=== PATIENT | female | born 1970 | race Caucasian/White ===

== ENCOUNTER 2016-04-19 20:09 | Emergency (ER) | payer MEDICAID, OTHER ==
[~2016-04-19 20:09] MED LIST: /ADVA50050; /ADVA50050 IN; /CARB20TAB; /CARB20TAB OR; /ESOM40CA; /ESOM40CA OR; ADV500INH INH; ALBUTEROL INHL INH; ASPI325T; ATEN100T OR; ATEN100T PO; CALC12502; CARB20TA PO; CARB300C OR; CENTRUM; CENTRUM ULTRA WOMENS PO; CIPR500T4 OR; DICY20TA2; DYAZ37.5; GLIP10TA58 PO; GLIP10TA6 PO; GLUC500T OR; LOPI600T; LOTEPREDNOL; LOTEPREDNOL OU; METF-414 PO; METF500T PO; MIRA3350 PO; MIRALEX PO; NEXI40CA PO; OSCAL PO; PATANOL OU; SERO200T; SERO200T OR; SERO200T PO; SING10TA31; SING10TA31 OR; SING10TA32 PO; TENO100T; TOPA100T8 PO; TOPI100T; TOPI100T OR; TRAM50TA2 OR; TYLE325T5 PO; VITA500046 PO; VITA500C24 PO; VITA500T; VITA500T OR; ZYVO100T PO; [UNRECOGNIZED DRUG - OTHER]; albuterol inhl; polyethylene glycol
[2016-04-19] MEDS ORDERED: OXYCODONE/APAP 5MG/325MG(BULK) 1 TAB TAB As Ordered ONE (21:21)
--- NOTE | 2016-04-19 21:34 | EDDOCDS ---
Nurse's Notes [facility] Name: Thuy Brody Age: 46 yrs Sex: Female : 1970 Arrival Date: 04/19/2016 Time: 20:09 Bed TR8 Private MD: Biju Cifuentes Diagnosis: Other diseases of lip and oral mucosa-abscess vs cold sore Presentation: 04/19 20:17 Presenting complaint: Patient states: lip swelling x 5 days. Pt reports seen at [facility] yesterday and started on Bactrim. Pt reports swelling has increased since yesterday. Adult Sepsis Screening: The patient does not have new or worsening altered mentation. Patient's respiratory rate is less than 22. Systolic blood pressure is greater than 100. Patient has a qSOFA score of 0- Negative Sepsis Screen. Suicide/Homicide risk assessment- the patient denies having any suicidal and/or homicidal ideations and does not present with any other emotional, behavioral or mental health complaints. 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 Transition of care: patient was not received from another setting of care. 20:17 Acuity: ANNAMARIA Level 4 [facility] 20:17 Method Of Arrival: Walkin/Carried/Asstd 3 Triage Assessment: 20:20 General: Appears in no apparent distress, comfortable, Behavior is appropriate for age, kc3 cooperative. Pain: Location: lower lip Pain currently is 8 out of 10 on a pain scale. HIV screening NA for this visit Offered previously. Respiratory: Airway is patent Respiratory effort is even, unlabored. Derm: Skin is pink, warm & dry. Swollen area noted on lower lip. 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 Atenolol 10 mg Oral 1 tab once daily 2. glipizide 10 mg Oral tab 1 tab once daily 3. metformin 500 mg Oral tr24 2 tabs twice a day 4. Nexium 20 mg Oral cpDR 1 cap once daily 5. Seroquel 200 mg Oral tab 1 tab once daily 6. Singulair 10 mg Oral tab 1 tab once daily 7. Tegretol 200 mg Oral tab 1.5 tab a.m. 8. Tegretol 200 mg Oral tab 2 tabs nightly 9. Topamax 100 mg Oral tab daily - PMHx: Bipolar disorder; Depression; Diabetes - NIDDM: controlled; GERD; Hypertension; Seasonal Allergies; Migraine Headaches; - PSHx: Knee surgery- Left; femur surgery; left shoulder ortho surgery; - Social history: Smoking status: Patient states was never smoker of tobacco. No barriers to communication noted, The patient speaks fluent Ukrainian, Speaks appropriately for age. - Family history: Not pertinent. - : The pt / caregiver states he / she is not on anticoagulants. Home medication list is obtained from the patient. - Exposure Risk Screening:: None identified. Screenin:10 Infection Control. gr2 21:27 Screening information is obtained from the patient. Fall risk: No risks identified. cz Assistance ADL's: requires no assistance with activities of daily living. Abuse/DV Screen: The patient / caregiver reports he/she is: not in a situation that causes fear, pain or injury. Nutritional screening: No deficits noted. home support is adequate. Assessment: 21:27 General: alert female with swelling of lower lip left side. cz Vital Signs: 20:11 BP 167 / 77; Pulse 87; Resp 18 S; Temp 97.9(O); Pulse Ox 97% on R/A; Weight 115.67 kg gr2 (R); Height 5 ft. 6 in. (167.64 cm) (R); Pain 7/10; 20:11 Body Mass Index 41.16 (115.67 kg, 167.64 cm) gr2 Vitals: 20:11 Log In Time: April 19, 2016 at 20:11. gr2 ED Course: 20:10 Patient visited by Shania Wren. gr2 20:10 Biju Cifuentes is Private Physician. gr2 20:10 Patient moved to Waiting gr2 20:12 Patient visited by Shania Wren. gr2 20:12 Patient moved to Pre RCE gr2 20:19 Triage Initiated kc3 20:26 Patient name changed from Thuy\S\Kia\S\Ratcliff\S\ to Thuy\S\A\S\Best. EDMS 20:31 [facility] Payment Agreement was scanned into [employer] and attached to record. zo 20:46 Patient moved to Triage 2 cz 21:07 Manuel Acosta FNP is [facility]. ke 21:07 Patient visited by Manuel Acosta FNP. ke 21:07 Patient visited by Manuel Acosta FNP. ke 21:19 Biju Cifuentes is Referral Physician. ke 21:26 Patient moved to TR8 cz 21:27 The patient / caregiver is instructed regarding the plan of care and ED course. cz 21:27 No IV's were initiated during this patient's visit. No procedures done that require cz assistance. Administered Medications: 21:33 Drug: oxyCODONE-acetaminophen 4 pack 1 packets [oxycodone-acetaminophen 5 mg-325 mg cz tablet (1 tabs)] {Co-Signature: kerrie (Iva Mallory RN).} Route: PO; Order Results: There are currently no results for this order. Outcome: 21:20 Discharge ordered by Provider. ke 21:26 Discharge Assessment: Patient awake, alert and oriented x 3. No cognitive and/or cz functional deficits noted. Patient verbalized understanding of disposition instructions. patient administered narcotics - no. The following High Risk Discharge criteria are identified: None. Discharged to home ambulatory. Condition: stable. Discharge instructions given to patient, Instructed on discharge instructions, follow up and referral plans. medication usage, Demonstrated understanding of instructions, medications, Pt was receptive of discharge instructions/ teaching. No special radiology studies were completed. Property :Personal belongings accompany Pt. 21:33 Patient left the ED. cz Signatures: Dispatcher [employer] EDMS Gaston Dey RN RN cz Elsner, Karl, FNP FNP ke Olin, Zoeann zo Raymond, Gainslee gr2 Daisy Hall RN RN kc3 Iva Mallory RN, mcp MTDD
--- NOTE | 2016-04-19 21:34 | EDDOCDS ---
Physician Documentation [facility] Name: Thuy Brody Age: 46 yrs Sex: Female : 1970 Arrival Date: 04/19/2016 Time: 20:09 Bed TR8 Private MD: Biju Cifuentes Disposition: 04/19/16 21:20 Discharged to Home/Self Care. Impression: Other diseases of lip and oral mucosa - abscess vs cold sore. - Condition is Stable. - Discharge Instructions: Abscess. - Medication Reconciliation, Local Pharmacy Hours form. - Follow up: Biju Cifuentes; When: 2 - 3 days; Reason: Recheck today's complaints, Continuance of care. - Problem is an ongoing problem. - Symptoms have worsened. - Notes: cool compresses do not squeeze lip Historical: - Allergies: Ceftin; - Home Meds: 1. Atenolol 10 mg Oral 1 tab once daily 2. glipizide 10 mg Oral tab 1 tab once daily 3. metformin 500 mg Oral tr24 2 tabs twice a day 4. Nexium 20 mg Oral cpDR 1 cap once daily 5. Seroquel 200 mg Oral tab 1 tab once daily 6. Singulair 10 mg Oral tab 1 tab once daily 7. Tegretol 200 mg Oral tab 1.5 tab a.m. 8. Tegretol 200 mg Oral tab 2 tabs nightly 9. Topamax 100 mg Oral tab daily - PMHx: Bipolar disorder; Depression; Diabetes - NIDDM: controlled; GERD; Hypertension; Seasonal Allergies; Migraine Headaches; - PSHx: Knee surgery- Left; femur surgery; left shoulder ortho surgery; - Social history: Smoking status: Patient states was never smoker of tobacco. No barriers to communication noted, The patient speaks fluent Swiss, Speaks appropriately for age. - Family history: Not pertinent. - : The pt / caregiver states he / she is not on anticoagulants. Home medication list is obtained from the patient. - Exposure Risk Screening:: None identified. 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 6 in. (167.64 cm) (R); Pain 7/10; 20:11 Body Mass Index 41.16 (115.67 kg, 167.64 cm) gr2 MDM: 20:31 [facility] Payment Agreement was scanned into [employer] and attached to record. zo 21:19 oxyCODONE-acetaminophen 4 pack 5 mg-325 mg 1 packets PO once; Dispense with pt, take as ke per instruction on package ordered. 21:20 Financial registration complete. gjb Administered Medications: 21:33 Drug: oxyCODONE-acetaminophen 4 pack 1 packets [oxycodone-acetaminophen 5 mg-325 mg cz tablet (1 tabs)] {Co-Signature: mcp (Iva Mallory RN).} Route: PO; Signatures: Gaston Dey, ELLIOT RN Manuel Salazar FNP FNP ke Olin, Zoeann zo Crane, Kelsi, RN RN kc3 Marguerite Moore RN, mcp The chart was reviewed and I authenticate all verbal orders and agree with the evaluation and treatment provided.Attachments: 20:31 [facility] Payment Agreement zo MTDD
--- NOTE | 2016-04-21 22:34 | EDDOCDS ---
Nurse's Notes [facility] Name: Thuy Brody Age: 46 yrs Sex: Female : 1970 Arrival Date: 04/19/2016 Time: 20:09 Bed TR8 Private MD: Biju Cifuentse Diagnosis: Other diseases of lip and oral mucosa-abscess vs cold sore Presentation: 04/19 20:17 Presenting complaint: Patient states: lip swelling x 5 days. Pt reports seen at [facility] yesterday and started on Bactrim. Pt reports swelling has increased since yesterday. Adult Sepsis Screening: The patient does not have new or worsening altered mentation. Patient's respiratory rate is less than 22. Systolic blood pressure is greater than 100. Patient has a qSOFA score of 0- Negative Sepsis Screen. Suicide/Homicide risk assessment- the patient denies having any suicidal and/or homicidal ideations and does not present with any other emotional, behavioral or mental health complaints. 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 Transition of care: patient was not received from another setting of care. 20:17 Acuity: ANNAMARIA Level 4 [facility] 20:17 Method Of Arrival: Walkin/Carried/Asstd 3 Triage Assessment: 20:20 General: Appears in no apparent distress, comfortable, Behavior is appropriate for age, kc3 cooperative. Pain: Location: lower lip Pain currently is 8 out of 10 on a pain scale. HIV screening NA for this visit Offered previously. Respiratory: Airway is patent Respiratory effort is even, unlabored. Derm: Skin is pink, warm & dry. Swollen area noted on lower lip. 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 Atenolol 10 mg Oral 1 tab once daily 2. glipizide 10 mg Oral tab 1 tab once daily 3. metformin 500 mg Oral tr24 2 tabs twice a day 4. Nexium 20 mg Oral cpDR 1 cap once daily 5. Seroquel 200 mg Oral tab 1 tab once daily 6. Singulair 10 mg Oral tab 1 tab once daily 7. Tegretol 200 mg Oral tab 1.5 tab a.m. 8. Tegretol 200 mg Oral tab 2 tabs nightly 9. Topamax 100 mg Oral tab daily - PMHx: Bipolar disorder; Depression; Diabetes - NIDDM: controlled; GERD; Hypertension; Seasonal Allergies; Migraine Headaches; - PSHx: Knee surgery- Left; femur surgery; left shoulder ortho surgery; - Social history: Smoking status: Patient states was never smoker of tobacco. No barriers to communication noted, The patient speaks fluent [place], Speaks appropriately for age. - Family history: Not pertinent. - : The pt / caregiver states he / she is not on anticoagulants. Home medication list is obtained from the patient. - Exposure Risk Screening:: None identified. Screenin:10 Infection Control. gr2 21:27 Screening information is obtained from the patient. Fall risk: No risks identified. cz Assistance ADL's: requires no assistance with activities of daily living. Abuse/DV Screen: The patient / caregiver reports he/she is: not in a situation that causes fear, pain or injury. Nutritional screening: No deficits noted. home support is adequate. Assessment: 21:27 General: alert female with swelling of lower lip left side. cz Vital Signs: 20:11 BP 167 / 77; Pulse 87; Resp 18 S; Temp 97.9(O); Pulse Ox 97% on R/A; Weight 115.67 kg gr2 (R); Height 5 ft. 6 in. (167.64 cm) (R); Pain 7/10; 20:11 Body Mass Index 41.16 (115.67 kg, 167.64 cm) gr2 Vitals: 20:11 Log In Time: April 19, 2016 at 20:11. gr2 ED Course: 20:10 Patient visited by Shania Wren. gr2 20:10 Biju Cifuentes is Private Physician. gr2 20:10 Patient moved to Waiting gr2 20:12 Patient visited by Shania Wren. gr2 20:12 Patient moved to Pre RCE gr2 20:19 Triage Initiated kc3 20:26 Patient name changed from Thuy\S\Kia\S\[place]\S\ to Thuy\S\A\S\Best. EDMS 20:31 [facility] Payment Agreement was scanned into [employer] and attached to record. zo 20:46 Patient moved to Triage 2 cz 21:07 Manuel Acosta FNP is [facility]. ke 21:07 Patient visited by Manuel Acosta FNP. ke 21:07 Patient visited by Manuel Acosta FNP. ke 21:19 Biju Cifuentes is Referral Physician. ke 21:26 Patient moved to TR8 cz 21:27 The patient / caregiver is instructed regarding the plan of care and ED course. cz 21:27 No IV's were initiated during this patient's visit. No procedures done that require cz assistance. 04/20 09:15 T-Sheet-- Draft Copy was scanned into [employer] and attached to record. gb Administered Medications: 04/19 21:33 Drug: oxyCODONE-acetaminophen 4 pack 1 packets [oxycodone-acetaminophen 5 mg-325 mg cz tablet (1 tabs)] {Co-Signature: mcp (Iva Mallory RN).} Route: PO; Order Results: There are currently no results for this order. Outcome: 21:20 Discharge ordered by Provider. ke 21:26 Discharge Assessment: Patient awake, alert and oriented x 3. No cognitive and/or cz functional deficits noted. Patient verbalized understanding of disposition instructions. patient administered narcotics - no. The following High Risk Discharge criteria are identified: None. Discharged to home ambulatory. Condition: stable. Discharge instructions given to patient, Instructed on discharge instructions, follow up and referral plans. medication usage, Demonstrated understanding of instructions, medications, Pt was receptive of discharge instructions/ teaching. No special radiology studies were completed. Property :Personal belongings accompany Pt. 21:33 Patient left the ED. cz Signatures: Dispatcher [employer] EDMS Gaston Dey, ELLIOT RN cz Aurelia Henriquez, Reg Reg Manuel Acosta FNP FNP ke Olin, Zoeann zo Raymond, Gainslee gr2 Daisy Hall,ELLIOT RN kc3 Iva Mallory RN, mcp Chart Complete MTDD
--- NOTE | 2016-04-21 22:34 | EDDOCDS ---
Physician Documentation [facility] Name: Thuy Brody Age: 46 yrs Sex: Female : 1970 Arrival Date: 04/19/2016 Time: 20:09 Bed TR8 Private MD: Biju Cifuenets Disposition: 04/19/16 21:20 Discharged to Home/Self Care. Impression: Other diseases of lip and oral mucosa - abscess vs cold sore. - Condition is Stable. - Discharge Instructions: Abscess. - Medication Reconciliation, Local Pharmacy Hours form. - Follow up: Biju Cifuentes; When: 2 - 3 days; Reason: Recheck today's complaints, Continuance of care. - Problem is an ongoing problem. - Symptoms have worsened. - Notes: cool compresses do not squeeze lip Historical: - Allergies: Ceftin; - Home Meds: 1. Atenolol 10 mg Oral 1 tab once daily 2. glipizide 10 mg Oral tab 1 tab once daily 3. metformin 500 mg Oral tr24 2 tabs twice a day 4. Nexium 20 mg Oral cpDR 1 cap once daily 5. Seroquel 200 mg Oral tab 1 tab once daily 6. Singulair 10 mg Oral tab 1 tab once daily 7. Tegretol 200 mg Oral tab 1.5 tab a.m. 8. Tegretol 200 mg Oral tab 2 tabs nightly 9. Topamax 100 mg Oral tab daily - PMHx: Bipolar disorder; Depression; Diabetes - NIDDM: controlled; GERD; Hypertension; Seasonal Allergies; Migraine Headaches; - PSHx: Knee surgery- Left; femur surgery; left shoulder ortho surgery; - Social history: Smoking status: Patient states was never smoker of tobacco. No barriers to communication noted, The patient speaks fluent Central African, Speaks appropriately for age. - Family history: Not pertinent. - : The pt / caregiver states he / she is not on anticoagulants. Home medication list is obtained from the patient. - Exposure Risk Screening:: None identified. 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 6 in. (167.64 cm) (R); Pain 7/10; 20:11 Body Mass Index 41.16 (115.67 kg, 167.64 cm) gr2 MDM: 20:31 [facility] Payment Agreement was scanned into [email or web address] and attached to record. zo 21:19 oxyCODONE-acetaminophen 4 pack 5 mg-325 mg 1 packets PO once; Dispense with pt, take as ke per instruction on package ordered. 21:20 Financial registration complete. gjb 04/20 09:15 T-Sheet-- Draft Copy was scanned into [email or web address] and attached to record. gb Administered Medications: 04/19 21:33 Drug: oxyCODONE-acetaminophen 4 pack 1 packets [oxycodone-acetaminophen 5 mg-325 mg cz tablet (1 tabs)] {Co-Signature: kerrie (Iva Mallory RN).} Route: PO; Signatures: Gaston Dey, ELLIOT RN cz Florence, Aurelia, Reg Reg Manuel Olguin, ARCADE GAMES MECHANIC Fatuma Levin Kelsi, RN RN kc3 Marguerite Moore RN, mcp The chart was reviewed and I authenticate all verbal orders and agree with the evaluation and treatment provided.Attachments: 20:31 [facility] Payment Agreement zo 04/20 09:15 T-Sheet-- Draft Copy gb Chart Complete MTDD
--- NOTE | 2016-04-21 22:34 | EDDOCDS ---
Physician Documentation [facility] Name: Thuy Brody Age: 46 yrs Sex: Female : 1970 Arrival Date: 04/19/2016 Time: 20:09 Bed TR8 Private MD: Biju Cifuentes Disposition: 04/19/16 21:20 Discharged to Home/Self Care. Impression: Other diseases of lip and oral mucosa - abscess vs cold sore. - Condition is Stable. - Discharge Instructions: Abscess. - Medication Reconciliation, Local Pharmacy Hours form. - Follow up: Biju Cifuentes; When: 2 - 3 days; Reason: Recheck today's complaints, Continuance of care. - Problem is an ongoing problem. - Symptoms have worsened. - Notes: cool compresses do not squeeze lip Historical: - Allergies: Ceftin; - Home Meds: 1. Atenolol 10 mg Oral 1 tab once daily 2. glipizide 10 mg Oral tab 1 tab once daily 3. metformin 500 mg Oral tr24 2 tabs twice a day 4. Nexium 20 mg Oral cpDR 1 cap once daily 5. Seroquel 200 mg Oral tab 1 tab once daily 6. Singulair 10 mg Oral tab 1 tab once daily 7. Tegretol 200 mg Oral tab 1.5 tab a.m. 8. Tegretol 200 mg Oral tab 2 tabs nightly 9. Topamax 100 mg Oral tab daily - PMHx: Bipolar disorder; Depression; Diabetes - NIDDM: controlled; GERD; Hypertension; Seasonal Allergies; Migraine Headaches; - PSHx: Knee surgery- Left; femur surgery; left shoulder ortho surgery; - Social history: Smoking status: Patient states was never smoker of tobacco. No barriers to communication noted, The patient speaks fluent [place], Speaks appropriately for age. - Family history: Not pertinent. - : The pt / caregiver states he / she is not on anticoagulants. Home medication list is obtained from the patient. - Exposure Risk Screening:: None identified. 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 6 in. (167.64 cm) (R); Pain 7/10; 20:11 Body Mass Index 41.16 (115.67 kg, 167.64 cm) gr2 MDM: 20:31 [facility] Payment Agreement was scanned into [employer] and attached to record. zo 21:19 oxyCODONE-acetaminophen 4 pack 5 mg-325 mg 1 packets PO once; Dispense with pt, take as ke per instruction on package ordered. 21:20 Financial registration complete. gjb 04/20 09:15 T-Sheet-- Draft Copy was scanned into [employer] and attached to record. gb Administered Medications: 04/19 21:33 Drug: oxyCODONE-acetaminophen 4 pack 1 packets [oxycodone-acetaminophen 5 mg-325 mg cz tablet (1 tabs)] {Co-Signature: kerrie (Iva Mallory RN).} Route: PO; Signatures: Gaston Dey, ELLIOT RN cz [place], Aurelia, Reg Reg Manuel Olguin, AIRCRAFT MAINTENANCE DIRECTOR Fatuma Levin Kelsi, RN RN kc3 Marguerite Moore RN, mcp The chart was reviewed and I authenticate all verbal orders and agree with the evaluation and treatment provided.Attachments: 20:31 [facility] Payment Agreement zo 04/20 09:15 T-Sheet-- Draft Copy gb Chart Complete MTDD
== END 2016-04-19 21:33 | disposition home or self-care (01) ==
LOC: M ED 20:09
DX: K13.0 Diseases of lips (principal); F31.9 Bipolar disorder, unspecified; E11.9 Type 2 diabetes mellitus without complications; K21.9 Gastro-esophageal reflux disease without esophagitis; I10 Essential (primary) hypertension; J30.2 Other seasonal allergic rhinitis; G43.909 Migraine, unspecified, not intractable, without status migrainosus; Z79.899 Other long term (current) drug therapy; Z88.8 Allergy status to other drugs, medicaments and biological substances

== ENCOUNTER → 2016-05-23 | Outpatient (CLI) | payer OTHER, MEDICAID ==
[2016-05-23 18:11] LABS: ALBUMIN 3.4 GM/DL (3.2-5.2); ALBUMIN/GLOBULIN RATIO 0.77 (1.00-1.93); ALKALINE PHOSPHATASE 60 U/L (45-117); ALT/SGPT 25 U/L (12-78); ANION GAP 10 MEQ/L (8-16); AST/SGOT 19 U/L (15-37); BILIRUBIN,TOTAL 0.2 MG/DL (0.2-1.0); BLOOD UREA NITROGEN 8 MG/DL (7-18); CALCIUM LEVEL 8.8 MG/DL (8.5-10.1); CARBON DIOXIDE LEVEL 28 MEQ/L (21-32); CHLORIDE LEVEL 97 MEQ/L (98-107); CHOLESTEROL LEVEL 226 MG/DL (<200); CREATININE FOR GFR 0.57 MG/DL (0.55-1.02); GLOMERULAR FILTRATION RATE > 60.0 (>58); GLUCOSE, FASTING 216 MG/DL (70-105); POTASSIUM SERUM 4.3 MEQ/L (3.5-5.1); SODIUM LEVEL 135 MEQ/L (136-145); TOTAL PROTEIN 7.8 GM/DL (6.4-8.2); TRIGLYCERIDES LEVEL 596 MG/DL (<150)
== END ==
LOC: M SMT 14:56
PROVIDERS: ATTEND Family Medicine Addiction Medicine
DX: E11.9 Type 2 diabetes mellitus without complications (principal)

== ENCOUNTER → 2016-08-23 | Outpatient (CLI) | payer OTHER, MEDICAID ==
[2016-08-23 17:43] LABS: ALBUMIN 3.1 GM/DL (3.2-5.2); ALBUMIN/GLOBULIN RATIO 0.63 (1.00-1.93); ALKALINE PHOSPHATASE 58 U/L (45-117); ALT/SGPT 23 U/L (12-78); AST/SGOT 31 U/L (15-37); BILIRUBIN,DIRECT < 0.1 MG/DL (0.0-0.2); BILIRUBIN,TOTAL 0.2 MG/DL (0.2-1.0); CARBAMAZEPINE (TEGRETOL) LEVEL 6.3 UG/ML (4.0-10.0)
[2016-08-23 18:34] LABS: BASO % 0.4 % (0.0-1.0); EOS # 0.3 K/mm3 (0.0-0.50); EOS % 2.9 % (0.0-3.0); LARGE UNSTAINED CELL # 0.1 K/mm3 (0.0-0.4); LYMPH # 2.5 K/mm3 (1.5-4.5); LYMPH % 21.6 % (24.0-44.0); MEAN CORPUSCULAR HEMOGLOBIN 28.8 pg (27.0-33.0); MEAN CORPUSCULAR HGB CONC 32.5 g/dl (32.0-36.5); MEAN CORPUSCULAR VOLUME 88.6 fl (80.0-96.0); MONO # 0.3 K/mm3 (0.0-0.8); MONO % 2.9 % (0.0-5.0); NEUTROPHILS % 71.2 % (36.0-66.0); PLATELET COUNT, AUTOMATED 336 k/mm3 (150-450); RED CELL DISTRIBUTION WIDTH 14.4 % (11.5-14.5); WHITE BLOOD COUNT 11.2 K/mm3 (4.0-10.0)
== END ==
LOC: M SMT 14:06
PROVIDERS: ATTEND Psychiatry & Neurology Psychiatry
DX: Z51.81 Encounter for therapeutic drug level monitoring (principal); Z79.899 Other long term (current) drug therapy

== ENCOUNTER → 2016-08-23 | Outpatient (CLI) | payer OTHER, MEDICAID ==
[2016-08-28 10:13] LABS: D001-IgE D pteronyssinus 3.66 kU/L (Class III); E001-IgE Cat Epith/Dander 4.17 kU/L (Class IV); E005-IgE Dog Dander 2.78 kU/L (Class III); G002-IgE Bermuda Grass 0.19 kU/L (Class 0/I); G008-IgE Kentucky Bluegrass 1.11 kU/L (Class II); M001-IgE Penicillium chrysogen < 0.10 kU/L (Class 0); M002 IgE Cladosporium herbaru < 0.10 kU/L (Class 0); M003 IgE Aspergillus fumigatu < 0.10 kU/L (Class 0); M006-IgE Alternaria alternata 0.44 kU/L (Class I); T001-IgE Maple/Box Elder 0.15 kU/L (Class 0/I); T003-IgE Common Silver Birch < 0.10 kU/L (Class 0); T007-IgE Oak, White < 0.10 kU/L (Class 0); T008-IgE Elm, American 0.14 kU/L (Class 0/I); T015-IgE Ash, White 0.19 kU/L (Class 0/I); T041-IgE Hickory, White 0.16 kU/L (Class 0/I); W001-IgE Ragweed, Short < 0.10 kU/L (Class 0); W014-IgE Pigweed, Rough 0.11 kU/L (Class 0/I); W018-IgE Sheep Sorrel 0.11 kU/L (Class 0/I)
== END ==
LOC: M SMT 14:09
PROVIDERS: ATTEND Internal Medicine Pulmonary Disease
DX: J45.30 Mild persistent asthma, uncomplicated (principal)

== ENCOUNTER → 2016-10-01 | Outpatient (REF) | payer OTHER, MEDICAID ==
[~2016-10-01] MED LIST changes: +CLIN150C14 PO; -GLIP10TA58 PO; +GLIP1TAB11 PO; +IBUP-1114 PO; +INVO100T PO; -METF500T PO; +METF500T13 PO; +NAPR500T PO; +PRIL20CA9 PO; +TOPA100T12 PO; -TOPA100T8 PO; +ZYRT10CA PO
== END ==
LOC: M SFHCWAGY 11:25
PROVIDERS: ATTEND Nurse Practitioner Family
DX: R35.0 Frequency of micturition (principal)

== ENCOUNTER → 2016-11-15 | Outpatient (CLI) | payer OTHER, MEDICAID ==
[2016-11-15 17:30] LABS: ALBUMIN 3.1 GM/DL (3.2-5.2); ALKALINE PHOSPHATASE 59 U/L (45-117); ALT/SGPT 21 U/L (12-78); ANION GAP 14 MEQ/L (8-16); AST/SGOT 11 U/L (15-37); BILIRUBIN,TOTAL 0.2 MG/DL (0.2-1.0); BLOOD UREA NITROGEN 16 MG/DL (7-18); CALCIUM LEVEL 8.4 MG/DL (8.5-10.1); CARBON DIOXIDE LEVEL 26 MEQ/L (21-32); CHLORIDE LEVEL 97 MEQ/L (98-107); CHOLESTEROL LEVEL 276 MG/DL (<200); CREATININE FOR GFR 0.58 MG/DL (0.55-1.02); GLOMERULAR FILTRATION RATE > 60.0 (>58); GLUCOSE, FASTING 337 MG/DL (70-105); POTASSIUM SERUM 4.7 MEQ/L (3.5-5.1); SODIUM LEVEL 137 MEQ/L (136-145); TOTAL PROTEIN 8.3 GM/DL (6.4-8.2); TRIGLYCERIDES LEVEL 830 MG/DL (<150)
== END ==
LOC: M SMT 11:20
PROVIDERS: ATTEND Family Medicine Addiction Medicine
DX: E11.9 Type 2 diabetes mellitus without complications (principal)

== ENCOUNTER → 2016-11-18 | Outpatient (CLI) | payer OTHER ==
--- NOTE | 2016-11-18 16:44 | REP ---
Right shoulder three views: Comparisons 04/07/2012. The acromioclavicular glenohumeral articulations are unremarkable. There is calcification in relation to the humeral tuberosities and superimposed over the humeral head, possibly calcific tendonitis. CT might be considered for further evaluation of these calcifications and their precise location in relation to the rotator cuff. The subacromial space is unremarkable. Mineralization is normal. There is no fracture or dislocation. Impression: Calcifications in relation to the humeral tuberosities and humeral head. Consider CT for better localization of these calcifications. They may be related to tendinopathy. The acromioclavicular glenohumeral articulations are unremarkable. There is no fracture or dislocation. Signed by Jewel Montoya MD 11/18/2016 04:35 P
== END ==
LOC: M RAD 16:08
PROVIDERS: ATTEND Family Medicine Addiction Medicine
DX: M75.31 Calcific tendinitis of right shoulder (principal); M25.511 Pain in right shoulder

== ENCOUNTER 2016-12-14 07:45 | Emergency (ER) | payer OTHER ==
[~2016-12-14] VITALS: Ht 167.6 cm; Wt 110.9 kg
[~2016-12-14 07:45] MED LIST changes: -CLIN150C14 PO; -IBUP-1114 PO; -INVO100T PO; -NAPR500T PO; -PRIL20CA9 PO; -ZYRT10CA PO
[2016-12-14] MEDS ORDERED: ZYRT10CA PO (07:56)
[2016-12-14] MEDS ORDERED: PRIL20CA9 PO (07:56)
[2016-12-14] MEDS ORDERED: INVO100T PO (07:56)
[2016-12-14] MEDS ORDERED: IBUP-1114 PO (07:56)
[2016-12-14] MEDS ORDERED: CLINDAMYCIN 900 MG in APPROPRIATE DILUENT 1 EA IV ONE (08:15)
[2016-12-14] MEDS ORDERED: KETOROLAC 30 MG/ML VIAL (J1885) IV ONE (08:30)
[2016-12-14 08:55] LABS: BASO % 0.3 % (0.0-1.0); EOS # 0.3 10^3/uL (0.0-0.50); EOS % 2.9 % (0.0-3.0); IMMATURE GRANULOCYTE % 0.4 % (0-0); LYMPH # 2.4 10^3/uL (1.5-4.5); LYMPH % 19.8 % (24.0-44.0); MEAN CORPUSCULAR HEMOGLOBIN 28.4 pg (27.0-33.0); MEAN CORPUSCULAR HGB CONC 32.4 g/dl (32.0-36.5); MEAN CORPUSCULAR VOLUME 87.7 fl (80.0-96.0); MONO # 0.7 10^3/uL (0.0-0.8); NEUTROPHILS # 8.4 10^3/uL (1.8-7.7); NEUTROPHILS % 70.6 % (36.0-66.0); PLATELET COUNT, AUTOMATED 283 10^3/uL (150-450); RED CELL DISTRIBUTION WIDTH 14.4 % (11.5-14.5); WHITE BLOOD COUNT 11.8 10^3/uL (4.0-10.0)
[2016-12-14 09:13] LABS: ALBUMIN 3.2 GM/DL (3.2-5.2); ALBUMIN/GLOBULIN RATIO 0.65 (1.00-1.93); ALKALINE PHOSPHATASE 56 U/L (45-117); ALT/SGPT 21 U/L (12-78); ANION GAP 8 MEQ/L (8-16); AST/SGOT 18 U/L (15-37); BILIRUBIN,TOTAL 0.2 MG/DL (0.2-1.0); BLOOD UREA NITROGEN 7 MG/DL (7-18); CALCIUM LEVEL 8.7 MG/DL (8.5-10.1); CARBON DIOXIDE LEVEL 25 MEQ/L (21-32); CHLORIDE LEVEL 104 MEQ/L (98-107); CREATININE FOR GFR 0.61 MG/DL (0.55-1.02); GLOMERULAR FILTRATION RATE > 60.0 (>58); GLUCOSE, FASTING 262 MG/DL (70-105); SODIUM LEVEL 137 MEQ/L (136-145); TOTAL PROTEIN 8.1 GM/DL (6.4-8.2)
[2016-12-14 09:29] LABS: ERYTHROCYTE SEDIMENTATION RATE 41 mm/hr (0-20)
[2016-12-14] MEDS ORDERED: ISOVUE-370 76% 100ML VIAL (Q9967) As Ordered ONE (09:31)
[2016-12-14] MEDS ORDERED: CLIN150C14 PO (10:07)
[2016-12-14] MEDS ORDERED: NAPR500T PO (10:08)
[2016-12-14 10:16] VITALS: BP 187/92
--- NOTE | 2016-12-14 11:58 | REP ---
Maxillofacial CT study with IV contrast: History: Left eyelid swelling. CT contrast dose: 75 mL of intravenous Isovue 370 is administered. Comparison study: October 15, 2013. CT findings: The paranasal sinuses are clear bilaterally. Bony orbital and paranasal sinus margins are intact. No intraorbital mass, hematoma or abscess is seen. There is soft tissue fullness on the left at the medial aspect of the orbit in a pattern consistent with dacryocystitis of the left eye. The nasolacrimal sac appears somewhat distended. No soft tissue gas is seen. Impression: Findings consistent with acute dacryocystitis left eye. No other abnormal fluid collection seen. No intraorbital lesion seen. Paranasal sinuses are clear. Signed by Reinier Seals MD 12/14/2016 02:18 P
== END 2016-12-14 10:27 | disposition home or self-care (01) ==
LOC: M ED 07:45
DX: H04.322 Acute dacryocystitis of left lacrimal passage (principal); E11.65 Type 2 diabetes mellitus with hyperglycemia; I10 Essential (primary) hypertension; J45.909 Unspecified asthma, uncomplicated; G47.30 Sleep apnea, unspecified; K76.0 Fatty (change of) liver, not elsewhere classified; F31.9 Bipolar disorder, unspecified; M46.96 Unspecified inflammatory spondylopathy, lumbar region; Z79.899 Other long term (current) drug therapy; Z88.8 Allergy status to other drugs, medicaments and biological substances; Z88.1 Allergy status to other antibiotic agents
CPT/HCPCS: 70487; 80053; 85025; 85652; 86140; 96374; 96375; 99283; J1885; Q9967

== ENCOUNTER → 2016-12-17 | Outpatient (REF) | payer OTHER ==
[~2016-12-17] MED LIST changes: +CLIN150C14 PO; +IBUP-1114 PO; +INVO100T PO; +NAPR500T PO; +PRIL20CA9 PO; +ZYRT10CA PO
== END ==
LOC: M SFHCWAGY 16:07
PROVIDERS: ATTEND Nurse Practitioner Women's Health
DX: Z12.4 Encounter for screening for malignant neoplasm of cervix (principal)

== ENCOUNTER 2017-04-20 13:13 | Emergency (ER) | payer OTHER, MEDICAID ==
[2017-04-20 14:15] LABS: BASO # 0.1 10^3/uL (0.0-0.2); BASO % 0.4 % (0.0-1.0); EOS # 0.4 10^3/uL (0.0-0.50); EOS % 3.3 % (0.0-3.0); HEMATOCRIT 41.7 % (36.0-47.0); HEMOGLOBIN 13.7 g/dl (12.0-16.0); IMMATURE GRANULOCYTE % 0.6 % (0-3.0); LYMPH # 3.3 10^3/uL (1.5-4.5); LYMPH % 27.2 % (24.0-44.0); MEAN CORPUSCULAR HEMOGLOBIN 28.1 pg (27.0-33.0); MEAN CORPUSCULAR HGB CONC 32.9 g/dl (32.0-36.5); MEAN CORPUSCULAR VOLUME 85.5 fl (80.0-96.0); MONO # 0.5 10^3/uL (0.0-0.8); MONO % 4.3 % (0.0-5.0); NEUTROPHILS # 7.8 10^3/uL (1.8-7.7); NEUTROPHILS % 64.2 % (36.0-66.0); PLATELET COUNT, AUTOMATED 311 10^3/uL (150-450); RED BLOOD COUNT 4.88 10^6/uL (4.00-5.40); RED CELL DISTRIBUTION WIDTH 13.6 % (11.5-14.5); WHITE BLOOD COUNT 12.1 10^3/uL (4.0-10.0)
[2017-04-20 14:22] LABS: D-DIMER QUANT 1195.7 ng/ml (<500)
[2017-04-20 14:26] LABS: ANION GAP 9 MEQ/L (8-16); BLOOD UREA NITROGEN 6 MG/DL (7-18); CARBAMAZEPINE (TEGRETOL) LEVEL 5.2 UG/ML (4.0-10.0); CARBON DIOXIDE LEVEL 30 MEQ/L (21-32); CHLORIDE LEVEL 97 MEQ/L (98-107); CPK CREATINE PHOSPHOKINASE 47 U/L (26-192); CREATININE FOR GFR 0.56 MG/DL (0.55-1.30); GLOMERULAR FILTRATION RATE > 60.0 (>58); GLUCOSE, FASTING 246 MG/DL (70-100); SODIUM LEVEL 136 MEQ/L (136-145); TROPONIN I < 0.02 NG/ML (< 0.10)
[2017-04-20 14:32] LABS: MB/CK RELATIVE INDEX 2.12 (< OR =4)
[2017-04-20] MEDS ORDERED: ISOVUE-370 76% 100ML VIAL (Q9967) As Ordered (14:40)
== END 2017-04-20 15:43 | disposition home or self-care (01) ==
LOC: M ED 13:13
DX: R00.2 Palpitations (principal); E11.9 Type 2 diabetes mellitus without complications; I10 Essential (primary) hypertension; J45.909 Unspecified asthma, uncomplicated; E66.9 Obesity, unspecified; F31.9 Bipolar disorder, unspecified; Z79.899 Other long term (current) drug therapy; Z79.84 Long term (current) use of oral hypoglycemic drugs; Z88.8 Allergy status to other drugs, medicaments and biological substances
CPT/HCPCS: Q9967

== ENCOUNTER → 2017-05-16 | Outpatient (CLI) | payer OTHER, MEDICAID ==
[2017-05-16 18:12] LABS: ALBUMIN 3.3 GM/DL (3.2-5.2); ALBUMIN/GLOBULIN RATIO 0.75 (1.00-1.93); ALKALINE PHOSPHATASE 63 U/L (45-117); ALT/SGPT 19 U/L (12-78); ANION GAP 10 MEQ/L (8-16); AST/SGOT 13 U/L (7-37); BILIRUBIN,TOTAL 0.3 MG/DL (0.2-1.0); BLOOD UREA NITROGEN 8 MG/DL (7-18); CALCIUM LEVEL 8.8 MG/DL (8.5-10.1); CARBON DIOXIDE LEVEL 27 MEQ/L (21-32); CHLORIDE LEVEL 100 MEQ/L (98-107); CHOLESTEROL LEVEL 227 MG/DL (<200); CHOLESTEROL RISK RATIO 6.305 (<5); CREATININE FOR GFR 0.56 MG/DL (0.55-1.30); GLOMERULAR FILTRATION RATE > 60.0 (>58); GLUCOSE, FASTING 236 MG/DL (70-100); HDL CHOLESTEROL 36 MG/DL (>40); LDL CHOLESTEROL 116.2 MG/DL (<100); NON-HDL-C 191 MG/DL; POTASSIUM SERUM 4.3 MEQ/L (3.5-5.1); SODIUM LEVEL 137 MEQ/L (136-145); TOTAL PROTEIN 7.7 GM/DL (6.4-8.2); TRIGLYCERIDES LEVEL 374 MG/DL (<150)
[2017-05-16 19:18] LABS: ESTIMATED AVERAGE GLUCOSE 229 MG/DL (60-110); HEMOGLOBIN A1c 9.6 %
== END ==
LOC: M SMT 12:52
DX: E11.9 Type 2 diabetes mellitus without complications (principal); M25.511 Pain in right shoulder; I10 Essential (primary) hypertension
CPT/HCPCS: 84443

== ENCOUNTER → 2017-05-16 | Outpatient (CLI) | payer OTHER, MEDICAID ==
[2017-05-16 17:57] LABS: BASO % 0.4 % (0.0-1.0); EOS # 0.3 10^3/uL (0.0-0.50); EOS % 3.4 % (0.0-3.0); HEMATOCRIT 41.4 % (36.0-47.0); HEMOGLOBIN 13.3 g/dl (12.0-16.0); IMMATURE GRANULOCYTE % 0.3 % (0-3.0); LYMPH # 2.6 10^3/uL (1.5-4.5); LYMPH % 26.2 % (24.0-44.0); MEAN CORPUSCULAR HEMOGLOBIN 27.6 pg (27.0-33.0); MEAN CORPUSCULAR HGB CONC 32.1 g/dl (32.0-36.5); MEAN CORPUSCULAR VOLUME 85.9 fl (80.0-96.0); MONO # 0.5 10^3/uL (0.0-0.8); MONO % 4.7 % (0.0-5.0); NEUTROPHILS # 6.6 10^3/uL (1.8-7.7); PLATELET COUNT, AUTOMATED 349 10^3/uL (150-450); RED BLOOD COUNT 4.82 10^6/uL (4.00-5.40); RED CELL DISTRIBUTION WIDTH 13.4 % (11.5-14.5); WHITE BLOOD COUNT 10.1 10^3/uL (4.0-10.0)
[2017-05-16 17:59] LABS: ALBUMIN 3.2 GM/DL (3.2-5.2); ALKALINE PHOSPHATASE 65 U/L (45-117); ALT/SGPT 21 U/L (12-78); AST/SGOT 15 U/L (7-37); BILIRUBIN,DIRECT 0.1 MG/DL (0.0-0.2); BILIRUBIN,TOTAL 0.3 MG/DL (0.2-1.0); CARBAMAZEPINE (TEGRETOL) LEVEL 5.4 UG/ML (4.0-10.0); TOTAL PROTEIN 7.8 GM/DL (6.4-8.2)
== END ==
LOC: M SMT 12:55
DX: Z79.899 Other long term (current) drug therapy (principal)
CPT/HCPCS: 80156

== ENCOUNTER → 2017-08-21 | Outpatient (CLI) | payer OTHER | LOC: M RAD 16:36 | DX: R05 Cough (principal) | CPT/HCPCS: 71046 ==

== ENCOUNTER → 2017-10-15 | Outpatient (CLI) | payer OTHER ==
[2017-10-15 13:58] LABS: ALBUMIN 3.3 GM/DL (3.2-5.2); ALKALINE PHOSPHATASE 63 U/L (45-117); ALT/SGPT 20 U/L (12-78); ANION GAP 9 MEQ/L (8-16); AST/SGOT 11 U/L (7-37); BILIRUBIN,TOTAL 0.2 MG/DL (0.2-1.0); BLOOD UREA NITROGEN 8 MG/DL (7-18); CALCIUM LEVEL 8.8 MG/DL (8.5-10.1); CARBON DIOXIDE LEVEL 25 MEQ/L (21-32); CHLORIDE LEVEL 104 MEQ/L (98-107); CHOLESTEROL LEVEL 220 MG/DL (<200); CREATININE FOR GFR 0.57 MG/DL (0.55-1.30); GLOMERULAR FILTRATION RATE > 60.0 (>58); GLUCOSE, FASTING 248 MG/DL (70-100); HDL CHOLESTEROL 34 MG/DL (>40); NON-HDL-C 186 MG/DL; POTASSIUM SERUM 4.4 MEQ/L (3.5-5.1); SODIUM LEVEL 138 MEQ/L (136-145); TRIGLYCERIDES LEVEL 454 MG/DL (<150)
[2017-10-15 14:13] LABS: ESTIMATED AVERAGE GLUCOSE 180 MG/DL (60-110); HEMOGLOBIN A1c 7.9 %
== END ==
LOC: M LAB 12:14
DX: E11.9 Type 2 diabetes mellitus without complications (principal); G56.23 Lesion of ulnar nerve, bilateral upper limbs
CPT/HCPCS: 93005

== ENCOUNTER → 2018-01-07 | Outpatient (CLI) | payer OTHER ==
[2018-01-07 14:24] LABS: ANION GAP 7 MEQ/L (8-16); BLOOD UREA NITROGEN 9 MG/DL (7-18); CALCIUM LEVEL 8.4 MG/DL (8.5-10.1); CARBON DIOXIDE LEVEL 27 MEQ/L (21-32); CHLORIDE LEVEL 101 MEQ/L (98-107); CREATININE FOR GFR 0.62 MG/DL (0.55-1.30); GLOMERULAR FILTRATION RATE > 60.0 (>58); GLUCOSE, FASTING 264 MG/DL (70-100); POTASSIUM SERUM 3.8 MEQ/L (3.5-5.1); SODIUM LEVEL 135 MEQ/L (136-145)
== END ==
LOC: M LAB 13:36
DX: Z01.818 Encounter for other preprocedural examination (principal); G56.21 Lesion of ulnar nerve, right upper limb; E11.9 Type 2 diabetes mellitus without complications
CPT/HCPCS: 80048

== ENCOUNTER → 2018-03-06 | Outpatient (CLI) | payer OTHER ==
[~2018-03-06] MED LIST changes: +ALLO100T PO; +ARNU1INH3 IN; +AZEL1SPR3; +DICY10CA13 PO; +FLUT1LOT EX; +FLUT44IN INH; +LISI-538 PO; +MECL-68 PO; +NAPR-50 PO; -NAPR500T PO; +STRI1AER2 IN; +VENTAER IN; -ZYVO100T PO; +ZYVO1TAB PO
[2018-03-06 18:27] LABS: BASO % 0.3 % (0.0-1.0); EOS # 0.7 10^3/uL (0.0-0.50); EOS % 5.7 % (0.0-3.0); HEMATOCRIT 45.1 % (36.0-47.0); HEMOGLOBIN 14.3 g/dl (12.0-15.5); LYMPH # 2.5 10^3/uL (1.5-4.5); LYMPH % 22.2 % (24.0-44.0); MEAN CORPUSCULAR HEMOGLOBIN 27.6 pg (27.0-33.0); MEAN CORPUSCULAR HGB CONC 31.7 g/dl (32.0-36.5); MEAN CORPUSCULAR VOLUME 86.9 fl (80.0-96.0); MONO # 0.5 10^3/uL (0.0-0.8); MONO % 4.4 % (0.0-5.0); NEUTROPHILS # 7.6 10^3/uL (1.8-7.7); NEUTROPHILS % 66.5 % (36.0-66.0); PLATELET COUNT, AUTOMATED 310 10^3/uL (150-450); RED BLOOD COUNT 5.19 10^6/uL (4.00-5.40); WHITE BLOOD COUNT 11.4 10^3/uL (4.0-10.0)
== END ==
LOC: M SMT 13:12
PROVIDERS: ATTEND Psychiatry & Neurology Psychiatry
DX: Z51.81 Encounter for therapeutic drug level monitoring (principal)

== ENCOUNTER 2018-08-20 06:55 | Emergency (ER) | payer MEDICAID, OTHER, SELFPAY ==
[~2018-08-20] VITALS: Ht 167.6 cm; Wt 103.8 kg
[~2018-08-20 06:55] MED LIST changes: -/ADVA50050; -/ADVA50050 IN; -/CARB20TAB; -/CARB20TAB OR; -/ESOM40CA; -/ESOM40CA OR; +ADVA1AER2; +ADVA1AER2 IN; +CARB1TAB20; +CARB1TAB20 OR; -NAPR-50 PO; +NAPR-837 PO; +NEXI1CAP3; +NEXI1CAP3 OR
[2018-08-20] MEDS ORDERED: DOXY100C37 (07:08)
[2018-08-20] MEDS ORDERED: CIPR-249 PO (07:08)
[2018-08-20] MEDS ORDERED: LIDOCAINE 2% W/EPIN INJ 20ML **PRES FREE INJ ONE (07:45)
[2018-08-20 08:09] LABS: BASO # 0.1 10^3/uL (0.0-0.2); BASO % 0.6 % (0.0-1.0); EOS # 0.4 10^3/uL (0.0-0.50); EOS % 3.4 % (0.0-3.0); HEMATOCRIT 43.4 % (36.0-47.0); LYMPH % 19.3 % (24.0-44.0); MEAN CORPUSCULAR HEMOGLOBIN 28.2 pg (27.0-33.0); MEAN CORPUSCULAR HGB CONC 32.3 g/dl (32.0-36.5); MEAN CORPUSCULAR VOLUME 87.3 fl (80.0-96.0); MONO # 0.7 10^3/uL (0.0-0.8); MONO % 6.2 % (0.0-5.0); NEUTROPHILS # 7.4 10^3/uL (1.8-7.7); NEUTROPHILS % 69.8 % (36.0-66.0); PLATELET COUNT, AUTOMATED 407 10^3/uL (150-450); RED BLOOD COUNT 4.97 10^6/uL (4.00-5.40); WHITE BLOOD COUNT 10.6 10^3/uL (4.0-10.0)
[2018-08-20 08:36] LABS: BLOOD UREA NITROGEN 9 MG/DL (7-18); CALCIUM LEVEL 8.3 MG/DL (8.5-10.1); CARBON DIOXIDE LEVEL 26 MEQ/L (21-32); CHLORIDE LEVEL 98 MEQ/L (98-107); CREATININE FOR GFR 0.66 MG/DL (0.55-1.30); GLOMERULAR FILTRATION RATE > 60.0 (>58); GLUCOSE, FASTING 333 MG/DL (70-100); POTASSIUM SERUM 4.6 MEQ/L (3.5-5.1); SODIUM LEVEL 134 MEQ/L (136-145)
[2018-08-20 09:31] VITALS: BP 136/79
== END 2018-08-20 09:45 | disposition home or self-care (01) ==
LOC: M ED 06:55
DX: L02.414 Cutaneous abscess of left upper limb (principal); E11.9 Type 2 diabetes mellitus without complications; I10 Essential (primary) hypertension; J45.909 Unspecified asthma, uncomplicated; G43.909 Migraine, unspecified, not intractable, without status migrainosus; K58.9 Irritable bowel syndrome, unspecified; K44.9 Diaphragmatic hernia without obstruction or gangrene; Z79.899 Other long term (current) drug therapy; Z79.84 Long term (current) use of oral hypoglycemic drugs; Z88.8 Allergy status to other drugs, medicaments and biological substances

== ENCOUNTER 2018-08-22 11:47 | Emergency (ER) | payer SELFPAY ==
[~2018-08-22] VITALS: Ht 167.6 cm; Wt 104.8 kg
[2018-08-22 11:47] VITALS: BP 142/68
[~2018-08-22 11:47] MED LIST changes: +CIPR-249 PO; +DOXY100C37
== END 2018-08-22 12:44 | disposition home or self-care (01) ==
LOC: M ED 11:47
DX: Z48.89 Encounter for other specified surgical aftercare (principal); L02.212 Cutaneous abscess of back [any part, except buttock and flank]; Z79.899 Other long term (current) drug therapy; Z88.1 Allergy status to other antibiotic agents; Z88.8 Allergy status to other drugs, medicaments and biological substances

== ENCOUNTER → 2018-10-07 | Outpatient (CLI) | payer MEDICAID ==
[2018-10-07 18:00] LABS: ALBUMIN 3.3 GM/DL (3.2-5.2); ALT/SGPT 16 U/L (12-78); BILIRUBIN,DIRECT < 0.1 MG/DL (0.0-0.2); BILIRUBIN,TOTAL 0.2 MG/DL (0.2-1.0); CARBAMAZEPINE (TEGRETOL) LEVEL 6.8 UG/ML (4.0-10.0)
== END ==
LOC: M SMT 14:01
PROVIDERS: ATTEND Psychiatry & Neurology Psychiatry
DX: Z51.81 Encounter for therapeutic drug level monitoring (principal)

== ENCOUNTER → 2018-10-09 | Outpatient (REF) | payer MEDICAID ==
[~2018-10-09] MED LIST changes: +ALOG25TA; -MECL-68 PO; +MECL1TAB31 PO; +PROM25TA12 PO
[2018-10-09 14:11] LABS: HEMATOCRIT 45.1 % (36.0-47.0); HEMOGLOBIN 14.2 g/dl (12.0-15.5); MEAN CORPUSCULAR HGB CONC 31.5 g/dl (32.0-36.5); PLATELET COUNT, AUTOMATED 330 10^3/uL (150-450); RED BLOOD COUNT 5.07 10^6/uL (4.00-5.40); WHITE BLOOD COUNT 11.2 10^3/uL (4.0-10.0)
== END ==
LOC: M LAB REF 13:23
PROVIDERS: ATTEND Psychiatry & Neurology Psychiatry
DX: Z51.81 Encounter for therapeutic drug level monitoring (principal); Z79.899 Other long term (current) drug therapy

== ENCOUNTER → 2018-11-06 | Outpatient (CLI) | payer OTHER ==
[~2018-11-06] MED LIST changes: -ALOG25TA; +MECL-68 PO; -MECL1TAB31 PO; -PROM25TA12 PO
--- NOTE | 2018-11-06 13:53 | REPMRS ---
Patient History The patient states she had a clinical breast exam in 11/2018. Patient is nulliparous. Family history of prostate cancer at age 50 or over in father. 3D TOMOSYNTHESIS WAS PERFORMED. [facility] lifetime risk for breast cancer is 13.3%. Digital Woman Screen Mammo: November 06, 2018 - Exam #: [id number] Bilateral CC and MLO view(s) were taken. Technologist: Francesca Salvador Technologist FINDINGS: There are scattered fibroglandular densities. There has been no change in the appearance of the mammogram from the prior studies. There is a mild amount of residual fibroglandular tissue which is fairly symmetric. There is no interval development of dominant mass, architectural distortion, or clustered microcalcification suggestive of malignancy. Assessment: BI-RADS/ACR category 1 mammogram. Negative Mammogram. Recommendation Routine screening mammogram in 1 year (for women over age 40). This mammogram was interpreted with the aid of an FDA-approved computer-aided dectection system. Electronically Signed By: Jewel Rich MD 11/06/18 [id number]
== END ==
LOC: M WHC 09:21
PROVIDERS: ATTEND Nurse Practitioner Women's Health
DX: Z12.31 Encounter for screening mammogram for malignant neoplasm of breast (principal); Z80.42 Family history of malignant neoplasm of prostate

== ENCOUNTER → 2018-11-24 | Outpatient (REF) | payer MEDICAID, OTHER ==
[2018-11-24 18:32] LABS: BASO % 0.2 % (0.0-1.0); EOS # 0.2 10^3/uL (0.0-0.5); EOS % 2.4 % (0.0-3.0); HEMATOCRIT 42.9 % (36.0-47.0); HEMOGLOBIN 13.9 g/dl (12.0-15.5); LYMPH # 1.7 10^3/uL (1.5-5.0); LYMPH % 18.2 % (24.0-44.0); MEAN CORPUSCULAR HEMOGLOBIN 28.5 pg (27.0-33.0); MEAN CORPUSCULAR HGB CONC 32.4 g/dl (32.0-36.5); MEAN CORPUSCULAR VOLUME 87.9 fl (80.0-96.0); MONO # 0.4 10^3/uL (0.0-0.8); NEUTROPHILS # 6.8 10^3/uL (1.5-8.5); NEUTROPHILS % 74.7 % (36.0-66.0); PLATELET COUNT, AUTOMATED 289 10^3/uL (150-450); RED BLOOD COUNT 4.88 10^6/uL (4.00-5.40); WHITE BLOOD COUNT 9.1 10^3/uL (4.0-10.0)
[2018-11-24 18:43] LABS: ALBUMIN 3.2 GM/DL (3.2-5.2); ALT/SGPT 22 U/L (12-78); BILIRUBIN,TOTAL 0.4 MG/DL (0.2-1.0); BLOOD UREA NITROGEN 6 MG/DL (7-18); CALCIUM LEVEL 8.5 MG/DL (8.5-10.1); CARBON DIOXIDE LEVEL 29 MEQ/L (21-32); CHLORIDE LEVEL 102 MEQ/L (98-107); CHOLESTEROL LEVEL 216 MG/DL (<200); CREATININE FOR GFR 0.48 MG/DL (0.55-1.30); FREE T4 0.94 NG/DL (0.76-1.46); GLOMERULAR FILTRATION RATE > 60.0 (>58); GLUCOSE, FASTING 232 MG/DL (70-100); HDL CHOLESTEROL 36 MG/DL (>40); LDL CHOLESTEROL 110 MG/DL (<100); NON-HDL-C 180 MG/DL; POTASSIUM SERUM 4.2 MEQ/L (3.5-5.1); SODIUM LEVEL 138 MEQ/L (136-145); TOTAL PROTEIN 7.9 GM/DL (6.4-8.2); TRIGLYCERIDES LEVEL 351 MG/DL (<150)
[2018-11-24 19:05] LABS: HEMOGLOBIN A1c 10.8 %
== END ==
LOC: M LAB REF 18:04
PROVIDERS: ATTEND Nurse Practitioner Family
DX: Z00.01 Encounter for general adult medical examination with abnormal findings (principal)

== ENCOUNTER 2019-02-05 08:06 | Emergency (ER) | payer MEDICAID, OTHER ==
[~2019-02-05] VITALS: Ht 167.6 cm; Wt 105.7 kg
[2019-02-05] MEDS ORDERED: ALOG25TA (08:15)
[2019-02-05] MEDS ORDERED: ONDANSETRON 4MG/2ML VIAL (J2405) IV ONE (09:30)
[2019-02-05] MEDS ORDERED: NS 1,000 ML IV ONE (09:30)
[2019-02-05 10:02] LABS: BASO # 0.1 10^3/uL (0.0-0.2); BASO % 0.4 % (0.0-1.0); EOS # 0.1 10^3/uL (0.0-0.5); EOS % 0.9 % (0.0-3.0); HEMATOCRIT 44.4 % (36.0-47.0); HEMOGLOBIN 14.4 g/dl (12.0-15.5); LYMPH % 17.3 % (24.0-44.0); MEAN CORPUSCULAR HEMOGLOBIN 28.2 pg (27.0-33.0); MEAN CORPUSCULAR HGB CONC 32.4 g/dl (32.0-36.5); MEAN CORPUSCULAR VOLUME 87.1 fl (80.0-96.0); MONO # 0.6 10^3/uL (0.0-0.8); MONO % 4.7 % (0.0-5.0); NEUTROPHILS % 76.1 % (36.0-66.0); PLATELET COUNT, AUTOMATED 339 10^3/uL (150-450); WHITE BLOOD COUNT 11.8 10^3/uL (4.0-10.0)
[2019-02-05 10:32] LABS: ALBUMIN 3.2 GM/DL (3.2-5.2); ALT/SGPT 30 U/L (12-78); BILIRUBIN,TOTAL 0.4 MG/DL (0.2-1.0); BLOOD UREA NITROGEN 8 MG/DL (7-18); CALCIUM LEVEL 8.7 MG/DL (8.5-10.1); CARBON DIOXIDE LEVEL 29 MEQ/L (21-32); CHLORIDE LEVEL 96 MEQ/L (98-107); CREATININE FOR GFR 0.68 MG/DL (0.55-1.30); GLOMERULAR FILTRATION RATE > 60.0 (>58); GLUCOSE, FASTING 336 MG/DL (70-100); LIPASE 79 U/L (73-393); SODIUM LEVEL 131 MEQ/L (136-145); TOTAL PROTEIN 8.8 GM/DL (6.4-8.2)
[2019-02-05 10:53] LABS: POTASSIUM SERUM 8.8 MEQ/L (3.5-5.1)
[2019-02-05] MEDS ORDERED: HumuLIN R (REGULAR) INSULIN (NovoLIN R) **100U/ML** PER UNIT IV ONE (11:00)
[2019-02-05 11:42] LABS: APPEARANCE, URINE CLEAR (CLEAR); BACTERIA, URINE AUTO NEGATIVE (NEGATIVE); BILIRUBIN, URINE AUTO NEGATIVE (NEGATIVE); BLOOD, URINE BLOOD NEGATIVE (NEGATIVE); COLOR, URINE YELLOW (YELLOW); GLUCOSE, URINE (UA) AUTO 3+ mg/dL (NEGATIVE); KETONE, URINE AUTO TRACE mg/dL (NEGATIVE); LEUKOCYTE ESTERASE, URINE AUTO NEGATIVE (NEGATIVE); MUCUS, URINE SMALL (NEGATIVE); NITRITE, URINE AUTO NEGATIVE (NEGATIVE); PROTEIN, URINE AUTO NEGATIVE (NEGATIVE); RBC, URINE AUTO 0 /HPF (0-3); SPECIFIC GRAVITY URINE AUTO 1.018 (1.002-1.035); SQUAMOUS EPITHELIAL CELL UR AU 2 /HPF (0-6); UROBILINOGEN, URINE AUTO 0.2 mg/dL (0.0-2.0); WBC, URINE AUTO 1 /HPF (0-3)
[2019-02-05] MEDS ORDERED: PROMETHAZINE INJ 25 MG/ML VIAL (J2550) IV ONE (12:00)
--- NOTE | 2019-02-05 12:49 | REP ---
The clinical: Nausea and vomiting. Technique: Two supine views of the abdomen and pelvis. Findings: The bowel gas pattern is nonspecific. No organomegaly. No obvious significant abnormal calcifications. Skeletal structures demonstrate age-related changes. Impression: Nonspecific abdominal radiographs. Electronically Signed by Marcos Barr MD 02/05/2019 12:40 P
--- NOTE | 2019-02-05 12:57 | REP ---
Clinical: Acute right upper quadrant abdominal pain. Technique: Rich scale ultrasound using curved array transducer. Comparison: 11/16/2015 Findings: The liver is diffusely increased echogenicity and enlarged measuring 22 cm in craniocaudal length. The pancreas appears normal. The gallbladder demonstrates 10 mm and 7 mm stable echogenic foci at the fundus without shadowing which are consistent with polyps. No further gallstones, wall thickening or pericholecystic fluid. No biliary ductal dilatation is appreciated, and the common bile duct measures 2.1 mm diameter. The right kidney is normal in reniform shape without hydronephrosis and measures 12.2 x 6.7 x 5.7 cm. No ascites. Visualized portions of the abdominal aorta normal. Impression: 1. Hepatomegaly and hepatic steatosis. 2. Two polyps within the gallbladder remains stable compared to 2016. Electronically Signed by Marocs Barr MD 02/05/2019 12:49 P
[2019-02-05] MEDS ORDERED: atenoloL 50 MG TAB PO ONE (13:45)
[2019-02-05] MEDS ORDERED: lisinopriL 20 MG TAB PO ONE (13:45)
--- NOTE | 2019-02-05 13:56 | ED PDOC ---
Post-Departure Follow-Up katy cavazos faxed fomral report of us for fu everg Bar Brewster MD Feb 05, 2019 13:56
[2019-02-05 14:02] VITALS: BP 183/100
[2019-02-05] MEDS ORDERED: PROM25TA12 PO (15:33)
[2019-02-05 15:46] VITALS: BP 138/76
--- NOTE | 2019-02-05 20:04 | ECGEPIP ---
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 Order Number: [id number] Reading MD: Monika Chinchilla Measurements Intervals [place] Rate: 78 P: 151 GA: 191 QRS: -22 QRSD: 97 T: 145 QT: 391 QTc: 447 Interpretive Statements ECTOPIC ATRIAL RHYTHM LOW QRS VOLTAGE IN EXTREMITY LEADS POSSIBLE ANTERIOR MYOCARDIAL INFARCTION, OF INDETERMINATE AGE Electronically Signed on 02-05-2019 20:04:20 EST by Monika Chinchilla
== END 2019-02-05 15:58 | disposition home or self-care (01) ==
LOC: M ED 08:06
DX: K82.4 Cholesterolosis of gallbladder (principal); E11.9 Type 2 diabetes mellitus without complications; I10 Essential (primary) hypertension; K76.0 Fatty (change of) liver, not elsewhere classified; E78.5 Hyperlipidemia, unspecified; Z88.8 Allergy status to other drugs, medicaments and biological substances; Z79.899 Other long term (current) drug therapy; Z79.84 Long term (current) use of oral hypoglycemic drugs
CPT/HCPCS: 74018; 76705; 80048; 80076; 81001; 83690; 84132; 85025; 93005; 93041; 96361; 96374; 96375; 99285; J2405

== ENCOUNTER → 2019-04-21 | Outpatient (CLI) | payer OTHER, MEDICAID ==
[~2019-04-21] MED LIST changes: +ALOG25TA; -MECL-68 PO; +MECL1TAB31 PO; +PROM25TA12 PO
== END ==
LOC: M LAB 11:50
PROVIDERS: ATTEND Psychiatry & Neurology Psychiatry
DX: Z79.899 Other long term (current) drug therapy (principal)

== ENCOUNTER → 2019-05-13 | Outpatient (CLI) | payer OTHER ==
[2019-05-13 11:27] LABS: ALBUMIN 3.3 GM/DL (3.2-5.2); ALT/SGPT 19 U/L (12-78); BILIRUBIN,TOTAL 0.2 MG/DL (0.2-1.0); BLOOD UREA NITROGEN 9 MG/DL (7-18); CALCIUM LEVEL 8.7 MG/DL (8.5-10.1); CARBON DIOXIDE LEVEL 29 MEQ/L (21-32); CHLORIDE LEVEL 99 MEQ/L (98-107); CHOLESTEROL LEVEL 239 MG/DL (<200); CHOLESTEROL RISK RATIO 7.709 (<5); CREATININE FOR GFR 0.56 MG/DL (0.55-1.30); GLOMERULAR FILTRATION RATE > 60.0 (>58); GLUCOSE, FASTING 369 MG/DL (70-100); HDL CHOLESTEROL 31 MG/DL (>40); NON-HDL-C 208 MG/DL; POTASSIUM SERUM 4.3 MEQ/L (3.5-5.1); SODIUM LEVEL 135 MEQ/L (136-145); TOTAL PROTEIN 7.8 GM/DL (6.4-8.2); TRIGLYCERIDES LEVEL 496 MG/DL (<150)
[2019-05-13 11:34] LABS: CREATININE, URINE 50.1 MG/DL; MALB URINE SIEMENS 14.1 MG/L; MAU/CREAT RATIO 28.1 MCG/MG (0.0-30.0)
[2019-05-13 11:34] LABS: HEMOGLOBIN A1c 11.9 %
== END ==
LOC: M LAB 09:32
PROVIDERS: ATTEND Family Medicine
DX: E11.311 Type 2 diabetes mellitus with unspecified diabetic retinopathy with macular edema (principal)

== ENCOUNTER 2019-10-30 06:00 | Emergency (ER) | payer MEDICAID, OTHER ==
[~2019-10-30] VITALS: Ht 167.6 cm; Wt 105.9 kg
[2019-10-30] MEDS ORDERED: METF-838 (06:16)
[2019-10-30] MEDS ORDERED: ALLO100T (06:16)
[2019-10-30] MEDS ORDERED: STRI1AER2 IN (06:16)
[2019-10-30] MEDS ORDERED: SIMV20TA22 (06:16)
--- NOTE | 2019-10-30 07:26 | REPVR ---
PROCEDURE INFORMATION: Exam: XR Left Wrist Exam date and time: 10/30/2019 7:12 AM Age: 49 years old Clinical indication: Pain; Wrist; Left; Additional info: Ttp TECHNIQUE: Imaging protocol: XR Left wrist. Views: 3 or more views. COMPARISON: No relevant prior studies available. FINDINGS: Bones/joints: Normal. Soft tissues: Normal. IMPRESSION: No acute findings. Electronically signed by: Houston Emerson On 10/30/2019 07:26:07 AM
--- NOTE | 2019-10-30 07:27 | REPVR ---
PROCEDURE INFORMATION: Exam: XR Left Humerus Exam date and time: 10/30/2019 7:12 AM Age: 49 years old Clinical indication: Pain; Upper arm; Left; Additional info: Ttp TECHNIQUE: Imaging protocol: XR Left humerus Views: 2 or more views. COMPARISON: No relevant prior studies available. FINDINGS: Bones/joints: There is left shoulder degenerative changes. Calcifications seen in the region of the lateral and medial epicondyle possibly the sequela of chronic enthesopathy or epicondylitis. There is no fracture or dislocation. Soft tissues: Normal. IMPRESSION: No fracture or dislocation. Electronically signed by: Houston Emerson On 10/30/2019 07:27:20 AM
--- NOTE | 2019-10-30 07:29 | REPVR ---
PROCEDURE INFORMATION: Exam: XR Left Elbow Exam date and time: 10/30/2019 7:12 AM Age: 49 years old Clinical indication: Pain; Elbow; Left; Additional info: L elbow pain after lifting TECHNIQUE: Imaging protocol: XR Left elbow. Views: 3 or more views. COMPARISON: No relevant prior studies available. FINDINGS: Bones/joints: Normal. Soft tissues: There is small calcifications in the region of the medial and lateral epicondyle. IMPRESSION: 1. No fracture or dislocation. 2. Nonspecific calcifications in the region of the medial and lateral epicondyle could be secondary to chronic enthesopathy or chronic epicondylitis. Electronically signed by: Houston Emerson On 10/30/2019 07:28:49 AM
[2019-10-30] MEDS ORDERED: IBUPROFEN 800 MG TAB PO ONE (07:45)
[2019-10-30] MEDS ORDERED: METAL LOCK LOOP XX ONE (08:07)
[2019-10-30 08:20] VITALS: BP 126/65
== END 2019-10-30 08:28 | disposition home or self-care (01) ==
LOC: M ED 06:00
DX: S53.402A Unspecified sprain of left elbow, initial encounter (principal); E11.65 Type 2 diabetes mellitus with hyperglycemia; X50.0XXA Overexertion from strenuous movement or load, initial encounter; Y92.9 Unspecified place or not applicable; Y93.89 Activity, other specified; Y99.9 Unspecified external cause status; I10 Essential (primary) hypertension; E78.5 Hyperlipidemia, unspecified; G43.909 Migraine, unspecified, not intractable, without status migrainosus; J45.909 Unspecified asthma, uncomplicated; G47.30 Sleep apnea, unspecified; K76.0 Fatty (change of) liver, not elsewhere classified; F31.9 Bipolar disorder, unspecified; M10.9 Gout, unspecified; M19.90 Unspecified osteoarthritis, unspecified site; Z79.899 Other long term (current) drug therapy; Z79.84 Long term (current) use of oral hypoglycemic drugs; Z88.8 Allergy status to other drugs, medicaments and biological substances

== ENCOUNTER → 2020-01-12 | Outpatient (CLI) | payer OTHER ==
[~2020-01-12] MED LIST changes: +ALLO100T; +METF-838; +SIMV20TA22
[2020-01-12 11:53] LABS: BASO % 0.4 % (0.0-1.0); EOS # 0.4 10^3/uL (0.0-0.5); EOS % 3.5 % (0.0-3.0); HEMATOCRIT 42.4 % (36.0-47.0); HEMOGLOBIN 13.6 g/dl (12.0-15.5); LYMPH # 3.2 10^3/uL (1.5-5.0); LYMPH % 30.2 % (24.0-44.0); MEAN CORPUSCULAR HEMOGLOBIN 28.5 pg (27.0-33.0); MEAN CORPUSCULAR HGB CONC 32.1 g/dl (32.0-36.5); MEAN CORPUSCULAR VOLUME 88.7 fl (80.0-96.0); MONO # 0.5 10^3/uL (0.0-0.8); MONO % 4.5 % (0.0-5.0); NEUTROPHILS # 6.5 10^3/uL (1.5-8.5); NEUTROPHILS % 60.9 % (36.0-66.0); PLATELET COUNT, AUTOMATED 335 10^3/uL (150-450); RED BLOOD COUNT 4.78 10^6/uL (4.00-5.40); WHITE BLOOD COUNT 10.7 10^3/uL (4.0-10.0)
== END ==
LOC: M LAB 11:26
PROVIDERS: ATTEND Psychiatry & Neurology Psychiatry
DX: Z51.81 Encounter for therapeutic drug level monitoring (principal)

== ENCOUNTER → 2020-03-29 | Outpatient (CLI) | payer OTHER ==
[~2020-03-29] MED LIST changes: -CLIN150C14 PO; +CLIN150C15 PO; -LISI-538 PO; +LISI20TA33 PO
[2020-03-29 12:45] LABS: BLOOD UREA NITROGEN 7 MG/DL (7-18); CALCIUM LEVEL 8.8 MG/DL (8.5-10.1); CARBAMAZEPINE (TEGRETOL) LEVEL 7.3 UG/ML (4.0-10.0); CARBON DIOXIDE LEVEL 30 MEQ/L (21-32); CHLORIDE LEVEL 99 MEQ/L (98-107); CREATININE FOR GFR 0.65 MG/DL (0.55-1.30); GLOMERULAR FILTRATION RATE > 60.0 (>51); GLUCOSE, FASTING 290 MG/DL (70-100); POTASSIUM SERUM 4.4 MEQ/L (3.5-5.1); SODIUM LEVEL 135 MEQ/L (136-145)
== END ==
LOC: M LAB 11:17
PROVIDERS: ATTEND Psychiatry & Neurology Psychiatry
DX: Z51.81 Encounter for therapeutic drug level monitoring (principal); Z79.899 Other long term (current) drug therapy

== ENCOUNTER → 2020-05-31 | Outpatient (CLI) | payer OTHER ==
--- NOTE | 2020-05-31 09:32 | REPMRS ---
Patient History The patient states she had a clinical breast exam in 05/2020 Patient is postmenopausal and is nulliparous. Family history of prostate cancer at age 50 or over in father. 3D TOMOSYNTHESIS WAS PERFORMED. The [facility] lifetime risk for breast cancer is 12.9%. Volpara breast density b. Digital Woman Screen Mammo: May 31, 2020 - Exam #: [id number] Bilateral CC and MLO view(s) were taken. Technologist: Lamar Turner, Technologist Prior study comparison: November 06, 2018, bilateral digital woman screen mammo performed at [facility]. FINDINGS: There are scattered fibroglandular densities. There has been no change in the appearance of the mammogram from the prior studies. There is a mild amount of residual fibroglandular tissue which is fairly symmetric. There is no interval development of dominant mass, architectural distortion, or clustered microcalcification suggestive of malignancy. Assessment: BI-RADS/ACR category 1 mammogram. Negative Mammogram. Recommendation Routine screening mammogram in 1 year (for women over age 40). This mammogram was interpreted with the aid of an FDA-approved computer-aided dectection system. Electronically Signed By: Jewel Rich MD 05/31/20 0931
== END ==
LOC: M WHC 08:02
PROVIDERS: ATTEND Nurse Practitioner Women's Health
DX: Z12.31 Encounter for screening mammogram for malignant neoplasm of breast (principal)

== ENCOUNTER → 2020-05-31 | Outpatient (CLI) | payer OTHER ==
[2020-05-31 10:42] LABS: BASO # 0.1 10^3/uL (0.0-0.2); BASO % 0.5 % (0.0-1.0); EOS # 0.5 10^3/uL (0.0-0.5); EOS % 4.6 % (0.0-3.0); HEMATOCRIT 43.3 % (36.0-47.0); LYMPH # 2.8 10^3/uL (1.5-5.0); LYMPH % 27.1 % (24.0-44.0); MEAN CORPUSCULAR HEMOGLOBIN 28.1 pg (27.0-33.0); MEAN CORPUSCULAR HGB CONC 32.3 g/dl (32.0-36.5); MEAN CORPUSCULAR VOLUME 86.9 fl (80.0-96.0); MONO # 0.6 10^3/uL (0.0-0.8); MONO % 5.4 % (2.0-8.0); NEUTROPHILS # 6.3 10^3/uL (1.5-8.5); NEUTROPHILS % 61.8 % (36.0-66.0); PLATELET COUNT, AUTOMATED 314 10^3/uL (150-450); RED BLOOD COUNT 4.98 10^6/uL (4.00-5.40); WHITE BLOOD COUNT 10.2 10^3/uL (4.0-10.0)
[2020-05-31 11:10] LABS: HEMOGLOBIN A1c 11.5 %
[2020-05-31 11:13] LABS: ALBUMIN 3.4 GM/DL (3.2-5.2); ALT/SGPT 23 U/L (12-78); AMYLASE 43 U/L (25-115); BILIRUBIN,TOTAL 0.2 MG/DL (0.2-1.0); BLOOD UREA NITROGEN 9 MG/DL (7-18); CARBON DIOXIDE LEVEL 29 MEQ/L (21-32); CHLORIDE LEVEL 99 MEQ/L (98-107); CHOLESTEROL LEVEL 209 MG/DL (<200); CHOLESTEROL RISK RATIO 6.531 (<5); CREATININE FOR GFR 0.64 MG/DL (0.55-1.30); FREE T4 0.97 NG/DL (0.76-1.46); GLOMERULAR FILTRATION RATE > 60.0 (>51); GLUCOSE, FASTING 329 MG/DL (70-100); HDL CHOLESTEROL 32 MG/DL (>40); LDL CHOLESTEROL 114 MG/DL (<100); LIPASE 237 U/L (73-393); NON-HDL-C 177 MG/DL; POTASSIUM SERUM 4.6 MEQ/L (3.5-5.1); SODIUM LEVEL 133 MEQ/L (136-145); TRIGLYCERIDES LEVEL 317 MG/DL (<150)
== END ==
LOC: M LAB 09:32
PROVIDERS: ATTEND Nurse Practitioner Family
DX: R10.11 Right upper quadrant pain (principal); E11.65 Type 2 diabetes mellitus with hyperglycemia

== ENCOUNTER → 2020-05-31 | Outpatient (REF) | payer OTHER | LOC: M SFHCWAGY 13:37 | PROVIDERS: ATTEND Nurse Practitioner Women's Health | DX: Z12.4 Encounter for screening for malignant neoplasm of cervix (principal) ==

== ENCOUNTER → 2020-08-21 | Outpatient (CLI) | payer OTHER ==
[~2020-08-21] MED LIST changes: -DOXY100C37; +DOXY1CAP62
--- NOTE | 2020-08-21 10:09 | REP ---
INDICATION: RUQ PAIN. COMPARISON: Right upper quadrant ultrasound of 02/05/2019 TECHNIQUE: Transabdominal ultrasound FINDINGS: Multiple ultrasonographic images of the liver show the hepatic parenchymal echo pattern to be diffusely increased with a maximal dimension of 22.2 cm at the midclavicular line. There is no evidence of a mass.. There is no intrahepatic or extrahepatic ductal dilatation. The common bile duct measures 3 mm. Multiple ultrasonographic images of the gallbladder show multiple nonshadowing echogenic foci some of which are adherent to the gallbladder wall but some of which appear mobile. The largest measures 7 mm. There is no evidence of comet tail artifact, diffuse gallbladder wall thickening, or pericholecystic fluid.. The imaged portion of the pancreas is within normal limits. The spleen measures 11.6 x 9.8 x5.5 cm with volumetric index calculation of 625 which is slightly increased. No splenic or perisplenic abnormalities are noted. The right kidney measures 13.4 x 7.0 x 5.6 cm. The renal cortical echotexture is within normal limits. Corticomedullary differentiation is preserved. There is no hydronephrosis. There are no masses. The left kidney measures 12.6 x 5.5 x 6.7 cm. The renal cortical echotexture is within normal limits. Corticomedullary differentiation is preserved. There is no hydronephrosis. There are no masses. The imaged portion of the abdominal aorta is within normal limits. There is no evidence of free fluid. IMPRESSION: 1. Evidence of multiple gallbladder wall polyps and or adherent sludge balls along with possible nonshadowing choleliths as described above. Follow-up is recommended. 2. Mild splenomegaly. <Electronically signed by Ezio Martinez > 08/21/20 [id number]
== END ==
LOC: M RAD 07:04
PROVIDERS: ATTEND Nurse Practitioner Family
DX: K82.4 Cholesterolosis of gallbladder (principal)

== ENCOUNTER → 2020-10-19 | Outpatient (CLI) | payer OTHER, MEDICAID ==
[~2020-10-19] MED LIST changes: +BIOT10009 PO; -CLIN150C15 PO; +CLIN150C17 PO
== END ==
LOC: M LABSMTC 09:43
PROVIDERS: ATTEND Anesthesiology
DX: Z01.818 Encounter for other preprocedural examination (principal); Z11.52 Encounter for screening for COVID-19

== ENCOUNTER 2020-12-28 08:37 | Emergency (ER) | payer OTHER ==
[~2020-12-28] VITALS: Ht 167.6 cm; Wt 104.2 kg
[~2020-12-28 08:37] MED LIST changes: +DOXY-443; -DOXY1CAP62
--- OUTSIDE RECORDS SUMMARY | 2020-12-28 10:35 | CCD | Continuity of Care Document ---
Author Thuy Rothman [facility] Organization Unknown Address [address] [place] [address] Phone [phone] Care Team Providers Care Social Media Specialist Name Role Phone [facility] AUTM Problems Description No Information Available Social History Type Date Description Comments Sex Unknown Tobacco Use Start: Unknown Patient has never smoked Allergies, Adverse Reactions, Alerts Active Allergies Criticality Reaction | Severity Comments Date Ceftin Unable to assess criticality Hives 12/05/2020 Inactive Allergies NKDA Unable to assess criticality 12/05/2020 Medications Active Medications SIG Qnty Indications Ordering Provide r Date Quetiapine Fumarate ER 200mg Tablets ER 24HR Take One Tablet By Mouth AT Bedtime Unkno wn Carbamazepine 200mg Tablets Take 1 1/2 Tablets By Mouth Every Morning And 2 Tablets AT Night Unknown Lisinopril 20mg Tablets Take One Tablet By Mouth Every Day Unknown Simvastatin 20mg Tablets Take One Tablet By Mouth Every Evening Unknown 0 Glipizide ER 10mg Tablets ER 24HR Take One Tablet By Mouth Every Day Unknown Montelukast Sodium 10mg Tablets Take One Tablet By Mouth Every Day Unknown Atenolol 100mg Tablets Take One Tablet By Mouth Every Day Unknown Vitamin D (Ergocalciferol) 1.25mg (87420 Ut) Capsules Take One Capsule By Mouth Once Weekly as Directed Unknown Metformin HCL ER 500mg Tablets ER 24HR Take Two Tablets By Mouth Twice A Day Unknown Arnuity Ellipta 200mcg/Act Aerosol Inhale 1 puff By Mouth Every Day Unknown Albuterol Sulfate HFA 108(90Base) mcg/Act Aerosol Inhale 2 Puffs By Mouth Four Times A Day as Needed Unknown Striverdi Respimat 2.5mcg/Act Aero ramin 2 inhalations once daily Unknown 0 Immunizations Description No Information Available Vital Signs Date Vital Result Comment 12/05/2020 3:27pm BP Systolic 137 mmHg BP Diastolic 79 mmHg Heart Rate 77 /min Body Temperature 95.5 F O2 % BldC Oximetry 96 % Results Test Acquired Date Facility Test Result H/L Range Note Inhouse-Influenza A&B Rna Prob 12/05/2020 In Office Influenza Virus A QL PCR negative Negative Influenza Virus B QL PCR negative Negative Procedures Date Code Description Status 12/05/2020 09053 Office/Outpatient New Low MDM 30 -44 Minutes Completed Medical Devices Description No Information Available Encounters Type Date Location Provider Dx Diagnosis Office Visit 12/05/2020 3:00p [facility] Mcdonough K58.9 Irritable bowel syndrome without diarrhea Assessments Date Code Description Provider 12/05/2020 K58.9 Irritable bowel syndrome without diarrhea ROMA Mcdonough Plan of Treatment 12/05/2020 - [facility] Mcdonough* K58.9 Irritable bowel syndrome without diarrhea * Instructions:* maintain hydration and rest. If condition worsens go to the emergency room for further evaluation. Functional Status Description No Information Available Mental Status Description No Information Available Referrals Description No Information Available"
--- OUTSIDE RECORDS SUMMARY | 2020-12-28 10:35 | CCD | Continuity of Care Document ---
Author Thuy Rothman [facility] Organization Unknown Address [address] [place] [address] Phone [phone] Care Team Providers Care Hide Paster Name Role Phone [facility] AUTM Problems Description No Information Available [...] Every Day Unknown Vitamin D (Ergocalciferol) 1.25mg (48865 Ut) Capsules Take One Capsule By Mouth [...] Negative Procedures Date Code Description Status 12/05/2020 76537 Office/Outpatient New Low MDM 30 -44 Minutes [...]
--- OUTSIDE RECORDS SUMMARY | 2020-12-28 10:35 | CCD | Continuity of Care Document ---
Author Author Thuy KRUEGER PA Organization Unknown Address [address] [place] [address] Phone [phone] Care Team Providers Care Government Sales Manager Name Role Phone Dain Nava M.D. [facility] [phone] Kamini Cardoso AUTM [phone] Problems Active Problems Provider Date Allergic asthma without status asthmaticus Jarred hall MD Onset: 06/20/2011 Refractory migraine Nico Romero MD Onset: 09/23/2013 Chronic pansinusitis Nico Romero MD Onset: 09/23/2013 Allergic rhinitis Nico Romero MD Onset: 09/23/2013 Temporomandibular joint disorder Nico Romero MD Onset: 11/03/2013 Unilateral sensorineural hearing loss wi th unrestricted hearing on the contralateral side Nico Romero MD Onset: 11/03/2013 Acute sinusitis Tyrell Duggan D.O. Onset: 11/05/2016 Uncomplicated moderate persistent asthma Tyrell Duggan D.O. Onset: 11/05/2016 Obstructive sleep apnea syndrome Tyrell Duggan D.O. Onset: 12/04/2015 Mild persistent asthma Tyrell Duggan D.O. Onset: 12/04/2015 Social History Type Date Description Comments Sex Unknown ETOH Use Denies alcohol use Recreational Drug Use Denies Drug Use Tobacco Use Start: Unknown Denies Smoking Smoking Status Reviewed: 11/28/20 Denies Smoking Exercise Type/Frequency Exercises regularly Allergies, Adverse Reactions, Alerts Active Allergies Criticality Reaction | Severity Comments Date Ceftin Unable to assess criticality Hives 06/20/2011 Medications Active Medications SIG Qnty Indications Ordering Provide r Date Arnuity Ellipta 200mcg/Act Aerosol 1 puff every day 30units J45.40 Ilan MgO. 08/28/2020 Singulair 10mg Tablets 1 by mouth every day 30tabs J45.40 Tyrell Duggan D.O. 10/29/2018 Albuterol Sulfate (2 .5mg/3ML) 0.083% Nebulizer 1 vial four times a day as needed 360ml Tyrell vergara D.O. 11/25/2017 Striverdi Respimat 2.5mcg/Act Aero ramin 2 puffs qonce daily 4gm Tyrell Duggan D.O. 12/05/2016 Ventolin HFA 108(90Base) mcg/Act A erosol 2 puffs qid/prn 18gm J45.30 Tyrell Duggan D.O. 12/04/2015 Vitamin D3 125mcg (5000 Ut) Tablets 1 qd Unknown Ibuprofen 200mg Tablets 2 tab s qhs Unknown Vitamin C 1000mg Tablets 1 by mouth 2 x every day Unknown Biotin 1000mcg Tablets 1 tab by mouth twice a day Unknown Tegretol 200mg Tablets 1 1/2 In Am And 2 Q hs Unknown Lisinopril 20mg Tablets Take One Tablet By Mouth Every Day Unknown Simvastatin 20mg Tablets 1 qd Kamini Cardoso F.N.P. Metformin HCL ER 500mg Tablets ER 24HR 2 tabs by mouth twice a day 60tabs Kamini Cardoso F. N.P. Glipizide 10mg Tablets Daily 180tabs Unknown Centrum Tablets 1 tab by carloz th daily Unknown Atenolol 100mg Tablets 1 po q d Unknown Seroquel 200mg Tablets by mouth every night Unknown Immunizations CPT Code Status Date Vaccine Lot # [id number] Given 12/04/2016 Flublock, Quadrivalent 72399 Given 12/04/2016 Influenza Virus Split 3 Yrs And Above For Intramuscular Use [id number] Vital Signs Date Vital Result Comment 11/28/2020 3:37pm BP Systolic 112 mmHg BP Diastolic 68 mmHg Heart Rate 84 /min O2 % BldC Oximetry 97 % Height 66 inches 5'6" Weight 232.00 lb BMI (Body Mass Index) 37.4 kg/m2 [place] Body Weight 130 lb Weight 105.235 kg BSA (Body Surface Area) 2.13 m2 08/28/2020 12:18pm BP Systolic 120 mmHg BP Diastolic 64 mmHg Heart Rate 93 /min O2 % BldC Oximetry 96 % Height 66 inches 5'6" [place] Body Weight 130 lb Results Test Acquired Date Facility Test Result H/L Range Note FVL/Ezio 11/28/2020 [facility] SEE IMAGE FVC-Pred 3.79 L FVC-Pre 2.33 L FVC-%Pred-Pre 61 L FVC-LLN 3.05 L Fev1-Pred 3.00 L Fev1-Pre 1.97 L Fev1-%Pred-Pre 65 L Fev1-LLN 2.37 L Fev6-Pred 3.69 L Fev6-Pre 2.33 L Fev6-%Pred-Pre 63 L Fev6-LLN 2.96 L Goc4ren-Javy 80 % Iiz6mgp-Uvg 85 % Poo9gme-%Pred-Pre 105 % Pki8miq-EQM 70 % Wpq6xtz-Cdig 97 % Lvg6gbz-Prt 100 % Wxq9nnf-%Pred-Pre 102 % FEFMax-Pred 7.05 L/E/sec FEFMax-Pre 5.44 L/E/sec FEFMax-%Pred-Pre 77 L/E/sec FEFMax-LLN 5.22 L/E/sec Syr2002-Resi 2.88 L/E/sec Jov1787-Dqk 2.49 L/E/sec Lgh0645-%Pred-Pre 86 L/E/sec Blb9251-FMG 1.56 L/E/sec ExpTime-Pre 5.90 sec Zab2zbc9-Nhqb 82 % Mft2qam8-Sob 85 % Pwg3llc9-%Pred-Pre 102 % Vnv7xgf5-VQP 73 % FVL/[place] 08/28/2020 [facility] SEE IMAGE FVC-Pred 3.79 L FVC-Pre 2.34 L FVC-%Pred-Pre 61 L FVC-LLN 3.05 L Fev1-Pred 3.00 L Fev1-Pre 2.04 L Fev1-%Pred-Pre 68 L Fev1-LLN 2.37 L Fev6-Pred 3.69 L Fev6-Pre 2.34 L Fev6-%Pred-Pre 63 L Fev6-LLN 2.96 L Gux0isg-Cidz 80 % Sfh9zuw-Vzt 87 % Kwi5orp-%Pred-Pre 108 % Syt0ahg-PLU 70 % Zpb9bce-Qpio 97 % Kdw2pej-Uqb 100 % Twa6xgc-%Pred-Pre 102 % FEFMax-Pred 7.05 L/E/sec FEFMax-Pre 4.82 L/E/sec FEFMax-%Pred-Pre 68 L/E/sec FEFMax-LLN 5.22 L/E/sec Qfy8769-Mssb 2.88 L/E/sec Ubb7194-Pzt 2.94 L/E/sec Rnq5682-%Pred-Pre 102 L/E/sec Dwc9995-AXR 1.56 L/E/sec ExpTime-Pre 6.40 sec Lla9cyj5-Kevn 82 % Mln7fdr4-Gfg 87 % Wdk0lqo5-%Pred-Pre 105 % Cor3xub9-SNU 73 % Procedures Date Code Description Status 08/28/2020 91167 Office/Outpatient Established Mo d MDM 30-39 Min Completed 08/28/2020 50025 Spirometry Completed Medical Devices Description No Information Available Encounters Type Date Location Provider Dx Diagnosis Office Visit 08/28/2020 12:30p [facility] JUNIOR [facility] J45.40 Moderate persistent asthma, uncomplicate d G47.33 Obstructive sleep apnea (karlene lt) (pediatric) Assessments Date Code Description Provider 11/28/2020 J45.40 Moderate persistent asthma, unco mplicated J[facility]IOR Cannon 11/28/2020 G47.33 Obstructive sleep apnea (adult) (pediatric) JUNIOR Cannon 08/28/2020 J45.40 Moderate persistent asthma, unco mplicated JUNIOR Cannon 08/28/2020 G47.33 Obstructive sleep apnea (adult) (pediatric) J[facility]IOR [facility] 08/23/2020 K80.20 Calculus of gallblad jas without cholecystitis without obstruction Gerard Kurtz JR, MD Plan of Treatment Future Appointment(s):* 02/14/2021 3:30 pm - [facility] at [facility] * 12/22/2020 7:45 pm - [facility] 11/28/2020 - JUNIOR Cannon* J45.40 Moderate persistent asthma, uncomplicated * G47.33 Obstructive sleep apnea (adult) (pediatric) * * Comments:* 1. Given weight gain, intolerance to pressure therapy and ongoing daytime sleepiness despite therapy, he[facility]she [facility]. * Follow up:* 1. Follow up six-eight weeks after retitration with a download to monitor compliance and tolerance of pressure therapy. Functional Status Description No Information Available Mental Status Description No Information Available Referrals Refer to Reason for Referral Status Appt Date Gerard Kurtz JR, MD RUQ PAIN, GALLBLADDER DISEASE Scheduled 08/23/[address] [place] [address] [phone]
--- OUTSIDE RECORDS SUMMARY | 2020-12-28 10:35 | CCD | Continuity of Care Document ---
Author Author Thuy KRUGEER PA Organization Unknown Address [address] [place] [address] Phone [phone] Care Team Providers Care Underwear Finisher Name Role Phone Dain Nava M.D. [facility] [phone] Kamini Cardoso AUTM [phone] Problems Active Problems Provider Date Allergic asthma [...] CPT Code Status Date Vaccine Lot # [id number] Given 12/04/2016 Flublock, Quadrivalent 95017 Given 12/04/2016 Influenza Virus Split 3 Yrs And Above For Intramuscular Use [id number] Vital Signs Date Vital Result Comment 11/28/2020 3:37pm BP Systolic 112 mmHg BP Diastolic 68 mmHg Heart Rate 84 /min O2 % BldC Oximetry 97 % Height 66 inches 5'6" Weight 232.00 lb BMI (Body Mass Index) 37.4 kg/m2 [place] Body Weight 130 lb Weight 105.235 kg BSA (Body Surface Area) 2.13 m2 08/28/2020 12:18pm BP Systolic 120 mmHg BP Diastolic 64 mmHg Heart Rate 93 /min O2 % BldC Oximetry 96 % Height 66 inches 5'6" [place] Body Weight 130 lb Results Test Acquired Date Facility Test Result H/L Range Note FVL/Ezio 11/28/2020 [employer] SEE IMAGE FVC-Pred 3.79 L FVC-Pre 2.33 L FVC-%Pred-Pre 61 L FVC-LLN 3.05 L Fev1-Pred 3.00 L Fev1-Pre 1.97 L Fev1-%Pred-Pre 65 L Fev1-LLN 2.37 L Fev6-Pred 3.69 L Fev6-Pre 2.33 L Fev6-%Pred-Pre 63 L Fev6-LLN 2.96 L Vbq7kyq-Yhka 80 % Bks4fjr-Msz 85 % Jvj7bon-%Pred-Pre 105 % Ftm9hiw-CMA 70 % Nlm3oqr-Tzbi 97 % Fxq1fox-Vcu 100 % Zpl1oyi-%Pred-Pre 102 % FEFMax-Pred 7.05 L/E/sec FEFMax-Pre 5.44 L/E/sec FEFMax-%Pred-Pre 77 L/E/sec FEFMax-LLN 5.22 L/E/sec Wec8352-Xucn 2.88 L/E/sec Rwr7867-Anx 2.49 L/E/sec Bat3287-%Pred-Pre 86 L/E/sec Prr1613-HDZ 1.56 L/E/sec ExpTime-Pre 5.90 sec Nag7zwa0-Sbyk 82 % Duq8ana0-Skq 85 % Srq8uvb8-%Pred-Pre 102 % Zix4hze3-DGV 73 % FVL/[place] 08/28/2020 [employer] PD[facility] SEE IMAGE FVC-Pred 3.79 L FVC-Pre 2.34 L FVC-%Pred-Pre 61 L FVC-LLN 3.05 L Fev1-Pred 3.00 L Fev1-Pre 2.04 L Fev1-%Pred-Pre 68 L Fev1-LLN 2.37 L Fev6-Pred 3.69 L Fev6-Pre 2.34 L Fev6-%Pred-Pre 63 L Fev6-LLN 2.96 L Sgm4nro-Adyy 80 % Jfq6uxi-Jgc 87 % Vxe1mko-%Pred-Pre 108 % Sgh6asw-BIB 70 % Lao2wsw-Whdh 97 % Qct0sxh-Lar 100 % Cuy3uyt-%Pred-Pre 102 % FEFMax-Pred 7.05 L/E/sec FEFMax-Pre 4.82 L/E/sec FEFMax-%Pred-Pre 68 L/E/sec FEFMax-LLN 5.22 L/E/sec Tyo9352-Cjhd 2.88 L/E/sec Blv5664-Xql 2.94 L/E/sec Pte3292-%Pred-Pre 102 L/E/sec Agw0418-GHY 1.56 L/E/sec ExpTime-Pre 6.40 sec Mlu1jxq7-Qcgf 82 % Xfo5frq9-Lni 87 % Wzy6amt8-%Pred-Pre 105 % Pbj3izn5-SDJ 73 % Procedures Date Code Description Status 11/28/2020 76797 Office/Outpatient Established Mo d MDM 30-39 Min Completed 11/28/2020 17080 Spirometry Completed 08/28/2020 90879 Office/Outpatient Established Mo d MDM 30-39 Min Completed 08/28/2020 80983 Spirometry Completed 08/23/2020 72063 Office/Outpatient New Moderate M DM 45-59 Minutes Completed Medical Devices Description No Information Available Encounters Type Date Location Provider Dx Diagnosis Office Visit 11/28/2020 3:30p [facility] J45.40 Moderate persistent asthma, uncomplicate d G47.33 Obstructive sleep apnea (karlene lt) (pediatric) Office Visit 08/28/2020 12:30p [facility]UN[facility] J45.40 Moderate persistent asthma, uncomplicate d G47.33 Obstructive sleep apnea (karlene lt) (pediatric) Office Visit 08/23/2020 10:30a [facility] Gerard hugo JR, MD K80.20 Calculus of gallbladder w/o cholecystiti s w/o obstruction Assessments Date Code Description Provider 11/28/2020 J45.40 Moderate persistent asthma, unco mplicated Dimas Krueger, JUNIOR 11/28/2020 G47.33 Obstructive sleep apnea (adult) (pediatric) [facility] 08/28/2020 J45.40 Moderate persistent asthma, unco mplicated Dimas Krueger, PA 08/28/2020 G47.33 Obstructive sleep apnea (adult) (pediatric) [facility] 08/23/2020 K80.20 Calculus of gallblad jas without cholecystitis without obstruction Gerard Kurtz JR, MD Plan of Treatment Future Appointment(s):* 02/14/2021 3:30 pm - [facility] at [facility] * 12/22/2020 7:45 pm - [facility] 11/28/2020 - JUNIOR [facility]* J45.40 Moderate [...] MD RUQ PAIN, GALLBLADDER DISEASE Scheduled 08/23/[address] [place] [phone]
--- OUTSIDE RECORDS SUMMARY | 2020-12-28 10:35 | CCD | Continuity of Care Document ---
Author Thuy Rothman [facility] Organization Unknown Address [address] [place] [address] Phone [phone] Care Team Providers Care Departmental Shipping Clerk Name Role Phone [facility] AUTM [phone] Problems Description No Information Available Social History [...] Every Day Unknown Vitamin D (Ergocalciferol) 1.25mg (54699 Ut) Capsules Take One Capsule By Mouth [...] Negative Procedures Date Code Description Status 12/05/2020 70416 Office/Outpatient New Low MDM 30 -44 Minutes [...]
--- OUTSIDE RECORDS SUMMARY | 2020-12-28 10:35 | CCD | Continuity of Care Document ---
Author Author Thuy KRUEGER PA Organization Unknown Address [address] [place] [address] Phone [phone] Care Team Providers Care Biodiesel Product Manager Name Role Phone Dain Nava M.D. [facility] [phone] Kamini Cardoso AUTM [phone] Problems Active Problems Provider Date Allergic asthma [...] CPT Code Status Date Vaccine Lot # [id number] Given 12/04/2016 Flublock, Quadrivalent [id number] Given 12/04/2016 Influenza Virus Split 3 Yrs And Above For Intramuscular Use [id number] Vital Signs Date Vital Result Comment 11/28/2020 3:37pm BP Systolic 112 mmHg BP Diastolic 68 mmHg Heart Rate 84 /min O2 % BldC Oximetry 97 % Height 66 inches 5'6" Weight 232.00 lb BMI (Body Mass Index) 37.4 kg/m2 [place] Body Weight 130 lb Weight 105.235 kg BSA (Body Surface Area) 2.13 m2 08/28/2020 12:18pm BP Systolic 120 mmHg BP Diastolic 64 mmHg Heart Rate 93 /min O2 % BldC Oximetry 96 % Height 66 inches 5'6" [place] Body Weight 130 lb Results Test Acquired Date Facility Test Result H/L Range Note FVL/Ezio 11/28/2020 [facility] PDFReport SEE IMAGE FVC-Pred 3.79 L FVC-Pre 2.33 L FVC-%Pred-Pre 61 L FVC-LLN 3.05 L Fev1-Pred 3.00 L Fev1-Pre 1.97 L Fev1-%Pred-Pre 65 L Fev1-LLN 2.37 L Fev6-Pred 3.69 L Fev6-Pre 2.33 L Fev6-%Pred-Pre 63 L Fev6-LLN 2.96 L Hna3fgs-Ywty 80 % Cbw4nfe-Sxq 85 % Dfh9dtc-%Pred-Pre 105 % Klq6woc-NMC 70 % Teu1qdy-Xjdh 97 % Dtb8duo-Xbh 100 % Hca3yuy-%Pred-Pre 102 % FEFMax-Pred 7.05 L/E/sec FEFMax-Pre 5.44 L/E/sec FEFMax-%Pred-Pre 77 L/E/sec FEFMax-LLN 5.22 L/E/sec Zfd7739-Qpje 2.88 L/E/sec Wpu9887-Unn 2.49 L/E/sec Lza2282-%Pred-Pre 86 L/E/sec Usm4636-KUR 1.56 L/E/sec ExpTime-Pre 5.90 sec Pjt0vsd7-Pssw 82 % Jni0gsu1-Kql 85 % Hrw6jmp8-%Pred-Pre 102 % Jqz3ssk9-XYA 73 % FVL/[place] 08/28/2020 [facility] PDFReport SEE IMAGE FVC-Pred 3.79 L FVC-Pre 2.34 L FVC-%Pred-Pre 61 L FVC-LLN 3.05 L Fev1-Pred 3.00 L Fev1-Pre 2.04 L Fev1-%Pred-Pre 68 L Fev1-LLN 2.37 L Fev6-Pred 3.69 L Fev6-Pre 2.34 L Fev6-%Pred-Pre 63 L Fev6-LLN 2.96 L Bpo7rqu-Myiv 80 % Vke6omx-Otc 87 % Jzc3ptj-%Pred-Pre 108 % Nlq2uzk-EFU 70 % Bxu8uef-Ievy 97 % Ftv8sgl-Zku 100 % Qwb1cua-%Pred-Pre 102 % FEFMax-Pred 7.05 L/E/sec FEFMax-Pre 4.82 L/E/sec FEFMax-%Pred-Pre 68 L/E/sec FEFMax-LLN 5.22 L/E/sec Qpu1890-Vmfs 2.88 L/E/sec Gxm9085-Juj 2.94 L/E/sec Zld6274-%Pred-Pre 102 L/E/sec Ncf0956-XSG 1.56 L/E/sec ExpTime-Pre 6.40 sec Tda4mae8-Mhof 82 % Wvv3rke1-Oec 87 % Onb6fvz6-%Pred-Pre 105 % Sfx4dzb3-FKQ 73 % Procedures Date Code Description Status 08/28/2020 28399 Office/Outpatient Established Mo d MDM 30-39 Min Completed 08/28/2020 57886 Spirometry Completed Medical Devices Description No Information Available Encounters Type Date Location Provider Dx Diagnosis Office Visit 08/28/2020 12:30p [facility] J45.40 Moderate persistent asthma, [...] 02/14/2021 3:30 pm - [facility] at [facility] * 12/22/2020 7:45 pm - [facility] 11/28/2020 - JUNIOR Cannon* J45.40 Moderate [...] MD RUQ PAIN, GALLBLADDER DISEASE Scheduled 08/23/[address] [place] [address] [phone]
--- OUTSIDE RECORDS SUMMARY | 2020-12-28 10:35 | CCD | Continuity of Care Document ---
Author Author Thuy KRUEGER PA Organization Unknown Address [address] [place] [address] Phone [phone] Care Team Providers Care Open Hearth Laborer Name Role Phone Dain Nava M.D. [facility] [phone] Kamini Cardoso AUTM [phone] Problems Active Problems Provider Date Allergic asthma [...] CPT Code Status Date Vaccine Lot # [id number] Given 12/04/2016 Flublock, Quadrivalent 00792 Given 12/04/2016 Influenza Virus Split 3 Yrs And Above For Intramuscular Use [id number] Vital Signs Date Vital Result Comment 11/28/2020 3:37pm BP Systolic 112 mmHg BP Diastolic 68 mmHg Heart Rate 84 /min O2 % BldC Oximetry 97 % Height 66 inches 5'6" Weight 232.00 lb BMI (Body Mass Index) 37.4 kg/m2 [place] Body Weight 130 lb Weight 105.235 kg BSA (Body Surface Area) 2.13 m2 08/28/2020 12:18pm BP Systolic 120 mmHg BP Diastolic 64 mmHg Heart Rate 93 /min O2 % BldC Oximetry 96 % Height 66 inches 5'6" [place] Body Weight 130 lb Results Test Acquired Date Facility Test Result H/L Range Note FVL/Ezio 11/28/2020 [facility] PDFReport SEE IMAGE FVC-Pred 3.79 L FVC-Pre 2.33 L FVC-%Pred-Pre 61 L FVC-LLN 3.05 L Fev1-Pred 3.00 L Fev1-Pre 1.97 L Fev1-%Pred-Pre 65 L Fev1-LLN 2.37 L Fev6-Pred 3.69 L Fev6-Pre 2.33 L Fev6-%Pred-Pre 63 L Fev6-LLN 2.96 L Fwz0bwz-Zepn 80 % Pgz6wtn-Atm 85 % Ask9myc-%Pred-Pre 105 % Lhc4rwa-AFN 70 % Jys1scz-Msio 97 % Arb1dzt-Dis 100 % Mjy9ccv-%Pred-Pre 102 % FEFMax-Pred 7.05 L/E/sec FEFMax-Pre 5.44 L/E/sec FEFMax-%Pred-Pre 77 L/E/sec FEFMax-LLN 5.22 L/E/sec Vrw1082-Wkcf 2.88 L/E/sec Ypz2638-Gwx 2.49 L/E/sec Hmn0403-%Pred-Pre 86 L/E/sec Jzm2971-IPW 1.56 L/E/sec ExpTime-Pre 5.90 sec Bgh2crl4-Nvzl 82 % Agl0hof4-Ona 85 % Ins6bkq6-%Pred-Pre 102 % Uum6khd7-DQF 73 % FVL/[place] 08/28/2020 [facility] PDFReport SEE IMAGE FVC-Pred 3.79 L FVC-Pre 2.34 L FVC-%Pred-Pre 61 L FVC-LLN 3.05 L Fev1-Pred 3.00 L Fev1-Pre 2.04 L Fev1-%Pred-Pre 68 L Fev1-LLN 2.37 L Fev6-Pred 3.69 L Fev6-Pre 2.34 L Fev6-%Pred-Pre 63 L Fev6-LLN 2.96 L Dvu5cki-Pvix 80 % Ped9aoi-Coq 87 % Wsf7cbh-%Pred-Pre 108 % Wlh7xuk-PGX 70 % Enl6jar-Kujb 97 % Dpe3ppn-Qna 100 % Pnk2zxj-%Pred-Pre 102 % FEFMax-Pred 7.05 L/E/sec FEFMax-Pre 4.82 L/E/sec FEFMax-%Pred-Pre 68 L/E/sec FEFMax-LLN 5.22 L/E/sec Zxe1670-Ikbv 2.88 L/E/sec Tqh2551-Ojj 2.94 L/E/sec Yry7488-%Pred-Pre 102 L/E/sec Lmr4927-JWP 1.56 L/E/sec ExpTime-Pre 6.40 sec Obl6bdr9-Texj 82 % Obe4try8-Idp 87 % Snx1zqc6-%Pred-Pre 105 % Jaf8jpg9-VRY 73 % Procedures Date Code Description Status 08/28/2020 64894 Office/Outpatient Established Mo d MDM 30-39 Min Completed 08/28/2020 07737 Spirometry Completed Medical Devices Description No Information Available Encounters Type Date Location Provider Dx Diagnosis Office Visit 08/28/2020 12:30p [facility] JUNIOR Cannon J45.40 Moderate persistent asthma, [...] 02/14/2021 3:30 pm - [facility] at [facility] * 12/22/2020 7:45 pm - [facility] 11/28/2020 - JUNIOR Cannon* J45.40 Moderate [...] MD RUQ PAIN, GALLBLADDER DISEASE Scheduled 08/23/[address] [place] [address] [phone]
--- OUTSIDE RECORDS SUMMARY | 2020-12-28 10:35 | CCD | Continuity of Care Document ---
Author Author Thuy KURTZ MD Organization Unknown Address [address] [place] [address] Phone [phone] Care Team Providers Care Colored Liquid Plastic Applier Name Role Phone Dain Nava M.D. AUTM Kamini Cardoso AUTM Problems Active Problems Provider Date Allergic asthma [...] 1 by mouth every day 30tabs J45.40 [place] MgO. 10/29/2018 Albuterol Sulfate (2 .5mg/3ML) 0.083% Nebulizer [...] Unknown Simvastatin 20mg Tablets 1 qd Kamini Cardoso, F.N.P. Metformin HCL ER 500mg Tablets ER 24HR 2 tabs by mouth twice a day 60tabs Kamini Cardoso F. N.P. Glipizide 10mg Tablets Daily 180tabs Unknown Centrum Tablets 1 tab by carloz th daily Unknown Atenolol 100mg Tablets 1 po q d Unknown Seroquel 200mg Tablets by mouth every night Unknown Immunizations CPT Code Status Date Vaccine Lot # [id number] Given 12/04/2016 Flublock, Quadrivalent 34066 Given 12/04/2016 Influenza Virus Split 3 Yrs And Above For Intramuscular Use [id number] Vital Signs Date Vital Result Comment 11/28/2020 3:37pm BP Systolic 112 mmHg BP Diastolic 68 mmHg Heart Rate 84 /min O2 % BldC Oximetry 97 % Height 66 inches 5'6" Weight 232.00 lb BMI (Body Mass Index) 37.4 kg/m2 [place] Body Weight 130 lb Weight 105.235 kg BSA (Body Surface Area) 2.13 m2 08/28/2020 12:18pm BP Systolic 120 mmHg BP Diastolic 64 mmHg Heart Rate 93 /min O2 % BldC Oximetry 96 % Height 66 inches 5'6" [place] Body Weight 130 lb Results Test Acquired Date Facility Test Result H/L Range Note FVL/[place] 11/28/2020 [facility]at[employer] PDFReport SEE IMAGE FVC-Pred 3.79 L FVC-Pre 2.33 L FVC-%Pred-Pre 61 L FVC-LLN 3.05 L Fev1-Pred 3.00 L Fev1-Pre 1.97 L Fev1-%Pred-Pre 65 L Fev1-LLN 2.37 L Fev6-Pred 3.69 L Fev6-Pre 2.33 L Fev6-%Pred-Pre 63 L Fev6-LLN 2.96 L Vqk8yfc-Obsu 80 % Xuj5mkw-Ajq 85 % Qee7azx-%Pred-Pre 105 % Iok0hdl-XIE 70 % Zcg4bhr-Chmt 97 % Xer7koj-Mjw 100 % Sxo2ieq-%Pred-Pre 102 % FEFMax-Pred 7.05 L/E/sec FEFMax-Pre 5.44 L/E/sec FEFMax-%Pred-Pre 77 L/E/sec FEFMax-LLN 5.22 L/E/sec Pqm9680-Sztx 2.88 L/E/sec Uzv0773-Hqf 2.49 L/E/sec Thm7393-%Pred-Pre 86 L/E/sec Vzl2089-GIB 1.56 L/E/sec ExpTime-Pre 5.90 sec Nys0hzc7-Ymit 82 % Uik1ulx5-Qut 85 % Lhf0nqb3-%Pred-Pre 102 % Kca7ist9-OGH 73 % FVL/Ezio 08/28/2020 [employer] PDFReport SEE IMAGE FVC-Pred 3.79 L FVC-Pre 2.34 L FVC-%Pred-Pre 61 L FVC-LLN 3.05 L Fev1-Pred 3.00 L Fev1-Pre 2.04 L Fev1-%Pred-Pre 68 L Fev1-LLN 2.37 L Fev6-Pred 3.69 L Fev6-Pre 2.34 L Fev6-%Pred-Pre 63 L Fev6-LLN 2.96 L Jjs5ork-Wvmc 80 % Uzb6oby-Lhs 87 % Yhh5nzo-%Pred-Pre 108 % Toh6qnq-UWE 70 % Axt1jcx-Hibn 97 % Rrg4jtv-Yvh 100 % Anv6ikq-%Pred-Pre 102 % FEFMax-Pred 7.05 L/E/sec FEFMax-Pre 4.82 L/E/sec FEFMax-%Pred-Pre 68 L/E/sec FEFMax-LLN 5.22 L/E/sec Jof1657-Nidb 2.88 L/E/sec Fex7751-Bta 2.94 L/E/sec Xxg9462-%Pred-Pre 102 L/E/sec Pbc9227-UTM 1.56 L/E/sec ExpTime-Pre 6.40 sec Bbo1qxh8-Xkyr 82 % Ehe2wvh2-Ulk 87 % Lgk3cus5-%Pred-Pre 105 % Xar2hsy3-SLG 73 % Procedures Date Code Description Status 11/28/2020 77290 Office/Outpatient Established Mo d MDM 30-39 Min Completed 11/28/2020 27632 Spirometry Completed 08/28/2020 86353 Office/Outpatient Established Mo d MDM 30-39 Min Completed 08/28/2020 80792 Spirometry Completed 08/23/2020 19504 Office/Outpatient New Moderate M DM 45-59 Minutes [...] (karlene lt) (pediatric) Office Visit 08/23/2020 10:30a [facility] Gerard huog JR, MD K80.20 Calculus of gallbladder w/o cholecystiti s w/o obstruction Assessments Date Code Description Provider 11/28/2020 J45.40 Moderate persistent asthma, unco mplicated [facility] 11/28/2020 G47.33 Obstructive sleep apnea (adult) (pediatric) [facility] 08/28/2020 J45.40 Moderate persistent asthma, unco mplicated Dimas Rascon, PA 08/28/2020 G47.33 Obstructive sleep apnea (adult) (pediatric) [facility] 08/23/2020 K80.20 Calculus of gallblad jas without cholecystitis without obstruction Gerard Kurtz JR, MD Plan of Treatment Future Appointment(s):* 02/14/2021 3:30 pm - JUNIOR Cannon at [facility] * 12/22/2020 7:45 pm - [facility] at [facility] 11/28/2020 - JUNIOR Cannon* J45.40 Moderate [...] MD RUQ PAIN, GALLBLADDER DISEASE Scheduled 08/23/[address] [place] [address] [phone]
--- OUTSIDE RECORDS SUMMARY | 2020-12-28 10:35 | CCD | Continuity of Care Document ---
Author Thuy Rothman [facility] Organization Unknown Address [address] [place] [address] Phone [phone] Care Team Providers Care Refinery Operator Vapor Recovery Unit Name Role Phone [facility] AUTM [phone] Problems Description No Information Available Social History [...] Every Day Unknown Vitamin D (Ergocalciferol) 1.25mg (24924 Ut) Capsules Take One Capsule By Mouth [...] Negative Procedures Date Code Description Status 12/05/2020 69120 Office/Outpatient New Low MDM 30 -44 Minutes [...]
--- OUTSIDE RECORDS SUMMARY | 2020-12-28 10:35 | CCD | Continuity of Care Document ---
Author Thuy Rothman [facility] Organization Unknown Address [address] [place] [address] Phone [phone] Care Team Providers Care Filler Shaker Name Role Phone [facility] AUTM Problems Description No Information [...] Every Day Unknown Vitamin D (Ergocalciferol) 1.25mg (14105 Ut) Capsules Take One Capsule By Mouth [...] Negative Procedures Date Code Description Status 12/05/2020 58811 Office/Outpatient New Low MDM 30 -44 Minutes [...]
--- OUTSIDE RECORDS SUMMARY | 2020-12-28 10:36 | CCD | Continuity of Care Document ---
Author Author Thuy KRUEGER PA Organization Unknown Address [address] [place] [address] Phone [phone] Care Team Providers Care Riverine Assault Craft Crewman Name Role Phone Dain Nava M.D. [facility] [phone] Kamini Cardoso AUTM [phone] Problems Active Problems Provider Date Allergic asthma [...] CPT Code Status Date Vaccine Lot # [id number] Given 12/04/2016 Flublock, Quadrivalent 99942 Given 12/04/2016 Influenza Virus Split 3 Yrs And Above For Intramuscular Use [id number] Vital Signs Date Vital Result Comment 11/28/2020 3:37pm BP Systolic 112 mmHg BP Diastolic 68 mmHg Heart Rate 84 /min O2 % BldC Oximetry 97 % Height 66 inches 5'6" Weight 232.00 lb BMI (Body Mass Index) 37.4 kg/m2 [place] Body Weight 130 lb Weight 105.235 kg BSA (Body Surface Area) 2.13 m2 08/28/2020 12:18pm BP Systolic 120 mmHg BP Diastolic 64 mmHg Heart Rate 93 /min O2 % BldC Oximetry 96 % Height 66 inches 5'6" [place] Body Weight 130 lb Results Test Acquired Date Facility Test Result H/L Range Note FVL/[place] 11/28/2020 [facility] PDFReport SEE IMAGE FVC-Pred 3.79 L FVC-Pre 2.33 L FVC-%Pred-Pre 61 L FVC-LLN 3.05 L Fev1-Pred 3.00 L Fev1-Pre 1.97 L Fev1-%Pred-Pre 65 L Fev1-LLN 2.37 L Fev6-Pred 3.69 L Fev6-Pre 2.33 L Fev6-%Pred-Pre 63 L Fev6-LLN 2.96 L Lse1jrd-Gdei 80 % Lbz3rqy-Azw 85 % Wvo3iqj-%Pred-Pre 105 % Pwe9lmm-WYU 70 % Vvb3wsr-Bonl 97 % Mry8tsd-Bxf 100 % Cat0hel-%Pred-Pre 102 % FEFMax-Pred 7.05 L/E/sec FEFMax-Pre 5.44 L/E/sec FEFMax-%Pred-Pre 77 L/E/sec FEFMax-LLN 5.22 L/E/sec Jwt7206-Pmfx 2.88 L/E/sec End6969-Apn 2.49 L/E/sec Ljs2254-%Pred-Pre 86 L/E/sec Bhj5346-HCM 1.56 L/E/sec ExpTime-Pre 5.90 sec Zwk0xfa4-Ippq 82 % Jov4eec7-Wxh 85 % Fka6vdc6-%Pred-Pre 102 % Bed7yvh0-OYK 73 % FVL/[place] 08/28/2020 [facility] PDFReport SEE IMAGE FVC-Pred 3.79 L FVC-Pre 2.34 L FVC-%Pred-Pre 61 L FVC-LLN 3.05 L Fev1-Pred 3.00 L Fev1-Pre 2.04 L Fev1-%Pred-Pre 68 L Fev1-LLN 2.37 L Fev6-Pred 3.69 L Fev6-Pre 2.34 L Fev6-%Pred-Pre 63 L Fev6-LLN 2.96 L Etx5slq-Yasq 80 % Hnb6fxx-Iwd 87 % Onk5zrf-%Pred-Pre 108 % Gkx1zgj-FAP 70 % Kve6qmm-Hdln 97 % Mgx0xah-Pmo 100 % Mek6vbu-%Pred-Pre 102 % FEFMax-Pred 7.05 L/E/sec FEFMax-Pre 4.82 L/E/sec FEFMax-%Pred-Pre 68 L/E/sec FEFMax-LLN 5.22 L/E/sec Yst5163-Nanx 2.88 L/E/sec Luh1627-Ijv 2.94 L/E/sec Mgn3898-%Pred-Pre 102 L/E/sec Zbg9990-AZB 1.56 L/E/sec ExpTime-Pre 6.40 sec Clu1ynu0-Bpsb 82 % Kjl4vjf4-Qdn 87 % Phz0vbg8-%Pred-Pre 105 % Bpv4uhg1-OLX 73 % Procedures Date Code Description Status 08/28/2020 01268 Office/Outpatient Established Mo d MDM 30-39 Min Completed 08/28/2020 12234 Spirometry Completed Medical Devices Description No Information Available Encounters Type Date Location Provider Dx Diagnosis Office Visit 08/28/2020 12:30p [facility] JUN[facility] Cannon J45.40 Moderate persistent asthma, [...] 02/14/2021 3:30 pm - [facility] at [facility] * 12/22/2020 7:45 pm - [facility] 11/28/2020 - JUNIOR Cannon* J45.40 Moderate [...] MD RUQ PAIN, GALLBLADDER DISEASE Scheduled 08/23/[address] [place] [address] [phone]
--- OUTSIDE RECORDS SUMMARY | 2020-12-28 10:36 | CCD | Continuity of Care Document ---
Author Author Thuy KRUEGER PA Organization Unknown Address [address] [place] [address] Phone [phone] Care Team Providers Care Township Clerk Name Role Phone Dain Nava M.D. [facility] Kamini Cardoso AUTM [phone] Problems Active Problems Provider Date Allergic asthma [...] CPT Code Status Date Vaccine Lot # [id number] Given 12/04/2016 Flublock, Quadrivalent 28883 Given 12/04/2016 Influenza Virus Split 3 Yrs And Above For Intramuscular Use [id number] Vital Signs Date Vital Result Comment 11/28/2020 3:37pm BP Systolic 112 mmHg BP Diastolic 68 mmHg Heart Rate 84 /min O2 % BldC Oximetry 97 % Height 66 inches 5'6" Weight 232.00 lb BMI (Body Mass Index) 37.4 kg/m2 [place] Body Weight 130 lb Weight 105.235 kg BSA (Body Surface Area) 2.13 m2 08/28/2020 12:18pm BP Systolic 120 mmHg BP Diastolic 64 mmHg Heart Rate 93 /min O2 % BldC Oximetry 96 % Height 66 inches 5'6" [place] Body Weight 130 lb Results Test Acquired Date Facility Test Result H/L Range Note FVL/[place]zio 11/28/2020 [employer] PDFReport SEE IMAGE FVC-Pred 3.79 L FVC-Pre 2.33 L FVC-%Pred-Pre 61 L FVC-LLN 3.05 L Fev1-Pred 3.00 L Fev1-Pre 1.97 L Fev1-%Pred-Pre 65 L Fev1-LLN 2.37 L Fev6-Pred 3.69 L Fev6-Pre 2.33 L Fev6-%Pred-Pre 63 L Fev6-LLN 2.96 L Vbt1eif-Iyhh 80 % Hkd9njy-Boj 85 % Avy8lan-%Pred-Pre 105 % Toq8ran-HSO 70 % Mja3pee-Vdcv 97 % Krc8mtb-Wga 100 % Pta0zzo-%Pred-Pre 102 % FEFMax-Pred 7.05 L/E/sec FEFMax-Pre 5.44 L/E/sec FEFMax-%Pred-Pre 77 L/E/sec FEFMax-LLN 5.22 L/E/sec Utc5808-Hrqm 2.88 L/E/sec Jdp6904-Eco 2.49 L/E/sec Fvo9495-%Pred-Pre 86 L/E/sec Rmo8297-CXI 1.56 L/E/sec ExpTime-Pre 5.90 sec Kcc7jbl0-Rkdb 82 % Nyc3fwv8-Yck 85 % Eoh2uab5-%Pred-Pre 102 % Eog2kij6-XQV 73 % FVL/[place] 08/28/2020 [employer]graphics PDFReport SEE IMAGE FVC-Pred 3.79 L FVC-Pre 2.34 L FVC-%Pred-Pre 61 L FVC-LLN 3.05 L Fev1-Pred 3.00 L Fev1-Pre 2.04 L Fev1-%Pred-Pre 68 L Fev1-LLN 2.37 L Fev6-Pred 3.69 L Fev6-Pre 2.34 L Fev6-%Pred-Pre 63 L Fev6-LLN 2.96 L Xyq5utw-Pddk 80 % Pvo7dod-Nyg 87 % Wfj7bxd-%Pred-Pre 108 % Fvf2jnj-RQZ 70 % Lbx3ptk-Lpxw 97 % Jrb3imn-Vcf 100 % Dha0ttb-%Pred-Pre 102 % FEFMax-Pred 7.05 L/E/sec FEFMax-Pre 4.82 L/E/sec FEFMax-%Pred-Pre 68 L/E/sec FEFMax-LLN 5.22 L/E/sec Jfb0448-Pdoj 2.88 L/E/sec Ojf1103-Qzd 2.94 L/E/sec Ciw9951-%Pred-Pre 102 L/E/sec Qaz2998-TIL 1.56 L/E/sec ExpTime-Pre 6.40 sec Cbo8dvd6-Mxqa 82 % Qzt9akx3-Hgm 87 % Mso8qhd2-%Pred-Pre 105 % Kez7fof1-BUZ 73 % Procedures Date Code Description Status 08/28/2020 06175 Office/Outpatient Established Mo d MDM 30-39 Min Completed 08/28/2020 89856 Spirometry Completed Medical Devices Description No Information Available Encounters Type Date Location Provider Dx Diagnosis Office Visit 08/28/2020 12:30p [facility] JUNIOR Cannon J45.40 Moderate persistent asthma, [...] 02/14/2021 3:30 pm - [facility] * 12/22/2020 7:45 pm - [facility] 11/28/2020 - JUNIOR Cannon* J45.40 Moderate [...] MD RUQ PAIN, GALLBLADDER DISEASE Scheduled 08/23/[address] [place] [address] [phone]
--- OUTSIDE RECORDS SUMMARY | 2020-12-28 10:36 | CCD | Continuity of Care Document ---
Author Author Thuy KRUEGER PA Organization Unknown Address [address] [place] [address] Phone [phone] Care Team Providers Care Fire Prevention Inspector Name Role Phone Dain Nava M.D. [facility] [phone] Kamini Cardoso AUTM [phone] Problems Active Problems Provider Date Allergic asthma without status asthmaticus Jarred hall MD Onset: 06/20/2011 Refractory migraine Nico Romero MD Onset: 09/23/2013 Chronic pansinusitis Nico Romero MD Onset: 09/23/2013 Allergic rhinitis Nico Romero MD Onset: 09/23/2013 Temporomandibular joint disorder iNco Romero MD Onset: 11/03/2013 Unilateral sensorineural hearing loss wi th unrestricted hearing on the contralateral side Nioc Romero MD Onset: 11/03/2013 Acute sinusitis Tyrell [...] CPT Code Status Date Vaccine Lot # [id number] Given 12/04/2016 Flublock, Quadrivalent [id number] Given 12/04/2016 Influenza Virus Split 3 Yrs And Above For Intramuscular Use [id number] Vital Signs Date Vital Result Comment 11/28/2020 3:37pm BP Systolic 112 mmHg BP Diastolic 68 mmHg Heart Rate 84 /min O2 % BldC Oximetry 97 % Height 66 inches 5'6" Weight 232.00 lb BMI (Body Mass Index) 37.4 kg/m2 [place] Body Weight 130 lb Weight 105.235 kg BSA (Body Surface Area) 2.13 m2 08/28/2020 12:18pm BP Systolic 120 mmHg BP Diastolic 64 mmHg Heart Rate 93 /min O2 % BldC Oximetry 96 % Height 66 inches 5'6" [place] Body Weight 130 lb Results Test Acquired Date Facility Test Result H/L Range Note FVL/Ezio 11/28/2020 [employer] PDFReport SEE IMAGE FVC-Pred 3.79 L FVC-Pre 2.33 L FVC-%Pred-Pre 61 L FVC-LLN 3.05 L Fev1-Pred 3.00 L Fev1-Pre 1.97 L Fev1-%Pred-Pre 65 L Fev1-LLN 2.37 L Fev6-Pred 3.69 L Fev6-Pre 2.33 L Fev6-%Pred-Pre 63 L Fev6-LLN 2.96 L Szd3jtu-Clal 80 % Oef0xmn-Wow 85 % Kjg3pgi-%Pred-Pre 105 % Tqe3exx-LDP 70 % Hmp4usn-Cezl 97 % Qon5oek-Uok 100 % Usm7dde-%Pred-Pre 102 % FEFMax-Pred 7.05 L/E/sec FEFMax-Pre 5.44 L/E/sec FEFMax-%Pred-Pre 77 L/E/sec FEFMax-LLN 5.22 L/E/sec Rcg3979-Cxhd 2.88 L/E/sec Xcw7261-Ouw 2.49 L/E/sec Aht0288-%Pred-Pre 86 L/E/sec Iqj1480-OBX 1.56 L/E/sec ExpTime-Pre 5.90 sec Jvz3vek9-Cemm 82 % Png4qyp7-Hzb 85 % Vwn7yzp4-%Pred-Pre 102 % Yhb9nts9-OLC 73 % FVL/[place] 08/28/2020 [employer] PDFReport SEE IMAGE FVC-Pred 3.79 L FVC-Pre 2.34 L FVC-%Pred-Pre 61 L FVC-LLN 3.05 L Fev1-Pred 3.00 L Fev1-Pre 2.04 L Fev1-%Pred-Pre 68 L Fev1-LLN 2.37 L Fev6-Pred 3.69 L Fev6-Pre 2.34 L Fev6-%Pred-Pre 63 L Fev6-LLN 2.96 L Rhw0kuo-Hbiq 80 % Ily2pai-Xnu 87 % Gzk4xpo-%Pred-Pre 108 % Xvg2kye-OFZ 70 % Myk1sdg-Gvdu 97 % Hmq5xec-Aqz 100 % Ays6gmv-%Pred-Pre 102 % FEFMax-Pred 7.05 L/E/sec FEFMax-Pre 4.82 L/E/sec FEFMax-%Pred-Pre 68 L/E/sec FEFMax-LLN 5.22 L/E/sec Tvv0959-Iajl 2.88 L/E/sec Azg4996-Rmt 2.94 L/E/sec Xch4469-%Pred-Pre 102 L/E/sec Etr7440-YLU 1.56 L/E/sec ExpTime-Pre 6.40 sec Lwz0ksa2-Eljp 82 % Asg8gea0-Gpc 87 % Xhb5cfl5-%Pred-Pre 105 % Gam8tsm1-HCV 73 % Procedures Date Code Description Status 08/28/2020 13218 Office/Outpatient Established Mo d MDM 30-39 Min Completed 08/28/2020 41890 Spirometry Completed Medical Devices Description No Information Available Encounters Type Date Location Provider Dx Diagnosis Office Visit 08/28/2020 12:30p [facility] J45.40 Moderate persistent asthma, [...] 02/14/2021 3:30 pm - [facility] at [facility] * 12/22/2020 7:45 pm - [facility] 11/28/2020 - [facility]* J45.40 Moderate [...] MD RUQ PAIN, GALLBLADDER DISEASE Scheduled 08/23/[address] [place] [id number] [phone]
--- OUTSIDE RECORDS SUMMARY | 2020-12-28 10:36 | CCD ---
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 Name Role Phone [facility] 2 [phone] [facility] 2 [phone] [facility] 2 [phone] [facility] 2 [phone] BHARATI ARAUJO MD FACS 2 [phone] [facility] 2 [phone] Allergies Code Code System Name Reaction Severity Status Onset 412257 RxNorm Ceftin Active 02/16/2016 Notes: SEASONAL - Reaction: congestion Medications Name Status Start Date Stop Date albuterol sulfate HFA 90 mcg/actuation a erosol inhaler INHALE 2 PUFFS BY MOUTH FOUR TIMES A DAY NEEDED Active Not available allopurinol 100 mg tablet Completed 2020 alogliptin 25 mg tablet Completed 08/05/19 21 amoxicillin 875 mg-potassium clavulanate 125 mg tablet TAKE ONE TABLET BY MOUTH TWICE A DAY FOR 10 DAYS Completed 08/04/2020 Arnuity Ellipta 200 mcg/actuation powder for inhalation INHALE 1 PUFF BY MOUTH EVERY DAY Active Not av ailable atenolol 100 mg tablet TAKE ONE TABLET BY MOUTH EVERY DAY Active Not available Basaglar KwikPen U-100 Insulin 100 unit/ mL (3 mL) subcutaneous inject 20 units sub q daily in the evenings. Active Not available carbamazepine 200 mg tablet TAKE 1 1/2 TABLETS BY MOUTH IN THE MORNING AND 2 TABLETS IN THE EVENING Active Not available chlorhexidine gluconate 0.12 % mouthwash SWISH 15ML IN MOUTH FOR 30 SECONDS AFTER BRUSHING TEETH THEN SPIT OUT TWO TIMES A DAY Active Not available ergocalciferol (vitamin D2) 1,250 mcg (5 0,000 unit) capsule TAKE ONE CAPSULE BY MOUTH ONCE WEEKLY DIRECTED Active Not available glipizide ER 10 mg tablet, extended rele ase 24 hr TAKE ONE TABLET BY MOUTH EVERY DAY Active Not available lisinopril 20 mg tablet TAKE ONE TABLET BY MOUTH EVERY DAY Active Not available metformin ER 500 mg tablet,extended rele ase 24 hr Take 2 tablets twice a day by oral route. Active Not available montelukast 10 mg tablet TAKE ONE TABLET BY MOUTH EVERY DAY Active Not available OneTouch Delica Plus Lancet 33 gauge Active Not available OneTouch Ultra Blue Test Strip Active N ot available OneTouch Ultra2 Meter Active Not availa ble prednisone 20 mg tablet TAKE ONE TABLET BY MOUTH EVERY DAY FOR 5 DAYS Completed 08/04/2020 promethazine 25 mg tablet Completed 2020 quetiapine ER 200 mg tablet,extended rel ease 24 hr TAKE ONE TABLET BY MOUTH AT BEDTIME Active Not available simvastatin 10 mg tablet Completed 021 simvastatin 20 mg tablet TAKE ONE TABLET BY MOUTH EVERY EVENING Active Not available Striverdi Respimat 2.5 mcg/actuation solution for inhalation Act francia Not available Problems Name Status Onset Date Source Clinical Finding Active 02/16/[address] Concept Active 02/16/2016 History Pain in Left Knee Active 05/17/2016 History Pain of Right Shoulder Joint Active 09/26/2016 His tory Hypertensive Disorder Active 11/14/2016 History Itching Active 12/10/2016 History Abscess of Face Active 06/06/2017 History Cough Active 08/21/2017 History Finding of Upper Limb Active 10/10/2017 History Procedure Active 10/10/2017 History Influenza Vaccine Needed Active 01/09/2018 History Procedure by Method Active 10/20/2018 History Hyperlipidemia Active 01/05/2019 History 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 tive 01/05/2019 History Patient Asked to Attend Active 06/10/2019 History Lesion of Eye Structure Active 06/10/2019 History Clinical Finding Active 09/20/2019 History Disorder Due to Type 2 Diabetes Mellitus Active 020 History Type II Diabetes Mellitus Uncontrolled Active 1 Procedures Date Name Performed by 03/03/2007 Knee Surgery Information not avai lable 03/03/2003 Complete Repair of Rotator C uff Notes: left Information not available 05/12/2020 US, Abdomen, Complete Information not av ailable 05/12/2020 US, Gallbladder [facility] [address] [place] [address] (Work Place) 10/19/2020 Electrocardiogram, Routine ECG, 12 Leads Min [facility] [address] [place] [address] (Work Place) 10/19/2020 Electrocardiogram, Routine ECG, 12 Leads Min [facility] [address] [place], [place] [id number] (Work Place) Notes: left femur fracture-2007, sinuses Results Lab Results Date Name Specimen Result Interpretation Description Value Range Status Address 09/20/2020 Iron + TIBC + Ferritin, Serum Blood venous Normal Iron, Total 62 mcg/dL 45-160 mcg/dL Final [facility]: [address] [facility] Blood venous Normal Iron Binding Capacity 33 0 mcg/dL (calc) 250-450 mcg/dL (calc) [facility] [address] [facility] Blood venous Normal % Saturation 19 % (calc) 16-4 5 % (calc) Final [facility]: [address] [facility] Blood venous Normal Ferritin 50 NG/mL 16-232 NG/m L Final [facility]: [address] [facility] 09/20/2020 HIV 1+2 Ab + HIV1 P24 Ag, Quantitative Immunoassay, Serum Normal HIV Ag/Ab, 4TH Gen non-reactive non-reactive Final [facility] [address] [facility] [facility] 09/20/2020 Lipid Panel, Blood Blood venous High Lynn sterol, Total 222 mg/dL <200 mg/dL Final [facility]: [address] [facility] Blood venous Low HDL Cholesterol 30 mg/dL > or = 50 mg/dL Final [facility]: [address] [facility] Blood venous High Triglycerides 393 mg/dL <150 mg/dL Final [facility]: [address] [facility] Blood venous High LDL-cholesterol 132 mg/d L (calc) <100 mg/dL (calc) [facility]: [address] [facility] Blood venous High Chol/hdlc Ratio 7.4 calc <5.0 calc Final [facility]: [address] [facility] Blood venous High Non HDL Cholesterol 192 mg/dL (calc) <130 mg/dL (calc) Final [facility]: [address] [facility] 09/20/2020 TSH + Free T4, Serum Blood venous Normal Tsh 3.81 m IU/L Final [facility]: [address] [facility] Blood venous Normal T4, Free 1.0 NG/dL 0.8-1.8 NG /dL Final [facility]: [address] [facility] 09/20/2020 CMP, Serum or Plasma Blood venous High Glucose 437 mg/dL 65-99 mg/dL Final [facility]: [address] [facility] Blood venous Normal Urea Nitrogen (BUN) 8 mg/dL 7 -25 mg/dL [facility]: [address] [facility] Blood venous Normal Creatinine 0.52 mg/dL 0.50-1. 05 mg/dL [facility]: [address] [facility] Blood venous Normal eGFR Non-afr. Kenyan 1 11 mL/min/1.73m2 > or = 60 mL/min/1.73m2 Final [facility]: [address] [facility] Blood venous Normal eGFR 12 9 mL/min/1.73m2 > or = 60 mL/min/1.73m2 Final [facility]: [address] [facility] Blood venous BUN/creatinine Ratio not applicable (calc) 6-22 (calc) Final [facility]: [address] [facility] Blood venous Low Sodium 133 mmol/L 135-146 mmo l/L [facility]: [address] [facility] Blood venous Normal Potassium 4.3 mmol/L 3.5-5.3 mmol/L [facility]: [address] [facility] Blood venous Normal Chloride 98 mmol/L 98-110 mmo l/L [facility]: [address] [facility] Blood venous Normal Carbon Dioxide 26 mmol/L 20-3 2 mmol/L [facility]: [address] [facility] Blood venous Normal Calcium 8.9 mg/dL 8.6-10.4 mg /dL [facility]: [address] [facility] Blood venous Normal Protein, Total 7.6 g/dL 6.1-8 .1 g/dL Final [facility]: [address] [facility] Blood venous Normal Albumin 3.7 g/dL 3.6-5.1 g/dL [facility]: [address] [facility] Blood venous High Globulin 3.9 g/dL (calc) 1.9- 3.7 g/dL (calc) [facility]: [address] [facility] Blood venous Low Albumin/globulin Ratio 0 .9 (calc) 1.0-2.5 (calc) [facility]: [address] [facility] Blood venous Normal Bilirubin, Total 0.3 mg/dL 0. 2-1.2 mg/dL Final [facility]: [address] [facility] Blood venous Normal Alkaline Phosphatase 52 U/L 3 7-153 U/L [facility]: [address] [facility] Blood venous Normal Ast 15 U/L 10-35 U/L Final [facility]: [address] [facility] Blood venous Normal Alt 16 U/L 6-29 U/L Final [facility]: [address] [facility] 09/20/2020 Microalbumin, Urine Albumin, Urine tnp Final [facility]: [address] [facility] 09/20/2020 Urinalysis Complete, Reflex Culture [place] r tnp Final [facility]: [address] [facility] 09/20/2020 Hepatitis C Virus Ab, Serum Blood venous Normal Hepatitis C Antibody non-reactive non-reactive Final [facility]: [address] [facility] Blood venous Normal Index 0.01 <1.00 Final [facility]: [address] [facility] 09/20/2020 Vitamin B12 + Folate, Serum or Blood Blood venous Normal Vitamin B12 362 pg/mL 200-1100 pg/mL Final [facility]: [address] [facility] Blood venous Normal Folate, Serum 14.4 NG/mL [facility]: [address] [facility] 09/20/2020 Vitamin D, 25-Hydroxy, Total, Serum Blood venous Low Vitamin D,25-Oh,total,ia 28 NG/mL 30-100 NG/mL Final [facility]: [address], [place] 09/20/2020 HbA1C (Hemoglobin a1C), Blood Blood venous High Hemoglobin a1C 11.6 % of total HGB <5.7 % of total HGB Final [employer] [facility]: [address] [place] 05/31/2020 CBC W/ Auto Diff High White Blood Count 10.2 10 4.0-10.0 10 Final [facility]: 0 [facility] Normal Red Blood Count 4.98 10 4.00-5.40 10 [facility]: [address] [facility] Normal Hemoglobin 14.0 g/dL 12.0-15.5 g/dL [facility]: 0 [facility] Normal Hematocrit 43.3 % 36.0-47.0 % [facility]: [address] [place] [address] Normal Mean Corpuscular Volume 86.9 fL 80.0 -96.0 fL [facility]: 0 [facility] Normal Mean Corpuscular Hemoglobin 28.1 pg 27.0-33.0 pg [facility]: [address] [facility] Normal Mean Corpuscular HGB Conc 32.3 g/dL 32.0-36.5 g/dL [facility]: [address] [facility] Normal Red Cell Distribution Width 13.2 % 1 1.5-14.5 % [facility]: 0 [facility] Normal Platelet Count, Automated 314 10 150 -450 10 [facility]: [address] [facility] Normal Neutrophils % 61.8 % 36.0-66.0 % [facility]: [address] [facility] Normal Lymph % 27.1 % 24.0-44.0 % [facility]: [address] [facility] Normal [place] % 5.4 % 2.0-8.0 % [facility]: [address] [facility] High Eos % 4.6 % 0.0-3.0 % [facility]: [address] [facility] Normal Baso % 0.5 % 0.0-1.0 % [facility]: [address] [facility] Normal Immature Granulocyte % 0.6 % 0-3.0 % [facility]: [address] [facility] Normal Nucleated Red Blood Cell % 0.0 % 0- 0 % [facility]: [address] [facility] Normal Neutrophils # 6.3 10 1.5-8.5 10 [facility]: [address] [facility] Normal Lymph # 2.8 10 1.5-5.0 10 [facility]: [address] [facility] Normal [place] # 0.6 10 0.0-0.8 10 [facility]: [address] [facility] Normal Eos # 0.5 10 0.0-0.5 10 [facility]: [address] [facility] Normal Baso # 0.1 10 0.0-0.2 10 [facility]: [address] [facility] 05/31/2020 HbA1C (Hemoglobin a1C), Blood Normal Hemogl obin a1C 11.5 % [facility]: 0 [facility] High Estimated Average Glucose 283 mg/dL 60-110 mg/dL [facility]: 0 [facility] 05/31/2020 CMP, Serum or Plasma High Glucose, Fastin g 329 mg/dL 70-100 mg/dL [facility]: 83 0 [facility] Normal Blood Urea Nitrogen 9 mg/dL 7-18 mg/ dL [facility]: 0 [facility] Normal Creatinine for GFR 0.64 mg/dL 0.55-1 .30 mg/dL [facility]: 0 [facility] Normal Glomerular Filtration Rate > 60.0 >5 1 [facility]: 0 [facility] Low Sodium Level 133 mEq/L 136-145 mEq/L [facility]: 0 [facility] Normal Potassium Serum 4.6 mEq/L 3.5-5.1 mE q/L [facility]: [address] [facility] Normal Chloride Level 99 mEq/L 98-107 mEq/L [facility]: [address] [facility] Normal Carbon Dioxide Level 29 mEq/L 21-32 mEq/L [facility]: [address] [facility] Low Anion Gap 5 mEq/L 8-16 mEq/L [facility]: [address] [facility] Normal Calcium Level 9.0 mg/dL 8.5-10.1 mg/ dL [facility]: [address] [facility] Normal AST/SGOT 16 U/L 7-37 U/L [facility]: [address] [facility] Normal ALT/SGPT 23 U/L 12-78 U/L [facility]: [address] [facility] Normal Alkaline Phosphatase 66 U/L 45-117 U /L [facility]: [address] [facility] Normal Bilirubin,total 0.2 mg/dL 0.2-1.0 mg /dL [facility]: [address] [facility] Normal Total Protein 8.0 gm/dL 6.4-8.2 gm/d L [facility]: [address] [facility] Normal Albumin 3.4 gm/dL 3.2-5.2 gm/dL Archana l [facility]: [address] [facility] Low Albumin/globulin Ratio 0.7 1.2-2. 2 [facility]: [address] [facility] 05/31/2020 Lipid Panel, Blood High Triglycerides Lev el 317 mg/dL <150 mg/dL [facility]: 83 0 [facility] High Cholesterol Level 209 mg/dL <200 mg/ dL [facility]: [address] [facility] Low HDL Cholesterol 32 mg/dL >40 mg/dL F inal [facility]: [address] [facility] High LDL Cholesterol 114 mg/dL <100 mg/dL [facility]: [address] [facility] Normal Non-hdl-c 177 mg/dL Final [facility]: [address] [facility] High Cholesterol Risk Ratio 6.531 <5 [facility]: [address] [facility] 05/31/2020 Amylase, Serum or Plasma Normal Amylase 43 U/L 25-115 U/L [facility]: [address] [facility] 05/31/2020 Lipase, Serum or Plasma Normal Lipase 237 U/L 73-393 U/L [facility]: [address] [facility] 05/31/2020 TSH + Free T4, Serum Normal Thyroid Stimulating Hormone 2.700 uIU/mL 0.358-3.740 uIU/mL [facility] nter: 0 [facility] Normal Free T4 0.97 NG/dL 0.76-1.46 NG/dL F inal [facility]: 0 [facility] 05/31/2020 Vitamin D, 25-Hydroxy, Total, Serum Low Total 25(Oh) Vitamin D 12.0 NG/mL 30.0-100.0 NG/mL [facility] nter: [address] [facility] 03/29/2020 BMP, Serum or Plasma High Glucose, Fastin g 290 mg/dL 70-100 mg/dL [facility]: 83 0 [facility] Normal Blood Urea Nitrogen 7 mg/dL 7-18 mg/ dL [facility]: [address] [place] [address] Normal Creatinine for GFR 0.65 mg/dL 0.55-1 .30 mg/dL [facility]: 0 [facility] Normal Glomerular Filtration Rate > 60.0 >5 1 [facility]: 0 [facility] Low Sodium Level 135 mEq/L 136-145 mEq/L [facility]: 0 [facility] Normal Potassium Serum 4.4 mEq/L 3.5-5.1 mE q/L [facility]: 0 [facility] Normal Chloride Level 99 mEq/L 98-107 mEq/L [facility]: [address] [place] [address] Normal Carbon Dioxide Level 30 mEq/L 21-32 mEq/L [facility]: [address] [place] [address] Low Anion Gap 6 mEq/L 8-16 mEq/L [facility]: [address] [place] [address] Normal Calcium Level 8.8 mg/dL 8.5-10.1 mg/ dL [facility]: [address] [place] [address] 03/29/2020 Carbamazepine, Serum or Plasma Normal Carbamazepine (Tegretol) Level 7.3 ug/mL 4.0-10.0 ug/mL [facility]: [address] [place] [address] 01/12/2020 CBC W/ Auto Diff High White Blood Count 10.7 10 4.0-10.0 10 [facility]: [address] [place] [address] Normal Red Blood Count 4.78 10 4.00-5.40 10 [facility]: [address] [place] [address] Normal Hemoglobin 13.6 g/dL 12.0-15.5 g/dL [facility]: [address] [place] [address] Normal Hematocrit 42.4 % 36.0-47.0 % [facility]: [address] [place] [address] Normal Mean Corpuscular Volume 88.7 fL 80.0 -96.0 fL [facility]: [address] [place] [address] Normal Mean Corpuscular Hemoglobin 28.5 pg 27.0-33.0 pg [facility]: [address] [place] [address] Normal Mean Corpuscular HGB Conc 32.1 g/dL 32.0-36.5 g/dL [facility]: [address] [place] [address] Normal Red Cell Distribution Width 12.8 % 1 1.5-14.5 % [facility]: [address] [place] [address] Normal Platelet Count, Automated 335 10 150 -450 10 [facility]: [address] [place] [address] Normal Neutrophils % 60.9 % 36.0-66.0 % Fin [facility]: [address] [place] [address] Normal Lymph % 30.2 % 24.0-44.0 % Final [facility]: [address] [facility] Normal [place] % 4.5 % 0.0-5.0 % Final [facility]: [address] [facility] High Eos % 3.5 % 0.0-3.0 % [facility]: [address] [facility] Normal Baso % 0.4 % 0.0-1.0 % [facility]: [address] [facility] Normal Immature Granulocyte % 0.5 % 0-3.0 % [facility]: [address] [place] [address] Normal Nucleated Red Blood Cell % 0.0 % 0- 0 % [facility]: [address] [place] [address] Normal Neutrophils # 6.5 10 1.5-8.[address] [facility]: [address] [place] [address] Normal Lymph # 3.2 10 1.5-5.0 10 [facility]: [address] [facility] Normal [place] # 0.5 10 0.0-0.8 10 [facility]: 0 [facility] Normal Eos # 0.4 10 0.0-0.5 10 [facility]: [address] [facility] Normal Baso # 0.0 10 0.0-0.2 10 [facility]: [address] [place] [address] 01/12/2020 Carbamazepine, Serum or Plasma High Carbamazepine (Tegretol) Level 12.1 ug/mL 4.0-10.0 ug/mL [facility]: [address] [facility] Past Encounters 10/19/2020 Abdominal Pain; Pre-surgery Evaluation; Pain in Right Knee; Hypertensive Disorder; Type II Diabetes Mellitus Uncontrolled; Hyperlipidemia [facility]: [address] [place] [address], Ph. 09/20/2020 Adult Health Examination Kamini Cardoso [facility]: [address] [place] [address], Ph. 08/04/2020 Body Mass Index 30+ - Obesity; Adult Health Examination; Type II Diabetes Mellitus Uncontrolled Kaminira Cardoso [facility]: [address] [place] [address], Ph. 06/15/2020 SARS-CoV-2 Vaccination Biju Cifuentes MD: [address] [place] [phone], Ph. 05/17/2020 SARS-CoV-2 Vaccination Biju Cifuentes MD: [address] [place] [phone], Ph. 05/12/2020 Right Upper Quadrant Pain; Type II Diabetes Mellitus Uncontrolled; Chronic Diarrhea Kamini Walker [facility]: [address] [place] [phone], Ph. Social History Tobacco Smoking Status Never Smoker Vaccine List Vaccine Type COVID-19, mRNA, LNP-S, PF, 100 mcg/0.5 m L dose 10.5 mL 10.5 mL influenza, injectable, quadrivalent, pre servative free 01/05/20190.5 mL influenza, seasonal, injectable 01/09/20180.5 mL Plan of Care Patient Instructions We will hold off on surgery for now unti l your blood sugar is better controlled. We have sent a prescription to start basaglar insulin. This is a long acting insulin. Please take at nights. Please continue metformin and glipizide as prescribed. Please start diabetic diet to include limiting sugars, carbohydrates and processed foods. Please monitor and log blood sugar three times daily . Please bring log to your next visit. Reminders Provider Appointments None recorded. Lab None recorded. Referral None recorded. Procedures None recorded. Surgeries None recorded. Imaging None recorded. Vitals 10/19/2020 03:00PM MEDICAL CLEARANCE Height Weight BMI Blood Pressure 66 in 228 lbs 16 oz 37 kg/m2 (1) 149/81 mm [Hg] (2) 103/68 mm[Hg] 09/20/2020 08:00AM NURSE LAB COLLECTION Height 66 in 08/04/2020 03:20PM ANNUAL EXAM Height Weight BMI Blood Pressure 66 in 236 lbs 6 oz 38.2 kg/m2 124/78 mm[Hg] 05/12/2020 03:40PM ESTABLISHED [id number] Height Weight BMI Blood Pressure 66 in 242 lbs 6 oz 39.1 kg/m2 112/71 mm[Hg] 10/14/2019 Height Weight BMI Blood Pressure 66 in 236 lbs 2.08 oz 38.25 kg/m2 114/74 mm[H g] 09/20/2019 Height Weight BMI Blood Pressure 66 in 229 lbs 37.10 kg/m2 112/75 mm[Hg] 06/10/2019 Height Weight BMI Blood Pressure 66 in 231 lbs 8 oz 37.50 kg/m2 117/81 mm[Hg] 01/26/2019 Height Weight BMI Blood Pressure 66 in 236 lbs 6.4 oz 38.29 kg/m2 151/85 mm[Hg ] 01/05/2019 Height Weight BMI Blood Pressure 66 in 234 lbs 4 oz 37.95 kg/m2 142/84 mm[Hg] 10/20/2018 Height Weight BMI Blood Pressure 66 in 239 lbs 38.72 kg/m2 141/81 mm[Hg] 03/12/2018 Height Weight BMI Blood Pressure 66 in 245 lbs 3.2 oz 39.72 kg/m2 131/78 mm[Hg ]
--- OUTSIDE RECORDS SUMMARY | 2020-12-28 10:37 | CCD ---
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 Name Role Phone Frandy Cifuentes MD Unavailable Unavailable Frandy Cifuentes MD Unavailable Unavailable Frandy Cifuentes MD Unavailable Unavailable Frandy Cifuentes MD Unavailable Unavailable Frandy Cifuentes MD Unavailable Unavailable Frandy Cifuentes MD Unavailable Unavailable Frandy Cifuentes MD Unavailable Unavailable Frandy Cifuentes MD Unavailable Unavailable Frandy Cifuentes MD Unavailable Unavailable Frandy Cifuentes MD Unavailable Unavailable Frandy Cifuentes MD Unavailable Unavailable Frandy Cifuentes MD Unavailable Unavailable Frandy Cifuentes MD Unavailable Unavailable Frandy Cifuentes MD Unavailable Unavailable Frandy Cifuentes MD Unavailable Unavailable Frandy Cifuentes MD Unavailable Unavailable Frandy Cifuentes MD Unavailable Unavailable Frandy Cifuentes MD Unavailable Unavailable Frandy Cifuentes MD Unavailable Unavailable Frandy Cifuentes MD Unavailable Unavailable Frandy Cifuentes MD Unavailable Unavailable Frandy Cifuentes MD Unavailable Unavailable Frandy Cifuentes MD Unavailable Unavailable Frandy Cifuentes MD Unavailable Unavailable Frandy Cifuentes MD Unavailable Unavailable Frandy Cifuentes MD Unavailable Unavailable Frandy Cifuentes MD Unavailable Unavailable Frandy Cifuentes MD Unavailable Unavailable Frandy Cifuentes MD Unavailable Unavailable Frandy Cifuentes MD Unavailable Unavailable Frandy Cifuentes MD Unavailable Unavailable Frandy Cifuentes MD Unavailable Unavailable Frandy Cifuentes MD Unavailable Unavailable Frandy Cifuentes MD Unavailable Unavailable Frandy Cifuentes MD Unavailable Unavailable Frandy Cifuentes MD Unavailable Unavailable Frandy Cifuentes MD Unavailable Unavailable Frandy Cifuentes MD Unavailable Unavailable Frandy Cifuentes MD Unavailable Unavailable Frandy Cifuentes MD Unavailable Unavailable Frandy Cifuentes MD Unavailable Unavailable Frandy Cifuentes MD Unavailable Unavailable Frandy Cifuentes MD Unavailable Unavailable Frandy Cifuentes MD Unavailable Unavailable Frandy Cifuentes MD Unavailable Unavailable Frandy Cifuentes MD Unavailable Unavailable Frandy Cifuentes MD Unavailable Unavailable Frandy Cifuentes MD Unavailable Unavailable Frandy Cifuentes MD Unavailable Unavailable Frandy Cifuentes MD Unavailable Unavailable Frandy Cifuentes MD Unavailable Unavailable Frandy Cifuentes MD Unavailable Unavailable Frandy Cifuentes MD Unavailable Unavailable Frandy Cifuentes MD Unavailable Unavailable Frandy Cifuentes MD Unavailable Unavailable Frandy Cifuentes MD Unavailable Unavailable Frandy Cifuentes MD Unavailable Unavailable Frandy Cifuentes MD Unavailable Unavailable Frandy Cifuentes MD Unavailable Unavailable Frandy Cifuentes MD Unavailable Unavailable Frandy Cifuentes MD Unavailable Unavailable Frandy Cifuentes MD Unavailable Unavailable Frandy Cifuentes MD Unavailable Unavailable Frandy Cifuentes MD Unavailable Unavailable Frandy Cifuentes MD Unavailable Unavailable Frandy Cifuentes MD Unavailable Unavailable Frandy Cifuentes MD Unavailable Unavailable Frandy Cifuentes MD Unavailable Unavailable Frandy Cifuentes MD Unavailable Unavailable Frandy Cifuentes MD Unavailable Unavailable Frandy Cifuentes MD Unavailable Unavailable Frandy Cifuentes MD Unavailable Unavailable Frandy Cifuentes MD Unavailable Unavailable Frandy Cifuentes MD Unavailable Unavailable Frandy Cifuentes MD Unavailable Unavailable Frandy Cifuentes MD Unavailable Unavailable Frandy Cifuentes MD Unavailable Unavailable Frandy Cifuentes MD Unavailable Unavailable Frandy Cifuentes MD Unavailable Unavailable Frandy Cifuentes MD Unavailable Unavailable Frandy Cifuentes MD Unavailable Unavailable Frandy Cifuentes MD Unavailable Unavailable Frandy Cifuentes MD Unavailable Unavailable Frandy Cifuentes MD Unavailable Unavailable Frandy Cifuentes MD Unavailable Unavailable Frandy Cifuentes MD Unavailable Unavailable Frandy Cifuentes MD Unavailable Unavailable Frandy Cifuentes MD Unavailable Unavailable Frandy Cifuentes MD Unavailable Unavailable Frandy Cifuentes MD Unavailable Unavailable Frandy Cifuentes MD Unavailable Unavailable Frandy Cifuentes MD Unavailable Unavailable Frandy Cifuentes MD Unavailable Unavailable Andrew Nava MD Unavailable Unavailable Andrew Nava MD Unavailable Unavailable Andrew Nava MD Unavailable Unavailable Andrew Nava MD Unavailable Unavailable Andrew Nava MD Unavailable Unavailable Andrew Nava MD Unavailable Unavailable Andrew Nava MD Unavailable Unavailable Andrew Nava MD Unavailable Unavailable Andrew Nava MD Unavailable Unavailable Andrew Nava MD Unavailable Unavailable Andrew Nava MD Unavailable Unavailable Andrew Nava MD Unavailable Unavailable Andrew Nava MD Unavailable Unavailable Andrew Nava MD Unavailable Unavailable Andrew Nava MD Unavailable Unavailable Andrew Naav MD Unavailable Unavailable Andrew Nava MD Unavailable Unavailable Andrew Nava MD Unavailable Unavailable Andrew Nava MD Unavailable Unavailable Andrew Nava MD Unavailable Unavailable Andrew Nava MD Unavailable Unavailable Andrew Nava MD Unavailable Unavailable Andrew Nava MD Unavailable Unavailable Andrew Nava MD Unavailable Unavailable Andrew Nava MD Unavailable Unavailable Andrew Nava MD Unavailable Unavailable Andrew Nava MD Unavailable Unavailable Andrew Nava MD Unavailable Unavailable Andrew Nava MD Unavailable Unavailable Andrew Nava MD Unavailable Unavailable Andrew Nava MD Unavailable Unavailable Andrew Nava MD Unavailable Unavailable Andrew Nava MD Unavailable Unavailable Andrew Nava MD Unavailable Unavailable Andrew Nava MD Unavailable Unavailable Andrew Nava MD Unavailable Unavailable Andrew Nava MD Unavailable Unavailable Andrew Nava MD Unavailable Unavailable Andrew Nava MD Unavailable Unavailable Andrew Nava MD Unavailable Unavailable Andrew Nava MD Unavailable Unavailable Andrew Nava MD Unavailable Unavailable Andrew Nava MD Unavailable Unavailable Andrew Nava MD Unavailable Unavailable Andrew Nava MD Unavailable Unavailable Andrew Nava MD Unavailable Unavailable Andrew Nava MD Unavailable Unavailable Andrew Nava MD Unavailable Unavailable Andrew Nava MD Unavailable Unavailable Andrew Nava MD Unavailable Unavailable Walker, Kamini PATTERN WORKER PATTERN WORKER Unavailable Unavailable Walker, A Kamini PATTERN WORKER Unavailable Unavailable [place], A Kamini PATTERN WORKER Unavailable Unavailable [place], A Kamini PATTERN WORKER Unavailable Unavailable [place], A Kamini PATTERN WORKER Unavailable Unavailable [place], A Kamini PATTERN WORKER Unavailable Unavailable [place], A Kamini PATTERN WORKER Unavailable Unavailable [place], A Kamini PATTERN WORKER Unavailable Unavailable [place], A Kamini PATTERN WORKER Unavailable Unavailable [place], A Kamini PATTERN WORKER Unavailable Unavailable [place], A Kamini PATTERN WORKER Unavailable Unavailable [place], A Kamini PATTERN WORKER Unavailable Unavailable [place], A Kamini PATTERN WORKER Unavailable Unavailable [place], A Kamini PATTERN WORKER Unavailable Unavailable [place], A Kamini PATTERN WORKER Unavailable Unavailable [place], A Kamini PATTERN WORKER Unavailable Unavailable [place], A Kamini PATTERN WORKER Unavailable Unavailable [place], A Kamini PATTERN WORKER Unavailable Unavailable [place], A Kamini PATTERN WORKER Unavailable Unavailable [place], A Kamini PATTERN WORKER Unavailable Unavailable [place], A Kamini PATTERN WORKER Unavailable Unavailable [place], A Kamini PATTERN WORKER Unavailable Unavailable [place], A Kamini PATTERN WORKER Unavailable Unavailable [place], A Kamini PATTERN WORKER Unavailable Unavailable [place], A Kamini PATTERN WORKER Unavailable Unavailable [place], A Kamini PATTERN WORKER Unavailable Unavailable [place], A Kamini PATTERN WORKER Unavailable Unavailable [place], A Kamini PATTERN WORKER Unavailable Unavailable [place], A Kamini PATTERN WORKER Unavailable Unavailable [place], A Kamini PATTERN WORKER Unavailable Unavailable [place], A Kamini PATTERN WORKER Unavailable Unavailable [place], A Kamini PATTERN WORKER Unavailable Unavailable Rebecca, D John BONE PULLER Unavailable Unavailable Rebecca, D John BONE PULLER Unavailable Unavailable Rebecca, D John BONE PULLER Unavailable Unavailable Rebecca, D John BONE PULLER Unavailable Unavailable Rebecca, D John BONE PULLER Unavailable Unavailable Rebecca, D John BONE PULLER Unavailable Unavailable Rebecca, D John BONE PULLER Unavailable Unavailable Rebecca, D John BONE PULLER Unavailable Unavailable Rebecca, D John BONE PULLER Unavailable Unavailable Rebecca, D John BONE PULLER Unavailable Unavailable Rebecca, D John BONE PULLER Unavailable Unavailable Rebecca, D John BONE PULLER Unavailable Unavailable Rebecca, D John BONE PULLER Unavailable Unavailable Rebecca, D Jhon BONE PULLER Unavailable Unavailable Rebecca, D John BONE PULLER Unavailable Unavailable Rebecca, D John BONE PULLER Unavailable Unavailable Rebecca, D John BONE PULLER Unavailable Unavailable Rebecca, D John BONE PULLER Unavailable Unavailable Rebecca, D John BONE PULLER Unavailable Unavailable Rebecca, D John BONE PULLER Unavailable Unavailable Rebecca, D John BONE PULLER Unavailable Unavailable Rebecca, D John BONE PULLER Unavailable Unavailable Rebecca, D John BONE PULLER Unavailable Unavailable Rebecca, D John BONE PULLER Unavailable Unavailable Rebecca, D John BONE PULLER Unavailable Unavailable Rebecca, D John BONE PULLER Unavailable Unavailable Rebecca, D John BONE PULLER Unavailable Unavailable Rebecca, D John BONE PULLER Unavailable Unavailable Rebecca, D John BONE PULLER Unavailable Unavailable Rebecca, D John BONE PULLER Unavailable Unavailable Rebecca, D John BONE PULLER Unavailable Unavailable Reebcca, D John BONE PULLER Unavailable Unavailable Rebecca, D John BONE PULLER Unavailable Unavailable Rebecca, D John BONE PULLER Unavailable Unavailable Rebecca, D John BONE PULLER Unavailable Unavailable Rebecca, D John BONE PULLER Unavailable Unavailable Rebecca, D John BONE PULLER Unavailable Unavailable Rebecca, D John BONE PULLER Unavailable Unavailable Rebecca, D John BONE PULLER Unavailable Unavailable Rebecca, D John BONE PULLER Unavailable Unavailable Rebecca, D John BONE PULLER Unavailable Unavailable Rebecca, D John BONE PULLER Unavailable Unavailable Rebecca, D John BONE PULLER Unavailable Unavailable Rebecca, D John BONE PULLER Unavailable Unavailable Rebecca, D John BONE PULLER Unavailable Unavailable Rebecca, D John BONE PULLER Unavailable Unavailable Rebecca, D John BONE PULLER Unavailable Unavailable Rebecca, D John BONE PULLER Unavailable Unavailable Rebecca, D John BONE PULLER Unavailable Unavailable Rebecca, D John BONE PULLER Unavailable Unavailable Rebecca, D John BONE PULLER Unavailable Unavailable Rebecca, D John BONE PULLER Unavailable Unavailable Rebecca, D John BONE PULLER Unavailable Unavailable Rebecca, D John BONE PULLER Unavailable Unavailable Rebecca, D John BONE PULLER Unavailable Unavailable Rebecca, D John BONE PULLER Unavailable Unavailable Rebecca, D John BONE PULLER Unavailable Unavailable Rebecca, D John BONE PULLER Unavailable Unavailable Rebecca, D John BONE PULLER Unavailable Unavailable Rebecca, D John BONE PULLER Unavailable Unavailable Rebecca, D John BONE PULLER Unavailable Unavailable Rebecca, D John BONE PULLER Unavailable Unavailable Rebecca, D John BONE PULLER Unavailable Unavailable Rebecca, D John BONE PULLER Unavailable Unavailable Rebecca, D John BONE PULLER Unavailable Unavailable Rebecca, D John BONE PULLER Unavailable Unavailable Rebecca, D John BONE PULLER Unavailable Unavailable Rebecca, D John BONE PULLER Unavailable Unavailable Rebecca, D John BONE PULLER Unavailable Unavailable Rebecca, D John BONE PULLER Unavailable Unavailable Rebecca, D John BONE PULLER Unavailable Unavailable Rebecca, D John BONE PULLER Unavailable Unavailable Inderjit Kurtz JR, MD Unavailable Unavailable Inderjit Kurtz JR, MD Unavailable Unavailable Inderjit Kurtz JR, MD Unavailable Unavailable Inderjit Kurtz JR, MD Unavailable Unavailable Inderjit Kurtz JR, MD Unavailable Unavailable Inderjit Kurtz JR, MD Unavailable Unavailable Inderjit Kurtz JR, MD Unavailable Unavailable Inderjit Kurtz JR, MD Unavailable Unavailable Inderjit Kurtz JR, MD Unavailable Unavailable Inderjit Kurtz JR, MD Unavailable Unavailable Inderjit Kurtz JR, MD Unavailable Unavailable Inderjit Kurtz JR, MD Unavailable Unavailable Inderjit Kurtz JR, MD Unavailable Unavailable Inderjit Kurtz JR, MD Unavailable Unavailable Inderjit Kurtz JR, MD Unavailable Unavailable Inderjit Kurtz JR, MD Unavailable Unavailable Inderjit Kurtz JR, MD Unavailable Unavailable Inderjit Kurtz JR, MD Unavailable Unavailable Inderjit Kurtz JR, MD Unavailable Unavailable Inderjit Kurtz JR, MD Unavailable Unavailable Inderjit Kurtz JR, MD Unavailable Unavailable Inderjit Kurtz JR, MD Unavailable Unavailable Inderjit Kurtz JR, MD Unavailable Unavailable Inderjit Kurtz JR, MD Unavailable Unavailable Inderjit Kurtz JR, MD Unavailable Unavailable Inderjit Kurtz JR, MD Unavailable Unavailable Inderjit Kurtz JR, MD Unavailable Unavailable Inderjit Kurtz JR, MD Unavailable Unavailable Inderjit Kurtz JR, MD Unavailable Unavailable Inderjit Kurtz JR, MD Unavailable Unavailable Inderjit Kurtz JR, MD Unavailable Unavailable Inderjit Kurtz JR, MD Unavailable Unavailable Inderjit Kurtz JR, MD Unavailable Unavailable Inderjit Kurtz JR, MD Unavailable Unavailable Inderjit Kurtz JR, MD Unavailable Unavailable Inderjit Kurtz JR, MD Unavailable Unavailable Inderjit Kurtz JR, MD Unavailable Unavailable Inderjit Kurtz JR, MD Unavailable Unavailable Inderjit Kurtz JR, MD Unavailable Unavailable Inderjit Kurtz JR, MD Unavailable Unavailable Inderjit Kurtz JR, MD Unavailable Unavailable Inderjit Kurtz JR, MD Unavailable Unavailable Inderjit Kurtz JR, MD Unavailable Unavailable Inderjit Kurtz JR, MD Unavailable Unavailable Inderjit Kurtz JR, MD Unavailable Unavailable Inderjit Kurtz JR, MD Unavailable Unavailable Inderjit Kurtz JR, MD Unavailable Unavailable Inderjit Kurtz JR, MD Unavailable Unavailable Inderjit Kurtz JR, MD Unavailable Unavailable Inderjit Kurtz JR, MD Unavailable Unavailable Inderjit Kurtz JR, MD Unavailable Unavailable Inderjit Kurtz JR, MD Unavailable Unavailable Inderjit Kurtz JR, MD Unavailable Unavailable Inderjit Kurtz JR, MD Unavailable Unavailable Walker, A Kamini PATTERN WORKER Unavailable Unavailable Walker, A Kamini PATTERN WORKER Unavailable Unavailable Walker, A Kamini PATTERN WORKER Unavailable Unavailable Walker, A Kamini PATTERN WORKER Unavailable Unavailable Walker, A Kamini PATTERN WORKER Unavailable Unavailable Walker, A Kamini PATTERN WORKER Unavailable Unavailable Walker, A Kamini PATTERN WORKER Unavailable Unavailable Walker, A Kamini PATTERN WORKER Unavailable Unavailable Walker, A Kamini PATTERN WORKER Unavailable Unavailable Walker, A Kamini PATTERN WORKER Unavailable Unavailable Walker, A Kamini PATTERN WORKER Unavailable Unavailable Walker, A Kamini PATTERN WORKER Unavailable Unavailable Walker, A Kamini PATTERN WORKER Unavailable Unavailable Walker, A Kamini PATTERN WORKER Unavailable Unavailable Walker, A Kamini PATTERN WORKER Unavailable Unavailable Walker, A Kamini PATTERN WORKER Unavailable Unavailable Walker, A Kamini PATTERN WORKER Unavailable Unavailable Walker, A Kamini PATTERN WORKER Unavailable Unavailable Walker, A Kamini PATTERN WORKER Unavailable Unavailable Walker, A Kamini PATTERN WORKER Unavailable Unavailable Walker, A Kamini PATTERN WORKER Unavailable Unavailable Walker, A Kamini PATTERN WORKER Unavailable Unavailable Walker, A Kamini PATTERN WORKER Unavailable Unavailable Walker, A Kamini PATTERN WORKER Unavailable Unavailable Walker, A Kaimni PATTERN WORKER Unavailable Unavailable Walker, A Kamini PATTERN WORKER Unavailable Unavailable Walker, A Kamini PATTERN WORKER Unavailable Unavailable Walker, A Kamini PATTERN WORKER Unavailable Unavailable Walker, A Kamini PATTERN WORKER Unavailable Unavailable Walker, A Kamini PATTERN WORKER Unavailable Unavailable Walker, A Kamini PATTERN WORKER Unavailable Unavailable KRUEGER, M JOYCELYN PA Unavailable Unavailable KRUEGER, M JOYCELYN PA Unavailable Unavailable KRUEGER, M JOYCELYN PA Unavailable Unavailable KRUEGER, M JOYCELYN PA Unavailable Unavailable KRUEGER, M JOYCELYN PA Unavailable Unavailable KRUEGER, M JOYCELYN PA Unavailable Unavailable KRUEGER, M JOYCELYN PA Unavailable Unavailable KRUEGER, M JOYCELYN PA Unavailable Unavailable KRUEGER, M JOYCELYN PA Unavailable Unavailable KRUEGER, M JOYCELYN PA Unavailable Unavailable KRUEGER, M JOYCELYN PA Unavailable Unavailable KRUEGER, M JOYCELYN PA Unavailable Unavailable KRUEGER, M JOYCELYN PA Unavailable Unavailable KRUEGER, M JOYCELYN PA Unavailable Unavailable KRUEGER, M JOYCELYN PA Unavailable Unavailable KRUEGER, M JOYCELYN PA Unavailable Unavailable KRUEGER, M JOYCELYN PA Unavailable Unavailable KRUEGER, M JOYCELYN PA Unavailable Unavailable KRUEGER, M JOYCELYN PA Unavailable Unavailable KRUEGER, M JOYCELYN PA Unavailable Unavailable KRUEGER, M JOYCELYN PA Unavailable Unavailable KRUEGER, M JOYCELYN PA Unavailable Unavailable KRUEGER, M JOYCELYN PA Unavailable Unavailable KRUEGER, M JOYCELYN PA Unavailable Unavailable KRUEGER, M JOYCELYN PA Unavailable Unavailable KRUEGER, M JOYCELYN PA Unavailable Unavailable KRUEGER, M JOYCELYN PA Unavailable Unavailable KRUEGER, M JOYCELYN PA Unavailable Unavailable KRUEGER, M JOYCLEYN PA Unavailable Unavailable KRUEGER, M JOYCELYN PA Unavailable Unavailable KRUEGER, Shannon HIRSCH PA Unavailable Unavailable KRUEGER, Shannon HIRSCH PA Unavailable Unavailable KRUEGER, Shannon HIRSCH PA Unavailable Unavailable KRUEGER, Shannon HIRSCH PA Unavailable Unavailable KRUEGER, Shannon HIRSCH PA Unavailable Unavailable Re-disclosure Warning The records that you are about to access may contain information from federally-assisted alcohol or drug abuse programs. If such information is present, then the following federally mandated warning applies: This information has been disclosed to you from records protected by federal confidentiality rules (42 CFR part 2). The federal rules prohibit you from making any further disclosure of this information unless further disclosure is expressly permitted by the written consent of the person to whom it pertains or as otherwise permitted by 42 CFR part 2. A general authorization for the release of medical or other information is NOT sufficient for this purpose. The Federal rules restrict any use of the information to criminally investigate or prosecute any alcohol or drug abuse patient.The records that you are about to access may contain highly sensitive health information, the redisclosure of which is protected by Article 27-F of the [facility] Public Health law. If you continue you may have access to information: Regarding HIV / AIDS; Provided by facilities licensed or operated by the [facility] Office of Mental Health; or Provided by the [facility] Office for People With Developmental Disabilities. If such information is present, then the following [facility] mandated warning applies: This information has been disclosed to you from confidential records which are protected by state law. State law prohibits you from making any further disclosure of this information without the specific written consent of the person to whom it pertains, or as otherwise permitted by law. Any unauthorized further disclosure in violation of state law may result in a fine or skilled nursing sentence or both. A general authorization for the release of medical or other information is NOT sufficient authorization for further disc losure. Allergies and Adverse Reactions Type Description Substance Reaction Status Data Source(s ) Drug Allergy Drug Allergy NKDA [facility] ([facility]) Family History Family Member Name Family Member Gender Family Member Status Date o f Status Description Data Source(s) Unknown Male Problem [facility] ([facility]) Unknown Unknown Problem [facility] ([facility], ) Unknown Unknown Problem [facility] ([facility], ) Unknown Unknown Problem [facility] ([facility] Unknown Unknown Problem [facility] ([facility]) Unknown Unknown Problem [facility] ([facility]) Unknown Unknown Problem [facility] ([facility]) Unknown Unknown Problem [facility] ([facility]) Unknown Male Problem [facility] ([facility] ) Unknown Female Problem [facility] Encounters Encounter Providers Location Date Indications Data Source(s ) Outpatient Attender: John Fernandez NP 2020 03:15:00 PM EDT - 12/05/2020 03:15:00 PM EDT [facility] Outpatient Attender: John Fernandez NP Family Practice 12/05/2020 0 3:00:00 PM EDT [facility] ([facility]) Outpatient Attender: JOYCELYN Keene/[place]/Garry/Rein dl 11/28/2020 03:30:00 PM EDT [facility] ([facility] ROMA LoBC: [address], [place] [address], Ph. Attender: Kamini Cardoso [facility] 10/19/2020 12:00:00 AM EDT [facility]) JOSE RAMON Lo: [address], [place] [address], Ph. Attender: Kamini Cardoso [facility] Medical 09/20/2020 12:00:00 AM EDT [place] ([facility]) JOSE RAMON Lo: [address], [place] [address], Ph. Attender: Kamini Cardoso [facility] Medical 09/20/2020 12:00:00 AM EDT [place] ([facility]) Outpatient Attender: JOYCELYN Keene/[place]/Garry/Rein dl 08/28/2020 12:30:00 PM EDT [facility] ([facility]) Outpatient Attender: Gerard Keene/[place]ather/Garry/Katty martines 08/23/2020 10:30:00 AM EDT [facility] ([facility]) Kamini Cardoso [facility]: [address] [place] [address], Ph. Attender: Kamini Cardoso [facility] Medical 08/04/2020 12:00:00 AM EDT [place] ([facility]) Kamini Cardoso [facility]: [address] [place] [address], Ph. Attender: Kamini Cardoso [facility] Medical 08/04/2020 12:00:00 AM EDT [place] ([facility]) Kamini Cardoso [facility]: [address] [place] [address], Ph. Attender: Kamini Cardoso [facility] Medical 08/04/2020 12:00:00 AM EDT [place] ([facility]) Outpatient Attender: Dain Nava MD Main Office 08/03/2020 03:30:00 PM EDT [facility] ([facility]) Biju Cifuentes MD: [address] [place] [address], Ph. Attender: Biju Cifuentes MD [facility] 06/15/2020 12:00:00 AM EDT [place] ([facility]) Biju Cifuentes MD: [address] [place] [address], Ph. Attender: Biju Cifuentes MD [facility] Medical 06/15/2020 12:00:00 AM EDT [place] ([facility]) Biju Cifuentes MD: [address] [place] [address], Ph. Attender: Biju Cifuentes MD [facility] Medical 06/15/2020 12:00:00 AM EDT [place] ([facility]) Biju Cifuentes MD: [address] [place] [address], Ph. Attender: Biju Cifuentes MD [facility] Medical 06/15/2020 12:00:00 AM EDT [place] ([facility]) Outpatient [id number] [facility] [address] 05/31/2020 12:00:00 AM EDT [facility] ([facility]) Outpatient Attender: JOYCELYN Keene/Heather/Garry/Rein dl 05/26/2020 03:30:00 PM EDT [facility] ([facility]) Biju Cifuentes MD: [address] [place] [address], Ph. Attender: Biju Cifuentes MD [facility] 05/17/2020 12:00:00 AM EDT [facility] ([facility]) Biju Cifuentes MD: [address] [place] [address], Ph. Attender: Biju Cifuentes MD [facility] 05/17/2020 12:00:00 AM EDT [facility] ([facility]) Biju Cifuentes MD: [address] [place] [address], Ph. Attender: Biju Cifuentes MD [facility] 05/17/2020 12:00:00 AM EDT [facility] ([facility]) Biju Cifuentes MD: [address] [place] [address], Ph. Attender: Biju Cifuentes MD [facility] 05/17/2020 12:00:00 AM EDT [facility] ([facility]) Biju Cifuentes MD: [address], [place] [address], Ph. Attender: Biju Cifuentes MD [facility] 05/17/2020 12:00:00 AM EDT [facility] ([facility]) Kamini Cardoso [facility]: [address], [place] [address], Ph. Attender: Kamini Cardoso [facility] Medical 05/12/2020 12:00:00 AM EST [facility] ([facility]) LIS LoPPaige: [address], [place] [address], Ph. Attender: Kamini Cardoso [facility] Medical 05/12/2020 12:00:00 AM EST [facility] ([facility]) [facility] [address], [place] [address], Ph. Attender: Kamini Cardoso [facility] Medical 05/12/2020 12:00:00 AM EST [facility] ([facility]) LIS LoPPaige: [address], [place] [address], Ph. Attender: Kamini Cardoso [facility] Medical 05/12/2020 12:00:00 AM EST [facility] ([facility]) [facility] [address], [place] [address], Ph. Attender: Kamini Cardoso [facility] Medical 05/12/2020 12:00:00 AM EST [facility] ([facility]) ROMA Lo-BC: [address] [place] [address], Ph. Attender: Kamini BRANDON [facility] Medical 05/12/2020 12:00:00 AM EST [facility] ([facility]) Outpatient Attender: Kamini BRANDON 12/04/2019 12:5 2:00 PM EDT [facility] [address] [place] [address] 11/10/2019 12:00:00 AM EDT eCW1 ([facility]) Outpatient Attender: ROMA BRANDON 11/05/2019 12:27:01 P M EDT [facility] Outpatient Attender: Kamini BRANDON 11/05/2019 12:2 7:00 PM EDT [facility] Outpatient Attender: Kamini BRANDON 11/05/2019 12:2 6:02 PM EDT [facility] Outpatient Attender: ROMA LANDA 11/05/2019 12:26:01 P M EDT [facility] Outpatient Attender: Kamini BRANDON 11/02/2019 02:1 7:01 PM EDT [facility] Immunizations Vaccine Date Status Description Data Source(s) COVID-19, mRNA, LNP-S, PF, 100 mcg/0.5 mL dose 06/15/2020 04 :15:09 PM EDT completed .5 mL [place] ([facility]) COVID-19, mRNA, LNP-S, PF, 100 mcg/0.5 mL dose 06/15/2020 04 :15:09 PM EDT completed .5 mL [place] ([facility]) COVID-19, mRNA, LNP-S, PF, 100 mcg/0.5 mL dose 06/15/2020 04 :15:09 PM EDT completed .5 mL [place] ([facility]) COVID-19, mRNA, LNP-S, PF, 100 mcg/0.5 mL dose 06/15/2020 04 :15:09 PM EDT completed .5 mL [facility] ([facility]) COVID-19 VACCINE Moderna 06/15/2020 12:00:00 AM EDT completed [facility] Vaccine Series Complete: YESThis Data wa s Submitted to [facility] Via [facility]. COVID-19, mRNA, LNP-S, PF, 100 mcg/0.5 mL dose 05/17/2020 02 :20:44 PM EDT completed .5 mL [facility] ([facility]) COVID-19, mRNA, LNP-S, PF, 100 mcg/0.5 mL dose 05/17/2020 02 :20:44 PM EDT completed .5 mL [facility] ([facility]) COVID-19, mRNA, LNP-S, PF, 100 mcg/0.5 mL dose 05/17/2020 02 :20:44 PM EDT completed .5 mL [facility] ([facility]) COVID-19, mRNA, LNP-S, PF, 100 mcg/0.5 mL dose 05/17/2020 02 :20:44 PM EDT completed .5 mL [facility] ([facility]) COVID-19, mRNA, LNP-S, PF, 100 mcg/0.5 mL dose 05/17/2020 02 :20:44 PM EDT completed .5 mL [facility] ([facility]) COVID-19 VACCINE Moderna 05/17/2020 12:00:00 AM EDT completed [place] Vaccine Series Complete: NOThis Data was Submitted to [facility] Via [employer]. Medications Medication Brand Name Start Date Product Form Dose Route Admi nistrative Instructions Pharmacy Instructions Status Indications Reaction Description Data Source(s) Amoxicillin 875 MG / Clavulanate 125 MG Oral Tablet 87 5-125 mg AMOXICILLIN/POTASSIUM CLAV 12/15/2020 12:00:00 AM EDT tablet 14 TAKE 1 TABLET BY MOUTH TWO TIMES A DAY FOR 7 DAYS TAKE 1 TABLET BY MOUTH TWO TIMES A DAY F OR 7 DAYS SOLD: 12/15/2020 [facility] 24 HR quetiapine 200 MG Extended Release Oral Tablet QUETIAP INE FUMARATE 11/28/2020 12:00:00 AM EDT tablet extended release 24 hr 30 TAKE ONE TABLET BY MOUTH AT BEDTIME TAKE ONE TABLET BY MOUTH AT BEDTIME SOLD: 12/01/2020 [facility] 200 mg 11/27/2020 12:00:00 AM EDT tablet 105 TAKE 1 & 1/2 TABLETS BY MOUTH EVERY MORNING AND 2 TABLETS AT NIGHT TAKE 1 & 1/2 TABLETS BY MOUTH EVERY MORN ING AND 2 TABLETS AT NIGHT SOLD: 11/28/2020 [facility] montelukast 10 MG Oral Tablet MONTELUKAST SODIUM 11/09/2020 12:0 0:00 AM EDT tablet 30 TAKE ONE TABLET BY MOUTH EVERY D AY TAKE ONE TABLET BY MOUTH EVERY DAY SOLD: 12/15/2020 [facility] 100 mg 11/09/2020 12:00:00 AM EDT tablet 30 TAKE ONE TABLET BY MOUTH EVERY DAY TAKE ONE TABLET BY MOUTH EVERY DAY SOLD: 12/15/2020 [facility] montelukast 10 MG Oral Tablet MONTELUKAST SODIUM 11/09/2020 12:0 0:00 AM EDT tablet 30 TAKE ONE TABLET BY MOUTH EVERY D AY TAKE ONE TABLET BY MOUTH EVERY DAY SOLD: 11/10/2020 [facility] 100 mg 11/09/2020 12:00:00 AM EDT tablet 30 TAKE ONE TABLET BY MOUTH EVERY DAY TAKE ONE TABLET BY MOUTH EVERY DAY SOLD: 11/10/2020 [facility] 24 HR quetiapine 200 MG Extended Release Oral Tablet QUETIAP INE FUMARATE 10/27/2020 12:00:00 AM EDT tablet extended release 24 hr 30 TAKE ONE TABLET BY MOUTH AT BEDTIME TAKE ONE TABLET BY MOUTH AT BEDTIME SOLD: 10/30/2020 [facility] 10 mg 10/19/2020 12:00:00 AM EDT tablet extended release 24hr 30 TAKE ONE TABLET BY MOUTH EVERY DAY TAKE ONE TABLET BY MOUTH EVERY DAY SOLD: 10/19/2020 [facility] 24 HR Metformin hydrochloride 500 MG Extended Release Oral T ablet METFORMIN HCL 10/19/2020 12:00:00 AM EDT tablet extended release 24 hr 120 TAKE TWO TABLETS BY MOUTH TWICE A DAY TAKE TWO TABLETS BY MOUTH TWICE A DAY SOLD: 10/19/2020 [facility] 31 gauge x 5/16" 10/19/2020 12:00:00 AM EDT needle 30 USE DIRECTED TO INJECT INSULIN ONCE DAILY USE DIRECTED TO INJECT INSULIN ONCE DAILY SOLD: 10/19/2020 [facility] 24 HR Metformin hydrochloride 500 MG Extended Release Oral T ablet METFORMIN HCL 10/19/2020 12:00:00 AM EDT tablet extended release 24 hr 120 TAKE TWO TABLETS BY MOUTH TWICE A DAY TAKE TWO TABLETS BY MOUTH TWICE A DAY SOLD: 12/15/2020 [facility] 20 mg 10/19/2020 12:00:00 AM EDT tablet 30 TAKE ONE TABLET BY MOUTH EVERY EVENING TAKE ONE TABLET BY MOUTH EVERY EVENING SOLD: 10/19/2020 [facility] 3 ML Insulin Glargine 100 UNT/ML Pen Injector [Basagla r] 100 unit/mL (3 mL) INSULIN GLARGINE,HUM.REC.[email or web address] 10/19/2020 12:00:00 AM EDT insulin pen 15 INJECT 20 UNITS UNDER SKIN IN THE EVENINGS (THIS IS A 75 DAY SUPPLY) INJECT 20 UNITS UNDER SKIN IN THE EVENINGS (THIS IS A 75 DAY SUPPLY) SOLD: 10/19/2020 [facility] 20 mg 10/19/2020 12:00:00 AM EDT tablet 30 TAKE ONE TABLET BY MOUTH EVERY EVENING TAKE ONE TABLET BY MOUTH EVERY EVENING SOLD: 11/24/2020 [facility] 200 mg 09/28/2020 12:00:00 AM EDT tablet 105 TAKE 1 & 1/2 TABLETS BY MOUTH IN THE MORNING AND 2 TABLETS IN THE EVENING TAKE 1 & 1/2 TABLETS BY MOUTH IN THE MORNING AND 2 TABLETS IN THE EVENING SOLD: 09/29/2020 [facility] 24 HR quetiapine 200 MG Extended Release Oral Tablet QUETIAP INE FUMARATE 09/28/2020 12:00:00 AM EDT tablet extended release 24 hr 30 TAKE ONE TABLET BY MOUTH AT BEDTIME TAKE ONE TABLET BY MOUTH AT BEDTIME SOLD: 09/29/2020 [facility] 200 mcg/actuation 08/29/2020 12:00:00 AM EDT blister with de vice 30 INHALE 1 PUFF BY MOUTH EVERY DAY INHALE 1 PUFF BY MOUTH EVERY DAY SOLD: 08/30/2020 [facility] 24 HR quetiapine 200 MG Extended Release Oral Tablet QUETIAP INE FUMARATE 08/29/2020 12:00:00 AM EDT tablet extended release 24 hr 30 TAKE ONE TABLET BY MOUTH AT BEDTIME TAKE ONE TABLET BY MOUTH AT BEDTIME SOLD: 08/30/2020 [facility] 30 ACTUAT fluticasone furoate 0.2 MG/ACTUAT Dry Powder Inhaler [Arnuity] Arnuity Ellipta 08/28/2020 12:00:00 AM EDT RESPIRATORY active [facility] ([facility], ) 24 HR quetiapine 200 MG Extended Release Oral Tablet QUETIAP INE FUMARATE 07/24/2020 12:00:00 AM EDT tablet extended release 24 hr 30 TAKE ONE TABLET BY MOUTH AT BEDTIME TAKE ONE TABLET BY MOUTH AT BEDTIME SOLD: 07/25/2020 [facility] 200 mg 07/24/2020 12:00:00 AM EDT tablet 105 TAKE 1 & 1/2 TABLETS IN THE MORNING AND 2 TABLETS AT NIGHT TAKE 1 & 1/2 TABLETS IN THE MORNING AND 2 TABLETS AT NIGHT SOLD: 07/25/2020 [facility] 100 mg 07/21/2020 12:00:00 AM EDT tablet 30 TAKE ONE TABLET BY MOUTH EVERY DAY TAKE ONE TABLET BY MOUTH EVERY DAY SOLD: 07/25/2020 [facility] 20 mg 07/21/2020 12:00:00 AM EDT tablet 30 TAKE ONE TABLET BY MOUTH EVERY DAY TAKE ONE TABLET BY MOUTH EVERY DAY SOLD: 11/24/2020 [facility] 24 HR Metformin hydrochloride 500 MG Extended Release Oral T ablet METFORMIN HCL 07/21/2020 12:00:00 AM EDT tablet extended release 24 hr 60 TAKE TWO TABLETS BY MOUTH TWICE A DAY TAKE TWO TABLETS BY MOUTH TWICE A DAY SOLD: 07/25/2020 [facility] Lisinopril 20 MG Oral Tablet LISINOPRIL 07/21/2020 12:00:00 AM EDT tab let 30 TAKE ONE TABLET BY MOUTH EVERY DAY TAKE ONE TABLET BY MOUTH EVERY DAY SOLD: 07/25/2020 [facility] 100 mg 07/21/2020 12:00:00 AM EDT tablet 30 TAKE ONE TABLET BY MOUTH EVERY DAY TAKE ONE TABLET BY MOUTH EVERY DAY SOLD: 09/22/2020 [facility] 20 mg 07/21/2020 12:00:00 AM EDT tablet 30 TAKE ONE TABLET BY MOUTH EVERY DAY TAKE ONE TABLET BY MOUTH EVERY DAY SOLD: 09/22/2020 [facility] 90 mcg/actuation 07/20/2020 12:00:00 AM EDT HFA aerosol inha ler 18 INHALE 2 PUFFS BY MOUTH FOUR TIMES A DAY NEEDED INHALE 2 PUFFS BY MOUTH FOUR TIMES A DAY NEEDED SOLD: 07/25/2020 [facility] Amoxicillin 875 MG / Clavulanate 125 MG Oral Tablet 87 5-125 mg AMOXICILLIN/POTASSIUM CLAV 07/04/2020 12:00:00 AM EDT tablet 20 TAKE ONE TABLET BY MOUTH TWICE A DAY FOR 10 DAYS TAKE ONE TABLET BY MOUTH TWICE A DAY FOR 10 DAYS SOLD: 07/04/2020 [facility] 20 mg 07/04/2020 12:00:00 AM EDT tablet 5 TAKE ONE TABLET BY MOUTH EVERY DAY FOR 5 DAYS TAKE ONE TABLET BY MOUTH EVERY DAY FOR 5 DAYS SOLD: 07/04/2020 [facility] 0.12 % 06/21/2020 12:00:00 AM EDT mouthwash 473 SWISH 15ML IN MOUTH FOR 30 SECONDS AFTER BRUSHING TEETH THEN SPIT OUT TWO TIMES A DAY SWISH 15ML IN MOUTH FOR 30 SECONDS AFTER BRUSHING TEETH THEN SPIT OUT TWO TIMES A DAY SOLD: 06/22/2020 [facility] 10 mg 06/06/2020 12:00:00 AM EDT tablet extended release 24hr 30 TAKE ONE TABLET BY MOUTH EVERY DAY TAKE ONE TABLET BY MOUTH EVERY DAY SOLD: 06/07/2020 [facility] 10 mg 06/06/2020 12:00:00 AM EDT tablet extended release 24hr 30 TAKE ONE TABLET BY MOUTH EVERY DAY TAKE ONE TABLET BY MOUTH EVERY DAY SOLD: 09/22/2020 [facility] 10 mg 06/06/2020 12:00:00 AM EDT tablet extended release 24hr 30 TAKE ONE TABLET BY MOUTH EVERY DAY TAKE ONE TABLET BY MOUTH EVERY DAY SOLD: 11/24/2020 [facility] 10 mg 06/06/2020 12:00:00 AM EDT tablet extended release 24hr 30 TAKE ONE TABLET BY MOUTH EVERY DAY TAKE ONE TABLET BY MOUTH EVERY DAY SOLD: 07/12/2020 [facility] 1,250 mcg (50,000 unit) 06/05/2020 12:00:00 AM EDT capsule 4 TAKE ONE CAPSULE BY MOUTH ONCE WEEKLY DIRECTED TAKE ONE CAPSULE BY MOUTH ONCE WEEKLY DIRECTED SOLD: 11/10/2020 [facility] 1,250 mcg (50,000 unit) 06/05/2020 12:00:00 AM EDT capsule 4 TAKE ONE CAPSULE BY MOUTH ONCE WEEKLY DIRECTED TAKE ONE CAPSULE BY MOUTH ONCE WEEKLY DIRECTED SOLD: 07/12/2020 [facility] 1,250 mcg (50,000 unit) 06/05/2020 12:00:00 AM EDT capsule 4 TAKE ONE CAPSULE BY MOUTH ONCE WEEKLY DIRECTED TAKE ONE CAPSULE BY MOUTH ONCE WEEKLY DIRECTED SOLD: 09/22/2020 [facility] 1,250 mcg (50,000 unit) 06/05/2020 12:00:00 AM EDT capsule 4 TAKE ONE CAPSULE BY MOUTH ONCE WEEKLY DIRECTED TAKE ONE CAPSULE BY MOUTH ONCE WEEKLY DIRECTED SOLD: 06/07/2020 [facility] 24 HR quetiapine 200 MG Extended Release Oral Tablet QUETIAP INE FUMARATE 05/30/2020 12:00:00 AM EDT tablet extended release 24 hr 30 TAKE ONE TABLET BY MOUTH AT BEDTIME TAKE ONE TABLET BY MOUTH AT BEDTIME SOLD: 05/31/2020 [facility] 200 mcg/actuation 05/27/2020 12:00:00 AM EDT blister with de vice 30 INHALE BY MOUTH 1 PUFF EVERY DAY INHALE BY MOUTH 1 PUFF EVERY DAY SOLD: 05/31/2020 [facility] 24 HR quetiapine 200 MG Extended Release Oral Tablet QUETIAP INE FUMARATE 05/02/2020 12:00:00 AM EST tablet extended release 24 hr 30 TAKE ONE TABLET BY MOUTH EVERY DAY AT BEDTIME TAKE ONE TABLET BY MOUTH EVERY DAY AT BEDTIME SOLD: 05/02/2020 [facility] 200 mg 03/29/2020 12:00:00 AM EST tablet 105 TAKE 1 AND 1/2 TABLETS IN THE MORNING AND 2 TABLETS AT NIGHT TAKE 1 AND 1/2 TABLETS IN THE MORNING AN D 2 TABLETS AT NIGHT SOLD: 03/31/2020 [facility] 24 HR quetiapine 200 MG Extended Release Oral Tablet QUETIAP INE FUMARATE 03/29/2020 12:00:00 AM EST tablet extended release 24 hr 30 TAKE ONE TABLET BY MOUTH AT BEDTIME TAKE ONE TABLET BY MOUTH AT BEDTIME SOLD: 03/31/2020 [facility] 20 mg 03/14/2020 12:00:00 AM EST tablet 5 TAKE ONE TABLET BY MOUTH EVERY DAY FOR 5 DAYS TAKE ONE TABLET BY MOUTH EVERY DAY FOR 5 DAYS SOLD: 03/15/2020 [facility] 875-125 mg 03/14/2020 12:00:00 AM EST tablet 20 TAKE ONE TABLET BY MOUTH EVERY 12 HOURS FOR 10 DAYS TAKE ONE TABLET BY MOUTH EVERY 12 HOURS FOR 10 DAYS SOLD: 03/15/2020 [facility] Prednisone 20 MG Oral Tablet Prednisone 03/14/2020 12:00:00 AM EST ORAL completed [facility] ([facility], ) Amoxicillin 875 MG / Clavulanate 125 MG Oral Tablet Am oxicillin/Clavulanate Potassium 03/14/2020 12:00:00 AM EST ORAL completed [facility] ([facility], ) 24 HR quetiapine 200 MG Extended Release Oral Tablet QUETIAP INE FUMARATE 02/29/2020 12:00:00 AM EST tablet extended release 24 hr 30 TAKE ONE TABLET BY MOUTH EVERY DAY AT BEDTIME TAKE ONE TABLET BY MOUTH EVERY DAY AT BEDTIME SOLD: 03/01/2020 [facility] 20 mg 02/04/2020 12:00:00 AM EST tablet 30 TAKE ONE TABLET BY MOUTH EVERY DAY TAKE ONE TABLET BY MOUTH EVERY DAY SOLD: 02/07/2020 [facility] 20 mg 02/04/2020 12:00:00 AM EST tablet 30 TAKE ONE TABLET BY MOUTH EVERY DAY TAKE ONE TABLET BY MOUTH EVERY DAY SOLD: 03/13/2020 [facility] Lisinopril 20 MG Oral Tablet LISINOPRIL 02/04/2020 12:00:00 AM EST tab let 30 TAKE ONE TABLET BY MOUTH EVERY DAY TAKE ONE TABLET BY MOUTH EVERY DAY SOLD: 06/15/2020 [facility] 10 mg 02/04/2020 12:00:00 AM EST tablet extended release 24hr 30 TAKE ONE TABLET BY MOUTH EVERY DAY TAKE ONE TABLET BY MOUTH EVERY DAY SOLD: 03/13/2020 [facility] 100 mg 02/04/2020 12:00:00 AM EST tablet 30 TAKE ONE TABLET BY MOUTH EVERY DAY TAKE ONE TABLET BY MOUTH EVERY DAY SOLD: 02/07/2020 [facility] 10 mg 02/04/2020 12:00:00 AM EST tablet extended release 24hr 30 TAKE ONE TABLET BY MOUTH EVERY DAY TAKE ONE TABLET BY MOUTH EVERY DAY SOLD: 04/24/2020 [facility] 10 mg 02/04/2020 12:00:00 AM EST tablet extended release 24hr 30 TAKE ONE TABLET BY MOUTH EVERY DAY TAKE ONE TABLET BY MOUTH EVERY DAY SOLD: 02/07/2020 [facility] 100 mg 02/04/2020 12:00:00 AM EST tablet 30 TAKE ONE TABLET BY MOUTH EVERY DAY TAKE ONE TABLET BY MOUTH EVERY DAY SOLD: 05/31/2020 [facility] 100 mg 02/04/2020 12:00:00 AM EST tablet 30 TAKE ONE TABLET BY MOUTH EVERY DAY TAKE ONE TABLET BY MOUTH EVERY DAY SOLD: 04/24/2020 [facility] 100 mg 02/04/2020 12:00:00 AM EST tablet 30 TAKE ONE TABLET BY MOUTH EVERY DAY TAKE ONE TABLET BY MOUTH EVERY DAY SOLD: 03/13/2020 [facility] 24 HR quetiapine 200 MG Extended Release Oral Tablet QUETIAP INE FUMARATE 01/26/2020 12:00:00 AM EST tablet extended release 24 hr 30 TAKE ONE TABLET BY MOUTH EVERY DAY AT BEDTIME TAKE ONE TABLET BY MOUTH EVERY DAY AT BEDTIME SOLD: 01/28/2020 [facility] 200 mg 01/26/2020 12:00:00 AM EST tablet 105 TAKE 1 & 1/2 TABLETS EVERY MORNING AND TAKE TWO TABLETS EVERY NIGHT TAKE 1 & 1/2 TABLETS EVERY MORNING AND TAKE TWO TABLETS EVERY NIGHT SOLD: 01/28/2020 [facility] 24 HR quetiapine 200 MG Extended Release Oral Tablet QUETIAP INE FUMARATE 12/30/2019 12:00:00 AM EDT tablet extended release 24 hr 30 TAKE ONE TABLET BY MOUTH EVERY DAY AT BEDTIME TAKE ONE TABLET BY MOUTH EVERY DAY AT BEDTIME SOLD: 12/31/2019 [facility] 200 mg 12/30/2019 12:00:00 AM EDT tablet 105 TAKE ONE AND ONE-HALF TABLETS BY MOUTH EVERY MORNING AND TWO AT NIGHT TAKE ONE AND ONE-HALF TABLETS BY MOUTH EVERY MORNING AND TWO AT NIGHT SOLD: 12/31/2019 [facility] 100 mg 12/27/2019 12:00:00 AM EDT tablet 30 TAKE ONE TABLET BY MOUTH EVERY DAY TAKE ONE TABLET BY MOUTH EVERY DAY SOLD: 12/28/2019 [facility] 20 mg 12/06/2019 12:00:00 AM EDT tablet 30 TAKE ONE TABLET BY MOUTH EVERY EVENING TAKE ONE TABLET BY MOUTH EVERY EVENING SOLD: 03/13/2020 [facility] 20 mg 12/06/2019 12:00:00 AM EDT tablet 30 TAKE ONE TABLET BY MOUTH EVERY EVENING TAKE ONE TABLET BY MOUTH EVERY EVENING SOLD: 01/26/2020 [facility] 20 mg 12/06/2019 12:00:00 AM EDT tablet 30 TAKE ONE TABLET BY MOUTH EVERY EVENING TAKE ONE TABLET BY MOUTH EVERY EVENING SOLD: 12/16/2019 [facility] 24 HR quetiapine 200 MG Extended Release Oral Tablet QUETIAP INE FUMARATE 12/02/2019 12:00:00 AM EDT tablet extended release 24 hr 30 TAKE ONE TABLET BY MOUTH AT BEDTIME TAKE ONE TABLET BY MOUTH AT BEDTIME SOLD: 12/02/2019 [facility] montelukast 10 MG Oral Tablet MONTELUKAST SODIUM 11/25/2019 12:0 0:00 AM EDT tablet 30 TAKE ONE TABLET BY MOUTH EVERY D AY TAKE ONE TABLET BY MOUTH EVERY DAY SOLD: 07/12/2020 [facility] montelukast 10 MG Oral Tablet MONTELUKAST SODIUM 11/25/2019 12:0 0:00 AM EDT tablet 30 TAKE ONE TABLET BY MOUTH EVERY D AY TAKE ONE TABLET BY MOUTH EVERY DAY SOLD: 01/26/2020 [facility] montelukast 10 MG Oral Tablet MONTELUKAST SODIUM 11/25/2019 12:0 0:00 AM EDT tablet 30 TAKE ONE TABLET BY MOUTH EVERY D AY TAKE ONE TABLET BY MOUTH EVERY DAY SOLD: 03/13/2020 [facility] montelukast 10 MG Oral Tablet MONTELUKAST SODIUM 11/25/2019 12:0 0:00 AM EDT tablet 30 TAKE ONE TABLET BY MOUTH EVERY D AY TAKE ONE TABLET BY MOUTH EVERY DAY SOLD: 05/23/2020 [facility] montelukast 10 MG Oral Tablet MONTELUKAST SODIUM 11/25/2019 12:0 0:00 AM EDT tablet 30 TAKE ONE TABLET BY MOUTH EVERY D AY TAKE ONE TABLET BY MOUTH EVERY DAY SOLD: 12/02/2019 [facility] montelukast 10 MG Oral Tablet MONTELUKAST SODIUM 11/25/2019 12:0 0:00 AM EDT tablet 30 TAKE ONE TABLET BY MOUTH EVERY D AY TAKE ONE TABLET BY MOUTH EVERY DAY SOLD: 09/22/2020 [facility] 200 mg 11/16/2019 12:00:00 AM EDT tablet 105 TAKE 1 & 1/2 TABLETS EVERY MORNING AND TWO TABLETS EVERY EVENING TAKE 1 & 1/2 TABLETS EVERY MORNING AND T WO TABLETS EVERY EVENING SOLD: 12/02/2019 [facility] 24 HR quetiapine 200 MG Extended Release Oral Tablet QUETIAP INE FUMARATE 10/29/2019 12:00:00 AM EDT tablet extended release 24 hr 30 TAKE ONE TABLET BY MOUTH AT BEDTIME TAKE ONE TABLET BY MOUTH AT BEDTIME SOLD: 11/02/2019 [facility] 24 HR quetiapine 200 MG Extended Release Oral Tablet QUETIAP INE FUMARATE 10/29/2019 12:00:00 AM EDT tablet extended release 24 hr 3 TAKE ONE TABLET BY MOUTH AT BEDTIME TAKE ONE TABLET BY MOUTH AT BEDTIME SOLD: 10/30/2019 [facility] 20 mg 10/26/2019 12:00:00 AM EDT tablet 30 TAKE ONE TABLET BY MOUTH EVERY DAY TAKE ONE TABLET BY MOUTH EVERY DAY SOLD: 12/16/2019 [facility] 10 mg 10/26/2019 12:00:00 AM EDT tablet extended release 24hr 60 TAKE TWO TABLETS BY MOUTH EVERY DAY TAKE TWO TABLETS BY MOUTH EVERY DAY SOLD: 12/16/2019 [facility] 500 mg 10/15/2019 12:00:00 AM EDT tablet extended release 24 hr 120 TAKE TWO TABLETS BY MOUTH TWICE A DAY TAKE TWO TABLETS BY MOUTH TWICE A DAY SOLD: 01/18/2020 [facility] 500 mg 10/15/2019 12:00:00 AM EDT tablet extended release 24 hr 120 TAKE TWO TABLETS BY MOUTH TWICE A DAY TAKE TWO TABLETS BY MOUTH TWICE A DAY SOLD: 03/13/2020 [facility] 500 mg 10/15/2019 12:00:00 AM EDT tablet extended release 24 hr 120 TAKE TWO TABLETS BY MOUTH TWICE A DAY TAKE TWO TABLETS BY MOUTH TWICE A DAY SOLD: 04/24/2020 [facility] 90 mcg/actuation 05/20/2019 12:00:00 AM EDT HFA aerosol inha ler 18 INHALE TWO PUFFS BY MOUTH FOUR TIMES A DAY NEEDED INHALE TWO PUFFS BY MOUTH FOUR TIMES A DAY NEEDED SOLD: 03/21/2020 [facility] 100 mg 01/06/2019 12:00:00 AM EST tablet 30 TAKE ONE TABLET BY MOUTH EVERY DAY TAKE ONE TABLET BY MOUTH EVERY DAY SOLD: 11/16/2019 [facility] Amoxicillin 875 MG / Clavulanate 125 MG Oral Tablet amoxicillin 875 mg-potassium clavulanate 125 mg tablet TAKE ONE TABLET BY MOUTH EVERY 12 HOURS FOR 10 DAYS amoxicillin 875 mg-potassium clavulanate 125 mg tablet TAKE ONE TABLET BY MOUTH EVERY 12 HOURS FOR 10 DAYS completed amoxicillin 875 MG / clavulanate 125 MG Oral Tablet [facility] ([facility]) Simvastatin 10 MG Oral Tablet simvastatin 10 mg tablet simva statin 10 mg tablet completed simvastatin 10 MG Oral Tablet [facility] ([facility]) Allopurinol 100 MG Oral Tablet allopurinol 100 mg tabl et allopurinol 100 mg tablet completed allopurinol 100 MG Oral Tablet [facility] ([facility]) Promethazine Hydrochloride 25 MG Oral Tablet promethaz ine 25 mg tablet promethazine 25 mg tablet completed promethazine hydrochloride 25 MG Oral Tablet [facility] ([facility]) Promethazine Hydrochloride 25 MG Oral Tablet promethaz ine 25 mg tablet promethazine 25 mg tablet completed promethazine hydrochloride 25 MG Oral Tablet [facility] ([facility]) Amoxicillin 875 MG / Clavulanate 125 MG Oral Tablet amoxicillin 875 mg-potassium clavulanate 125 mg tablet TAKE ONE TABLET BY MOUTH TWICE A DAY FOR 10 DAYS amoxicillin 875 mg-potassium clavulanate 125 mg tablet TAKE ONE TABLET BY MOUTH TWICE A DAY FOR 10 DAYS completed amoxicillin 875 MG / clavulanate 125 MG Oral Tablet [facility] ([facility]) Prednisone 20 MG Oral Tablet prednisone 20 mg tablet TAKE ONE TABLET BY MOUTH EVERY DAY FOR 5 DAYS prednisone 20 mg tablet TAKE ONE TABLET BY MOUTH EVERY DAY FOR 5 DAYS completed prednisone 20 MG Oral Tablet [place] ([facility]) Allopurinol 100 MG Oral Tablet allopurinol 100 mg tabl et allopurinol 100 mg tablet completed allopurinol 100 MG Oral Tablet [facility] ([facility]) Prednisone 20 MG Oral Tablet prednisone 20 mg tablet TAKE ONE TABLET BY MOUTH EVERY DAY FOR 5 DAYS prednisone 20 mg tablet TAKE ONE TABLET BY MOUTH EVERY DAY FOR 5 DAYS completed prednisone 20 MG Oral Tablet [facility] ([facility]) Amoxicillin 875 MG / Clavulanate 125 MG Oral Tablet amoxicillin 875 mg-potassium clavulanate 125 mg tablet TAKE ONE TABLET BY MOUTH EVERY 12 HOURS FOR 10 DAYS amoxicillin 875 mg-potassium clavulanate 125 mg tablet TAKE ONE TABLET BY MOUTH EVERY 12 HOURS FOR 10 DAYS completed amoxicillin 875 MG / clavulanate 125 MG Oral Tablet [facility] ([facility]) Allopurinol 100 MG Oral Tablet allopurinol 100 mg tabl et allopurinol 100 mg tablet completed allopurinol 100 MG Oral Tablet [facility] ([facility]) Prednisone 20 MG Oral Tablet prednisone 20 mg tablet TAKE ONE TABLET BY MOUTH EVERY DAY FOR 5 DAYS prednisone 20 mg tablet TAKE ONE TABLET BY MOUTH EVERY DAY FOR 5 DAYS completed prednisone 20 MG Oral Tablet [facility] ([facility]) Amoxicillin 875 MG / Clavulanate 125 MG Oral Tablet amoxicillin 875 mg-potassium clavulanate 125 mg tablet TAKE ONE TABLET BY MOUTH TWICE A DAY FOR 10 DAYS amoxicillin 875 mg-potassium clavulanate 125 mg tablet TAKE ONE TABLET BY MOUTH TWICE A DAY FOR 10 DAYS completed amoxicillin 875 MG / clavulanate 125 MG Oral Tablet [place] ([facility]) Prednisone 20 MG Oral Tablet prednisone 20 mg tablet TAKE ONE TABLET BY MOUTH EVERY DAY FOR 5 DAYS prednisone 20 mg tablet TAKE ONE TABLET BY MOUTH EVERY DAY FOR 5 DAYS completed prednisone 20 MG Oral Tablet [facility] ([facility]) Amoxicillin 875 MG / Clavulanate 125 MG Oral Tablet amoxicillin 875 mg-potassium clavulanate 125 mg tablet TAKE ONE TABLET BY MOUTH EVERY 12 HOURS FOR 10 DAYS amoxicillin 875 mg-potassium clavulanate 125 mg tablet TAKE ONE TABLET BY MOUTH EVERY 12 HOURS FOR 10 DAYS completed amoxicillin 875 MG / clavulanate 125 MG Oral Tablet [facility] ([facility]) Prednisone 20 MG Oral Tablet prednisone 20 mg tablet TAKE ONE TABLET BY MOUTH EVERY DAY FOR 5 DAYS prednisone 20 mg tablet TAKE ONE TABLET BY MOUTH EVERY DAY FOR 5 DAYS completed prednisone 20 MG Oral Tablet [facility] ([facility]) Allopurinol 100 MG Oral Tablet allopurinol 100 mg tabl et allopurinol 100 mg tablet completed allopurinol 100 MG Oral Tablet [facility] ([facility]) alogliptin 25 MG Oral Tablet alogliptin 25 mg tablet alogliptin 25 mg tablet completed alogliptin 25 MG Oral Tablet [place] ([facility]) Simvastatin 10 MG Oral Tablet simvastatin 10 mg tablet simva statin 10 mg tablet completed simvastatin 10 MG Oral Tablet [place] ([facility]) Promethazine Hydrochloride 25 MG Oral Tablet promethaz ine 25 mg tablet promethazine 25 mg tablet completed promethazine hydrochloride 25 MG Oral Tablet EZ[facility] ([facility]) alogliptin 25 MG Oral Tablet alogliptin 25 mg tablet alogliptin 25 mg tablet completed alogliptin 25 MG Oral Tablet [facility] ([facility]) Simvastatin 10 MG Oral Tablet simvastatin 10 mg tablet simva statin 10 mg tablet completed simvastatin 10 MG Oral Tablet [place] ([facility]) Simvastatin 10 MG Oral Tablet simvastatin 10 mg tablet simva statin 10 mg tablet completed simvastatin 10 MG Oral Tablet [place] ([facility]) alogliptin 25 MG Oral Tablet alogliptin 25 mg tablet alogliptin 25 mg tablet completed alogliptin 25 MG Oral Tablet [place] ([facility]) Amoxicillin 875 MG / Clavulanate 125 MG Oral Tablet amoxicillin 875 mg-potassium clavulanate 125 mg tablet TAKE ONE TABLET BY MOUTH TWICE A DAY FOR 10 DAYS amoxicillin 875 mg-potassium clavulanate 125 mg tablet TAKE ONE TABLET BY MOUTH TWICE A DAY FOR 10 DAYS completed amoxicillin 875 MG / clavulanate 125 MG Oral Tablet [place] ([facility]) Prednisone 20 MG Oral Tablet prednisone 20 mg tablet TAKE ONE TABLET BY MOUTH EVERY DAY FOR 5 DAYS prednisone 20 mg tablet TAKE ONE TABLET BY MOUTH EVERY DAY FOR 5 DAYS completed prednisone 20 MG Oral Tablet [place] ([facility]) Simvastatin 10 MG Oral Tablet simvastatin 10 mg tablet simva statin 10 mg tablet completed simvastatin 10 MG Oral Tablet [place] ([facility]) Allopurinol 100 MG Oral Tablet allopurinol 100 mg tabl et allopurinol 100 mg tablet completed allopurinol 100 MG Oral Tablet [place] ([facility]) Allopurinol 100 MG Oral Tablet allopurinol 100 mg tabl et allopurinol 100 mg tablet completed allopurinol 100 MG Oral Tablet [place] ([facility]) Simvastatin 10 MG Oral Tablet simvastatin 10 mg tablet simva statin 10 mg tablet completed simvastatin 10 MG Oral Tablet [place] ([facility]) fluticasone furoate 0.2 MG/ACTUAT Dry Po wder Inhaler Arnuity Ellipta 200 mcg/actuation powder for inhalation INHALE BY MOUTH 1 PUFF EVERY DAY Arnuity Ellipta 200 mcg/actuation powder for inhalation INHALE BY MOUTH 1 PUFF EVERY DAY completed fluticasone furo ate 0.2 MG/ACTUAT Dry Powder Inhaler [place] ([facility]) Insurance Providers Payer name Policy type / Coverage type Policy ID Covered democrat ID Covered democrat's relationship to [place] Policy [place] Plan Information BS [place] Medigap Part B [id number] Self Y [id number] BS [place] Med[place] Part B [id number] Self BS [place] Med[place] B [id number] Self Y [id number] BS [place] Medigap Part B [id number] Self Y [id number] BS [place] Med[place] Part B [id number] Self Y [id number] BS [place] Med[place] Part B [id number] Self Y [id number] BS [place] Medigap Part B [id number] Self Y [id number] Medicaid [place] Medigap Part B [id number] Self [id number] [place] B [id number] Self BLUE CROSS AVELAR PLAN [id number] SP [id number] HMO BLUE [id number] SP [id number] BS [place] Hmo Blue Option Medigap Part B [id number] Self V [id number] [place] Hmo Blue Option Medigap Part B [id number] Self V [id number] [place] Hmo Blue Option Medigap Part B [id number] Self V [id number] [place] Hmo Blue Option Medigap Part B [id number] Self V [id number] [place] Hmo Blue Option Medigap Part B [id number] Self V [id number] [place] Hmo Blue Option Medigap Part B [id number] Self [place] Hmo Blue Option Medigap Part B [id number] Self V [id number] [facility] Community Plan Commercial [id number] Self [id number] [facility] Community Plan Commercial [id number] Self [facility] I [id number] Self [id number] [employer] COMMUNITY PLAN MCDHMO [id number] SP [id number] Managed Care - Community Plan United [employer] P [id number] S [id number] Medicaid S [id number] S [id number] Managed Care - Community Plan United [employer] P [id number] S [id number] Medicaid S [id number] S [id number] Managed Care - [facility] Community Plan P [id number] S [id number] Managed Care - Community Plan United [employer] P [id number] S [id number] [place] Healthcare Essential Plan P [id number] S [id number] [place] Healthcare Essential Plan P [id number] S [id number] [facility] [id number] SP [id number] SELF PAY ONLY [id number] SP [id number] United [employer] Essential Plan P [id number] S [id number] [facility] [place] Health Maintenance Organization (HMO) [id number] Self [id number] [facility] Medicaid Medicaid [id number] Self UNHC COMMUNITY PLAN MCDHMO [id number] SP [id number] [employer](MCAID) O [id number] S [id number] [employer](MCAID) P UNAVAILABLE [id number] S UNAVAILABLE [facility] COMMUNTY PLAN [id number] [facility] [id number] SP [id number] [employer](MCAID) O [id number] S [id number] [facility] Plan-[facility] Commercial [id number] Self [id number] [facility] Plan-[facility] Commercial [id number] Self [id number] [facility] COMMUNITY PLAN [facility] [id number] SP [id number] [facility] [id number] Preferred Provider Organization (PPO) [id number] Problems, Conditions, and Diagnoses Code Display Name Description Problem Type Effective Dates Data Source(s) 836252519 Type II diabetes mellitus uncontrolled T ype II Diabetes Mellitus Uncontrolled Problem 10/20/2020 12:00:00 AM EDT EZ[facility] ([facility]) E66.9 [id number] Obesity (BMI 30-39.9) Problem 05/31/2020 12: 00:00 AM EDT eCW1 ([facility]) Surgeries/Procedures Procedure Description Date Indications Data Source(s) OFFICE OUTPATIENT NEW 30 MINUTES 12/05/2020 12:00:00 A M EDT [facility] ([facility]) Spirometry 11/28/2020 12:00:00 AM EDT M EDENT ([facility], ) OFFICE OUTPATIENT VISIT 25 MINUTES 11/28/2020 12:00:00 AM EDT [facility] ([facility], ) Spirometry 08/28/2020 12:00:00 AM EDT M EDENT ([facility], ) OFFICE OUTPATIENT VISIT 25 MINUTES 08/28/2020 12:00:00 AM EDT [facility] ([facility], ) OFFICE OUTPATIENT NEW 45 MINUTES 08/23/2020 12:00:00 A M EDT [facility] ([facility], ) Spirometry 05/26/2020 12:00:00 AM EDT M EDENT ([facility], ) OFFICE OUTPATIENT VISIT 15 MINUTES 05/26/2020 12:00:00 AM EDT [facility] ([facility], ) US, abdomen, complete 05/12/2020 12:00:00 AM EST [facility] ([facility]) US, abdomen, complete 05/12/2020 12:00:00 AM EST [facility] ([facility]) US, gallbladder 05/12/2020 12:00:00 AM EST [facility] ([facility]) US, abdomen, complete 05/12/2020 12:00:00 AM EST [facility] ([facility]) US, gallbladder 05/12/2020 12:00:00 AM EST [facility] ([facility]) US, abdomen, complete 05/12/2020 12:00:00 AM EST [facility] ([facility]) US, gallbladder 05/12/2020 12:00:00 AM EST [facility] ([facility]) US, abdomen, complete 05/12/2020 12:00:00 AM EST [facility] ([facility]) US, gallbladder 05/12/2020 12:00:00 AM EST [facility] ([facility]) US, abdomen, complete 05/12/2020 12:00:00 AM EST [facility] ([facility]) Results ID Date Data Source [id number] 12/05/2020 03:35:00 PM EDT [facility] ([facility]) Name Value Range Interpretation Code Description Data Lety rce(s) Supporting Document(s) Influenza virus B RNA [Presence] in Unsp ecified specimen by Probe and target amplification method Laboratory test result [facility] ([facility]) Influenza virus A RNA [Presence] in Unsp ecified specimen by Probe and target amplification method Laboratory test result [facility] ([facility]) ID Date Data Source [id number] 11/28/2020 03:36:00 PM EDT [facility] ([facility], ) Name Value Range Interpretation Code Description Data Lety rce(s) Supporting Document(s) FVC-Pre 2.33 L MED[facility] ([facility], ) PDFReport Laboratory test result [facility] ([facility]) FVC-Pred 3.79 L [facility] ([facility]) FVC-%Pred-Pre 61 L [facility] ([facility]) Fev1-Pred 3.00 L [facility] ([facility]) FVC-LLN 3.05 L [facility] ([facility]) Fev1-LLN 2.37 L [facility] ([facility]) Fev1-Pre 1.97 L [facility] ([facility]) Fev1-%Pred-Pre 65 L [facility] ([facility]) Fev6-Pre 2.33 L [facility] ([facility]) Fev6-%Pred-Pre 63 L [facility] ([facility]) Fev6-Pred 3.69 L [facility] ([facility]) Not4hti-Aja 85 % [facility] ([facility]) Fev6-LLN 2.96 L [facility] ([facility]) Siw8eep-Npzd 80 % [facility] ([facility]) Wxq5xkk-GQW 70 % [facility] ([facility]) Eol8syr-%Pred-Pre 105 % [facility] ([facility]) Atp6dpi-Tdyr 97 % [facility] ([facility]) FEFMax-Pred 7.05 L/E/sec [facility] ([facility]) Cvw2vfo-%Pred-Pre 102 % [facility] ([facility]) Vdn8dnd-Nkc 100 % [facility] ([facility]) FEFMax-Pre 5.44 L/E/sec [facility] ([facility]) FEFMax-%Pred-Pre 77 L/E/sec [facility] ([facility]) [id number]-Exhv 2.88 L/E/sec [facility] ([facility], ) FEFMax-LLN 5.22 L/E/sec [facility] ([facility]) Mvb6415-GBL 1.56 L/E/sec [facility] ([facility]) Une6342-Gwc 2.49 L/E/sec [facility] ([facility]) Ocw2038-%Pred-Pre 86 L/E/sec [facility] ([facility]) Byk3xbv8-Vot 85 % [facility] ([facility]) Lro3bsu3-Pplh 82 % [facility] ([facility]) ExpTime-Pre 5.90 sec [facility] ([facility]) Mie9fsl3-%Pred-Pre 102 % [facility] ([facility]) Wxb9mxf5-TZL 73 % [facility] ([facility]) ID Date Data Source [id number] 10/19/2020 09:45:00 AM EDT [facility] Name Value Range Interpretation Code Description Data Lety rce(s) Supporting Document(s) SARS-CoV-2 (COVID-19) RNA [Presence] in Respiratory specimen by LESLIE with probe detection Not Detected [facility] This lab was ordered by [facility] [place] and reported by [facility]. ID Date Data Source [id number] 09/20/2020 03:19:00 PM EDT [facility] ([facility]) Name Value Range Interpretation Code Description Data Lety rce(s) Supporting Document(s) Cholesterol [Mass/volume] in Serum or Plasma 222 mg/dL <200 Above high normal Cholesterol, Total [place] ([facility]) Cholesterol in HDL [Mass/volume] in Serum or Plasma 30 mg/dL > or = 50 Below low normal HDL Cholesterol EZRA ([facility]) Triglyceride [Mass/volume] in Serum or Plasma 393 mg/dL <150 Above high normal Triglycerides [facility] ([facility]) Cholesterol in LDL [Mass/volume] in Serum or Plasma by calculation 132 mg/dL_(calc) <100 Above high normal LDL-cholesterol [place] ([facility]) Cholesterol.total/Cholesterol in HDL [Mass Ratio] in Serum o r Plasma 7.4 calc <5.0 Above high normal Chol/hdlc Ratio [facility] ([facility]) Cholesterol non HDL [Mass/volume] in Serum or Plasma 192 mg/dL_( calc) <130 Above high normal Non HDL Cholesterol [facility] ([facility]) ID Date Data Source [id number] 09/20/2020 03:19:00 PM EDT [place] ([facility]) Name Value Range Interpretation Code Description Data Lety rce(s) Supporting Document(s) HIV 1+2 Ab+HIV1 p24 Ag [Presence] in Serum or Plasma b y Immunoassay non-reactive non-reactive HIV Ag/Ab, 4TH Gen [place] ([facility]) ID Date Data Source [id number] 09/20/2020 03:19:00 PM EDT [place] ([facility]) Name Value Range Interpretation Code Description Data Lety rce(s) Supporting Document(s) Iron [Mass/volume] in Serum or Plasma 62 mcg/dL 45-160 Iron, Total [place] ([facility]) Iron binding capacity [Mass/volume] in Serum or Plasma 330 m cg/dL_(calc) 250-450 Iron Binding Capacity [facility] ([facility]) Ferritin [Mass/volume] in Serum or Plasma 50 NG/mL 16-232 Ferritin [facility] ([facility]) Iron saturation [Mass Fraction] in Serum or Plasma 19 %_(calc) 16- 45 % Saturation [place] ([facility]) ID Date Data Source [id number] 09/20/2020 03:19:00 PM EDT [facility]) Name Value Range Interpretation Code Description Data Lety rce(s) Supporting Document(s) Hemoglobin A1c/Hemoglobin.total in Blood 11.6 %_of_total_HGB <5. 7 Above high normal Hemoglobin a1C [facility] ([facility]) ID Date Data Source [id number] 09/20/2020 03:19:00 PM EDT [place] ([facility]) Name Value Range Interpretation Code Description Data Lety rce(s) Supporting Document(s) Calcidiol [Mass/volume] in Serum or Plasma 28 NG/mL 30-100 Below low normal Vitamin D,25-Oh,total,ia [facility]) ID Date Data Source [id number] 09/20/2020 03:19:00 PM EDT [place] ([facility]) Name Value Range Interpretation Code Description Data Lety rce(s) Supporting Document(s) Folate [Mass/volume] in Serum or Plasma 14.4 NG/mL Folate, Serum [place] ([facility]) Cobalamin (Vitamin B12) [Mass/volume] in Serum or Plasma 362 pg/mL 200-1100 Vitamin B12 [facility]) ID Date Data Source [id number] 09/20/2020 03:19:00 PM EDT [place] ([facility]) Name Value Range Interpretation Code Description Data Lety rce(s) Supporting Document(s) Hepatitis C virus Ab Signal/Cutoff in Serum or Plasma by Immunoassa y <1.00 Index [facility] ([facility]) Hepatitis C virus Ab [Presence] in Serum or Plasma by Immuno assay non-reactive non-reactive Hepatitis C Antibody [place] ([facility]) ID Date Data Source [id number] 09/20/2020 03:19:00 PM EDT [place] ([facility]) Name Value Range Interpretation Code Description Data Lety rce(s) Supporting Document(s) Color of Urine tnp Color [place] ([facility]) ID Date Data Source [id number] 09/20/2020 03:19:00 PM EDT [facility]) Name Value Range Interpretation Code Description Data Lety rce(s) Supporting Document(s) Microalbumin [Mass/volume] in Urine tnp Albumin, Urine [place] ([facility]) ID Date Data Source [id number] 09/20/2020 03:19:00 PM EDT [place] ([facility]) Name Value Range Interpretation Code Description Data Lety rce(s) Supporting Document(s) Urea nitrogen [Mass/volume] in Serum or Plasma 8 mg/dL 7-25 Urea Nitrogen (BUN) [facility] ([facility]) Glucose [Mass/volume] in Serum or Plasma 437 mg/dL 65-99 Above high normal Glucose [facility] ([facility]) Glomerular filtration rate/1.73 sq M.pre dicted among blacks [Volume Rate/Area] in Serum, Plasma or Blood by Creatinine-based formula (CKD-EPI) 129 mL/min/1.73m2 > or = 60 eGFR [facility] ([facility]) Glomerular filtration rate/1.73 sq M.pre dicted among non-blacks [Volume Rate/Area] in Serum, Plasma or Blood by Creatinine-based formula (CKD-EPI) 111 mL/min/1.73m2 > or = 60 eGFR Non-afr. Indonesian [facility] ([facility]) Creatinine [Mass/volume] in Serum or Plasma 0.52 mg/dL 0.50-1.05 Creatinine [facility] ([facility]) Urea nitrogen/Creatinine [Mass Ratio] in Serum or Plasma not applic able 6-22 BUN/creatinine Ratio [facility] ([facility]) Sodium [Moles/volume] in Serum or Plasma 133 mmol/L 135-146 Below low normal Sodium [facility] ([facility]) Chloride [Moles/volume] in Serum or Plasma 98 mmol/L 98-110 Chloride [facility] ([facility]) Potassium [Moles/volume] in Serum or Plasma 4.3 mmol/L 3.5-5.3 Potassium [facility]) Calcium [Mass/volume] in Serum or Plasma 8.9 mg/dL 8.6-10.4 Calcium [place] ([facility]) Protein [Mass/volume] in Serum or Plasma 7.6 g/dL 6.1-8.1 Protein, Total [place] ([facility]) Carbon dioxide, total [Moles/volume] in Serum or Plasma 26 mmol/L 20-32 Carbon Dioxide [facility] ([facility]) Albumin [Mass/volume] in Serum or Plasma 3.7 g/dL 3.6-5.1 Albumin [facility] ([facility]) Globulin [Mass/volume] in Serum by calculation 3.9 g/dL_(calc) 1 .9-3.7 Above high normal Globulin [facility] ([facility]) Bilirubin.total [Mass/volume] in Serum or Plasma 0.3 mg/dL 0.2-1 .2 Bilirubin, Total [place] ([facility]) Albumin/Globulin [Mass Ratio] in Serum or Plasma 0.9 (calc) 1.0-2.5 Below low normal Albumin/globulin Ratio [facility] ([facility]) Alanine aminotransferase [Enzymatic activity/volume] in Seru m or Plasma 16 U/L 6-29 Alt EZ[facility] ([facility]) Aspartate aminotransferase [Enzymatic activity/volume] in Serum or Plasma 15 U/L 10-35 Ast [facility] ([facility]) Alkaline phosphatase [Enzymatic activity/volume] in Serum or Plasma 52 U/L 37-153 Alkaline Phosphatase [facility] ([facility]) ID Date Data Source [id number] 09/20/2020 03:19:00 PM EDT [place] ([facility]) Name Value Range Interpretation Code Description Data Lety rce(s) Supporting Document(s) Thyrotropin [Units/volume] in Serum or Plasma 3.81 mIU/L Tsh [facility] ([facility]) Thyroxine (T4) free [Mass/volume] in Serum or Plasma 1.0 NG/dL 0 .8-1.8 T4, Free [facility] ([facility]) ID Date Data Source [id number] 08/28/2020 12:16:00 PM EDT [facility] ([facility], ) Name Value Range Interpretation Code Description Data Lety rce(s) Supporting Document(s) FVC-Pred 3.79 L [facility] ([facility], ) PDFReport Laboratory test result [facility] ([facility], ) FVC-Pre 2.34 L [facility] ([facility], ) FVC-%Pred-Pre 61 L [facility] ([facility]) FVC-LLN 3.05 L [facility] ([facility]) Fev1-Pre 2.04 L [facility] ([facility]) Fev1-%Pred-Pre 68 L [facility] ([facility]) Fev1-Pred 3.00 L [facility] ([facility]) Fev6-Pre 2.34 L [facility] ([facility]) Fev1-LLN 2.37 L [facility] ([facility]) Fev6-Pred 3.69 L [facility] ([facility]) Hon2wfg-Xyoz 80 % [facility] ([facility]) Fev6-%Pred-Pre 63 L [facility] ([facility]) Fev6-LLN 2.96 L [facility] ([facility]) Plw8wjx-Pih 87 % [facility] ([facility]) Aok8nvv-%Pred-Pre 108 % [facility] ([facility]) Mmq2upd-Czee 97 % [facility] ([facility]) Jeb7xya-Trz 100 % [facility] ([facility]) Frl2fmi-SGC 70 % [facility] ([facility]) Szl8gom-%Pred-Pre 102 % [facility] ([facility]) FEFMax-Pre 4.82 L/E/sec [facility] ([facility]) FEFMax-Pred 7.05 L/E/sec [facility] ([facility]) Cfi2058-Myqp 2.88 L/E/sec [facility] ([facility]) FEFMax-LLN 5.22 L/E/sec [facility] ([facility]) FEFMax-%Pred-Pre 68 L/E/sec [facility] ([facility], ) Bur5030-ZTY 1.56 L/E/sec [facility] ([facility]) Luv4221-Sje 2.94 L/E/sec [facility] ([facility]) Xcs8235-%Pred-Pre 102 L/E/sec [facility] ([facility]) ExpTime-Pre 6.40 sec [facility] ([facility]) Qoi0igu1-Gyh 87 % [facility] ([facility]) Goz3bni3-%Pred-Pre 105 % [facility] ([facility]) Oja3kaw5-Vvja 82 % [facility] ([facility]) Jgh5fwr4-PXF 73 % [facility] ([facility]) ID Date Data Source [id number] 05/31/2020 09:54:00 AM EDT [facility]) Name Value Range Interpretation Code Description Data Lety rce(s) Supporting Document(s) total 25(oh) vitamin D 12.0 NG/mL 30.0-100.0 Below low normal T otal 25(Oh) Vitamin D [facility]) ID Date Data Source [id number] 05/31/2020 09:54:00 AM EDT [facility]) Name Value Range Interpretation Code Description Data Lety rce(s) Supporting Document(s) thyroid stimulating hormone 2.700 uIU/mL 0.358-3.740 Thyroid Stimulating Hormone [place] ([facility]) free T4 0.97 NG/dL 0.76-1.46 Free T4 [facility]) ID Date Data Source [id number] 05/31/2020 09:54:00 AM EDT [facility]) Name Value Range Interpretation Code Description Data Lety rce(s) Supporting Document(s) lipase 237 U/L 73-393 [facility]) ID Date Data Source [id number] 05/31/2020 09:54:00 AM EDT [place] ([facility]) Name Value Range Interpretation Code Description Data Lety rce(s) Supporting Document(s) amylase 43 U/L 25-115 Amylase [facility] ([facility]) ID Date Data Source [id number] 05/31/2020 09:54:00 AM EDT [facility] ([facility]) Name Value Range Interpretation Code Description Data Lety rce(s) Supporting Document(s) triglycerides level 317 mg/dL <150 Above high normal Triglycer ides Level [facility] ([facility]) HDL cholesterol 32 mg/dL >40 Below low normal HDL Cholestero l [facility] ([facility]) Cholesterol in LDL [Mass/volume] in Serum or Plasma 114 mg/dL <100 Above high normal LDL Cholesterol EZRA ([facility]) cholesterol level 209 mg/dL <200 Above high normal Cholesterol Level EZRA ([facility]) non-HDL-C 177 mg/dL Non-hdl-c EZRA ([facility]) cholesterol risk ratio <5 Above high normal Choles terol Risk Ratio [place] ([facility]) ID Date Data Source [id number] 05/31/2020 09:54:00 AM EDT [place] ([facility]) Name Value Range Interpretation Code Description Data Lety rce(s) Supporting Document(s) glucose, fasting 329 mg/dL 70-100 Above high normal Glucose, Fas ting EZRA ([facility]) blood urea nitrogen 9 mg/dL 7-18 Blood Urea Nitro gen EZRA ([facility]) creatinine for GFR 0.64 mg/dL 0.55-1.30 Creatinine for GF R EZRA ([facility]) glomerular filtration rate > 60.0 >51 Glomerula r Filtration Rate EZRA ([facility]) sodium level 133 mEq/L 136-145 Below low normal Sodium Level ATHE NA ([facility]) carbon dioxide level 29 mEq/L 21-32 Carbon Dioxide Level EZRA ([facility]) chloride level 99 mEq/L 98-107 Chloride Level EZRA ([facility]) potassium serum 4.6 mEq/L 3.5-5.1 Potassium Serum ATHE NA ([facility]) anion gap 5 mEq/L 8-16 Below low normal Anion Gap EZRA ( [facility]) calcium level 9.0 mg/dL 8.5-10.1 Calcium Level EZRA ( [facility]) AST/SGOT 16 U/L 7-37 AST/SGOT EZRA ([facility]) ALT/SGPT 23 U/L 12-78 ALT/SGPT EZRA ([facility]) bilirubin,total 0.2 mg/dL 0.2-1.0 Bilirubin,total ATHE ([facility]) alkaline phosphatase 66 U/L 45-117 Alkaline Phosph atase EZRA ([facility]) total protein 8.0 gm/dL 6.4-8.2 Total Protein EZRA ( [facility]) albumin 3.4 gm/dL 3.2-5.2 Albumin EZRA ([facility]) albumin/globulin ratio 1.2-2.2 Below low normal Albumin /globulin Ratio EZRA ([facility]) ID Date Data Source [id number] 05/31/2020 09:54:00 AM EDT EZRA ([facility]) Name Value Range Interpretation Code Description Data Lety rce(s) Supporting Document(s) Hemoglobin A1c/Hemoglobin.total in Blood 11.5 % Hemoglobin a1C EZ[facility] ([facility]) estimated average glucose 283 mg/dL 60-110 Above high norm al Estimated Average Glucose EZRA ([facility]) ID Date Data Source [id number] 05/31/2020 09:54:00 AM EDT EZRA ([facility]) Name Value Range Interpretation Code Description Data Lety rce(s) Supporting Document(s) white blood count 10.2 10 4.0-10.0 Above high normal White Blood Count EZRA ([facility]) hemoglobin 14.0 g/dL 12.0-15.5 Hemoglobin EZRA ([facility]) red blood count 4.98 10 4.00-5.40 Red Blood Count ATHE NA ([facility]) mean corpuscular volume 86.9 fL 80.0-96.0 Mean Corpusc ular Volume EZRA ([facility]) hematocrit 43.3 % 36.0-47.0 Hematocrit EZRA ([facility]) red cell distribution width 13.2 % 11.5-14.5 Red Cell Distribution Width EZRA ([facility]) mean corpuscular hemoglobin 28.1 pg 27.0-33.0 Mean Cor puscular Hemoglobin EZRA ([facility]) mean corpuscular HGB conc 32.3 g/dL 32.0-36.5 Mean Corpu scular HGB Conc EZRA ([facility]) lymph % 27.1 % 24.0-44.0 Lymph % EZRA ([facility]) platelet count, automated 314 10 150-450 Platelet C ount, Automated EZRA ([facility]) neutrophils % 61.8 % 36.0-66.0 Neutrophils % EZRA ( [facility]) eos % 4.6 % 0.0-3.0 Above high normal Eos % EZRA ([facility]) mono % 5.4 % 2.0-8.0 [place] % EZRA ([facility]) baso % 0.5 % 0.0-1.0 Baso % EZRA ([facility]) immature granulocyte % 0.6 % 0-3.0 Immature Gran ulocyte % EZRA ([facility]) nucleated red blood cell % 0.0 % 0-0 Nucleated Red Blood Cell % EZRA ([facility]) lymph # 2.8 10 1.5-5.0 Lymph # EZRA ([facility]) mono # 0.6 10 0.0-0.8 [place] # EZRA ([facility]) neutrophils # 6.3 10 1.5-8.5 Neutrophils # EZRA ( [facility]) eos # 0.5 10 0.0-0.5 Eos # EZRA ([facility]) baso # 0.1 10 0.0-0.2 Baso # EZRA ([facility]) ID Date Data Source [id number] 05/31/2020 09:54:00 AM EDT EZRA ([facility]) Name Value Range Interpretation Code Description Data Lety rce(s) Supporting Document(s) total 25(oh) vitamin D 12.0 NG/mL 30.0-100.0 Below low normal T otal 25(Oh) Vitamin D EZRA ([facility]) ID Date Data Source [id number] 05/31/2020 09:54:00 AM EDT [facility]) Name Value Range Interpretation Code Description Data Lety rce(s) Supporting Document(s) thyroid stimulating hormone 2.700 uIU/mL 0.358-3.740 Thyroid Stimulating Hormone [place] ([facility]) free T4 0.97 NG/dL 0.76-1.46 Free T4 [place] ([facility]) ID Date Data Source [id number] 05/31/2020 09:54:00 AM EDT [facility]) Name Value Range Interpretation Code Description Data Lety rce(s) Supporting Document(s) lipase 237 U/L 73-393 Lipase EZRA ([facility]) ID Date Data Source [id number] 05/31/2020 09:54:00 AM EDT [place] ([facility]) Name Value Range Interpretation Code Description Data Lety rce(s) Supporting Document(s) amylase 43 U/L 25-115 Amylase EZRA ([facility]) ID Date Data Source [id number] 05/31/2020 09:54:00 AM EDT [facility]) Name Value Range Interpretation Code Description Data Lety rce(s) Supporting Document(s) Cholesterol in LDL [Mass/volume] in Serum or Plasma 114 mg/dL <100 Above high normal LDL Cholesterol EZRA ([facility]) HDL cholesterol 32 mg/dL >40 Below low normal HDL Cholestero l EZRA ([facility]) triglycerides level 317 mg/dL <150 Above high normal Triglycer ides Level EZRA ([facility]) cholesterol level 209 mg/dL <200 Above high normal Cholesterol Level EZRA ([facility]) non-HDL-C 177 mg/dL Non-hdl-c EZRA ([facility]) cholesterol risk ratio <5 Above high normal Choles terol Risk Ratio EZRA ([facility]) ID Date Data Source [id number] 05/31/2020 09:54:00 AM EDT EZRA ([facility]) Name Value Range Interpretation Code Description Data Lety rce(s) Supporting Document(s) blood urea nitrogen 9 mg/dL 7-18 Blood Urea Nitro gen EZRA ([facility]) glucose, fasting 329 mg/dL 70-100 Above high normal Glucose, Fas ting EZRA ([facility]) creatinine for GFR 0.64 mg/dL 0.55-1.30 Creatinine for GF R EZRA ([facility]) sodium level 133 mEq/L 136-145 Below low normal Sodium Level ATHE ([facility]) glomerular filtration rate > 60.0 >51 Glomerula r Filtration Rate EZRA ([facility]) potassium serum 4.6 mEq/L 3.5-5.1 Potassium Serum ATHE NA ([facility]) chloride level 99 mEq/L 98-107 Chloride Level EZRA ([facility]) anion gap 5 mEq/L 8-16 Below low normal Anion Gap EZRA ( [facility]) carbon dioxide level 29 mEq/L 21-32 Carbon Dioxide Level EZRA ([facility]) ALT/SGPT 23 U/L 12-78 ALT/SGPT EZRA ([facility]) alkaline phosphatase 66 U/L 45-117 Alkaline Phosph atase EZRA ([facility]) AST/SGOT 16 U/L 7-37 AST/SGOT EZRA ([facility]) calcium level 9.0 mg/dL 8.5-10.1 Calcium Level EZRA ( [facility]) albumin 3.4 gm/dL 3.2-5.2 Albumin EZRA ([facility]) bilirubin,total 0.2 mg/dL 0.2-1.0 Bilirubin,total ATHE NA ([facility]) total protein 8.0 gm/dL 6.4-8.2 Total Protein EZRA ( [facility]) albumin/globulin ratio 1.2-2.2 Below low normal Albumin /globulin Ratio EZRA ([facility]) ID Date Data Source [id number] 05/31/2020 09:54:00 [facility] Name Value Range Interpretation Code Description Data Lety rce(s) Supporting Document(s) Hemoglobin A1c/Hemoglobin.total in Blood 11.5 % Hemoglobin a1C EZRA ([facility]) estimated average glucose 283 mg/dL 60-110 Above high norm al Estimated Average Glucose EZRA ([facility]) ID Date Data Source [id number] 05/31/2020 09:54:00 AM EDT [place] ([facility]) Name Value Range Interpretation Code Description Data Lety rce(s) Supporting Document(s) white blood count 10.2 10 4.0-10.0 Above high normal White Blood Count EZRA ([facility]) red blood count 4.98 10 4.00-5.40 Red Blood Count ATHE NA ([facility]) hemoglobin 14.0 g/dL 12.0-15.5 Hemoglobin EZRA ([facility]) mean corpuscular volume 86.9 fL 80.0-96.0 Mean Corpusc ular Volume EZRA ([facility]) mean corpuscular hemoglobin 28.1 pg 27.0-33.0 Mean Cor puscular Hemoglobin EZRA ([facility]) hematocrit 43.3 % 36.0-47.0 Hematocrit EZRA ([facility]) red cell distribution width 13.2 % 11.5-14.5 Red Cell Distribution Width EZRA ([facility]) platelet count, automated 314 10 150-450 Platelet C ount, Automated EZRA ([facility]) mean corpuscular HGB conc 32.3 g/dL 32.0-36.5 Mean Corpu scular HGB Conc EZRA ([facility]) lymph % 27.1 % 24.0-44.0 Lymph % [place] ([facility]) neutrophils % 61.8 % 36.0-66.0 Neutrophils % EZRA ( [facility]) mono % 5.4 % 2.0-8.0 [place] % [place] ([facility]) baso % 0.5 % 0.0-1.0 Baso % [place] ([facility]) eos % 4.6 % 0.0-3.0 Above high normal Eos % [place] ([facility]) immature granulocyte % 0.6 % 0-3.0 Immature Gran ulocyte % [place] ([facility]) nucleated red blood cell % 0.0 % 0-0 Nucleated Red Blood Cell % [place] ([facility]) neutrophils # 6.3 10 1.5-8.5 Neutrophils # EZRA ( [facility]) eos # 0.5 10 0.0-0.5 Eos # [place] ([facility]) lymph # 2.8 10 1.5-5.0 Lymph # [place] ([facility]) mono # 0.6 10 0.0-0.8 [place] # [place] ([facility]) baso # 0.1 10 0.0-0.2 Baso # [place] ([facility]) ID Date Data Source [id number] 05/31/2020 09:54:00 AM EDT [place] ([facility]) Name Value Range Interpretation Code Description Data Lety rce(s) Supporting Document(s) thyroid stimulating hormone 2.700 uIU/mL 0.358-3.740 Thyroid Stimulating Hormone [place] ([facility]) free T4 0.97 NG/dL 0.76-1.46 Free T4 [facility] ([facility]) ID Date Data Source [id number] 05/31/2020 09:54:00 AM EDT [place] ([facility]) Name Value Range Interpretation Code Description Data Lety rce(s) Supporting Document(s) lipase 237 U/L 73-393 Lipase EZRA ([facility]) ID Date Data Source [id number] 05/31/2020 09:54:00 AM EDT [place] ([facility]) Name Value Range Interpretation Code Description Data Lety rce(s) Supporting Document(s) amylase 43 U/L 25-115 Amylase EZRA ([facility]) ID Date Data Source [id number] 05/31/2020 09:54:00 AM EDT [place] ([facility]) Name Value Range Interpretation Code Description Data Lety rce(s) Supporting Document(s) triglycerides level 317 mg/dL <150 Above high normal Triglycer ides Level EZRA ([facility]) cholesterol level 209 mg/dL <200 Above high normal Cholesterol Level EZRA ([facility]) Cholesterol in LDL [Mass/volume] in Serum or Plasma 114 mg/dL <100 Above high normal LDL Cholesterol EZRA ([facility]) HDL cholesterol 32 mg/dL >40 Below low normal HDL Cholestero l EZRA ([facility]) non-HDL-C 177 mg/dL Non-hdl-c EZRA ([facility]) cholesterol risk ratio <5 Above high normal Choles terol Risk Ratio [place] ([facility]) ID Date Data Source [id number] 05/31/2020 09:54:00 AM EDT [facility]) Name Value Range Interpretation Code Description Data Lety rce(s) Supporting Document(s) glucose, fasting 329 mg/dL 70-100 Above high normal Glucose, Fas ting EZRA ([facility]) glomerular filtration rate > 60.0 >51 Glomerula r Filtration Rate EZRA ([facility]) blood urea nitrogen 9 mg/dL 7-18 Blood Urea Nitro gen EZRA ([facility]) sodium level 133 mEq/L 136-145 Below low normal Sodium Level ATHE ([facility]) creatinine for GFR 0.64 mg/dL 0.55-1.30 Creatinine for GF R EZRA ([facility]) potassium serum 4.6 mEq/L 3.5-5.1 Potassium Serum ATHE ([facility]) carbon dioxide level 29 mEq/L 21-32 Carbon Dioxide Level EZRA ([facility]) chloride level 99 mEq/L 98-107 Chloride Level EZRA ([facility]) AST/SGOT 16 U/L 7-37 AST/SGOT EZRA ([facility]) anion gap 5 mEq/L 8-16 Below low normal Anion Gap EZRA ( [facility]) calcium level 9.0 mg/dL 8.5-10.1 Calcium Level EZRA ( [facility]) ALT/SGPT 23 U/L 12-78 ALT/SGPT EZRA ([facility]) bilirubin,total 0.2 mg/dL 0.2-1.0 Bilirubin,total ATHE ([facility]) alkaline phosphatase 66 U/L 45-117 Alkaline Phosph atase EZRA ([facility]) albumin/globulin ratio 1.2-2.2 Below low normal Albumin /globulin Ratio EZRA ([facility]) total protein 8.0 gm/dL 6.4-8.2 Total Protein EZRA ( [facility]) albumin 3.4 gm/dL 3.2-5.2 Albumin EZRA ([facility]) ID Date Data Source [id number] 05/31/2020 09:54:00 AM EDT [place] ([facility]) Name Value Range Interpretation Code Description Data Lety rce(s) Supporting Document(s) Hemoglobin A1c/Hemoglobin.total in Blood 11.5 % Hemoglobin a1C [place] ([facility]) estimated average glucose 283 mg/dL 60-110 Above high norm al Estimated Average Glucose E[facility]RA ([facility]) ID Date Data Source [id number] 05/31/2020 09:54:00 AM EDT [facility] ([facility]) Name Value Range Interpretation Code Description Data Lety rce(s) Supporting Document(s) white blood count 10.2 10 4.0-10.0 Above high normal White Blood Count EZRA ([facility]) red blood count 4.98 10 4.00-5.40 Red Blood Count ATHE NA ([facility]) hemoglobin 14.0 g/dL 12.0-15.5 Hemoglobin EZRA ([facility]) mean corpuscular volume 86.9 fL 80.0-96.0 Mean Corpusc ular Volume EZRA ([facility]) hematocrit 43.3 % 36.0-47.0 Hematocrit EZRA ([facility]) mean corpuscular HGB conc 32.3 g/dL 32.0-36.5 Mean Corpu scular HGB Conc EZRA ([facility]) red cell distribution width 13.2 % 11.5-14.5 Red Cell Distribution Width EZRA ([facility]) mean corpuscular hemoglobin 28.1 pg 27.0-33.0 Mean Cor puscular Hemoglobin EZRA ([facility]) platelet count, automated 314 10 150-450 Platelet C ount, Automated E[facility]RA ([facility]) lymph % 27.1 % 24.0-44.0 Lymph % [facility]RA ([facility]) neutrophils % 61.8 % 36.0-66.0 Neutrophils % [facility]RA ( [facility]) baso % 0.5 % 0.0-1.0 Baso % EZRA ([facility]) mono % 5.4 % 2.0-8.0 [place] % [place] ([facility]) eos % 4.6 % 0.0-3.0 Above high normal Eos % [facility]ZRA ([facility]) nucleated red blood cell % 0.0 % 0-0 Nucleated Red Blood Cell % EZRA ([facility]) immature granulocyte % 0.6 % 0-3.0 Immature Gran ulocyte % EZRA ([facility]) neutrophils # 6.3 10 1.5-8.5 Neutrophils # [facility] ( [facility]) lymph # 2.8 10 1.5-5.0 Lymph # [facility]RA ([facility]) mono # 0.6 10 0.0-0.8 [place] # EZRA ([facility]) baso # 0.1 10 0.0-0.2 Baso # EZRA ([facility]) eos # 0.5 10 0.0-0.5 Eos # [facility] ([facility]) ID Date Data Source [id number] 05/31/2020 09:54:00 AM EDT [place] ([facility]) Name Value Range Interpretation Code Description Data Lety rce(s) Supporting Document(s) total 25(oh) vitamin D 12.0 NG/mL 30.0-100.0 Below low normal T otal 25(Oh) Vitamin D [facility]) ID Date Data Source [id number] 05/31/2020 09:54:00 AM EDT [place] ([facility]) Name Value Range Interpretation Code Description Data Lety rce(s) Supporting Document(s) free T4 0.97 NG/dL 0.76-1.46 Free T4 [facility] ([facility]) thyroid stimulating hormone 2.700 uIU/mL 0.358-3.740 Thyroid Stimulating Hormone [place] ([facility]) ID Date Data Source [id number] 05/31/2020 09:54:00 AM EDT [place] ([facility]) Name Value Range Interpretation Code Description Data Lety rce(s) Supporting Document(s) lipase 237 U/L 73-393 Lipase EZRA ([facility]) ID Date Data Source [id number] 05/31/2020 09:54:00 AM EDT [place] ([facility]) Name Value Range Interpretation Code Description Data Lety rce(s) Supporting Document(s) amylase 43 U/L 25-115 Amylase EZRA ([facility]) ID Date Data Source [id number] 05/31/2020 09:54:00 AM EDT [facility]) Name Value Range Interpretation Code Description Data Lety rce(s) Supporting Document(s) HDL cholesterol 32 mg/dL >40 Below low normal HDL Cholestero l EZRA ([facility]) triglycerides level 317 mg/dL <150 Above high normal Triglycer ides Level EZRA ([facility]) cholesterol level 209 mg/dL <200 Above high normal Cholesterol Level [place] ([facility]) non-HDL-C 177 mg/dL Non-hdl-c EZRA ([facility]) cholesterol risk ratio <5 Above high normal Choles terol Risk Ratio [place] ([facility]) Cholesterol in LDL [Mass/volume] in Serum or Plasma 114 mg/dL <100 Above high normal LDL Cholesterol EZRA ([facility]) ID Date Data Source [id number] 05/31/2020 09:54:00 AM EDT [facility]) Name Value Range Interpretation Code Description Data Lety rce(s) Supporting Document(s) blood urea nitrogen 9 mg/dL 7-18 Blood Urea Nitro gen EZRA ([facility]) glucose, fasting 329 mg/dL 70-100 Above high normal Glucose, Fas ting [facility]ZRA ([facility]) creatinine for GFR 0.64 mg/dL 0.55-1.30 Creatinine for GF R EZRA ([facility]) potassium serum 4.6 mEq/L 3.5-5.1 [facility] glomerular filtration rate > 60.0 >51 Glomerula r Filtration Rate EZRA ([facility]) sodium level 133 mEq/L 136-145 Below low normal Sodium Level ATHE NA ([facility]) chloride level 99 mEq/L 98-107 Chloride Level EZRA ([facility]) carbon dioxide level 29 mEq/L 21-32 Carbon Dioxide Level EZRA ([facility]) anion gap 5 mEq/L 8-16 Below low normal Anion Gap EZRA ( [facility]) ALT/SGPT 23 U/L 12-78 ALT/SGPT [facility] ([facility]) AST/SGOT 16 U/L 7-37 AST/SGOT EZRA ([facility]) calcium level 9.0 mg/dL 8.5-10.1 Calcium Level EZRA ( [facility]) alkaline phosphatase 66 U/L 45-117 Alkaline Phosph atase EZRA ([facility]) bilirubin,total 0.2 mg/dL 0.2-1.0 Bilirubin,total ATHE ([facility]) total protein 8.0 gm/dL 6.4-8.2 Total Protein EZRA ( [facility]) albumin 3.4 gm/dL 3.2-5.2 Albumin EZRA ([facility]) albumin/globulin ratio 1.2-2.2 Below low normal Albumin /globulin Ratio EZRA ([facility]) ID Date Data Source [id number] 05/31/2020 09:54:00 AM EDT [facility] ([facility]) Name Value Range Interpretation Code Description Data Lety rce(s) Supporting Document(s) Hemoglobin A1c/Hemoglobin.total in Blood 11.5 % Hemoglobin a1C [facility] ([facility]) estimated average glucose 283 mg/dL 60-110 Above high norm al Estimated Average Glucose [facility] ([facility]) ID Date Data Source [id number] 05/31/2020 09:54:00 AM EDT [facility] ([facility]) Name Value Range Interpretation Code Description Data Lety rce(s) Supporting Document(s) white blood count 10.2 10 4.0-10.0 Above high normal White Blood Count [facility] ([facility]) hemoglobin 14.0 g/dL 12.0-15.5 Hemoglobin [facility] ([facility]) red blood count 4.98 10 4.00-5.40 Red Blood Count ATHE NA ([facility]) mean corpuscular volume 86.9 fL 80.0-96.0 Mean Corpusc ular Volume [facility] ([facility]) mean corpuscular hemoglobin 28.1 pg 27.0-33.0 Mean Cor puscular Hemoglobin [facility] ([facility]) hematocrit 43.3 % 36.0-47.0 Hematocrit [facility] ([facility]) red cell distribution width 13.2 % 11.5-14.5 Red Cell Distribution Width [facility] ([facility]) mean corpuscular HGB conc 32.3 g/dL 32.0-36.5 Mean Corpu scular HGB Conc [facility]ZRA ([facility]) neutrophils % 61.8 % 36.0-66.0 Neutrophils % [facility] ( [facility]) platelet count, automated 314 10 150-450 Platelet C ount, Automated [facility] ([facility]) lymph % 27.1 % 24.0-44.0 Lymph % [facility] ([facility]) eos % 4.6 % 0.0-3.0 Above high normal Eos % [facility] ([facility]) baso % 0.5 % 0.0-1.0 Baso % [facility] ([facility]) mono % 5.4 % 2.0-8.0 [place] % EZRA ([facility]) immature granulocyte % 0.6 % 0-3.0 Immature Gran ulocyte % [facility] ([facility]) nucleated red blood cell % 0.0 % 0-0 Nucleated Red Blood Cell % [facility] ([facility]) lymph # 2.8 10 1.5-5.0 Lymph # [facility] ([facility]) neutrophils # 6.3 10 1.5-8.5 Neutrophils # [facility]RA ( [facility]) mono # 0.6 10 0.0-0.8 [place] # [facility]ZRA ([facility]) baso # 0.1 10 0.0-0.2 Baso # [facility] [facility] eos # 0.5 10 0.0-0.5 Eos # EZRA ([facility]) ID Date Data Source WW DIGITAL / KYRIE BILATERAL MAMMO SCREENING (Ultraso und if indicated) 05/31/2020 12:00:00 AM EDT eCW1 ([facility]) Name Value Range Interpretation Code Description Data Lety rce(s) Supporting Document(s) [facility] DIGITAL / KYRIE BILAT ERAL MAMMO SCREENING (Ultrasound if indicated) eCW1 ([facility]) ID Date Data Source [id number] 05/26/2020 03:24:00 PM EDT MEDENT ([facility], ) Name Value Range Interpretation Code Description Data Lety rce(s) Supporting Document(s) FVC-Pred 3.79 L MEDENT ([facility]) PDFReport Laboratory test result MEDENT ([facility]) FVC-%Pred-Pre 59 L MEDENT ([facility]) FVC-Pre 2.27 L MEDENT ([facility]) Fev1-Pred 3.00 L MEDENT ([facility]) Fev1-Pre 1.88 L MEDENT ([facility]) FVC-LLN 3.05 L MEDENT ([facility]) Fev1-LLN 2.37 L MEDENT ([facility]) Fev1-%Pred-Pre 62 L MEDENT ([facility]) Fev6-%Pred-Pre 61 L MEDENT ([facility]) Fev6-Pred 3.69 L MEDENT ([facility]) Fev6-Pre 2.27 L MEDENT ([facility]) Cfb4nxl-Rusg 80 % MEDENT ([facility]) Fev6-LLN 2.96 L MEDENT ([facility]) Joi6xvc-GHL 70 % MEDENT ([facility]) Jao9lvl-%Pred-Pre 103 % MEDENT ([facility]) Not8cbq-Rvp 83 % MEDENT ([facility]) Ixr2ccf-Mbd 100 % MEDENT ([facility] ) Zil9vai-Fkaa 97 % MEDENT ([facility]) Dgf2iso-%Pred-Pre 102 % MEDENT ([facility]) FEFMax-Pred 7.05 L/E/sec MEDENT ([facility]) FEFMax-%Pred-Pre 85 L/E/sec MEDENT ([facility]) FEFMax-Pre 6.04 L/E/sec MEDENT ([facility]) FEFMax-LLN 5.22 L/E/sec MEDENT ([facility]) Hyv8213-Ocya 2.88 L/E/sec MEDENT ([facility]) Ufo3423-Bxw 2.29 L/E/sec MEDENT ([facility]) Xuw2710-%Pred-Pre 79 L/E/sec MEDENT ([facility]) Uig6772-MDG 1.56 L/E/sec MEDENT ([facility]) ExpTime-Pre 5.69 sec MEDENT ([facility]) Ggj7hcc3-Zhkf 82 % MEDENT ([facility]) Zbo9igq9-Mcc 83 % MEDENT ([facility]) Vgr1vpl7-%Pred-Pre 100 % MEDENT ([facility]) Xhf1ukz7-CVJ 73 % MEDENT ([facility]) ID Date Data Source [id number] 03/29/2020 11:51:00 AM EST [place] ([facility]) Name Value Range Interpretation Code Description Data Lety rce(s) Supporting Document(s) carbamazepine (tegretol) level 7.3 ug/mL 4.0-10.0 Carbamazepine (Tegretol) Level EZRA ([facility]) ID Date Data Source [id number] 03/29/2020 11:51:00 AM EST EZRA ([facility]) Name Value Range Interpretation Code Description Data Lety rce(s) Supporting Document(s) glucose, fasting 290 mg/dL 70-100 Above high normal Glucose, Fas ting [place] ([facility]) blood urea nitrogen 7 mg/dL 7-18 Blood Urea Nitro gen [place] ([facility]) creatinine for GFR 0.65 mg/dL 0.55-1.30 Creatinine for GF R [place] ([facility]) glomerular filtration rate > 60.0 >51 Glomerula r Filtration Rate EZRA ([facility]) sodium level 135 mEq/L 136-145 Below low normal Sodium Level ATHE NA ([facility]) potassium serum 4.4 mEq/L 3.5-5.1 Potassium Serum ATHE NA ([facility]) calcium level 8.8 mg/dL 8.5-10.1 Calcium Level [place] ( [facility]) anion gap 6 mEq/L 8-16 Below low normal Anion Gap EZRA ( [facility]) carbon dioxide level 30 mEq/L 21-32 Carbon Dioxide Level EZRA ([facility]) chloride level 99 mEq/L 98-107 Chloride Level [place] ([facility]) ID Date Data Source [id number] 03/29/2020 11:51:00 AM EST [place] ([facility]) Name Value Range Interpretation Code Description Data Lety rce(s) Supporting Document(s) carbamazepine (tegretol) level 7.3 ug/mL 4.0-10.0 Carbamazepine (Tegretol) Level [place] ([facility]) ID Date Data Source [id number] 03/29/2020 11:51:00 AM EST [place] ([facility]) Name Value Range Interpretation Code Description Data Lety rce(s) Supporting Document(s) glucose, fasting 290 mg/dL 70-100 Above high normal Glucose, Fas ting [place] ([facility]) blood urea nitrogen 7 mg/dL 7-18 Blood Urea Nitro gen [place] ([facility]) creatinine for GFR 0.65 mg/dL 0.55-1.30 Creatinine for GF R [place] ([facility]) potassium serum 4.4 mEq/L 3.5-5.1 Potassium Serum ATHE NA ([facility]) glomerular filtration rate > 60.0 >51 Glomerula r Filtration Rate EZRA ([facility]) chloride level 99 mEq/L 98-107 Chloride Level EZRA ([facility]) sodium level 135 mEq/L 136-145 Below low normal Sodium Level [place] ([facility]) carbon dioxide level 30 mEq/L 21-32 Carbon Dioxide Level EZRA ([facility]) calcium level 8.8 mg/dL 8.5-10.1 Calcium Level EZRA ( [facility]) anion gap 6 mEq/L 8-16 Below low normal Anion Gap [place] ( [facility]) ID Date Data Source [id number] 03/29/2020 11:51:00 AM EST [place] ([facility]) Name Value Range Interpretation Code Description Data Lety rce(s) Supporting Document(s) carbamazepine (tegretol) level 7.3 ug/mL 4.0-10.0 Carbamazepine (Tegretol) Level [place] ([facility]) ID Date Data Source [id number] 03/29/2020 11:51:00 AM EST [place] ([facility]) Name Value Range Interpretation Code Description Data Lety rce(s) Supporting Document(s) glucose, fasting 290 mg/dL 70-100 Above high normal Glucose, Fas ting EZRA ([facility]) glomerular filtration rate > 60.0 >51 Glomerula r Filtration Rate EZRA ([facility]) blood urea nitrogen 7 mg/dL 7-18 Blood Urea Nitro gen EZRA ([facility]) creatinine for GFR 0.65 mg/dL 0.55-1.30 Creatinine for GF R EZRA ([facility]) potassium serum 4.4 mEq/L 3.5-5.1 Potassium Serum ATHE NA ([facility]) chloride level 99 mEq/L 98-107 Chloride Level EZRA ([facility]) sodium level 135 mEq/L 136-145 Below low normal Sodium Level [place] ([facility]) carbon dioxide level 30 mEq/L 21-32 Carbon Dioxide Level EZRA ([facility]) anion gap 6 mEq/L 8-16 Below low normal Anion Gap EZRA ( [facility]) calcium level 8.8 mg/dL 8.5-10.1 Calcium Level EZRA ( [facility]) ID Date Data Source [id number] 03/29/2020 11:51:00 AM EST [place] ([facility]) Name Value Range Interpretation Code Description Data Lety rce(s) Supporting Document(s) carbamazepine (tegretol) level 7.3 ug/mL 4.0-10.0 Carbamazepine (Tegretol) Level [place] ([facility]) ID Date Data Source [id number] 03/29/2020 11:51:00 AM EST [place] ([facility]) Name Value Range Interpretation Code Description Data Lety rce(s) Supporting Document(s) glucose, fasting 290 mg/dL 70-100 Above high normal Glucose, Fas ting EZRA ([facility]) sodium level 135 mEq/L 136-145 Below low normal Sodium Level [place] ([facility]) blood urea nitrogen 7 mg/dL 7-18 Blood Urea Nitro gen EZRA ([facility]) glomerular filtration rate > 60.0 >51 Glomerula r Filtration Rate EZRA ([facility]) creatinine for GFR 0.65 mg/dL 0.55-1.30 Creatinine for GF R EZRA ([facility]) potassium serum 4.4 mEq/L 3.5-5.1 Potassium Serum ATHE NA ([facility]) chloride level 99 mEq/L 98-107 Chloride Level EZRA ([facility]) anion gap 6 mEq/L 8-16 Below low normal Anion Gap EZRA ( [facility]) carbon dioxide level 30 mEq/L 21-32 Carbon Dioxide Level EZRA ([facility]) calcium level 8.8 mg/dL 8.5-10.1 Calcium Level EZRA ( [facility]) ID Date Data Source [id number] 03/29/2020 11:51:00 AM EST [place] ([facility]) Name Value Range Interpretation Code Description Data Lety rce(s) Supporting Document(s) carbamazepine (tegretol) level 7.3 ug/mL 4.0-10.0 Carbamazepine (Tegretol) Level [place] ([facility]) ID Date Data Source [id number] 03/29/2020 11:51:00 AM EST [facility]) Name Value Range Interpretation Code Description Data Lety rce(s) Supporting Document(s) glucose, fasting 290 mg/dL 70-100 Above high normal Glucose, Fas ting [place] ([facility]) glomerular filtration rate > 60.0 >51 Glomerula r Filtration Rate [place] ([facility]) creatinine for GFR 0.65 mg/dL 0.55-1.30 Creatinine for GF R [place] ([facility]) blood urea nitrogen 7 mg/dL 7-18 Blood Urea Nitro gen EZRA ([facility]) sodium level 135 mEq/L 136-145 Below low normal Sodium Level [place] NA ([facility]) potassium serum 4.4 mEq/L 3.5-5.1 Potassium Serum [facility] NA ([facility]) anion gap 6 mEq/L 8-16 Below low normal Anion Gap EZRA ( [facility]) chloride level 99 mEq/L 98-107 Chloride Level EZRA ([facility]) carbon dioxide level 30 mEq/L 21-32 Carbon Dioxide Level EZRA ([facility]) calcium level 8.8 mg/dL 8.5-10.1 Calcium Level [facility]) ID Date Data Source [id number] 03/29/2020 11:51:00 AM EST [place] ([facility]) Name Value Range Interpretation Code Description Data Lety rce(s) Supporting Document(s) carbamazepine (tegretol) level 7.3 ug/mL 4.0-10.0 Carbamazepine (Tegretol) Level [place] ([facility]) ID Date Data Source [id number] 03/29/2020 11:51:00 AM EST [place] ([facility]) Name Value Range Interpretation Code Description Data Lety rce(s) Supporting Document(s) blood urea nitrogen 7 mg/dL 7-18 Blood Urea Nitro gen EZRA ([facility]) glucose, fasting 290 mg/dL 70-100 Above high normal Glucose, Fas ting [place] ([facility]) creatinine for GFR 0.65 mg/dL 0.55-1.30 Creatinine for GF R [place] ([facility]) glomerular filtration rate > 60.0 >51 Glomerula r Filtration Rate [place] ([facility]) sodium level 135 mEq/L 136-145 Below low normal Sodium Level [place] ([facility]) potassium serum 4.4 mEq/L 3.5-5.1 Potassium Serum [place] ([facility]) chloride level 99 mEq/L 98-107 Chloride Level [place] ([facility]) calcium level 8.8 mg/dL 8.5-10.1 Calcium Level [place] ( [facility]) carbon dioxide level 30 mEq/L 21-32 Carbon Dioxide Level [place] ([facility]) anion gap 6 mEq/L 8-16 Below low normal Anion Gap [place] ( [facility]) ID Date Data Source [id number] 01/12/2020 11:36:00 AM EST EZRA ([facility]) Name Value Range Interpretation Code Description Data Lety rce(s) Supporting Document(s) carbamazepine (tegretol) level 12.1 ug/mL 4.0-10.0 Above high normal Carbamazepine (Tegretol) Level [place] ([facility]) ID Date Data Source [id number] 01/12/2020 11:36:00 AM EST [facility]) Name Value Range Interpretation Code Description Data Lety rce(s) Supporting Document(s) white blood count 10.7 10 4.0-10.0 Above high normal White Blood Count EZRA ([facility]) mean corpuscular volume 88.7 fL 80.0-96.0 Mean Corpusc ular Volume EZRA ([facility]) red blood count 4.78 10 4.00-5.40 Red Blood Count ATHE NA ([facility]) hematocrit 42.4 % 36.0-47.0 Hematocrit EZRA ([facility]) hemoglobin 13.6 g/dL 12.0-15.5 Hemoglobin EZRA ([facility]) platelet count, automated 335 10 150-450 Platelet C ount, Automated EZRA ([facility]) mean corpuscular hemoglobin 28.5 pg 27.0-33.0 Mean Cor puscular Hemoglobin EZRA ([facility]) red cell distribution width 12.8 % 11.5-14.5 Red Cell Distribution Width EZRA ([facility]) mean corpuscular HGB conc 32.1 g/dL 32.0-36.5 Mean Corpu scular HGB Conc EZRA ([facility]) neutrophils % 60.9 % 36.0-66.0 Neutrophils % EZRA ( [facility]) mono % 4.5 % 0.0-5.0 [place] % EZRA ([facility]) baso % 0.4 % 0.0-1.0 Baso % EZRA ([facility]) eos % 3.5 % 0.0-3.0 Above high normal Eos % EZRA ([facility]) lymph % 30.2 % 24.0-44.0 Lymph % EZRA ([facility]) immature granulocyte % 0.5 % 0-3.0 Immature Gran ulocyte % EZRA ([facility]) nucleated red blood cell % 0.0 % 0-0 Nucleated Red Blood Cell % EZRA ([facility]) neutrophils # 6.5 10 1.5-8.5 Neutrophils # EZRA ( [facility]) mono # 0.5 10 0.0-0.8 [place] # EZRA ([facility]) lymph # 3.2 10 1.5-5.0 Lymph # EZRA ([facility]) eos # 0.4 10 0.0-0.5 Eos # EZRA ([facility]) baso # 0.0 10 0.0-0.2 Baso # EZRA ([facility]) ID Date Data Source [id number] 01/12/2020 11:36:00 AM EST EZRA ([facility]) Name Value Range Interpretation Code Description Data Lety rce(s) Supporting Document(s) carbamazepine (tegretol) level 12.1 ug/mL 4.0-10.0 Above high normal Carbamazepine (Tegretol) Level EZRA ([facility]) ID Date Data Source [id number] 01/12/2020 11:36:00 AM EST EZRA ([facility]) Name Value Range Interpretation Code Description Data Lety rce(s) Supporting Document(s) red blood count 4.78 10 4.00-5.40 Red Blood Count [facility] ([facility]) white blood count 10.7 10 4.0-10.0 Above high normal White Blood Count EZRA ([facility]) mean corpuscular hemoglobin 28.5 pg 27.0-33.0 Mean Cor puscular Hemoglobin EZRA ([facility]) mean corpuscular volume 88.7 fL 80.0-96.0 Mean Corpusc ular Volume EZRA ([facility]) hemoglobin 13.6 g/dL 12.0-15.5 Hemoglobin EZRA ([facility]) hematocrit 42.4 % 36.0-47.0 Hematocrit EZRA ([facility]) neutrophils % 60.9 % 36.0-66.0 Neutrophils % EZRA ( [facility]) red cell distribution width 12.8 % 11.5-14.5 Red Cell Distribution Width EZRA ([facility]) platelet count, automated 335 10 150-450 Platelet C ount, Automated [facility] ([facility]) mean corpuscular HGB conc 32.1 g/dL 32.0-36.5 Mean Corpu scular HGB Conc EZRA ([facility]) eos % 3.5 % 0.0-3.0 Above high normal Eos % EZRA ([facility]) mono % 4.5 % 0.0-5.0 [place] % EZRA ([facility]) lymph % 30.2 % 24.0-44.0 Lymph % EZRA ([facility]) baso % 0.4 % 0.0-1.0 Baso % EZRA ([facility]) nucleated red blood cell % 0.0 % 0-0 Nucleated Red Blood Cell % EZRA ([facility]) immature granulocyte % 0.5 % 0-3.0 Immature Gran ulocyte % EZRA ([facility]) mono # 0.5 10 0.0-0.8 [place] # [place] ([facility]) neutrophils # 6.5 10 1.5-8.5 Neutrophils # [place] ( [facility]) lymph # 3.2 10 1.5-5.0 Lymph # EZRA ([facility]) eos # 0.4 10 0.0-0.5 Eos # E[place]RA ([facility]) baso # 0.0 10 0.0-0.2 Baso # EZRA ([facility]) ID Date Data Source [id number] 01/12/2020 11:36:00 AM EST [place] ([facility]) Name Value Range Interpretation Code Description Data Lety rce(s) Supporting Document(s) carbamazepine (tegretol) level 12.1 ug/mL 4.0-10.0 Above high normal Carbamazepine (Tegretol) Level EZRA ([facility]) ID Date Data Source [id number] 01/12/2020 11:36:00 AM EST [place] ([facility]) Name Value Range Interpretation Code Description Data Lety rce(s) Supporting Document(s) red blood count 4.78 10 4.00-5.40 Red Blood Count [place] NA ([facility]) white blood count 10.7 10 4.0-10.0 Above high normal White Blood Count EZRA ([facility]) hemoglobin 13.6 g/dL 12.0-15.5 Hemoglobin EZRA ([facility]) hematocrit 42.4 % 36.0-47.0 Hematocrit EZRA ([facility]) mean corpuscular volume 88.7 fL 80.0-96.0 Mean Corpusc ular Volume EZRA ([facility]) red cell distribution width 12.8 % 11.5-14.5 Red Cell Distribution Width E[facility]RA ([facility]) platelet count, automated 335 10 150-450 Platelet C ount, Automated [facility] ([facility]) mean corpuscular HGB conc 32.1 g/dL 32.0-36.5 Mean Corpu scular HGB Conc EZRA ([facility]) mean corpuscular hemoglobin 28.5 pg 27.0-33.0 Mean Cor puscular Hemoglobin EZRA ([facility]) eos % 3.5 % 0.0-3.0 Above high normal Eos % EZRA ([facility]) mono % 4.5 % 0.0-5.0 [place] % EZRA ([facility]) neutrophils % 60.9 % 36.0-66.0 Neutrophils % EZRA ( [facility]) lymph % 30.2 % 24.0-44.0 Lymph % E[facility]RA ([facility]) immature granulocyte % 0.5 % 0-3.0 Immature Gran ulocyte % EZAR ([facility]) nucleated red blood cell % 0.0 % 0-0 Nucleated Red Blood Cell % E[facility]RA ([facility]) baso % 0.4 % 0.0-1.0 Baso % [facility] ([facility]) neutrophils # 6.5 10 1.5-8.5 Neutrophils # [facility] ( [facility]) baso # 0.0 10 0.0-0.2 Baso # [facility] ([facility]) mono # 0.5 10 0.0-0.8 [place] # EZRA ([facility]) eos # 0.4 10 0.0-0.5 Eos # E[facility]RA ([facility]) lymph # 3.2 10 1.5-5.0 Lymph # [facility] ([facility]) ID Date Data Source [id number] 01/12/2020 11:36:00 AM EST [place] ([facility]) Name Value Range Interpretation Code Description Data Lety rce(s) Supporting Document(s) carbamazepine (tegretol) level 12.1 ug/mL 4.0-10.0 Above high normal Carbamazepine (Tegretol) Level [facility] ([facility]) ID Date Data Source [id number] 01/12/2020 11:36:00 AM EST [place] ([facility]) Name Value Range Interpretation Code Description Data Lety rce(s) Supporting Document(s) white blood count 10.7 10 4.0-10.0 Above high normal White Blood Count [facility] ([facility]) hemoglobin 13.6 g/dL 12.0-15.5 Hemoglobin [facility] ([facility]) mean corpuscular volume 88.7 fL 80.0-96.0 Mean Corpusc ular Volume [facility] ([facility]) red blood count 4.78 10 4.00-5.40 Red Blood Count [facility] ([facility]) hematocrit 42.4 % 36.0-47.0 Hematocrit EZRA ([facility]) mean corpuscular HGB conc 32.1 g/dL 32.0-36.5 Mean Corpu scular HGB Conc [facility] ([facility]) mean corpuscular hemoglobin 28.5 pg 27.0-33.0 Mean Cor puscular Hemoglobin [facility] ([facility]) red cell distribution width 12.8 % 11.5-14.5 Red Cell Distribution Width [facility] ([facility]) lymph % 30.2 % 24.0-44.0 Lymph % E[facility] ([facility]) neutrophils % 60.9 % 36.0-66.0 Neutrophils % [facility]RA ( [facility]) platelet count, automated 335 10 150-450 Platelet C ount, Automated [facility] ([facility]) immature granulocyte % 0.5 % 0-3.0 Immature Gran ulocyte % [facility]RA ([facility]) nucleated red blood cell % 0.0 % 0-0 Nucleated Red Blood Cell % [facility]RA ([facility]) mono % 4.5 % 0.0-5.0 [place] % EZRA ([facility]) eos % 3.5 % 0.0-3.0 Above high normal Eos % EZRA ([facility]) baso % 0.4 % 0.0-1.0 Baso % [facility] ([facility]) baso # 0.0 10 0.0-0.2 Baso # [facility] ([facility]) eos # 0.4 10 0.0-0.5 Eos # [facility] ([facility]) mono # 0.5 10 0.0-0.8 [place] # [place] ([facility]) neutrophils # 6.5 10 1.5-8.5 Neutrophils # [place] ( [facility]) lymph # 3.2 10 1.5-5.0 Lymph # [facility] ([facility]) ID Date Data Source [id number] 01/12/2020 11:36:00 AM EST [place] ([facility]) Name Value Range Interpretation Code Description Data Lety rce(s) Supporting Document(s) carbamazepine (tegretol) level 12.1 ug/mL 4.0-10.0 Above high normal Carbamazepine (Tegretol) Level [facility] ([facility]) ID Date Data Source [id number] 01/12/2020 11:36:00 AM EST [place] ([facility]) Name Value Range Interpretation Code Description Data Lety rce(s) Supporting Document(s) white blood count 10.7 10 4.0-10.0 Above high normal White Blood Count [facility] ([facility]) red blood count 4.78 10 4.00-5.40 Red Blood Count ATHE ([facility]) mean corpuscular HGB conc 32.1 g/dL 32.0-36.5 Mean Corpu scular HGB Conc EZRA ([facility]) mean corpuscular hemoglobin 28.5 pg 27.0-33.0 Mean Cor puscular Hemoglobin [facility] ([facility]) hemoglobin 13.6 g/dL 12.0-15.5 Hemoglobin [facility]RA ([facility]) mean corpuscular volume 88.7 fL 80.0-96.0 Mean Corpusc ular Volume EZRA ([facility]) hematocrit 42.4 % 36.0-47.0 Hematocrit EZRA ([facility]) red cell distribution width 12.8 % 11.5-14.5 Red Cell Distribution Width E[facility]RA ([facility]) lymph % 30.2 % 24.0-44.0 Lymph % [place] ([facility]) platelet count, automated 335 10 150-450 Platelet C ount, Automated EZRA ([facility]) neutrophils % 60.9 % 36.0-66.0 Neutrophils % EZRA ( [facility]) mono % 4.5 % 0.0-5.0 [place] % [place] ([facility]) immature granulocyte % 0.5 % 0-3.0 Immature Gran ulocyte % EZRA ([facility]) baso % 0.4 % 0.0-1.0 Baso % [place] ([facility]) eos % 3.5 % 0.0-3.0 Above high normal Eos % EZRA ([facility]) eos # 0.4 10 0.0-0.5 Eos # EZRA ([facility]) nucleated red blood cell % 0.0 % 0-0 Nucleated Red Blood Cell % [facility] ([facility]) lymph # 3.2 10 1.5-5.0 Lymph # EZRA ([facility]) mono # 0.5 10 0.0-0.8 [place] # EZRA ([facility]) neutrophils # 6.5 10 1.5-8.5 Neutrophils # EZRA ( [facility]) baso # 0.0 10 0.0-0.2 Baso # EZRA ([facility]) ID Date Data Source [id number] 01/12/2020 11:36:00 AM EST [place] ([facility]) Name Value Range Interpretation Code Description Data Lety rce(s) Supporting Document(s) carbamazepine (tegretol) level 12.1 ug/mL 4.0-10.0 Above high normal Carbamazepine (Tegretol) Level [place] ([facility]) ID Date Data Source [id number] 01/12/2020 11:36:00 AM EST EZRA ([facility]) Name Value Range Interpretation Code Description Data Lety rce(s) Supporting Document(s) white blood count 10.7 10 4.0-10.0 Above high normal White Blood Count EZRA ([facility]) hematocrit 42.4 % 36.0-47.0 Hematocrit EZRA ([facility]) hemoglobin 13.6 g/dL 12.0-15.5 Hemoglobin [place] ([facility]) red blood count 4.78 10 4.00-5.40 Red Blood Count ATHE NA ([facility]) mean corpuscular HGB conc 32.1 g/dL 32.0-36.5 Mean Corpu scular HGB Conc EZRA ([facility]) mean corpuscular hemoglobin 28.5 pg 27.0-33.0 Mean Cor puscular Hemoglobin EZRA ([facility]) mean corpuscular volume 88.7 fL 80.0-96.0 Mean Corpusc ular Volume EZRA ([facility]) red cell distribution width 12.8 % 11.5-14.5 Red Cell Distribution Width EZRA ([facility]) platelet count, automated 335 10 150-450 Platelet C ount, Automated EZRA ([facility]) neutrophils % 60.9 % 36.0-66.0 Neutrophils % EZRA ( [facility]) lymph % 30.2 % 24.0-44.0 Lymph % EZRA ([facility]) mono % 4.5 % 0.0-5.0 [place] % EZRA ([facility]) immature granulocyte % 0.5 % 0-3.0 Immature Gran ulocyte % EZRA ([facility]) eos % 3.5 % 0.0-3.0 Above high normal Eos % EZRA ([facility]) baso % 0.4 % 0.0-1.0 Baso % EZRA ([facility]) lymph # 3.2 10 1.5-5.0 Lymph # EZRA ([facility]) mono # 0.5 10 0.0-0.8 [place] # EZRA ([facility]) neutrophils # 6.5 10 1.5-8.5 Neutrophils # EZRA ( [facility]) eos # 0.4 10 0.0-0.5 Eos # EZRA ([facility]) nucleated red blood cell % 0.0 % 0-0 Nucleated Red Blood Cell % EZRA ([facility]) baso # 0.0 10 0.0-0.2 Baso # EZRA ([facility]) Procedure Social History Code Duration Value Status Description Data Source(s ) Smoking 05/31/2020 12:00:00 AM EDT Never Smoker completed Never S antony eCW1 ([facility]) Vital Signs ID Date Data Source UNK Name Value Range Interpretation Code Description Data Source(s) Systolic blood pressure 137 mm[Hg] 137 mm[Hg] [facility] ([facility]) Diastolic blood pressure 79 mm[Hg] 79 mm[Hg] [facility] ([facility]) Heart rate 77 /min 77 /min [facility] ([facility]) Body temperature 95.5 [degF] 95.5 [degF] [facility] ([facility]) Oxygen saturation in Arterial blood by Pulse oximetry 96 % 96 % [facility] ([facility]) Systolic blood pressure 112 mm[Hg] 112 mm[Hg] M [facility] ([facility], ) Diastolic blood pressure 68 mm[Hg] 68 mm[Hg] [facility] ([facility], ) Heart rate 84 /min 84 /min [facility] ([facility], ) Oxygen saturation in Arterial blood by Pulse oximetry 97 % 97 % [facility] ([facility], ) Body height 66 [in_i] 66 [in_i] [facility] ([facility], ) 5'6" Body weight 232.00 [lb_av] 232.00 [lb_av] MEDEN T ([facility], ) Body mass index (BMI) [Ratio] 37.4 kg/m2 37.4 k g/m2 [facility] ([facility], ) [place] body weight 130 [lb_av] 130 [lb_av] MEDEN T ([facility], ) Body weight 105.235 kg 105.235 kg [facility] ([facility], ) Body surface area Derived from formula 2.13 m2 2.13 m2 [facility] ([facility], ) Diastolic blood pressure 68 mm[Hg] 68 mm[Hg] EZRA ([facility]) Diastolic blood pressure 81 mm[Hg] 81 mm[Hg] EZRA ([facility]) Body height 66 [in_i] 66 [in_i] EZRA ([facility]) Body mass index (BMI) [Ratio] 37 kg/m2 37 kg/ m2 EZRA ([facility]) Systolic blood pressure 103 mm[Hg] 103 mm[Hg] A [facility] ([facility]) Systolic blood pressure 149 mm[Hg] 149 mm[Hg] [facility] Body weight 3664 [oz_av] 3664 [oz_av] EZRA ([facility]) Body height 66 [in_i] 66 [in_i] EZRA ([facility]) Body height 66 [in_i] 66 [in_i] EZRA ([facility]) Oxygen saturation in Arterial blood by Pulse oximetry 96 % 96 % [facility] ([facility], ) Body height 66 [in_i] 66 [in_i] [facility] ([facility], ) 5'6" [place] body weight 130 [lb_av] 130 [lb_av] MEDEN T ([facility], ) Systolic blood pressure 120 mm[Hg] 120 mm[Hg] Shannon MCBRIDE ([facility], ) Diastolic blood pressure 64 mm[Hg] 64 mm[Hg] [facility] ([facility], ) Heart rate 93 /min 93 /min [facility] ([facility]) Oxygen saturation in Arterial blood by Pulse oximetry 96 % 96 % [facility] ([facility]) Body height 66 [in_i] 66 [in_i] [facility] ([facility]) 5'6" [place] body weight 130 [lb_av] 130 [lb_av] MEDEN T ([facility]) Systolic blood pressure 148 mm[Hg] 148 mm[Hg] M [place] ([facility]) Body height 66 [in_i] 66 [in_i] [facility] ([facility]) 5'6" Body weight 236.25 [lb_av] 236.25 [lb_av] MEDEN T ([facility]) Diastolic blood pressure 78 mm[Hg] 78 mm[Hg] [facility] ([facility]) Heart rate 80 /min 80 /min [facility] ([facility]) Body mass index (BMI) [Ratio] 38.1 kg/m2 38.1 k g/m2 [facility] ([facility]) [place] body weight 130 [lb_av] 130 [lb_av] [facility] Body weight 107.163 kg 107.163 kg [facility] ([facility]) Body surface area Derived from formula 2.15 m2 2.15 m2 [facility] ([facility]) Diastolic blood pressure 78 mm[Hg] 78 mm[Hg] EZRA ([facility]) Body height 66 [in_i] 66 [in_i] EZRA ([facility]) Body mass index (BMI) [Ratio] 38.2 kg/m2 38.2 k g/m2 EZRA ([facility]) Systolic blood pressure 124 mm[Hg] 124 mm[Hg] A THENA ([facility]) Body weight 3782 [oz_av] 3782 [oz_av] EZRA ([facility]) Diastolic blood pressure 78 mm[Hg] 78 mm[Hg] EZRA ([facility]) Body height 66 [in_i] 66 [in_i] EZRA ([facility]) Body mass index (BMI) [Ratio] 38.2 kg/m2 38.2 k g/m2 EZRA ([facility]) Systolic blood pressure 124 mm[Hg] 124 mm[Hg] A THENA ([facility]) Body weight 3782 [oz_av] 3782 [oz_av] EZRA ([facility]) Diastolic blood pressure 78 mm[Hg] 78 mm[Hg] EZRA ([facility]) Body height 66 [in_i] 66 [in_i] EZRA ([facility]) Body mass index (BMI) [Ratio] 38.2 kg/m2 38.2 k g/m2 EZRA ([facility]) Systolic blood pressure 124 mm[Hg] 124 mm[Hg] A THENA ([facility]) Body weight 3782 [oz_av] 3782 [oz_av] EZRA ([facility]) Body height 66 [in_i] 66 [in_i] [facility] ([facility]) 5'6" Body weight 236.00 [lb_av] 236.00 [lb_av] MEDEN T ([facility]) Systolic blood pressure 130 mm[Hg] 130 mm[Hg] M EDENT ([facility]) Diastolic blood pressure 70 mm[Hg] 70 mm[Hg] [facility] ([facility]) Heart rate 92 /min 92 /min [facility] ([facility]) Body mass index (BMI) [Ratio] 38.1 kg/m2 38.1 k g/m2 [facility] ([facility]) Body weight 107.050 kg 107.050 kg [facility] ([facility]) Body temperature 96.8 [degF] 96.8 [degF] [facility] ([facility]) Body weight 237 [lb_av] 237 [lb_av] eCW1 [facility] Body weight 107.5 kg 107.5 kg eCW1 ([facility]) Body height [in_i] eCW1 ([facility]) Body mass index (BMI) [Ratio] 38.25 kg/m2 38.25 kg/m2 eCW1 ([facility]) Systolic blood pressure 130 mm[Hg] 130 mm[Hg] e CW1 ([facility]) Diastolic blood pressure 66 mm[Hg] 66 mm[Hg] eCW1 ([facility]) Systolic blood pressure 120 mm[Hg] 120 mm[Hg] M EDGENNARO ([facility], ) Diastolic blood pressure 80 mm[Hg] 80 mm[Hg] [facility] ([facility]) Heart rate 77 /min 77 /min [facility] ([facility]) Oxygen saturation in Arterial blood by Pulse oximetry 97 % 97 % [facility] ([facility]) Body height 66 [in_i] 66 [in_i] [facility] ([facility]) 5'6" Body weight 240.00 [lb_av] 240.00 [lb_av] [facility] Body mass index (BMI) [Ratio] 38.7 kg/m2 38.7 k g/m2 [facility] ([facility]) [place] body weight 130 [lb_av] 130 [lb_av] [facility] Body weight 108.864 kg 108.864 kg [facility] ([facility]) Body surface area Derived from formula 2.16 m2 2.16 m2 [facility] ([facility]) Diastolic blood pressure 71 mm[Hg] 71 mm[Hg] EZRA ([facility]) Body height 66 [in_i] 66 [in_i] EZRA ([facility]) Body mass index (BMI) [Ratio] 39.1 kg/m2 39.1 k g/m2 EZRA ([facility]) Systolic blood pressure 112 mm[Hg] 112 mm[Hg] A THENA ([facility]) Body weight 3878 [oz_av] 3878 [oz_av] EZRA ([facility]) Diastolic blood pressure 71 mm[Hg] 71 mm[Hg] EZRA ([facility]) Body height 66 [in_i] 66 [in_i] EZRA ([facility]) Body mass index (BMI) [Ratio] 39.1 kg/m2 39.1 k g/m2 EZRA ([facility]) Systolic blood pressure 112 mm[Hg] 112 mm[Hg] A THENA ([facility]) Body weight 3878 [oz_av] 3878 [oz_av] EZRA ([facility]) Diastolic blood pressure 71 mm[Hg] 71 mm[Hg] EZRA ([facility]) Body height 66 [in_i] 66 [in_i] EZRA ([facility]) Body mass index (BMI) [Ratio] 39.1 kg/m2 39.1 k g/m2 EZRA ([facility]) Systolic blood pressure 112 mm[Hg] 112 mm[Hg] A THENA ([facility]) Body weight 3878 [oz_av] 3878 [oz_av] EZRA ([facility]) Diastolic blood pressure 71 mm[Hg] 71 mm[Hg] EZRA ([facility]) Body height 66 [in_i] 66 [in_i] EZRA ([facility]) Body mass index (BMI) [Ratio] 39.1 kg/m2 39.1 k g/m2 EZRA ([facility]) Systolic blood pressure 112 mm[Hg] 112 mm[Hg] A [place] ([facility]) Body weight 3878 [oz_av] 3878 [oz_av] EZRA ([facility]) Diastolic blood pressure 71 mm[Hg] 71 mm[Hg] EZRA ([facility]) Body height 66 [in_i] 66 [in_i] EZRA ([facility]) Body mass index (BMI) [Ratio] 39.1 kg/m2 39.1 k g/m2 EZRA ([facility]) Systolic blood pressure 112 mm[Hg] 112 mm[Hg] A [place] ([facility]) Body weight 3878 [oz_av] 3878 [oz_av] EZRA ([facility]) Diastolic blood pressure 71 mm[Hg] 71 mm[Hg] EZRA ([facility]) Body height 66 [in_i] 66 [in_i] EZRA ([facility]) Body mass index (BMI) [Ratio] 39.1 kg/m2 39.1 k g/m2 EZRA ([facility]) Systolic blood pressure 112 mm[Hg] 112 mm[Hg] Stefan RADHA ([facility]) Body weight 3878 [oz_av] 3878 [oz_av] EZRA ([facility]) Patient Treatment Plan of Care Planned Activity Planned Date Details Description Data Source (s) Simvastatin 10 MG Oral Tablet EZRA ([facility]) Promethazine Hydrochloride 25 MG Oral Tablet EZRA ([facility]) Prednisone 20 MG Oral Tablet [place] ([facility]) Amoxicillin 875 MG / Clavulanate 125 MG Oral Tablet EZRA ([facility]) alogliptin 25 MG Oral Tablet EZRA ([facility]) Allopurinol 100 MG Oral Tablet EZRA ([facility]) Simvastatin 10 MG Oral Tablet EZRA ([facility]) Promethazine Hydrochloride 25 MG Oral Tablet EZRA ([facility]) Prednisone 20 MG Oral Tablet EZRA ([facility]) Amoxicillin 875 MG / Clavulanate 125 MG Oral Tablet EZRA ([facility]) alogliptin 25 MG Oral Tablet EZRA ([facility]) Allopurinol 100 MG Oral Tablet EZRA ([facility]) Simvastatin 10 MG Oral Tablet EZRA ([facility]) Promethazine Hydrochloride 25 MG Oral Tablet EZRA ([facility]) Prednisone 20 MG Oral Tablet EZRA ([facility]) fluticasone furoate 0.2 MG/ACTUAT Dry Powder Inhaler EZRA ([facility]) Amoxicillin 875 MG / Clavulanate 125 MG Oral Tablet EZRA ([facility]) alogliptin 25 MG Oral Tablet EZRA ([facility]) Allopurinol 100 MG Oral Tablet EZRA ([facility]) Simvastatin 10 MG Oral Tablet EZRA ([facility]) Prednisone 20 MG Oral Tablet EZRA ([facility]) Amoxicillin 875 MG / Clavulanate 125 MG Oral Tablet EZRA ([facility]) Allopurinol 100 MG Oral Tablet EZRA ([facility]) Simvastatin 10 MG Oral Tablet EZRA ([facility]) Prednisone 20 MG Oral Tablet EZRA ([facility]) Amoxicillin 875 MG / Clavulanate 125 MG Oral Tablet EZRA ([facility]) Allopurinol 100 MG Oral Tablet EZRA ([facility]) Simvastatin 10 MG Oral Tablet EZRA ([facility]) Prednisone 20 MG Oral Tablet EZRA ([facility]) Amoxicillin 875 MG / Clavulanate 125 MG Oral Tablet EZRA ([facility]) Allopurinol 100 MG Oral Tablet EZRA ([facility])
--- NOTE | 2020-12-28 11:41 | REP ---
INDICATION: Coronavirus workup. COMPARISON: Multiple the latest 08/21/2017 a two view exam TECHNIQUE: Portable FINDINGS: The technique utilized in obtaining the radiograph has magnified the cardiac silhouette and accentuated the interstitial markings. The superior mediastinal structures are midline. The cardiac silhouette is unremarkable in size, shape, and position. The diaphragmatic surfaces of the lungs are regular, and the costophrenic angles are clear. The pulmonary echevarria are clear. The imaged osseous structures are intact. IMPRESSION: There is no acute cardiopulmonary disease. <Electronically signed by Ezio Martinez > 12/28/20 [id number]
[2020-12-28 12:46] VITALS: O2SAT 99
[2020-12-28 12:57] LABS: BASO % 0.2 % (0.0-1.0); EOS # 0.4 10^3/uL (0.0-0.5); EOS % 5.7 % (0.0-3.0); HEMATOCRIT 45.5 % (36.0-47.0); HEMOGLOBIN 14.7 g/dl (12.0-15.5); LYMPH % 32.1 % (24.0-44.0); MEAN CORPUSCULAR HEMOGLOBIN 29.1 pg (27.0-33.0); MEAN CORPUSCULAR HGB CONC 32.3 g/dl (32.0-36.5); MEAN CORPUSCULAR VOLUME 89.9 fl (80.0-96.0); MONO # 0.4 10^3/uL (0.0-0.8); MONO % 6.4 % (2.0-8.0); NEUTROPHILS # 3.4 10^3/uL (1.5-8.5); NEUTROPHILS % 55.1 % (36.0-66.0); PLATELET COUNT, AUTOMATED 236 10^3/uL (150-450); RED BLOOD COUNT 5.06 10^6/uL (4.00-5.40); WHITE BLOOD COUNT 6.1 10^3/uL (4.0-10.0)
[2020-12-28] MEDS: ALBUTEROL 90 MCG/ACT 8GM HFA INHALER INH SCH ×3 (13:00→13:35)
[2020-12-28 13:30] LABS: ALBUMIN 3.6 GM/DL (3.2-5.2); ALT/SGPT 29 U/L (12-78); BILIRUBIN,TOTAL 0.3 MG/DL (0.2-1.0); BLOOD UREA NITROGEN 6 MG/DL (7-18); C REACTIVE PROTEIN QUANTITATIV 2.07 MG/DL (0.00-0.30); CALCIUM LEVEL 9.1 MG/DL (8.5-10.1); CARBON DIOXIDE LEVEL 31 MEQ/L (21-32); CHLORIDE LEVEL 102 MEQ/L (98-107); CK-MB VALUE MASS 1.2 NG/ML (<3.6); CPK CREATINE PHOSPHOKINASE 62 U/L (26-192); CREATININE FOR GFR 0.58 MG/DL (0.55-1.30); FREE T4 0.93 NG/DL (0.76-1.46); GLOMERULAR FILTRATION RATE > 60.0 (>51); GLUCOSE, FASTING 192 MG/DL (70-100); LDH LACTATE DEHYDROGENASE 154 U/L (84-246); MB/CK RELATIVE INDEX 1.94 (< OR =4); POTASSIUM SERUM 4.4 MEQ/L (3.5-5.1); SODIUM LEVEL 135 MEQ/L (136-145); TOTAL PROTEIN 8.4 GM/DL (6.4-8.2); TROPONIN I < 0.02 NG/ML (< 0.10)
[2020-12-28] MEDS ORDERED: ISOVUE-370 76% 100ML VIAL As Ordered ONE (13:44)
--- NOTE | 2020-12-28 14:25 | REP ---
INDICATION: "passed out", positive covid. COMPARISON: 07/25/2017 also without contrast. TECHNIQUE: 5 mm contiguous transaxial sections were obtained from the skull base to the cerebral convexities. FINDINGS: The ventricles and sulci are unchanged. There are no extra-axial fluid collections. There is no mass effect. The deep cerebral white matter is unchanged. In the left frontal lobe and abutting the suprasellar cistern there is a round area of increased density which measures approximately 1.4 cm and is seen on both axial and coronal images. This has a higher density Hounsfield unit reading compared to the remainder of surrounding breast parenchyma. The orbital and petrous structures, cerebellopontine angles, and posterior fossa are unremarkable. The sella turcica, cavernous, and paracavernous structures are essentially unremarkable. There is mild mucosal thickening sing in the ethmoid bulla bilaterally. IMPRESSION: Possible left MCA aneurysm. Follow-up with brain MRA and MRI is recommended. <Electronically signed by Ezio Martinez > 12/28/20 [id number]
--- NOTE | 2020-12-28 14:41 | REP ---
INDICATION: covid, chest pain, sob, elevated dimer, r/o PE COMPARISON: Multiple the latest 04/20/2017 CT angio chest TECHNIQUE: CT angiography of the chest after the intravenous administration of 75 cc Isovue 370. Attention pulmonary arteries. FINDINGS: There is excellent visualization of the pulmonary arterial vasculature. No focal filling defects are present that would be considered consistent with acute pulmonary emboli. There is a tiny right pleural effusion versus smooth pleural thickening.. There is no pericardial effusion or left pleural effusion. The mediastinum and pulmonary jeremy are unchanged. There is no mass or adenopathy. There is no significant change in appearance of the imaged upper abdomen or imaged osseous structures. Evaluation of the lung echevarria shows no new abnormal nodules, masses, or opacities. IMPRESSION: 1. There is no evidence of a pulmonary embolus. 2. There is a tiny right pleural effusion versus smooth pleural thickening. 3. There is no acute pulmonary parenchymal abnormality. <Electronically signed by Ezio Martinez > 12/28/20 1949
[2020-12-28] MEDS ORDERED: NS 1,000 ML IV ONE (16:10)
[2020-12-28] MEDS ORDERED: ACETAMINOPHEN 500 MG TAB PO ONE (17:35)
--- NOTE | 2020-12-28 20:23 | ECGEPIP ---
[facility] - ED Test Date: 2020-12-28 Pat Name: FERNANDO RAMSAY Department: Room: - Gender: Female [employer]: BELINDA : 1970 Requested By: JANETTE Tiwari PA-C Order Number: [id number] Reading MD: Monika Chinchilla Measurements Intervals [place] Rate: 74 P: 52 HI: 190 QRS: 0 QRSD: 92 T: 54 QT: 398 QTc: 441 Interpretive Statements Normal sinus rhythm Possible Anterior infarct , age undetermined similar 02/05/19 Electronically Signed on 12-28-2020 20:23:36 EDT by Monika Chinchilla
--- NOTE | 2020-12-29 00:05 | REPVR ---
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 Exam focused on the arteries. COMPARISON: CT Head without contrast 12/28/2020 1:46 PM FINDINGS: ANTERIOR CIRCULATION: Right internal carotid artery: Intracranial segment is patent with no significant stenosis. No aneurysm. Right middle cerebral artery: No occlusion or significant stenosis. No aneurysm. Right anterior cerebral artery: No occlusion or significant stenosis. No aneurysm. Left internal carotid artery: Intracranial segment is patent with no significant stenosis. No aneurysm. Left middle cerebral artery: No occlusion or significant stenosis. No aneurysm. Left anterior cerebral artery: Hypoplastic left A1 segment. POSTERIOR CIRCULATION: Right vertebral artery: Right vertebral artery terminates at PICA. Left vertebral artery: Dominant left vertebral artery. Basilar artery: No occlusion or significant stenosis. No aneurysm. Right posterior cerebral artery: No occlusion or significant stenosis. No aneurysm. Left posterior cerebral artery: No occlusion or significant stenosis. No aneurysm. IMPRESSION: 1. No aneurysm. 2. No hemodynamically significant stenosis or large vessel occlusion. Electronically signed by: Jose Romero On 12/29/2020 00:04:32 AM
--- NOTE | 2020-12-29 00:05 | REPVR ---
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 COMPARISON: CT Head without contrast 12/28/2020 1:46 PM FINDINGS: Major vascular flow voids at the skull base are preserved. No extra-axial fluid collection. No hydrocephalus. Nonspecific white matter gliosis, probable chronic microvascular ischemia. No midline shift or significant intracranial mass effect. No pathologic susceptibility. No diffusion restriction. Left paraclinoid meningioma measures 1 cm. [id number] paranasal sinus disease. No mastoid effusion. IMPRESSION: 1. No acute intracranial abnormality. 2. Left paraclinoid meningioma measures 1 cm. Electronically signed by: Jose Romero On 12/29/2020 00:04:50 AM
[2020-12-29 03:30] VITALS: BP 136/78
== END 2020-12-29 03:31 | disposition home or self-care (01) ==
LOC: M ED 08:37
DX: R05.9 Cough, unspecified (principal); U07.1 COVID-19; D32.9 Benign neoplasm of meninges, unspecified; E11.9 Type 2 diabetes mellitus without complications; I10 Essential (primary) hypertension; J45.909 Unspecified asthma, uncomplicated; F31.9 Bipolar disorder, unspecified; E78.5 Hyperlipidemia, unspecified; K76.0 Fatty (change of) liver, not elsewhere classified; G43.909 Migraine, unspecified, not intractable, without status migrainosus; G47.33 Obstructive sleep apnea (adult) (pediatric); Z79.899 Other long term (current) drug therapy; Z88.8 Allergy status to other drugs, medicaments and biological substances
CPT/HCPCS: 70450; 70544; 70551; 71045; 71275; 80053; 82550; 82553; 83615; 84439; 84443; 85025; 85379; 86140; 87040; 87798; 93005; 93041; 94640; 96360; 96361; 99285; Q9967

== ENCOUNTER 2021-01-01 07:58 | Outpatient (CLI) | payer OTHER ==
[~2021-01-01] VITALS: Ht 167.6 cm; Wt 106.0 kg
[~2021-01-01 07:58] MED LIST changes: +NS 1,000 ML IV SCH
[2021-01-01 08:50] VITALS: BP 150/69
[2021-01-01] MEDS ORDERED: ALBUTEROL 90 MCG/ACT 8GM HFA INHALER INH PRN (09:00)
[2021-01-01] MEDS ORDERED: diphenhydrAMINE 50MG/ML VIAL (J1200) IV PRN (09:00)
[2021-01-01] MEDS ORDERED: EPINEPHrine INJ 1 MG/ML 1ML AMP IM PRN (09:00)
[2021-01-01] MEDS ORDERED: ACETAMINOPHEN TAB 650MG DOSE (2X325MG) PO PRN (09:00)
[2021-01-01] MEDS ORDERED: ALBUTEROL SULFATE 2.5 MG/0.5 ML INH NEB SOLN INH PRN (09:00)
[2021-01-01] MEDS ORDERED: methylPREDNISolone 125MG 2ML VIAL IV PRN (09:00)
[2021-01-01] MEDS ORDERED: BAMLANIVIMAB 700 MG, ETESEVIMAB 1,400 MG in NS 250 ML IV ONE (09:00)
[2021-01-01] MEDS ORDERED: NS 1,000 ML IV SCH (09:00)
[2021-01-01 09:20] VITALS: BP 147/72
[2021-01-01 09:50] VITALS: BP 146/72
[2021-01-01 10:50] VITALS: BP 146/79
== END 2021-01-01 10:50 | disposition home or self-care (01) ==
LOC: M OPCLI4PR 07:58
PROVIDERS: ATTEND Internal Medicine
DX: U07.1 COVID-19 (principal)

== ENCOUNTER 2021-01-09 07:06 | Emergency (ER) | payer OTHER ==
[~2021-01-09] VITALS: Ht 167.6 cm; Wt 101.8 kg
[~2021-01-09 07:06] MED LIST changes: -NS 1,000 ML IV SCH
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
--- OUTSIDE RECORDS SUMMARY | 2021-01-09 07:16 | CCD ---
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 Name Role Phone Frandy Cifuentes MD Unavailable [...] Unavailable Andrew Nava MD Unavailable Unavailable Walker, A Kamini CERAMIC ENGINEER Unavailable Unavailable Lawn, A Kamini CERAMIC ENGINEER Unavailable Unavailable Lawn, A Kamini CERAMIC ENGINEER Unavailable Unavailable Lawn, A Kamini CERAMIC ENGINEER Unavailable Unavailable Lawn, A Kamini CERAMIC ENGINEER Unavailable Unavailable Lawn, A Kamini CERAMIC ENGINEER Unavailable Unavailable Walker, A Kamini CERAMIC ENGINEER Unavailable Unavailable Walker, A Kamini CERAMIC ENGINEER Unavailable Unavailable Lawn, A Kamini CERAMIC ENGINEER Unavailable Unavailable Lawn, A Kamini CERAMIC ENGINEER Unavailable Unavailable Lawn, A Kamini CERAMIC ENGINEER Unavailable Unavailable Lawn, A Kamini CERAMIC ENGINEER Unavailable Unavailable Lawn, A Kamini CERAMIC ENGINEER Unavailable Unavailable Lawn, A Kamini CERAMIC ENGINEER Unavailable Unavailable Lawn, A Kamini CERAMIC ENGINEER Unavailable Unavailable Lawn, A Kamini CERAMIC ENGINEER Unavailable Unavailable Lawn, A Kamini CERAMIC ENGINEER Unavailable Unavailable Lawn, A Kamini CERAMIC ENGINEER Unavailable Unavailable Lawn, A Kamini CERAMIC ENGINEER Unavailable Unavailable Lawn, A Kamini CERAMIC ENGINEER Unavailable Unavailable Lawn, A Kamini CERAMIC ENGINEER Unavailable Unavailable Lawn, A Kamini CERAMIC ENGINEER Unavailable Unavailable Lawn, A Kamini CERAMIC ENGINEER Unavailable Unavailable Lawn, A Kamini CERAMIC ENGINEER Unavailable Unavailable Lawn, A Kamini CERAMIC ENGINEER Unavailable Unavailable Lawn, A Kamini CERAMIC ENGINEER Unavailable Unavailable Lawn, A Kamini CERAMIC ENGINEER Unavailable Unavailable Lawn, A Kamini CERAMIC ENGINEER Unavailable Unavailable Lawn, A Kamini CERAMIC ENGINEER Unavailable Unavailable Lawn, A Kamini CERAMIC ENGINEER Unavailable Unavailable Lawn, A Kamini CERAMIC ENGINEER Unavailable Unavailable Rebecca, D John CAMP PROGRAM DIRECTOR Unavailable Unavailable Rebecca, D John CAMP PROGRAM DIRECTOR Unavailable Unavailable Rebecca, D John CAMP PROGRAM DIRECTOR Unavailable Unavailable Rebecca, D John CAMP PROGRAM DIRECTOR Unavailable Unavailable Rebecca, D John CAMP PROGRAM DIRECTOR Unavailable Unavailable Rebecca, D John CAMP PROGRAM DIRECTOR Unavailable Unavailable Rebecca, D John CAMP PROGRAM DIRECTOR Unavailable Unavailable Rebecca, D John CAMP PROGRAM DIRECTOR Unavailable Unavailable Rebecca, D John CAMP PROGRAM DIRECTOR Unavailable Unavailable Rebecca, D John CAMP PROGRAM DIRECTOR Unavailable Unavailable Rebecca, D John CAMP PROGRAM DIRECTOR Unavailable Unavailable Rebecca, D John CAMP PROGRAM DIRECTOR Unavailable Unavailable Rebecca, D John CAMP PROGRAM DIRECTOR Unavailable Unavailable Rebecca, D John CAMP PROGRAM DIRECTOR Unavailable Unavailable Rebecca, D John CAMP PROGRAM DIRECTOR Unavailable Unavailable Rebecca, D John CAMP PROGRAM DIRECTOR Unavailable Unavailable Rebecca, D John CAMP PROGRAM DIRECTOR Unavailable Unavailable Rebecca, D John CAMP PROGRAM DIRECTOR Unavailable Unavailable Rebecca, D John CAMP PROGRAM DIRECTOR Unavailable Unavailable Rebecca, D John CAMP PROGRAM DIRECTOR Unavailable Unavailable Rebecca, D John CAMP PROGRAM DIRECTOR Unavailable Unavailable Rebecca, D John CAMP PROGRAM DIRECTOR Unavailable Unavailable Rebecca, D John CAMP PROGRAM DIRECTOR Unavailable Unavailable Rebecca, D John CAMP PROGRAM DIRECTOR Unavailable Unavailable Rebecca, D John CAMP PROGRAM DIRECTOR Unavailable Unavailable Rebecca, D John CAMP PROGRAM DIRECTOR Unavailable Unavailable Rebecca, D John CAMP PROGRAM DIRECTOR Unavailable Unavailable Rebecca, D John CAMP PROGRAM DIRECTOR Unavailable Unavailable Rebecca, D John CAMP PROGRAM DIRECTOR Unavailable Unavailable Rebecca, D John CAMP PROGRAM DIRECTOR Unavailable Unavailable Rebecca, D John CAMP PROGRAM DIRECTOR Unavailable Unavailable Rebecca, D John CAMP PROGRAM DIRECTOR Unavailable Unavailable Rebecca, D John CAMP PROGRAM DIRECTOR Unavailable Unavailable Rebecca, D John CAMP PROGRAM DIRECTOR Unavailable Unavailable Rebecca, D John CAMP PROGRAM DIRECTOR Unavailable Unavailable Rebecca, D John CAMP PROGRAM DIRECTOR Unavailable Unavailable Rebecca, D John CAMP PROGRAM DIRECTOR Unavailable Unavailable Rebecca, D John CAMP PROGRAM DIRECTOR Unavailable Unavailable Rebecca, D John CAMP PROGRAM DIRECTOR Unavailable Unavailable Rebecca, D Jhon CAMP PROGRAM DIRECTOR Unavailable Unavailable Rebecca, D John CAMP PROGRAM DIRECTOR Unavailable Unavailable Rebecca, D John CAMP PROGRAM DIRECTOR Unavailable Unavailable Rebecca, D John CAMP PROGRAM DIRECTOR Unavailable Unavailable Rebecca, D John CAMP PROGRAM DIRECTOR Unavailable Unavailable Rebecca, D John CAMP PROGRAM DIRECTOR Unavailable Unavailable Rebecca, D John CAMP PROGRAM DIRECTOR Unavailable Unavailable Rebecca, D Ojhn CAMP PROGRAM DIRECTOR Unavailable Unavailable Rebecca, D John CAMP PROGRAM DIRECTOR Unavailable Unavailable Rebecca, D John CAMP PROGRAM DIRECTOR Unavailable Unavailable Rebecca, D John CAMP PROGRAM DIRECTOR Unavailable Unavailable Rebecca, D John CAMP PROGRAM DIRECTOR Unavailable Unavailable Rebecca, D John CAMP PROGRAM DIRECTOR Unavailable Unavailable Rebecca, D John CAMP PROGRAM DIRECTOR Unavailable Unavailable Rebecca, D John CAMP PROGRAM DIRECTOR Unavailable Unavailable Rebecca, D John CAMP PROGRAM DIRECTOR Unavailable Unavailable Rebecca, D John CAMP PROGRAM DIRECTOR Unavailable Unavailable Rebecca, D John CAMP PROGRAM DIRECTOR Unavailable Unavailable Rebecca, D John CAMP PROGRAM DIRECTOR Unavailable Unavailable Rebecca, D John CAMP PROGRAM DIRECTOR Unavailable Unavailable Rebecca, D John CAMP PROGRAM DIRECTOR Unavailable Unavailable Rebecca, D John CAMP PROGRAM DIRECTOR Unavailable Unavailable Rebecca, D John CAMP PROGRAM DIRECTOR Unavailable Unavailable Rebecca, D John CAMP PROGRAM DIRECTOR Unavailable Unavailable Rebecca, D John CAMP PROGRAM DIRECTOR Unavailable Unavailable Rebecca, D John CAMP PROGRAM DIRECTOR Unavailable Unavailable Rebecca, D John CAMP PROGRAM DIRECTOR Unavailable Unavailable Rebecca, D John CAMP PROGRAM DIRECTOR Unavailable Unavailable Rebecca, D John CAMP PROGRAM DIRECTOR Unavailable Unavailable Rebecca, D John CAMP PROGRAM DIRECTOR Unavailable Unavailable Rebecca, D John CAMP PROGRAM DIRECTOR Unavailable Unavailable Rebecca, D John CAMP PROGRAM DIRECTOR Unavailable Unavailable Rebecca, D John CAMP PROGRAM DIRECTOR Unavailable Unavailable Inderjit Kurtz JR, MD Unavailable [...] JR, MD Unavailable Unavailable Walker, A Kamini CERAMIC ENGINEER Unavailable Unavailable Walker, A Kamini CERAMIC ENGINEER Unavailable Unavailable Walker, A Kamini CERAMIC ENGINEER Unavailable Unavailable Walker, A Kamini CERAMIC ENGINEER Unavailable Unavailable Walker, A Kamini CERAMIC ENGINEER Unavailable Unavailable Walker, A Kamini CERAMIC ENGINEER Unavailable Unavailable Walker, A Kamini CERAMIC ENGINEER Unavailable Unavailable Walker, A Kamini CERAMIC ENGINEER Unavailable Unavailable Walker, A Kamini CERAMIC ENGINEER Unavailable Unavailable Walker, A Kamini CERAMIC ENGINEER Unavailable Unavailable Walker, A Kamini CERAMIC ENGINEER Unavailable Unavailable Walker, A Kamini CERAMIC ENGINEER Unavailable Unavailable Walker, A Kamini CERAMIC ENGINEER Unavailable Unavailable Walker, A Kamini CERAMIC ENGINEER Unavailable Unavailable Walker, A Kamini CERAMIC ENGINEER Unavailable Unavailable Walker, A Kamini CERAMIC ENGINEER Unavailable Unavailable Walker, A Kamini CERAMIC ENGINEER Unavailable Unavailable Walker, A Kamini CERAMIC ENGINEER Unavailable Unavailable Walker, A Kamini CERAMIC ENGINEER Unavailable Unavailable Walker, A Kamini CERAMIC ENGINEER Unavailable Unavailable Walker, A Kamini CERAMIC ENGINEER Unavailable Unavailable Walker, A Kamini CERAMIC ENGINEER Unavailable Unavailable Walker, A Kamini CERAMIC ENGINEER Unavailable Unavailable Walker, A Kamini CERAMIC ENGINEER Unavailable Unavailable Walker, A Kamini CERAMIC ENGINEER Unavailable Unavailable Walker, A Kamini CERAMIC ENGINEER Unavailable Unavailable Walker, A Kamini CERAMIC ENGINEER Unavailable Unavailable Walker, A Kamini CERAMIC ENGINEER Unavailable Unavailable Walker, A Kamini CERAMIC ENGINEER Unavailable Unavailable Walker, A Kamini CERAMIC ENGINEER Unavailable Unavailable Walker, A Kamini CERAMIC ENGINEER Unavailable Unavailable KRUEGER, M JOYCELYN PA Unavailable [...] Unavailable KRUEGER, Shannon HIRSCH PA Unavailable Unavailable KREUGER, Shannon HIRSCH PA Unavailable Unavailable KRUEGER, Shannon [...] is protected by Article 27-F of the [facility] Public Health law. If you continue you may have access to information: Regarding HIV / AIDS; Provided by facilities licensed or operated by the [facility] Office of Mental Health; or Provided by the [facility] Office for People With Developmental Disabilities. If such information is present, then the following [facility] mandated warning applies: This information has [...] law may result in a fine or assisted sentence or both. A general authorization for the release of medical or other information is NOT sufficient authorization for further disc losure. Allergies and Adverse Reactions Type Description Substance Reaction Status Data Source(s ) Drug Allergy Drug Allergy NKDA MED[facility] ([facility]) Family History Family Member Name Family Member Gender Family Member Status Date o f Status Description Data Source(s) Unknown Male Problem [facility] ([facility]) Unknown Unknown Problem [facility] ([facility] ) Unknown Unknown Problem [facility] ([facility] ) Unknown Unknown Problem [facility] Unknown Unknown Problem [facility]) Unknown Unknown Problem [facility] Unknown Unknown Problem [facility] ([facility] Unknown Unknown Problem [facility] ([facility] Unknown Male Problem MED[facility] ([facility]) Unknown Female Problem [facility] ([facility]) Encounters Encounter Providers Location Date Indications Data Source(s ) TeleMedicine Phone E/M by Kush 11-20 Min [address] [place] [address] 01/01/2021 12:00:00 AM EDT eCW1 ([facility]) Outpatient Attender: John Fernandez NP 2020 03:15:00 PM EDT - 12/05/2020 03:15:00 PM EDT [facility] Outpatient Attender: John Fernandez NP [facility] 12/05/2020 0 3:00:00 PM EDT MED[facility] ([facility]) Outpatient Attender: JOYCELYN Keene/Heather/Garry/Katty dl 11/28/2020 03:30:00 PM EDT MEDENT ([facility]) JOSE RAMON LoBC: [address] [place] [address], Ph. Attender: Kamini Cardoso [facility] 10/19/2020 12:00:00 AM EDT [facility]) JOSE RAMON LoBC: [address], [place] [address], Ph. Attender: Kamini Cardoso [facility] 09/20/2020 12:00:00 AM EDT [place] ([facility]) JOSE RAMON LoBC: [address], [place] [address], Ph. Attender: Kamini Cardoso [facility] 09/20/2020 12:00:00 AM EDT [place] ([facility]) Outpatient Attender: JOYCELYN PACHECO Jassi/[place]/Garry/Rein dl 08/28/2020 12:30:00 PM EDT MEDENT ([facility]) Outpatient Attender: Gerard Kurtz JR Jassi/[place]/Garry/Rein dl 08/23/2020 10:30:00 AM EDT MEDENT ([facility]) Kamini Cardoso [facility]: [address], [place] [address], Ph. Attender: Kamini Cardoso [facility] 08/04/2020 12:00:00 AM EDT [place] ([facility]) Kamini Cardoso [facility]: [address] [place] [address], Ph. Attender: Kamini Cardoso [facility] 08/04/2020 12:00:00 AM EDT [place] ([facility]) Kamini Cardoso [facility]: [address] [place] [address], Ph. Attender: Kamini Cardoso [facility] 08/04/2020 12:00:00 AM EDT [place] ([facility]) Outpatient Attender: Dain Nava MD Main Office 08/03/2020 03:30:00 PM EDT MEDENT ([facility]) Biju Cifuentes MD: [address] [place] [address], Ph. Attender: Biju Cifuentes MD [facility] Medical 06/15/2020 12:00:00 AM EDT [place] ([facility]) Biju Cifuentes MD: [address] [place] [address], Ph. Attender: Biju Cifuentes MD [facility] Medical 06/15/2020 12:00:00 AM EDT [place] ([facility]) Biju Cifuentes MD: [address] [place] [address], Ph. Attender: Biju Cifuentes MD [facility] Medical 06/15/2020 12:00:00 AM EDT [place] ([facility]) Biju Cifuentes MD: [address] [place] [address], Ph. Attender: Biju Cifuentes MD [facility] Medical 06/15/2020 12:00:00 AM EDT [place] ([facility]) Outpatient [address] [facility] [address] 05/31/2020 12:00:00 AM EDT eCW1 ([facility]) Outpatient Attender: JOYCELYN Keene/Heather/Garry/Rein dl 05/26/2020 03:30:00 PM EDT MEDENT ([facility]) Biju Cifuentes MD: [address] [place] [address], Ph. Attender: Biju Cifuentes MD [facility] Medical 05/17/2020 12:00:00 AM EDT [place] ([facility]) Biju Cifuentes MD: [address] [place] [address], Ph. Attender: Biju Cifuentes MD [facility] Medical 05/17/2020 12:00:00 AM EDT [place] ([facility]) Biju Cifuentes MD: [address] [place] [address], Ph. Attender: Biju Cifuentes MD [facility] Medical 05/17/2020 12:00:00 AM EDT [place] ([facility]) Biju Cifuentes MD: [address], [place] [address], Ph. Attender: Biju Cifuentes MD [facility] Medical 05/17/2020 12:00:00 AM EDT [place] ([facility]) Biju Cifuentes MD: [address], [place] [address], Ph. Attender: Biju Cifuentes MD [facility] Medical 05/17/2020 12:00:00 AM EDT [place] ([facility]) Kamini Cardoso [facility]: [address], [place] [address], Ph. Attender: Kamini Cardoso [facility] 05/12/2020 12:00:00 AM EST [place] ([facility]) Kamini Cardoso [facility]: [address], [place] [address], Ph. Attender: Kamini Cardoso [facility] 05/12/2020 12:00:00 AM EST [place] ([facility]) [facility] [address], [place] [address], Ph. Attender: Kamini Cardoso [facility] 05/12/2020 12:00:00 AM EST [place] ([facility]) [facility]: [address], [place] [address], Ph. Attender: Kamini Cardoso [facility] 05/12/2020 12:00:00 AM EST [place] ([facility]) [facility]: [address], [place] [address], Ph. Attender: Kamini Cardoso [facility] 05/12/2020 12:00:00 AM CHERRY MUNGUIA ([facility]) Kamini Cardoso, [facility]: [address] [place] [address], Ph. Attender: Kamini Cardoso [facility] 05/12/2020 12:00:00 AM CHERRY MUNGUIA ([facility]) Outpatient Attender: Kamini Cardoso [facility] 12/04/2019 12:5 2:00 PM EDT [facility] Immunizations Vaccine Date Status Description Data Source(s) COVID-19, mRNA, LNP-S, PF, 100 mcg/0.5 mL dose 06/15/2020 04 :15:09 PM EDT completed .5 mL [facility]) COVID-19, mRNA, LNP-S, PF, 100 mcg/0.5 mL dose 06/15/2020 04 :15:09 PM EDT completed .5 mL [place] ([facility]) COVID-19, mRNA, LNP-S, PF, 100 mcg/0.5 mL dose 06/15/2020 04 :15:09 PM EDT completed .5 mL [place] ([facility]) COVID-19, mRNA, LNP-S, PF, 100 mcg/0.5 mL dose 06/15/2020 04 :15:09 PM EDT completed .5 mL [place] ([facility]) COVID-19 VACCINE Moderna 06/15/2020 12:00:00 AM EDT completed [facility] Vaccine Series Complete: YESThis Data wa s Submitted to [facility] Via [employer]. COVID-19, mRNA, LNP-S, PF, 100 mcg/0.5 mL dose 05/17/2020 02 :20:44 PM EDT completed .5 mL [place] ([facility]) COVID-19, mRNA, LNP-S, PF, 100 mcg/0.5 mL dose 05/17/2020 02 :20:44 PM EDT completed 10.5 mL [place] ([facility]) COVID-19, mRNA, LNP-S, PF, 100 mcg/0.5 mL dose 05/17/2020 02 :20:44 PM EDT completed .5 mL [place] ([facility]) COVID-19, mRNA, LNP-S, PF, 100 mcg/0.5 mL dose 05/17/2020 02 :20:44 PM EDT completed .5 mL [place] ([facility]) COVID-19, mRNA, LNP-S, PF, 100 mcg/0.5 mL dose 05/17/2020 02 :20:44 PM EDT completed .5 mL [place] ([facility]) COVID-19 VACCINE Moderna 05/17/2020 12:00:00 AM EDT [facility] Complete: NOThis Data was Submitted to [facility] Via [employer]. Medications Medication Brand Name Start Date Product Form Dose Route Admi nistrative Instructions Pharmacy Instructions Status Indications Reaction Description Data Source(s) 10 mg 01/04/2021 12:00:00 AM EDT tablet 50 TAKE 4 TABLETS AT ONCE BY MOUTH DAILY FOR 5 DAYS, THEN TAKE 3 TABLETS DAILY FOR 5 DAYS THEN TAKE 2 TABLETS DAILY FOR 5 DAYS THEN TAKE 1 TABLET DAILY FOR 5 DAYS TAKE 4 TABLETS AT ONCE BY MOUTH DAILY FOR 5 DAYS, THEN TAKE 3 TABLETS DAILY FOR 5 DAYS THEN TAKE 2 TABLETS DAILY FOR 5 DAYS THEN TAKE 1 TABLET DAILY FOR 5 DAYS SOLD: 01/04/2021 [facility] 24 HR quetiapine 200 MG Extended Release Oral Tablet QUETIAP INE FUMARATE 12/28/2020 12:00:00 AM EDT tablet extended release 24 hr 30 TAKE ONE TABLET BY MOUTH EVERY DAY AT BEDTIME TAKE ONE TABLET BY MOUTH EVERY DAY AT BEDTIME SOLD: 12/29/2020 [facility] 200 mg 12/28/2020 12:00:00 AM EDT tablet 105 TAKE ONE AND ONE-HALF TABLETS BY MOUTH EVERY MORNING AND TWO AT NIGHT TAKE ONE AND ONE-HALF TABLETS BY MOUTH EVERY MORNING AND TWO AT NIGHT SOLD: 12/29/2020 [facility] Amoxicillin 875 MG / Clavulanate 125 MG Oral Tablet 87 5-125 mg AMOXICILLIN/POTASSIUM CLAV 12/15/2020 12:00:00 AM EDT tablet 14 TAKE 1 TABLET BY MOUTH TWO TIMES A DAY FOR 7 DAYS TAKE 1 TABLET BY MOUTH TWO TIMES A DAY F OR 7 DAYS SOLD: 12/15/2020 [facility] 24 HR quetiapine 200 [...] AND 2 TABLETS AT NIGHT SOLD: 11/28/2020 [facility] montelukast 10 MG Oral Tablet MONTELUKAST SODIUM 11/09/2020 12:0 0:00 AM EDT tablet 30 TAKE ONE TABLET BY MOUTH EVERY D AY TAKE ONE TABLET BY MOUTH EVERY DAY SOLD: 12/15/2020 [facility] 100 mg 11/09/2020 12:00:00 AM EDT tablet 30 TAKE ONE TABLET BY MOUTH EVERY DAY TAKE ONE TABLET BY MOUTH EVERY DAY SOLD: 12/15/2020 [facility] montelukast 10 MG Oral Tablet MONTELUKAST SODIUM 11/09/2020 12:0 0:00 AM EDT tablet 30 TAKE ONE TABLET BY MOUTH EVERY D AY TAKE ONE TABLET BY MOUTH EVERY DAY SOLD: 11/10/2020 [facility] 100 mg 11/09/2020 12:00:00 AM EDT tablet 30 TAKE ONE TABLET BY MOUTH EVERY DAY TAKE ONE TABLET BY MOUTH EVERY DAY SOLD: 11/10/2020 [facility] 24 HR quetiapine 200 MG [...] 08/28/2020 12:00:00 AM EDT RESPIRATORY active MEDENT ([facility], ) 24 HR quetiapine 200 MG [...] A DAY FOR 10 DAYS SOLD: 07/04/2020 [facility] 20 mg 07/04/2020 12:00:00 AM [...] HOURS FOR 10 DAYS SOLD: 03/15/2020 [facility] Prednisone 20 MG Oral Tablet Prednisone 03/14/2020 12:00:00 AM EST ORAL completed MEDENT ([facility], ) Amoxicillin 875 MG / Clavulanate 125 MG Oral Tablet Am oxicillin/Clavulanate Potassium 03/14/2020 12:00:00 AM EST ORAL completed MEDENT ([facility], ) 24 HR quetiapine 200 MG [...] EVERY EVENING SOLD: 12/02/2019 [facility] 20 mg 10/26/2019 12:00:00 AM EDT [...] FOUR TIMES A DAY NEEDED SOLD: 03/21/2020 [facility] 100 mg 01/06/2019 12:00:00 AM [...] / clavulanate 125 MG Oral Tablet [facility] ([facility]) Simvastatin 10 MG Oral Tablet simvastatin 10 mg tablet simva statin 10 mg tablet completed simvastatin 10 MG Oral Tablet [facility] ([facility]) Allopurinol 100 MG Oral Tablet allopurinol 100 mg tabl et allopurinol 100 mg tablet completed allopurinol 100 MG Oral Tablet [facility] ([facility]) Promethazine Hydrochloride 25 MG Oral Tablet promethaz ine 25 mg tablet promethazine 25 mg tablet completed promethazine hydrochloride 25 MG Oral Tablet [facility] ([facility]) Promethazine Hydrochloride 25 MG Oral Tablet promethaz ine 25 mg tablet promethazine 25 mg tablet completed promethazine hydrochloride 25 MG Oral Tablet [facility] ([facility]) Amoxicillin 875 MG / Clavulanate 125 MG Oral Tablet amoxicillin 875 mg-potassium clavulanate 125 mg tablet TAKE ONE TABLET BY MOUTH TWICE A DAY FOR 10 DAYS amoxicillin 875 mg-potassium clavulanate 125 mg tablet TAKE ONE TABLET BY MOUTH TWICE A DAY FOR 10 DAYS completed amoxicillin 875 MG / clavulanate 125 MG Oral Tablet [place] ([facility]) Prednisone 20 MG Oral Tablet prednisone 20 mg tablet TAKE ONE TABLET BY MOUTH EVERY DAY FOR 5 DAYS prednisone 20 mg tablet TAKE ONE TABLET BY MOUTH EVERY DAY FOR 5 DAYS completed prednisone 20 MG Oral Tablet [place] ([facility]) Allopurinol 100 MG Oral Tablet allopurinol 100 mg tabl et allopurinol 100 mg tablet completed allopurinol 100 MG Oral Tablet [place] ([facility]) Prednisone 20 MG Oral Tablet prednisone 20 mg tablet TAKE ONE TABLET BY MOUTH EVERY DAY FOR 5 DAYS prednisone 20 mg tablet TAKE ONE TABLET BY MOUTH EVERY DAY FOR 5 DAYS completed prednisone 20 MG Oral Tablet [place] ([facility]) Amoxicillin 875 MG / Clavulanate 125 MG Oral Tablet amoxicillin 875 mg-potassium clavulanate 125 mg tablet TAKE ONE TABLET BY MOUTH EVERY 12 HOURS FOR 10 DAYS amoxicillin 875 mg-potassium clavulanate 125 mg tablet TAKE ONE TABLET BY MOUTH EVERY 12 HOURS FOR 10 DAYS completed amoxicillin 875 MG / clavulanate 125 MG Oral Tablet [place] ([facility]) Allopurinol 100 MG Oral Tablet allopurinol 100 mg tabl et allopurinol 100 mg tablet completed allopurinol 100 MG Oral Tablet [place] ([facility]) Prednisone 20 MG Oral Tablet prednisone 20 mg tablet TAKE ONE TABLET BY MOUTH EVERY DAY FOR 5 DAYS prednisone 20 mg tablet TAKE ONE TABLET BY MOUTH EVERY DAY FOR 5 DAYS completed prednisone 20 MG Oral Tablet [place] ([facility]) Amoxicillin 875 MG / Clavulanate 125 MG Oral Tablet amoxicillin 875 mg-potassium clavulanate 125 mg tablet TAKE ONE TABLET BY MOUTH TWICE A DAY FOR 10 DAYS amoxicillin 875 mg-potassium clavulanate 125 mg tablet TAKE ONE TABLET BY MOUTH TWICE A DAY FOR 10 DAYS completed amoxicillin 875 MG / clavulanate 125 MG Oral Tablet [place] ([facility]) Prednisone 20 MG Oral Tablet prednisone 20 mg tablet TAKE ONE TABLET BY MOUTH EVERY DAY FOR 5 DAYS prednisone 20 mg tablet TAKE ONE TABLET BY MOUTH EVERY DAY FOR 5 DAYS completed prednisone 20 MG Oral Tablet [place] ([facility]) Amoxicillin 875 MG / Clavulanate 125 MG Oral Tablet amoxicillin 875 mg-potassium clavulanate 125 mg tablet TAKE ONE TABLET BY MOUTH EVERY 12 HOURS FOR 10 DAYS amoxicillin 875 mg-potassium clavulanate 125 mg tablet TAKE ONE TABLET BY MOUTH EVERY 12 HOURS FOR 10 DAYS completed amoxicillin 875 MG / clavulanate 125 MG Oral Tablet [place] ([facility]) Prednisone 20 MG Oral Tablet prednisone 20 mg tablet TAKE ONE TABLET BY MOUTH EVERY DAY FOR 5 DAYS prednisone 20 mg tablet TAKE ONE TABLET BY MOUTH EVERY DAY FOR 5 DAYS completed prednisone 20 MG Oral Tablet [place] ([facility]) Allopurinol 100 MG Oral Tablet allopurinol 100 mg tabl et allopurinol 100 mg tablet completed allopurinol 100 MG Oral Tablet [place] ([facility]) alogliptin 25 MG Oral Tablet alogliptin 25 mg tablet alogliptin 25 mg tablet completed alogliptin 25 MG Oral Tablet [place] ([facility]) Simvastatin 10 MG Oral Tablet simvastatin 10 mg tablet simva statin 10 mg tablet completed simvastatin 10 MG Oral Tablet [place] ([facility]) Promethazine Hydrochloride 25 MG Oral Tablet promethaz ine 25 mg tablet promethazine 25 mg tablet completed promethazine hydrochloride 25 MG Oral Tablet [place] ([facility]) alogliptin 25 MG Oral Tablet alogliptin 25 mg tablet alogliptin 25 mg tablet completed alogliptin 25 MG Oral Tablet [place] ([facility]) Simvastatin 10 MG Oral Tablet simvastatin 10 mg tablet simva statin 10 mg tablet completed simvastatin 10 MG Oral Tablet [facility] ([facility]) Simvastatin 10 MG Oral Tablet simvastatin 10 mg tablet simva statin 10 mg tablet completed simvastatin 10 MG Oral Tablet [place] ([facility]) alogliptin 25 MG Oral Tablet alogliptin 25 mg tablet alogliptin 25 mg tablet completed alogliptin 25 MG Oral Tablet [place] ([facility]) Amoxicillin 875 MG / Clavulanate 125 MG Oral Tablet amoxicillin 875 mg-potassium clavulanate 125 mg tablet TAKE ONE TABLET BY MOUTH TWICE A DAY FOR 10 DAYS amoxicillin 875 mg-potassium clavulanate 125 mg tablet TAKE ONE TABLET BY MOUTH TWICE A DAY FOR 10 DAYS completed amoxicillin 875 MG / clavulanate 125 MG Oral Tablet [facility] er) Prednisone 20 MG Oral Tablet prednisone 20 mg tablet TAKE ONE TABLET BY MOUTH EVERY DAY FOR 5 DAYS prednisone 20 mg tablet TAKE ONE TABLET BY MOUTH EVERY DAY FOR 5 DAYS completed prednisone 20 MG Oral Tablet [place] ([facility]) Simvastatin 10 MG Oral Tablet simvastatin 10 mg tablet simva statin 10 mg tablet completed simvastatin 10 MG Oral Tablet [place] ([facility]) Allopurinol 100 MG Oral Tablet allopurinol 100 mg tabl et allopurinol 100 mg tablet completed allopurinol 100 MG Oral Tablet [facility] ([facility]) Allopurinol 100 MG Oral Tablet allopurinol 100 mg tabl et allopurinol 100 mg tablet completed allopurinol 100 MG Oral Tablet [facility] ([facility]) Simvastatin 10 MG Oral Tablet simvastatin 10 mg tablet simva statin 10 mg tablet completed simvastatin 10 MG Oral Tablet [facility] ([facility]) fluticasone furoate 0.2 MG/ACTUAT Dry Po wder Inhaler Arnuity Ellipta 200 mcg/actuation powder for inhalation INHALE BY MOUTH 1 PUFF EVERY DAY Arnuity Ellipta 200 mcg/actuation powder for inhalation INHALE BY MOUTH 1 PUFF EVERY DAY completed fluticasone furo ate 0.2 MG/ACTUAT Dry Powder Inhaler [place] ([facility]) Insurance Providers Payer name Policy type / Coverage type Policy ID Covered democrat ID Covered democrat's relationship to [place] Policy [place] Plan Information BS [place] Medigap Part B [id number] Self Y [id number] BS [place] Medigap Part B [id number] Self BS [place] Medigap Part B [id number] Self Y [id number] BS [place] Medigap Part B [id number] Self Y [id number] BS [place] Medigap Part B [id number] Self Y [id number] BS [place] Medigap Part B [id number] Self Y [id number] BS [place] Medigap Part B [id number] Self Y [id number] [place] Medigap Part B [id number] Self [id number] [place] Medigap Part B [id number] Self BLUE CROSS AVELAR PLAN [id number] SP [id number] HMO BLUE [id number] SP [id number] BS [place] H[place] Blue Option Medigap Part B [id number] [id number] Self V [id number] BS [place] Hmo Blue Option Medigap Part B [id number] [id number] Self V [id number] BS [place] Hmo Blue Option Medigap Part B [id number] Self V [id number] BS [place] Hmo Blue Option Medigap Part B [id number] Self V [id number] [place] Hmo Blue Option Medigap Part B [id number] Self V [id number] BS [place] Hmo Blue Option Medigap Part B [id number] Self [place] Hmo Blue Option Medigap Part B [id number] Self V [id number] [facility] Community Plan Commercial [id number] Self [id number] [facility] Community Plan Commercial [id number] Self [facility] I [id number] Self [id number] [employer] COMMUNITY PLAN MCDHMO [id number] SP [id number] Managed Care - Community Plan [facility] P [id number] S [id number] Medicaid S [id number] S [id number] Managed Care - Community Plan United [employer] P [id number] S [id number] Medicaid S [id number] S [id number] Managed Care - [facility] Community Plan P [id number] S [id number] Managed Care - Community Plan United [employer] P [id number] S [id number] United [employer] Essential Plan P [id number] S [id number] [facility] Essential Plan P [id number] S [id number] [facility] [id number] SP [id number] SELF PAY ONLY [id number] SP [id number] [facility] Essential Plan P [id number] S [id number] [facility] [place] Health Maintenance Organization (HMO) [id number] Self [id number] [facility] Medicaid Medicaid [id number] Self UNHC COMMUNITY PLAN MCDHMO [id number] SP [id number] [facility](MCAID) O [id number] S [id number] [facility](MCAID) P UNAVAILABLE [id number] S UNAVAILABLE [facility] COMMUNTY PLAN [id number] [facility] [id number] SP [id number] [facility](MCAID) O [id number] S [id number] [facility]-Community Plan-[place] Commercial [id number] Self [id number] [facility]-Community Plan-[place] Commercial [id number] Self [id number] [facility] COMMUNITY PLAN MCDO [id number] SP [id number] [facility] [id number] Preferred Provider Organization (PPO) [id number] Problems, Conditions, and Diagnoses Code Display Name Description Problem Type Effective Dates Data Source(s) 052065066 Type II diabetes mellitus uncontrolled T ype II Diabetes Mellitus Uncontrolled Problem 10/20/2020 12:00:00 AM EDT [place] ([facility]) E66.9 [id number] Obesity (BMI 30-39.9) Problem 05/31/2020 12: 00:00 AM EDT eCW1 ([facility]) Surgeries/Procedures Procedure Description Date Indications Data Source(s) OFFICE OUTPATIENT NEW 30 MINUTES 12/05/2020 12:00:00 A M EDT [facility] ([facility]) Spirometry 11/28/2020 12:00:00 AM EDT M [facility] ([facility], ) OFFICE OUTPATIENT VISIT 25 MINUTES 11/28/2020 12:00:00 AM EDT [facility] ([facility], ) Spirometry 08/28/2020 12:00:00 AM EDT M ED[facility] ([facility], ) OFFICE OUTPATIENT VISIT 25 MINUTES 08/28/2020 12:00:00 AM EDT [facility] ([facility], ) OFFICE OUTPATIENT NEW 45 MINUTES 08/23/2020 12:00:00 A M EDT [facility] ([facility], ) Spirometry 05/26/2020 12:00:00 AM EDT Shannon MCBRIDE ([facility], ) OFFICE OUTPATIENT VISIT 15 MINUTES 05/26/2020 12:00:00 AM EDT [place] ([facility], ) US, abdomen, complete 05/12/2020 12:00:00 AM EST [facility] ([facility]) US, abdomen, complete 05/12/2020 12:00:00 AM EST [place] ([facility]) US, gallbladder 05/12/2020 12:00:00 AM EST [place] ([facility]) US, abdomen, complete 05/12/2020 12:00:00 AM EST [facility] ([facility]) US, gallbladder 05/12/2020 12:00:00 AM EST [facility] ([facility]) US, abdomen, complete 05/12/2020 12:00:00 AM EST [facility] ([facility]) US, gallbladder 05/12/2020 12:00:00 AM EST [place] ([facility]) US, abdomen, complete 05/12/2020 12:00:00 AM EST [facility] ([facility]) US, gallbladder 05/12/2020 12:00:00 AM EST [facility] ([facility]) US, abdomen, complete 05/12/2020 12:00:00 AM EST [facility] ([facility]) Results ID Date Data Source [id number] 12/28/2020 08:50:00 AM EDT [facility] Name Value Range Interpretation Code Description Data Lety rce(s) Supporting Document(s) Respiratory pathogens identified [Type] in Nasopharynx by Probe and target amplification method SARS-CoV-2 (COVID 19) [place] This lab was ordered by [facility] a nd reported by [facility]. ID Date Data Source [id number] 12/05/2020 03:35:00 PM EDT [place] ([facility]) Name Value Range Interpretation Code Description Data Lety rce(s) Supporting Document(s) Influenza virus B RNA [Presence] in Unsp ecified specimen by Probe and target amplification method Laboratory test result [facility] ([facility]) Influenza virus A RNA [Presence] in Unsp ecified specimen by Probe and target amplification method Laboratory test result MED[facility] ([facility]) ID Date Data Source [id number] 11/28/2020 03:36:00 PM EDT [facility] ([facility], ) Name Value Range Interpretation Code Description Data Lety rce(s) Supporting Document(s) FVC-Pre 2.33 L MEDENT ([facility], ) PDFReport Laboratory test result MEDENT ([facility], ) FVC-Pred 3.79 L MEDENT ([facility]) FVC-%Pred-Pre 61 L MEDENT ([facility], ) Fev1-Pred 3.00 L [facility] ([facility]) FVC-LLN 3.05 L [facility] ([facility]) Fev1-LLN 2.37 L [facility] ([facility]) Fev1-Pre 1.97 L [facility] ([facility]) Fev1-%Pred-Pre 65 L MED[facility] ([facility]) Fev6-Pre 2.33 L [facility] ([facility]) Fev6-%Pred-Pre 63 L [facility] ([facility]) Fev6-Pred 3.69 L [facility] ([facility]) Vig3hcp-Iwt 85 % [facility] ([facility]) Fev6-LLN 2.96 L [facility] ([facility]) Ywp7hts-Dzhv 80 % [facility] ([facility]) Pmv3ygv-SVC 70 % [facility] ([facility]) Occ0utk-%Pred-Pre 105 % [facility] ([facility]) Kpt5nrh-Akbr 97 % [facility] ([facility]) FEFMax-Pred 7.05 L/E/sec MED[facility] ([facility]) Exa1dxm-%Pred-Pre 102 % [facility] ([facility]) Dmr4oce-Sdz 100 % [facility] ([facility]) FEFMax-Pre 5.44 L/E/sec [facility] ([facility]) FEFMax-%Pred-Pre 77 L/E/sec [facility] ([facility]) Dgy2934-Pcmc 2.88 L/E/sec [facility] ([facility]) FEFMax-LLN 5.22 L/E/sec [facility] ([facility]) Eey4410-CHC 1.56 L/E/sec [facility] ([facility]) Ysn7099-Jvx 2.49 L/E/sec [facility] ([facility]) Pqm2619-%Pred-Pre 86 L/E/sec [facility] ([facility]) Iqe1vld2-Pzi 85 % [facility] ([facility]) Fqv6kde2-Minp 82 % [facility] ([facility]) ExpTime-Pre 5.90 sec [facility] ([facility]) Onx1lop5-%Pred-Pre 102 % [facility] ([facility]) Chm3cfj8-NEQ 73 % [facility] ([facility]) ID Date Data Source [id number] 10/19/2020 09:45:00 AM EDT [facility] Name Value Range Interpretation Code Description Data Lety rce(s) Supporting Document(s) SARS-CoV-2 (COVID-19) RNA [Presence] in Respiratory specimen by LESLIE with probe detection Not Detected [facility] This lab was ordered by [facility] and reported by [employer] ID Date Data Source [id number] 09/20/2020 03:19:00 PM EDT [place] ([facility]) Name Value Range Interpretation Code Description Data Lety rce(s) Supporting Document(s) Cholesterol [Mass/volume] in Serum or Plasma 222 mg/dL <200 Above high normal Cholesterol, Total [place] ([facility]) Cholesterol in HDL [Mass/volume] in Serum or Plasma 30 mg/dL > or = 50 Below low normal HDL Cholesterol [facility] ([facility]) Triglyceride [Mass/volume] in Serum or Plasma 393 mg/dL <150 Above high normal Triglycerides [place] ([facility]) Cholesterol in LDL [Mass/volume] in Serum or Plasma by calculation 132 mg/dL_(calc) <100 Above high normal LDL-cholesterol [place] ([facility]) Cholesterol.total/Cholesterol in HDL [Mass Ratio] in Serum o r Plasma 7.4 calc <5.0 Above high normal Chol/hdlc Ratio [facility] ([facility]) Cholesterol non HDL [Mass/volume] in Serum or Plasma 192 mg/dL_( calc) <130 Above high normal Non HDL Cholesterol [facility] ([facility]) ID Date Data Source [id number] 09/20/2020 03:19:00 PM EDT [facility]) Name Value Range Interpretation Code Description Data Lety rce(s) Supporting Document(s) HIV 1+2 Ab+HIV1 p24 Ag [Presence] in Serum or Plasma b y Immunoassay non-reactive non-reactive HIV Ag/Ab, 4TH Gen [facility] ID Date Data Source [id number] 09/20/2020 03:19:00 PM EDT [facility]) Name Value Range Interpretation Code Description Data Lety rce(s) Supporting Document(s) Iron [Mass/volume] in Serum or Plasma 62 mcg/dL 45-160 Iron, Total [place] ([facility]) Iron binding capacity [Mass/volume] in Serum or Plasma 330 m cg/dL_(calc) 250-450 Iron Binding Capacity [facility] ([facility]) Ferritin [Mass/volume] in Serum or Plasma 50 NG/mL 16-232 Ferritin [facility] ([facility]) Iron saturation [Mass Fraction] in Serum or Plasma 19 %_(calc) 16- 45 % Saturation [place] ([facility]) ID Date Data Source [id number] 09/20/2020 03:19:00 PM EDT [facility]) Name Value Range Interpretation Code Description Data Lety rce(s) Supporting Document(s) Hemoglobin A1c/Hemoglobin.total in Blood 11.6 %_of_total_HGB <5. 7 Above high normal Hemoglobin a1C [facility] ([facility]) ID Date Data Source [id number] 09/20/2020 03:19:00 PM EDT [facility]) Name Value Range Interpretation Code Description Data Lety rce(s) Supporting Document(s) Calcidiol [Mass/volume] in Serum or Plasma 28 NG/mL 30-100 Below low normal Vitamin D,25-Oh,total,ia [facility]) ID Date Data Source [id number] 09/20/2020 03:19:00 PM EDT [facility]) Name Value Range Interpretation Code Description Data Lety rce(s) Supporting Document(s) Folate [Mass/volume] in Serum or Plasma 14.4 NG/mL Folate, Serum [facility] ([facility]) Cobalamin (Vitamin B12) [Mass/volume] in Serum or Plasma 362 pg/mL 200-1100 Vitamin B12 [facility]) ID Date Data Source [id number] 09/20/2020 03:19:00 PM EDT [facility] ([facility]) Name Value Range Interpretation Code Description Data Lety rce(s) Supporting Document(s) Hepatitis C virus Ab Signal/Cutoff in Serum or Plasma by Immunoassa y <1.00 Index [facility] ([facility]) Hepatitis C virus Ab [Presence] in Serum or Plasma by Immuno assay non-reactive non-reactive Hepatitis C Antibody [place] ([facility]) ID Date Data Source [id number] 09/20/2020 03:19:00 PM EDT [facility] Name Value Range Interpretation Code Description Data Lety rce(s) Supporting Document(s) Color of Urine tnp Color [facility] ([facility]) ID Date Data Source [id number] 09/20/2020 03:19:00 PM EDT [facility]) Name Value Range Interpretation Code Description Data Lety rce(s) Supporting Document(s) Microalbumin [Mass/volume] in Urine tnp Albumin, Urine [facility] ID Date Data Source [id number] 09/20/2020 03:19:00 PM EDT [place] ([facility]) Name Value Range Interpretation Code Description Data Lety rce(s) Supporting Document(s) Urea nitrogen [Mass/volume] in Serum or Plasma 8 mg/dL 7-25 Urea Nitrogen (BUN) [facility] ([facility]) Glucose [Mass/volume] in Serum or Plasma 437 mg/dL 65-99 Above high normal Glucose [facility] ([facility]) Glomerular filtration rate/1.73 sq M.pre dicted among blacks [Volume Rate/Area] in Serum, Plasma or Blood by Creatinine-based formula (CKD-EPI) 129 mL/min/1.73m2 > or = 60 eGFR [facility] ([facility]) Glomerular filtration rate/1.73 sq M.pre dicted among non-blacks [Volume Rate/Area] in Serum, Plasma or Blood by Creatinine-based formula (CKD-EPI) 111 mL/min/1.73m2 > or = 60 eGFR Non-afr. Citizen Of [place] [facility] ([facility]) Creatinine [Mass/volume] in Serum or Plasma 0.52 mg/dL 0.50-1.05 Creatinine [facility] ([facility]) Urea nitrogen/Creatinine [Mass Ratio] in Serum or Plasma not applic able 6-22 BUN/creatinine Ratio [facility] ([facility]) Sodium [Moles/volume] in Serum or Plasma 133 mmol/L 135-146 Below low normal Sodium [place] ([facility]) Chloride [Moles/volume] in Serum or Plasma 98 mmol/L 98-110 Chloride [facility] ([facility]) Potassium [Moles/volume] in Serum or Plasma 4.3 mmol/L 3.5-5.3 Potassium [facility] ([facility]) Calcium [Mass/volume] in Serum or Plasma 8.9 mg/dL 8.6-10.4 Calcium [facility] ([facility]) Protein [Mass/volume] in Serum or Plasma 7.6 g/dL 6.1-8.1 Protein, Total [facility] ([facility]) Carbon dioxide, total [Moles/volume] in Serum or Plasma 26 mmol/L 20-32 Carbon Dioxide [facility] ([facility]) Albumin [Mass/volume] in Serum or Plasma 3.7 g/dL 3.6-5.1 Albumin [place] ([facility]) Globulin [Mass/volume] in Serum by calculation 3.9 g/dL_(calc) 1 .9-3.7 Above high normal Globulin [facility] ([facility]) Bilirubin.total [Mass/volume] in Serum or Plasma 0.3 mg/dL 0.2-1 .2 Bilirubin, Total [facility] ([facility]) Albumin/Globulin [Mass Ratio] in Serum or Plasma 0.9 (calc) 1.0-2.5 Below low normal Albumin/globulin Ratio E[facility] ([facility]) Alanine aminotransferase [Enzymatic activity/volume] in Seru m or Plasma 16 U/L 6-29 Alt EZ[facility] ([facility]) Aspartate aminotransferase [Enzymatic activity/volume] in Serum or Plasma 15 U/L 10-35 Ast E[facility] ([facility]) Alkaline phosphatase [Enzymatic activity/volume] in Serum or Plasma 52 U/L 37-153 Alkaline Phosphatase [facility] ([facility]) ID Date Data Source [id number] 09/20/2020 03:19:00 PM EDT [facility] ([facility]) Name Value Range Interpretation Code Description Data Lety rce(s) Supporting Document(s) Thyrotropin [Units/volume] in Serum or Plasma 3.81 mIU/L Tsh [place] ([facility]) Thyroxine (T4) free [Mass/volume] in Serum or Plasma 1.0 NG/dL 0 .8-1.8 T4, Free [facility] ([facility]) ID Date Data Source [id number] 08/28/2020 12:16:00 PM EDT MEDENT ([facility], ) Name Value Range Interpretation Code Description Data Lety rce(s) Supporting Document(s) FVC-Pred 3.79 L MEDENT ([facility], ) PDFReport Laboratory test result MEDENT ([facility]) FVC-Pre 2.34 L MEDENT ([facility]) FVC-%Pred-Pre 61 L MEDENT ([facility]) FVC-LLN 3.05 L [facility] ([facility]) Fev1-Pre 2.04 L [facility] ([facility]) Fev1-%Pred-Pre 68 L MEDENT ([facility]) Fev1-Pred 3.00 L MED[facility] ([facility]) Fev6-Pre 2.34 L [facility] ([facility]) Fev1-LLN 2.37 L MED[facility] ([facility]) Fev6-Pred 3.69 L MED[facility] ([facility]) Xul3uqy-Bdfy 80 % [facility] ([facility]) Fev6-%Pred-Pre 63 L MEDENT ([facility]) Fev6-LLN 2.96 L MED[facility] ([facility]) Yrn7xws-Qau 87 % [facility] ([facility]) Jsl6epu-%Pred-Pre 108 % MEDENT ([facility]) Gdk8ggz-Yclr 97 % [facility] ([facility]) Naz1jww-Ijz 100 % [facility] ([facility]) Oat6vxj-AXD 70 % [facility] ([facility]) Zos1efm-%Pred-Pre 102 % [facility] ([facility]) FEFMax-Pre 4.82 L/E/sec MED[facility] ([facility]) FEFMax-Pred 7.05 L/E/sec MED[facility] ([facility]) Ffv2935-Irtk 2.88 L/E/sec MEDENT ([facility], ) FEFMax-LLN 5.22 L/E/sec MED[facility] ([facility]) FEFMax-%Pred-Pre 68 L/E/sec MED[facility] ([facility]) Dgt4606-SNT 1.56 L/E/sec [facility] ([facility]) Hwd9431-Bat 2.94 L/E/sec [facility] ([facility]) Quj5094-%Pred-Pre 102 L/E/sec MEDENT ([facility]) ExpTime-Pre 6.40 sec MED[facility] ([facility]) Sqr8rpc0-Gnd 87 % [facility] ([facility]) Ork4etc2-%Pred-Pre 105 % MED[facility] ([facility]) Xfr8jid1-Xfmx 82 % [facility] ([facility]) Wfe7hlq7-ALW 73 % [facility] ([facility]) ID Date Data Source [id number] 05/31/2020 09:54:00 AM EDT [facility]) Name Value Range Interpretation Code Description Data Lety rce(s) Supporting Document(s) total 25(oh) vitamin D 12.0 NG/mL 30.0-100.0 Below low normal T otal 25(Oh) Vitamin D [facility]) ID Date Data Source [id number] 05/31/2020 09:54:00 AM EDT [facility]) Name Value Range Interpretation Code Description Data Lety rce(s) Supporting Document(s) thyroid stimulating hormone 2.700 uIU/mL 0.358-3.740 Thyroid Stimulating Hormone [facility] ([facility]) free T4 0.97 NG/dL 0.76-1.46 Free T4 [facility]) ID Date Data Source [id number] 05/31/2020 09:54:00 AM EDT [place] ([facility]) Name Value Range Interpretation Code Description Data Lety rce(s) Supporting Document(s) lipase 237 U/L 73-393 Lipase E[facility] ([facility]) ID Date Data Source [id number] 05/31/2020 09:54:00 AM EDT E[facility] ([facility]) Name Value Range Interpretation Code Description Data Lety rce(s) Supporting Document(s) amylase 43 U/L 25-115 Amylase [facility] ([facility]) ID Date Data Source [id number] 05/31/2020 09:54:00 AM EDT [place] ([facility]) Name Value Range Interpretation Code Description Data Lety rce(s) Supporting Document(s) triglycerides level 317 mg/dL <150 Above high normal Triglycer ides Level E[facility] ([facility]) HDL cholesterol 32 mg/dL >40 Below low normal HDL Cholestero l [facility] ([facility]) Cholesterol in LDL [Mass/volume] in Serum or Plasma 114 mg/dL <100 Above high normal LDL Cholesterol [facility] ([facility] [facility]) cholesterol level 209 mg/dL <200 Above high normal Cholesterol Level EZRA ([facility]) non-HDL-C 177 mg/dL Non-hdl-c EZRA ([facility]) cholesterol risk ratio <5 Above high normal Choles terol Risk Ratio [place] ([facility]) ID Date Data Source [id number] 05/31/2020 09:54:00 AM EDT [place] ([facility]) Name Value Range Interpretation Code Description Data Lety rce(s) Supporting Document(s) glucose, fasting 329 mg/dL 70-100 Above high normal Glucose, Fas ting EZRA ([facility]) blood urea nitrogen 9 mg/dL 7-18 Blood Urea Nitro gen EZRA ([facility]) creatinine for GFR 0.64 mg/dL 0.55-1.30 Creatinine for GF R [place] ([facility]) glomerular filtration rate > 60.0 >51 Glomerula r Filtration Rate EZRA ([facility]) sodium level 133 mEq/L 136-145 Below low normal Sodium Level ATHE NA ([facility]) carbon dioxide level 29 mEq/L 21-32 Carbon Dioxide Level EZRA ([facility]) chloride level 99 mEq/L 98-107 Chloride Level EZRA ([facility]) potassium serum 4.6 mEq/L 3.5-5.1 Potassium Serum ATHE NA ([facility]) anion gap 5 mEq/L 8-16 Below low normal Anion Gap EZRA ( [facility]) calcium level 9.0 mg/dL 8.5-10.1 Calcium Level EZRA ( [facility]) AST/SGOT 16 U/L 7-37 AST/SGOT EZRA ([facility]) ALT/SGPT 23 U/L 12-78 ALT/SGPT EZRA ([facility]) bilirubin,total 0.2 mg/dL 0.2-1.0 Bilirubin,total ATHE NA ([facility]) alkaline phosphatase 66 U/L 45-117 Alkaline Phosph atase EZRA ([facility]) total protein 8.0 gm/dL 6.4-8.2 Total Protein EZRA ( [facility]) albumin 3.4 gm/dL 3.2-5.2 Albumin EZRA ([facility]) albumin/globulin ratio 1.2-2.2 Below low normal Albumin /globulin Ratio EZRA ([facility]) ID Date Data Source [id number] 05/31/2020 09:54:00 AM EDT EZRA ([facility]) Name Value Range Interpretation Code Description Data Lety rce(s) Supporting Document(s) Hemoglobin A1c/Hemoglobin.total in Blood 11.5 % Hemoglobin a1C EZRA ([facility]) estimated average glucose 283 mg/dL 60-110 Above high norm al Estimated Average Glucose EZRA ([facility]) ID Date Data Source [id number] 05/31/2020 09:54:00 AM EDT EZRA ([facility]) Name Value Range Interpretation Code Description Data Lety rce(s) Supporting Document(s) white blood count 10.2 10 4.0-10.0 Above high normal White Blood Count EZRA ([facility]) hemoglobin 14.0 g/dL 12.0-15.5 Hemoglobin EZRA ([facility]) red blood count 4.98 10 4.00-5.40 Red Blood Count ATHE NA ([facility]) mean corpuscular volume 86.9 fL 80.0-96.0 Mean Corpusc ular Volume EZRA ([facility]) hematocrit 43.3 % 36.0-47.0 Hematocrit EZRA ([facility]) red cell distribution width 13.2 % 11.5-14.5 Red Cell Distribution Width EZRA ([facility]) mean corpuscular hemoglobin 28.1 pg 27.0-33.0 Mean Cor puscular Hemoglobin EZRA ([facility]) mean corpuscular HGB conc 32.3 g/dL 32.0-36.5 Mean Corpu scular HGB Conc EZRA ([facility]) lymph % 27.1 % 24.0-44.0 Lymph % EZRA ([facility]) platelet count, automated 314 10 150-450 Platelet C ount, Automated EZRA ([facility]) neutrophils % 61.8 % 36.0-66.0 Neutrophils % EZRA ( [facility]) eos % 4.6 % 0.0-3.0 Above high normal Eos % EZRA ([facility]) mono % 5.4 % 2.0-8.0 [place] % EZRA ([facility]) baso % 0.5 % 0.0-1.0 Baso % EZRA ([facility]) immature granulocyte % 0.6 % 0-3.0 Immature Gran ulocyte % EZRA ([facility]) nucleated red blood cell % 0.0 % 0-0 Nucleated Red Blood Cell % EZRA ([facility]) lymph # 2.8 10 1.5-5.0 Lymph # EZRA ([facility]) mono # 0.6 10 0.0-0.8 [place] # EZRA ([facility]) neutrophils # 6.3 10 1.5-8.5 Neutrophils # EZRA ( [facility]) eos # 0.5 10 0.0-0.5 Eos # EZRA ([facility]) baso # 0.1 10 0.0-0.2 Baso # EZRA ([facility]) ID Date Data Source [id number] 05/31/2020 09:54:00 AM EDT [place] ([facility]) Name Value Range Interpretation Code Description Data Lety rce(s) Supporting Document(s) total 25(oh) vitamin D 12.0 NG/mL 30.0-100.0 Below low normal T otal 25(Oh) Vitamin D [place] ([facility]) ID Date Data Source [id number] 05/31/2020 09:54:00 AM EDT [facility]) Name Value Range Interpretation Code Description Data Lety rce(s) Supporting Document(s) thyroid stimulating hormone 2.700 uIU/mL 0.358-3.740 Thyroid Stimulating Hormone [place] ([facility]) free T4 0.97 NG/dL 0.76-1.46 Free T4 [place] ([facility]) ID Date Data Source [id number] 05/31/2020 09:54:00 AM EDT [place] ([facility]) Name Value Range Interpretation Code Description Data Lety rce(s) Supporting Document(s) lipase 237 U/L 73-393 Lipase EZRA ([facility]) ID Date Data Source [id number] 05/31/2020 09:54:00 AM EDT [facility]) Name Value Range Interpretation Code Description Data Lety rce(s) Supporting Document(s) amylase 43 U/L 25-115 Amylase EZRA ([facility]) ID Date Data Source [id number] 05/31/2020 09:54:00 AM EDT [place] ([facility]) Name Value Range Interpretation Code Description Data Lety rce(s) Supporting Document(s) Cholesterol in LDL [Mass/volume] in Serum or Plasma 114 mg/dL <100 Above high normal LDL Cholesterol E[facility]RA ([facility]) HDL cholesterol 32 mg/dL >40 Below low normal HDL Cholestero l EZRA ([facility]) triglycerides level 317 mg/dL <150 Above high normal Triglycer ides Level EZRA ([facility]) cholesterol level 209 mg/dL <200 Above high normal Cholesterol Level EZRA ([facility]) non-HDL-C 177 mg/dL Non-hdl-c EZRA ([facility]) cholesterol risk ratio <5 Above high normal Choles terol Risk Ratio EZRA ([facility]) ID Date Data Source [id number] 05/31/2020 09:54:00 AM EDT [place] ([facility]) Name Value Range Interpretation Code Description Data Lety rce(s) Supporting Document(s) blood urea nitrogen 9 mg/dL 7-18 Blood Urea Nitro gen EZRA ([facility]) glucose, fasting 329 mg/dL 70-100 Above high normal Glucose, Fas ting EZRA ([facility]) creatinine for GFR 0.64 mg/dL 0.55-1.30 Creatinine for GF R EZRA ([facility]) sodium level 133 mEq/L 136-145 Below low normal Sodium Level ATHE NA ([facility]) glomerular filtration rate > 60.0 >51 Glomerula r Filtration Rate EZRA ([facility]) potassium serum 4.6 mEq/L 3.5-5.1 Potassium Serum ATHE NA ([facility]) chloride level 99 mEq/L 98-107 Chloride Level EZRA ([facility]) anion gap 5 mEq/L 8-16 Below low normal Anion Gap EZRA ( [facility]) carbon dioxide level 29 mEq/L 21-32 Carbon Dioxide Level EZRA ([facility]) ALT/SGPT 23 U/L 12-78 ALT/SGPT EZRA ([facility]) alkaline phosphatase 66 U/L 45-117 Alkaline Phosph atase EZRA ([facility]) AST/SGOT 16 U/L 7-37 AST/SGOT EZRA ([facility]) calcium level 9.0 mg/dL 8.5-10.1 Calcium Level EZRA ( [facility]) albumin 3.4 gm/dL 3.2-5.2 Albumin EZRA ([facility]) bilirubin,total 0.2 mg/dL 0.2-1.0 Bilirubin,total ATHE NA ([facility]) total protein 8.0 gm/dL 6.4-8.2 Total Protein EZRA ( [facility]) albumin/globulin ratio 1.2-2.2 Below low normal Albumin /globulin Ratio EZRA ([facility]) ID Date Data Source [id number] 05/31/2020 09:54:00 AM EDT EZRA ([facility]) Name Value Range Interpretation Code Description Data Lety rce(s) Supporting Document(s) Hemoglobin A1c/Hemoglobin.total in Blood 11.5 % Hemoglobin a1C E[facility] ([facility]) estimated average glucose 283 mg/dL 60-110 Above high norm al Estimated Average Glucose EZRA ([facility]) ID Date Data Source [id number] 05/31/2020 09:54:00 AM EDT [place] ([facility]) Name Value Range Interpretation Code Description Data Lety rce(s) Supporting Document(s) white blood count 10.2 10 4.0-10.0 Above high normal White Blood Count EZRA ([facility]) red blood count 4.98 10 4.00-5.40 Red Blood Count ATHE ([facility]) hemoglobin 14.0 g/dL 12.0-15.5 Hemoglobin EZRA ([facility]) mean corpuscular volume 86.9 fL 80.0-96.0 Mean Corpusc ular Volume EZRA ([facility]) mean corpuscular hemoglobin 28.1 pg 27.0-33.0 Mean Cor puscular Hemoglobin EZRA ([facility]) hematocrit 43.3 % 36.0-47.0 Hematocrit EZRA ([facility]) red cell distribution width 13.2 % 11.5-14.5 Red Cell Distribution Width EZRA ([facility]) platelet count, automated 314 10 150-450 Platelet C ount, Automated EZRA ([facility]) mean corpuscular HGB conc 32.3 g/dL 32.0-36.5 Mean Corpu scular HGB Conc EZRA ([facility]) lymph % 27.1 % 24.0-44.0 Lymph % [place] ([facility]) neutrophils % 61.8 % 36.0-66.0 Neutrophils % EZRA ( [facility]) mono % 5.4 % 2.0-8.0 [place] % [place] ([facility]) baso % 0.5 % 0.0-1.0 Baso % [place] ([facility]) eos % 4.6 % 0.0-3.0 Above high normal Eos % EZRA ([facility]) immature granulocyte % 0.6 % 0-3.0 Immature Gran ulocyte % [place] ([facility]) nucleated red blood cell % 0.0 % 0-0 Nucleated Red Blood Cell % [place] ([facility]) neutrophils # 6.3 10 1.5-8.5 Neutrophils # EZRA ( [facility]) eos # 0.5 10 0.0-0.5 Eos # EZRA ([facility]) lymph # 2.8 10 1.5-5.0 Lymph # EZRA ([facility]) mono # 0.6 10 0.0-0.8 [place] # [place] ([facility]) baso # 0.1 10 0.0-0.2 Baso # EZRA ([facility]) ID Date Data Source [id number] 05/31/2020 09:54:00 AM EDT EZRA ([facility]) Name Value Range Interpretation Code Description Data Lety rce(s) Supporting Document(s) thyroid stimulating hormone 2.700 uIU/mL 0.358-3.740 Thyroid Stimulating Hormone EZRA ([facility]) free T4 0.97 NG/dL 0.76-1.46 Free T4 EZRA ([facility]) ID Date Data Source [id number] 05/31/2020 09:54:00 AM EDT EZRA ([facility]) Name Value Range Interpretation Code Description Data Lety rce(s) Supporting Document(s) lipase 237 U/L 73-393 Lipase EZRA ([facility]) ID Date Data Source [id number] 05/31/2020 09:54:00 AM EDT EZRA ([facility]) Name Value Range Interpretation Code Description Data Lety rce(s) Supporting Document(s) amylase 43 U/L 25-115 Amylase EZRA ([facility]) ID Date Data Source [id number] 05/31/2020 09:54:00 AM EDT EZRA ([facility]) Name Value Range Interpretation Code Description Data Lety rce(s) Supporting Document(s) triglycerides level 317 mg/dL <150 Above high normal Triglycer ides Level EZRA ([facility]) cholesterol level 209 mg/dL <200 Above high normal Cholesterol Level EZRA ([facility]) Cholesterol in LDL [Mass/volume] in Serum or Plasma 114 mg/dL <100 Above high normal LDL Cholesterol [facility]RA ([facility]) HDL cholesterol 32 mg/dL >40 Below low normal HDL Cholestero l EZRA ([facility]) non-HDL-C 177 mg/dL Non-hdl-c EZRA ([facility]) cholesterol risk ratio <5 Above high normal Choles terol Risk Ratio [facility]RA ([facility]) ID Date Data Source [id number] 05/31/2020 09:54:00 AM EDT [facility] ([facility]) Name Value Range Interpretation Code Description Data Lety rce(s) Supporting Document(s) glucose, fasting 329 mg/dL 70-100 Above high normal Glucose, Fas ting E[facility]RA ([facility]) glomerular filtration rate > 60.0 >51 Glomerula r Filtration Rate EZRA ([facility]) blood urea nitrogen 9 mg/dL 7-18 Blood Urea Nitro gen EZRA ([facility]) sodium level 133 mEq/L 136-145 Below low normal Sodium Level [facility]HE ([facility]) creatinine for GFR 0.64 mg/dL 0.55-1.30 Creatinine for GF R EZRA ([facility]) potassium serum 4.6 mEq/L 3.5-5.1 Potassium Serum ATHE ([facility]) carbon dioxide level 29 mEq/L 21-32 Carbon Dioxide Level EZRA ([facility]) chloride level 99 mEq/L 98-107 Chloride Level EZRA ([facility]) AST/SGOT 16 U/L 7-37 AST/SGOT EZRA ([facility]) anion gap 5 mEq/L 8-16 Below low normal Anion Gap EZRA ( [facility]) calcium level 9.0 mg/dL 8.5-10.1 Calcium Level EZRA ( [facility]) ALT/SGPT 23 U/L 12-78 ALT/SGPT EZRA ([facility]) bilirubin,total 0.2 mg/dL 0.2-1.0 Bilirubin,total ATHE ([facility]) alkaline phosphatase 66 U/L 45-117 Alkaline Phosph atase EZRA ([facility]) albumin/globulin ratio 1.2-2.2 Below low normal Albumin /globulin Ratio EZRA ([facility]) total protein 8.0 gm/dL 6.4-8.2 Total Protein EZRA ( [facility]) albumin 3.4 gm/dL 3.2-5.2 Albumin EZRA ([facility]) ID Date Data Source [id number] 05/31/2020 09:54:00 AM EDT EZRA ([facility]) Name Value Range Interpretation Code Description Data Lety rce(s) Supporting Document(s) Hemoglobin A1c/Hemoglobin.total in Blood 11.5 % Hemoglobin a1C EZRA ([facility]) estimated average glucose 283 mg/dL 60-110 Above high norm al Estimated Average Glucose EZRA ([facility]) ID Date Data Source [id number] 05/31/2020 09:54:00 AM EDT EZRA ([facility]) Name Value Range Interpretation Code Description Data Lety rce(s) Supporting Document(s) white blood count 10.2 10 4.0-10.0 Above high normal White Blood Count EZRA ([facility]) red blood count 4.98 10 4.00-5.40 Red Blood Count ATHE ([facility]) hemoglobin 14.0 g/dL 12.0-15.5 Hemoglobin EZRA ([facility]) mean corpuscular volume 86.9 fL 80.0-96.0 Mean Corpusc ular Volume EZRA ([facility]) hematocrit 43.3 % 36.0-47.0 Hematocrit EZRA ([facility]) mean corpuscular HGB conc 32.3 g/dL 32.0-36.5 Mean Corpu scular HGB Conc [place] ([facility]) red cell distribution width 13.2 % 11.5-14.5 Red Cell Distribution Width E[facility]RA ([facility]) mean corpuscular hemoglobin 28.1 pg 27.0-33.0 Mean Cor puscular Hemoglobin EZRA ([facility]) platelet count, automated 314 10 150-450 Platelet C ount, Automated EZRA ([facility]) lymph % 27.1 % 24.0-44.0 Lymph % [place] ([facility]) neutrophils % 61.8 % 36.0-66.0 Neutrophils % EZRA ( [facility]) baso % 0.5 % 0.0-1.0 Baso % [place] ([facility]) mono % 5.4 % 2.0-8.0 [place] % EZRA ([facility]) eos % 4.6 % 0.0-3.0 Above high normal Eos % EZRA ([facility]) nucleated red blood cell % 0.0 % 0-0 Nucleated Red Blood Cell % EZRA ([facility]) immature granulocyte % 0.6 % 0-3.0 Immature Gran ulocyte % EZRA ([facility]) neutrophils # 6.3 10 1.5-8.5 Neutrophils # EZRA ( [facility]) lymph # 2.8 10 1.5-5.0 Lymph # EZRA ([facility]) mono # 0.6 10 0.0-0.8 [place] # EZRA ([facility]) baso # 0.1 10 0.0-0.2 Baso # EZRA ([facility]) eos # 0.5 10 0.0-0.5 Eos # EZRA ([facility]) ID Date Data Source [id number] 05/31/2020 09:54:00 AM EDT [place] ([facility]) Name Value Range Interpretation Code Description Data Lety rce(s) Supporting Document(s) total 25(oh) vitamin D 12.0 NG/mL 30.0-100.0 Below low normal T otal 25(Oh) Vitamin D [place] ([facility]) ID Date Data Source [id number] 05/31/2020 09:54:00 AM EDT [place] ([facility]) Name Value Range Interpretation Code Description Data Lety rce(s) Supporting Document(s) free T4 0.97 NG/dL 0.76-1.46 Free T4 [facility] ([facility]) thyroid stimulating hormone 2.700 uIU/mL 0.358-3.740 Thyroid Stimulating Hormone [facility]) ID Date Data Source [id number] 05/31/2020 09:54:00 AM EDT [facility]) Name Value Range Interpretation Code Description Data Lety rce(s) Supporting Document(s) lipase 237 U/L 73-393 Lipase EZRA ([facility]) ID Date Data Source [id number] 05/31/2020 09:54:00 AM EDT [place] ([facility]) Name Value Range Interpretation Code Description Data Lety rce(s) Supporting Document(s) amylase 43 U/L 25-115 Amylase EZRA ([facility]) ID Date Data Source [id number] 05/31/2020 09:54:00 AM EDT [facility] ([facility]) Name Value Range Interpretation Code Description Data Lety rce(s) Supporting Document(s) HDL cholesterol 32 mg/dL >40 Below low normal HDL Cholestero l EZRA ([facility]) triglycerides level 317 mg/dL <150 Above high normal Triglycer ides Level EZRA ([facility]) cholesterol level 209 mg/dL <200 Above high normal Cholesterol Level EZRA ([facility]) non-HDL-C 177 mg/dL Non-hdl-c EZRA ([facility]) cholesterol risk ratio <5 Above high normal Choles terol Risk Ratio EZRA ([facility]) Cholesterol in LDL [Mass/volume] in Serum or Plasma 114 mg/dL <100 Above high normal LDL Cholesterol [facility]RA ([facility]) ID Date Data Source [id number] 05/31/2020 09:54:00 AM EDT [place] ([facility]) Name Value Range Interpretation Code Description Data Lety rce(s) Supporting Document(s) blood urea nitrogen 9 mg/dL 7-18 Blood Urea Nitro gen EZRA ([facility]) glucose, fasting 329 mg/dL 70-100 Above high normal Glucose, Fas ting EZRA ([facility]) creatinine for GFR 0.64 mg/dL 0.55-1.30 Creatinine for GF R EZRA ([facility]) potassium serum 4.6 mEq/L 3.5-5.1 Potassium Serum ATHE NA ([facility]) glomerular filtration rate > 60.0 >51 Glomerula r Filtration Rate EZRA ([facility]) sodium level 133 mEq/L 136-145 Below low normal Sodium Level ATHE NA ([facility]) chloride level 99 mEq/L 98-107 Chloride Level EZRA ([facility]) carbon dioxide level 29 mEq/L 21-32 Carbon Dioxide Level EZRA ([facility]) anion gap 5 mEq/L 8-16 Below low normal Anion Gap EZRA ( [facility]) ALT/SGPT 23 U/L 12-78 ALT/SGPT E[facility]RA ([facility]) AST/SGOT 16 U/L 7-37 AST/SGOT EZRA ([facility]) calcium level 9.0 mg/dL 8.5-10.1 Calcium Level EZRA ( [facility]) alkaline phosphatase 66 U/L 45-117 Alkaline Phosph atase EZRA ([facility]) bilirubin,total 0.2 mg/dL 0.2-1.0 Bilirubin,total ATHE ([facility]) total protein 8.0 gm/dL 6.4-8.2 Total Protein EZRA ( [facility]) albumin 3.4 gm/dL 3.2-5.2 Albumin EZRA ([facility]) albumin/globulin ratio 1.2-2.2 Below low normal Albumin /globulin Ratio EZRA ([facility]) ID Date Data Source [id number] 05/31/2020 09:54:00 AM EDT EZRA ([facility]) Name Value Range Interpretation Code Description Data Lety rce(s) Supporting Document(s) Hemoglobin A1c/Hemoglobin.total in Blood 11.5 % Hemoglobin a1C EZRA ([facility]) estimated average glucose 283 mg/dL 60-110 Above high norm al Estimated Average Glucose EZRA ([facility]) ID Date Data Source [id number] 05/31/2020 09:54:00 AM EDT [place] ([facility]) Name Value Range Interpretation Code Description Data Lety rce(s) Supporting Document(s) white blood count 10.2 10 4.0-10.0 Above high normal White Blood Count EZRA ([facility]) hemoglobin 14.0 g/dL 12.0-15.5 Hemoglobin EZRA ([facility]) red blood count 4.98 10 4.00-5.40 Red Blood Count ATHE NA ([facility]) mean corpuscular volume 86.9 fL 80.0-96.0 Mean Corpusc ular Volume EZRA ([facility]) mean corpuscular hemoglobin 28.1 pg 27.0-33.0 Mean Cor puscular Hemoglobin EZRA ([facility]) hematocrit 43.3 % 36.0-47.0 Hematocrit EZRA ([facility]) red cell distribution width 13.2 % 11.5-14.5 Red Cell Distribution Width EZRA ([facility]) mean corpuscular HGB conc 32.3 g/dL 32.0-36.5 Mean Corpu scular HGB Conc EZRA ([facility]) neutrophils % 61.8 % 36.0-66.0 Neutrophils % EZRA ( [facility]) platelet count, automated 314 10 150-450 Platelet C ount, Automated EZRA ([facility]) lymph % 27.1 % 24.0-44.0 Lymph % EZRA ([facility]) eos % 4.6 % 0.0-3.0 Above high normal Eos % EZRA ([facility]) baso % 0.5 % 0.0-1.0 Baso % EZRA ([facility]) mono % 5.4 % 2.0-8.0 [place] % EZRA ([facility]) immature granulocyte % 0.6 % 0-3.0 Immature Gran ulocyte % EZRA ([facility]) nucleated red blood cell % 0.0 % 0-0 Nucleated Red Blood Cell % EZRA ([facility]) lymph # 2.8 10 1.5-5.0 Lymph # EZRA ([facility]) neutrophils # 6.3 10 1.5-8.5 Neutrophils # EZRA ( [facility]) mono # 0.6 10 0.0-0.8 [place] # EZRA ([facility]) baso # 0.1 10 0.0-0.2 Baso # EZRA ([facility]) eos # 0.5 10 0.0-0.5 Eos # EZRA ([facility]) ID Date Data Source WWBC DIGITAL / KYRIE BILATERAL MAMMO SCREENING (Ultraso und if indicated) 05/31/2020 12:00:00 AM EDT eCW1 ([facility]) Name Value Range Interpretation Code Description Data Lety rce(s) Supporting Document(s) WWBC DIGITAL / KYRIE BILAT ERAL MAMMO SCREENING (Ultrasound if indicated) eCW1 ([facility]) ID Date Data Source [id number] 05/26/2020 03:24:00 PM EDT MEDENT ([facility], ) Name Value Range Interpretation Code Description Data Lety rce(s) Supporting Document(s) FVC-Pred 3.79 L MEDENT ([facility], ) PDFReport Laboratory test result MEDENT ([facility], ) FVC-%Pred-Pre 59 L MEDENT ([facility], ) FVC-Pre 2.27 L MEDENT ([facility]) Fev1-Pred 3.00 L MEDENT ([facility]) Fev1-Pre 1.88 L MEDENT ([facility]) FVC-LLN 3.05 L MEDENT ([facility]) Fev1-LLN 2.37 L MEDENT ([facility]) Fev1-%Pred-Pre 62 L MEDENT ([facility]) Fev6-%Pred-Pre 61 L MEDENT ([facility]) Fev6-Pred 3.69 L MEDENT ([facility]) Fev6-Pre 2.27 L MEDENT ([facility]) Mxs5vqf-Idaf 80 % MEDENT ([facility]) Fev6-LLN 2.96 L MEDENT ([facility]) Uej2lmc-AGR 70 % MEDENT ([facility]) Sbk2oup-%Pred-Pre 103 % MEDENT ([facility]) Yrd6gyh-Wxi 83 % MEDENT ([facility]) Fvf3foc-Ted 100 % MEDENT ([facility]) Nwb2esr-Lkxe 97 % MEDENT ([facility]) Eed4vwj-%Pred-Pre 102 % MEDENT ([facility]) FEFMax-Pred 7.05 L/E/sec MEDENT ([facility]) FEFMax-%Pred-Pre 85 L/E/sec MEDENT ([facility]) FEFMax-Pre 6.04 L/E/sec MEDENT ([facility]) FEFMax-LLN 5.22 L/E/sec MEDENT ([facility]) [id number]-Doob 2.88 L/E/sec MEDENT ([facility]) Lje7032-Qop 2.29 L/E/sec MEDENT ([facility]) Elg8364-%Pred-Pre 79 L/E/sec MEDENT ([facility]) [id number]-OZX 1.56 L/E/sec MEDENT ([facility]) ExpTime-Pre 5.69 sec MEDENT ([facility]) Lsa8wwv1-Rpad 82 % MEDENT ([facility]) Icf3vvv3-Zsf 83 % MEDENT ([facility]) Plb0uty3-%Pred-Pre 100 % MEDENT ([facility]) Kqx9bqh4-BFY 73 % MEDENT ([facility]) ID Date Data Source [id number] 03/29/2020 11:51:00 AM CHERRY MUNGUIA ([facility]) Name Value Range Interpretation Code Description Data Lety rce(s) Supporting Document(s) carbamazepine (tegretol) level 7.3 ug/mL 4.0-10.0 Carbamazepine (Tegretol) Level EZRA ([facility]) ID Date Data Source [id number] 03/29/2020 11:51:00 AM EST [place] ([facility]) Name Value Range Interpretation Code Description Data Lety rce(s) Supporting Document(s) glucose, fasting 290 mg/dL 70-100 Above high normal Glucose, Fas ting [place] ([facility]) blood urea nitrogen 7 mg/dL 7-18 Blood Urea Nitro gen [place] ([facility]) creatinine for GFR 0.65 mg/dL 0.55-1.30 Creatinine for GF R [place] ([facility]) glomerular filtration rate > 60.0 >51 Glomerula r Filtration Rate [place] ([facility]) sodium level 135 mEq/L 136-145 Below low normal Sodium Level ATHE NA ([facility]) potassium serum 4.4 mEq/L 3.5-5.1 Potassium Serum ATHE NA ([facility]) calcium level 8.8 mg/dL 8.5-10.1 Calcium Level [place] ( [facility]) anion gap 6 mEq/L 8-16 Below low normal Anion Gap [place] ( [facility]) carbon dioxide level 30 mEq/L 21-32 Carbon Dioxide Level [place] ([facility]) chloride level 99 mEq/L 98-107 Chloride Level [place] ([facility]) ID Date Data Source [id number] 03/29/2020 11:51:00 AM EST EZRA ([facility]) Name Value Range Interpretation Code Description Data Lety rce(s) Supporting Document(s) carbamazepine (tegretol) level 7.3 ug/mL 4.0-10.0 Carbamazepine (Tegretol) Level [place] ([facility]) ID Date Data Source [id number] 03/29/2020 11:51:00 AM EST [facility]) Name Value Range Interpretation Code Description Data Lety rce(s) Supporting Document(s) glucose, fasting 290 mg/dL 70-100 Above high normal Glucose, Fas ting EZRA ([facility]) blood urea nitrogen 7 mg/dL 7-18 Blood Urea Nitro gen EZRA ([facility]) creatinine for GFR 0.65 mg/dL 0.55-1.30 Creatinine for GF R [place] ([facility]) potassium serum 4.4 mEq/L 3.5-5.1 Potassium Serum ATHE NA ([facility]) glomerular filtration rate > 60.0 >51 Glomerula r Filtration Rate EZRA ([facility]) chloride level 99 mEq/L 98-107 Chloride Level EZRA ([facility]) sodium level 135 mEq/L 136-145 Below low normal Sodium Level ATHE NA ([facility]) carbon dioxide level 30 mEq/L 21-32 Carbon Dioxide Level [place] ([facility]) calcium level 8.8 mg/dL 8.5-10.1 Calcium Level [place] ( [facility]) anion gap 6 mEq/L 8-16 Below low normal Anion Gap [place] ( [facility]) ID Date Data Source [id number] 03/29/2020 11:51:00 AM EST [place] ([facility]) Name Value Range Interpretation Code Description Data Lety rce(s) Supporting Document(s) carbamazepine (tegretol) level 7.3 ug/mL 4.0-10.0 Carbamazepine (Tegretol) Level [facility]) ID Date Data Source [id number] 03/29/2020 11:51:00 AM EST [place] ([facility]) Name Value Range Interpretation Code Description Data Lety rce(s) Supporting Document(s) glucose, fasting 290 mg/dL 70-100 Above high normal Glucose, Fas ting [place] ([facility]) glomerular filtration rate > 60.0 >51 Glomerula r Filtration Rate [place] ([facility]) blood urea nitrogen 7 mg/dL 7-18 Blood Urea Nitro gen [place] ([facility]) creatinine for GFR 0.65 mg/dL 0.55-1.30 Creatinine for GF R [place] ([facility]) potassium serum 4.4 mEq/L 3.5-5.1 Potassium Serum ATHE NA ([facility]) chloride level 99 mEq/L 98-107 Chloride Level EZAR ([facility]) sodium level 135 mEq/L 136-145 Below low normal Sodium Level ATHE NA ([facility]) carbon dioxide level 30 mEq/L 21-32 Carbon Dioxide Level EZRA ([facility]) anion gap 6 mEq/L 8-16 Below low normal Anion Gap EZRA ( [facility]) calcium level 8.8 mg/dL 8.5-10.1 Calcium Level EZRA ( [facility]) ID Date Data Source [id number] 03/29/2020 11:51:00 AM EST [facility]) Name Value Range Interpretation Code Description Data Lety rce(s) Supporting Document(s) carbamazepine (tegretol) level 7.3 ug/mL 4.0-10.0 Carbamazepine (Tegretol) Level [place] ([facility]) ID Date Data Source [id number] 03/29/2020 11:51:00 AM EST [place] ([facility]) Name Value Range Interpretation Code Description Data Lety rce(s) Supporting Document(s) glucose, fasting 290 mg/dL 70-100 Above high normal Glucose, Fas ting EZRA ([facility]) sodium level 135 mEq/L 136-145 Below low normal Sodium Level ATHE NA ([facility]) blood urea nitrogen 7 mg/dL 7-18 Blood Urea Nitro gen EZRA ([facility]) glomerular filtration rate > 60.0 >51 Glomerula r Filtration Rate EZRA ([facility]) creatinine for GFR 0.65 mg/dL 0.55-1.30 Creatinine for GF R EZRA ([facility]) potassium serum 4.4 mEq/L 3.5-5.1 Potassium Serum ATHE NA ([facility]) chloride level 99 mEq/L 98-107 Chloride Level EZRA ([facility]) anion gap 6 mEq/L 8-16 Below low normal Anion Gap EZRA ( [facility]) carbon dioxide level 30 mEq/L 21-32 Carbon Dioxide Level EZRA ([facility]) calcium level 8.8 mg/dL 8.5-10.1 Calcium Level EZRA ( [facility]) ID Date Data Source [id number] 03/29/2020 11:51:00 AM EST [place] ([facility]) Name Value Range Interpretation Code Description Data Lety rce(s) Supporting Document(s) carbamazepine (tegretol) level 7.3 ug/mL 4.0-10.0 Carbamazepine (Tegretol) Level [place] ([facility]) ID Date Data Source [id number] 03/29/2020 11:51:00 AM EST [place] ([facility]) Name Value Range Interpretation Code Description Data Lety rce(s) Supporting Document(s) glucose, fasting 290 mg/dL 70-100 Above high normal Glucose, Fas ting EZRA ([facility]) glomerular filtration rate > 60.0 >51 Glomerula r Filtration Rate EZRA ([facility]) creatinine for GFR 0.65 mg/dL 0.55-1.30 Creatinine for GF R [place] ([facility]) blood urea nitrogen 7 mg/dL 7-18 Blood Urea Nitro gen EZRA ([facility]) sodium level 135 mEq/L 136-145 Below low normal Sodium Level ATHE NA ([facility]) potassium serum 4.4 mEq/L 3.5-5.1 Potassium Serum ATHE NA ([facility]) anion gap 6 mEq/L 8-16 Below low normal Anion Gap EZRA ( [facility]) chloride level 99 mEq/L 98-107 Chloride Level [place] ([facility]) carbon dioxide level 30 mEq/L 21-32 Carbon Dioxide Level EZRA ([facility]) calcium level 8.8 mg/dL 8.5-10.1 Calcium Level [place] ( [facility]) ID Date Data Source [id number] 03/29/2020 11:51:00 AM EST [place] ([facility]) Name Value Range Interpretation Code Description Data Lety rce(s) Supporting Document(s) carbamazepine (tegretol) level 7.3 ug/mL 4.0-10.0 Carbamazepine (Tegretol) Level [place] ([facility]) ID Date Data Source [id number] 03/29/2020 11:51:00 AM EST [place] ([facility]) Name Value Range Interpretation Code Description Data Lety rce(s) Supporting Document(s) blood urea nitrogen 7 mg/dL 7-18 Blood Urea Nitro gen [place] ([facility]) glucose, fasting 290 mg/dL 70-100 Above high normal Glucose, Fas ting [place] ([facility]) creatinine for GFR 0.65 mg/dL 0.55-1.30 Creatinine for GF R [place] ([facility]) glomerular filtration rate > 60.0 >51 Glomerula r Filtration Rate [place] ([facility]) sodium level 135 mEq/L 136-145 Below low normal Sodium Level ATH NA ([facility]) potassium serum 4.4 mEq/L 3.5-5.1 Potassium Serum ATH NA ([facility]) chloride level 99 mEq/L 98-107 Chloride Level [place] ([facility]) calcium level 8.8 mg/dL 8.5-10.1 Calcium Level [place] ( [facility]) carbon dioxide level 30 mEq/L 21-32 Carbon Dioxide Level EZRA ([facility]) anion gap 6 mEq/L 8-16 Below low normal Anion Gap [facility]) ID Date Data Source [id number] 01/12/2020 11:36:00 AM EST [facility]) Name Value Range Interpretation Code Description Data Lety rce(s) Supporting Document(s) carbamazepine (tegretol) level 12.1 ug/mL 4.0-10.0 Above high normal Carbamazepine (Tegretol) Level [facility]) ID Date Data Source [id number] 01/12/2020 11:36:00 AM EST [place] ([facility]) Name Value Range Interpretation Code Description Data Lety rce(s) Supporting Document(s) white blood count 10.7 10 4.0-10.0 Above high normal White Blood Count EZRA ([facility]) mean corpuscular volume 88.7 fL 80.0-96.0 Mean Corpusc ular Volume EZRA ([facility]) red blood count 4.78 10 4.00-5.40 Red Blood Count ATHE NA ([facility]) hematocrit 42.4 % 36.0-47.0 Hematocrit EZRA ([facility]) hemoglobin 13.6 g/dL 12.0-15.5 Hemoglobin EZRA ([facility]) platelet count, automated 335 10 150-450 Platelet C ount, Automated EZRA ([facility]) mean corpuscular hemoglobin 28.5 pg 27.0-33.0 Mean Cor puscular Hemoglobin EZRA ([facility]) red cell distribution width 12.8 % 11.5-14.5 Red Cell Distribution Width EZRA ([facility]) mean corpuscular HGB conc 32.1 g/dL 32.0-36.5 Mean Corpu scular HGB Conc EZRA ([facility]) neutrophils % 60.9 % 36.0-66.0 Neutrophils % EZRA ( [facility]) mono % 4.5 % 0.0-5.0 [place] % EZRA ([facility]) baso % 0.4 % 0.0-1.0 Baso % EZRA ([facility]) eos % 3.5 % 0.0-3.0 Above high normal Eos % EZRA ([facility]) lymph % 30.2 % 24.0-44.0 Lymph % [place] ([facility]) immature granulocyte % 0.5 % 0-3.0 Immature Gran ulocyte % EZRA ([facility]) nucleated red blood cell % 0.0 % 0-0 Nucleated Red Blood Cell % EZRA ([facility]) neutrophils # 6.5 10 1.5-8.5 Neutrophils # EZRA ( [facility]) mono # 0.5 10 0.0-0.8 [place] # EZRA ([facility]) lymph # 3.2 10 1.5-5.0 Lymph # EZRA ([facility]) eos # 0.4 10 0.0-0.5 Eos # ZERA ([facility]) baso # 0.0 10 0.0-0.2 Baso # EZRA ([facility]) ID Date Data Source [id number] 01/12/2020 11:36:00 AM EST EZRA ([facility]) Name Value Range Interpretation Code Description Data Lety rce(s) Supporting Document(s) carbamazepine (tegretol) level 12.1 ug/mL 4.0-10.0 Above high normal Carbamazepine (Tegretol) Level EZRA ([facility]) ID Date Data Source [id number] 01/12/2020 11:36:00 AM EST EZRA ([facility]) Name Value Range Interpretation Code Description Data Lety rce(s) Supporting Document(s) red blood count 4.78 10 4.00-5.40 Red Blood Count ATHE ([facility]) white blood count 10.7 10 4.0-10.0 Above high normal White Blood Count EZRA ([facility]) mean corpuscular hemoglobin 28.5 pg 27.0-33.0 Mean Cor puscular Hemoglobin EZRA ([facility]) mean corpuscular volume 88.7 fL 80.0-96.0 Mean Corpusc ular Volume EZRA ([facility]) hemoglobin 13.6 g/dL 12.0-15.5 Hemoglobin EZRA ([facility]) hematocrit 42.4 % 36.0-47.0 Hematocrit EZRA ([facility]) neutrophils % 60.9 % 36.0-66.0 Neutrophils % EZRA ( [facility]) red cell distribution width 12.8 % 11.5-14.5 Red Cell Distribution Width EZRA ([facility]) platelet count, automated 335 10 150-450 Platelet C ount, Automated EZRA ([facility]) mean corpuscular HGB conc 32.1 g/dL 32.0-36.5 Mean Corpu scular HGB Conc [place] ([facility]) eos % 3.5 % 0.0-3.0 Above high normal Eos % EZRA ([facility]) mono % 4.5 % 0.0-5.0 [place] % [place] ([facility]) lymph % 30.2 % 24.0-44.0 Lymph % [place] ([facility]) baso % 0.4 % 0.0-1.0 Baso % [place] ([facility]) nucleated red blood cell % 0.0 % 0-0 Nucleated Red Blood Cell % [place] ([facility]) immature granulocyte % 0.5 % 0-3.0 Immature Gran ulocyte % [place] ([facility]) mono # 0.5 10 0.0-0.8 [place] # [place] ([facility]) neutrophils # 6.5 10 1.5-8.5 Neutrophils # [place] ( [facility]) lymph # 3.2 10 1.5-5.0 Lymph # [place] ([facility]) eos # 0.4 10 0.0-0.5 Eos # [place] ([facility]) baso # 0.0 10 0.0-0.2 Baso # [place] ([facility]) ID Date Data Source [id number] 01/12/2020 11:36:00 AM EST [place] ([facility]) Name Value Range Interpretation Code Description Data Lety rce(s) Supporting Document(s) carbamazepine (tegretol) level 12.1 ug/mL 4.0-10.0 Above high normal Carbamazepine (Tegretol) Level [place] ([facility]) ID Date Data Source [id number] 01/12/2020 11:36:00 AM EST [place] ([facility]) Name Value Range Interpretation Code Description Data Lety rce(s) Supporting Document(s) red blood count 4.78 10 4.00-5.40 Red Blood Count ATHE NA ([facility]) white blood count 10.7 10 4.0-10.0 Above high normal White Blood Count EZRA ([facility]) hemoglobin 13.6 g/dL 12.0-15.5 Hemoglobin EZRA ([facility]) hematocrit 42.4 % 36.0-47.0 Hematocrit EZRA ([facility]) mean corpuscular volume 88.7 fL 80.0-96.0 Mean Corpusc ular Volume EZRA ([facility]) red cell distribution width 12.8 % 11.5-14.5 Red Cell Distribution Width EZRA ([facility]) platelet count, automated 335 10 150-450 Platelet C ount, Automated EZRA ([facility]) mean corpuscular HGB conc 32.1 g/dL 32.0-36.5 Mean Corpu scular HGB Conc EZRA ([facility]) mean corpuscular hemoglobin 28.5 pg 27.0-33.0 Mean Cor puscular Hemoglobin EZRA ([facility]) eos % 3.5 % 0.0-3.0 Above high normal Eos % EZRA ([facility]) mono % 4.5 % 0.0-5.0 [place] % EZRA ([facility]) neutrophils % 60.9 % 36.0-66.0 Neutrophils % EZRA ( [facility]) lymph % 30.2 % 24.0-44.0 Lymph % EZRA ([facility]) immature granulocyte % 0.5 % 0-3.0 Immature Gran ulocyte % EZRA ([facility]) nucleated red blood cell % 0.0 % 0-0 Nucleated Red Blood Cell % EZRA ([facility]) baso % 0.4 % 0.0-1.0 Baso % EZRA ([facility]) neutrophils # 6.5 10 1.5-8.5 Neutrophils # EZRA ( [facility]) baso # 0.0 10 0.0-0.2 Baso # EZRA ([facility]) mono # 0.5 10 0.0-0.8 [place] # EZRA ([facility]) eos # 0.4 10 0.0-0.5 Eos # EZRA ([facility]) lymph # 3.2 10 1.5-5.0 Lymph # EZRA ([facility]) ID Date Data Source [id number] 01/12/2020 11:36:00 AM EST EZRA ([facility]) Name Value Range Interpretation Code Description Data Lety rce(s) Supporting Document(s) carbamazepine (tegretol) level 12.1 ug/mL 4.0-10.0 Above high normal Carbamazepine (Tegretol) Level EZRA ([facility]) ID Date Data Source [id number] 01/12/2020 11:36:00 AM EST EZRA ([facility]) Name Value Range Interpretation Code Description Data Lety rce(s) Supporting Document(s) white blood count 10.7 10 4.0-10.0 Above high normal White Blood Count EZRA ([facility]) hemoglobin 13.6 g/dL 12.0-15.5 Hemoglobin EZRA ([facility]) mean corpuscular volume 88.7 fL 80.0-96.0 Mean Corpusc ular Volume EZRA ([facility]) red blood count 4.78 10 4.00-5.40 Red Blood Count ATHE NA ([facility]) hematocrit 42.4 % 36.0-47.0 Hematocrit EZRA ([facility]) mean corpuscular HGB conc 32.1 g/dL 32.0-36.5 Mean Corpu scular HGB Conc EZRA ([facility]) mean corpuscular hemoglobin 28.5 pg 27.0-33.0 Mean Cor puscular Hemoglobin EZRA ([facility]) red cell distribution width 12.8 % 11.5-14.5 Red Cell Distribution Width EZRA ([facility]) lymph % 30.2 % 24.0-44.0 Lymph % EZRA ([facility]) neutrophils % 60.9 % 36.0-66.0 Neutrophils % EZRA ( [facility]) platelet count, automated 335 10 150-450 Platelet C ount, Automated EZRA ([facility]) immature granulocyte % 0.5 % 0-3.0 Immature Gran ulocyte % EZRA ([facility]) nucleated red blood cell % 0.0 % 0-0 Nucleated Red Blood Cell % EZRA ([facility]) mono % 4.5 % 0.0-5.0 [place] % EZRA ([facility]) eos % 3.5 % 0.0-3.0 Above high normal Eos % EZRA ([facility]) baso % 0.4 % 0.0-1.0 Baso % EZRA ([facility]) baso # 0.0 10 0.0-0.2 Baso # EZRA ([facility]) eos # 0.4 10 0.0-0.5 Eos # EZRA ([facility]) mono # 0.5 10 0.0-0.8 [place] # EZRA ([facility]) neutrophils # 6.5 10 1.5-8.5 Neutrophils # [place] ( [facility]) lymph # 3.2 10 1.5-5.0 Lymph # EZRA ([facility]) ID Date Data Source [id number] 01/12/2020 11:36:00 AM EST EZRA ([facility]) Name Value Range Interpretation Code Description Data Lety rce(s) Supporting Document(s) carbamazepine (tegretol) level 12.1 ug/mL 4.0-10.0 Above high normal Carbamazepine (Tegretol) Level [place] ([facility]) ID Date Data Source [id number] 01/12/2020 11:36:00 AM EST EZRA ([facility]) Name Value Range Interpretation Code Description Data Lety rce(s) Supporting Document(s) white blood count 10.7 10 4.0-10.0 Above high normal White Blood Count EZRA ([facility]) red blood count 4.78 10 4.00-5.40 Red Blood Count ATHE NA ([facility]) mean corpuscular HGB conc 32.1 g/dL 32.0-36.5 Mean Corpu scular HGB Conc EZRA ([facility]) mean corpuscular hemoglobin 28.5 pg 27.0-33.0 Mean Cor puscular Hemoglobin EZRA ([facility]) hemoglobin 13.6 g/dL 12.0-15.5 Hemoglobin EZRA ([facility]) mean corpuscular volume 88.7 fL 80.0-96.0 Mean Corpusc ular Volume EZRA ([facility]) hematocrit 42.4 % 36.0-47.0 Hematocrit EZRA ([facility]) red cell distribution width 12.8 % 11.5-14.5 Red Cell Distribution Width EZRA ([facility]) lymph % 30.2 % 24.0-44.0 Lymph % EZRA ([facility]) platelet count, automated 335 10 150-450 Platelet C ount, Automated EZRA ([facility]) neutrophils % 60.9 % 36.0-66.0 Neutrophils % EZRA ( [facility]) mono % 4.5 % 0.0-5.0 [place] % [place] ([facility]) immature granulocyte % 0.5 % 0-3.0 Immature Gran ulocyte % EZRA ([facility]) baso % 0.4 % 0.0-1.0 Baso % EZRA ([facility]) eos % 3.5 % 0.0-3.0 Above high normal Eos % EZRA ([facility]) eos # 0.4 10 0.0-0.5 Eos # EZRA ([facility]) nucleated red blood cell % 0.0 % 0-0 Nucleated Red Blood Cell % EZRA ([facility]) lymph # 3.2 10 1.5-5.0 Lymph # EZRA ([facility]) mono # 0.5 10 0.0-0.8 [place] # EZRA ([facility]) neutrophils # 6.5 10 1.5-8.5 Neutrophils # EZRA ( [facility]) baso # 0.0 10 0.0-0.2 Baso # EZRA ([facility]) ID Date Data Source [id number] 01/12/2020 11:36:00 AM EST EZRA ([facility]) Name Value Range Interpretation Code Description Data Lety rce(s) Supporting Document(s) carbamazepine (tegretol) level 12.1 ug/mL 4.0-10.0 Above high normal Carbamazepine (Tegretol) Level [place] ([facility]) ID Date Data Source [id number] 01/12/2020 11:36:00 AM EST EZRA ([facility]) Name Value Range Interpretation Code Description Data Lety rce(s) Supporting Document(s) white blood count 10.7 10 4.0-10.0 Above high normal White Blood Count EZRA ([facility]) hematocrit 42.4 % 36.0-47.0 Hematocrit EZRA ([facility]) hemoglobin 13.6 g/dL 12.0-15.5 Hemoglobin EZRA ([facility]) red blood count 4.78 10 4.00-5.40 Red Blood Count ATHE ([facility]) mean corpuscular HGB conc 32.1 g/dL 32.0-36.5 Mean Corpu scular HGB Conc EZRA ([facility]) mean corpuscular hemoglobin 28.5 pg 27.0-33.0 Mean Cor puscular Hemoglobin EZRA ([facility]) mean corpuscular volume 88.7 fL 80.0-96.0 Mean Corpusc ular Volume EZRA ([facility]) red cell distribution width 12.8 % 11.5-14.5 Red Cell Distribution Width EZRA ([facility]) platelet count, automated 335 10 150-450 Platelet C ount, Automated EZRA ([facility]) neutrophils % 60.9 % 36.0-66.0 Neutrophils % EZRA ( [facility]) lymph % 30.2 % 24.0-44.0 Lymph % EZRA ([facility]) mono % 4.5 % 0.0-5.0 [place] % EZRA ([facility]) immature granulocyte % 0.5 % 0-3.0 Immature Gran ulocyte % EZRA ([facility]) eos % 3.5 % 0.0-3.0 Above high normal Eos % EZRA ([facility]) baso % 0.4 % 0.0-1.0 Baso % EZRA ([facility]) lymph # 3.2 10 1.5-5.0 Lymph # EZRA ([facility]) mono # 0.5 10 0.0-0.8 [place] # [place] ([facility]) neutrophils # 6.5 10 1.5-8.5 Neutrophils # EZRA ( [facility]) eos # 0.4 10 0.0-0.5 Eos # [place] ([facility]) nucleated red blood cell % 0.0 % 0-0 Nucleated Red Blood Cell % EZRA ([facility]) baso # 0.0 10 0.0-0.2 Baso # EZRA ([facility]) Procedure Social History Code Duration Value Status Description Data Source(s ) Smoking 12/18/2020 12:00:00 AM EDT Never Smoker completed Never S moker eCW1 ([facility]) Smoking 05/31/2020 12:00:00 AM EDT Never Smoker completed Never S moker eCW1 ([facility]) Vital Signs ID Date Data Source UNK Name Value Range Interpretation Code Description Data Source(s) Body weight 237 [lb_av] 237 [lb_av] [facility] Body weight 107.5 kg 107.5 kg eCW1 ([facility]) Body height [in_i] [facility] ([facility]) Body mass index (BMI) [Ratio] 38.25 kg/m2 38.25 kg/m2 [facility] ([facility]) Systolic blood pressure 137 mm[Hg] 137 mm[Hg] M EDENT ([facility]) Diastolic blood pressure 79 mm[Hg] 79 mm[Hg] MEDENT ([facility]) Heart rate 77 /min 77 /min [facility] Body temperature 95.5 [degF] 95.5 [degF] [facility] ([facility]) Oxygen saturation in Arterial blood by Pulse oximetry 96 % 96 % [facility] ([facility]) Systolic blood pressure 112 mm[Hg] 112 mm[Hg] [facility] Diastolic blood pressure 68 mm[Hg] 68 mm[Hg] [facility] ([facility]) Heart rate 84 /min 84 /min [facility] ([facility]) Oxygen saturation in Arterial blood by Pulse oximetry 97 % 97 % [facility] ([facility]) Body height 66 [in_i] 66 [in_i] [facility] ([facility]) 5'6" Body weight 232.00 [lb_av] 232.00 [lb_av] [facility] Body mass index (BMI) [Ratio] 37.4 kg/m2 37.4 k g/m2 [facility] ([facility]) [place] body weight 130 [lb_av] 130 [lb_av] [facility] Body weight 105.235 kg 105.235 kg [facility] ([facility]) Body surface area Derived from formula 2.13 m2 2.13 m2 [facility] ([facility]) Diastolic blood pressure 68 mm[Hg] 68 mm[Hg] EZRA ([facility]) Diastolic blood pressure 81 mm[Hg] 81 mm[Hg] EZRA ([facility]) Body height 66 [in_i] 66 [in_i] EZRA ([facility]) Body mass index (BMI) [Ratio] 37 kg/m2 37 kg/ m2 EZRA ([facility]) Systolic blood pressure 103 mm[Hg] 103 mm[Hg] A THENA ([facility]) Systolic blood pressure 149 mm[Hg] 149 mm[Hg] A THEN ([facility]) Body weight 3664 [oz_av] 3664 [oz_av] EZRA ([facility]) Body height 66 [in_i] 66 [in_i] EZRA ([facility]) Body height 66 [in_i] 66 [in_i] EZRA ([facility]) Body height 66 [in_i] 66 [in_i] MEDENT ([facility], ) 5'6" Oxygen saturation in Arterial blood by Pulse oximetry 96 % 96 % [facility] ([facility], ) [place] body weight 130 [lb_av] 130 [lb_av] MEDEN T ([facility], ) Systolic blood pressure 120 mm[Hg] 120 mm[Hg] M [facility] ([facility], ) Diastolic blood pressure 64 mm[Hg] 64 mm[Hg] [facility] ([facility], ) Heart rate 93 /min 93 /min [facility] ([facility], ) Oxygen saturation in Arterial blood by Pulse oximetry 96 % 96 % [facility] ([facility], ) Body height 66 [in_i] 66 [in_i] MEDENT ([facility], ) 5'6" [place] body weight 130 [lb_av] 130 [lb_av] MEDEN T ([facility], ) Systolic blood pressure 148 mm[Hg] 148 mm[Hg] [facility] Body height 66 [in_i] 66 [in_i] MEDENT ([facility], ) 5'6" Body weight 236.25 [lb_av] 236.25 [lb_av] MEDEN T ([facility], ) Diastolic blood pressure 78 mm[Hg] 78 mm[Hg] [facility] ([facility], ) Heart rate 80 /min 80 /min [facility] ([facility], ) Body mass index (BMI) [Ratio] 38.1 kg/m2 38.1 k g/m2 [facility] ([facility], ) [place] body weight 130 [lb_av] 130 [lb_av] MEDEN T ([facility], ) Body weight 107.163 kg 107.163 kg [facility] ([facility]) Body surface area Derived from formula 2.15 m2 2.15 m2 MEDENT ([facility], ) Diastolic blood pressure 78 mm[Hg] 78 mm[Hg] EZRA ([facility]) Body height 66 [in_i] 66 [in_i] EZRA ([facility]) Body mass index (BMI) [Ratio] 38.2 kg/m2 38.2 k g/m2 EZRA ([facility]) Systolic blood pressure 124 mm[Hg] 124 mm[Hg] A THENA ([facility]) Body weight 3782 [oz_av] 3782 [oz_av] EZRA ([facility]) Diastolic blood pressure 78 mm[Hg] 78 mm[Hg] EZRA ([facility]) Body height 66 [in_i] 66 [in_i] EZRA ([facility]) Body mass index (BMI) [Ratio] 38.2 kg/m2 38.2 k g/m2 EZRA ([facility]) Systolic blood pressure 124 mm[Hg] 124 mm[Hg] A THENA ([facility]) Body weight 3782 [oz_av] 3782 [oz_av] EZRA ([facility]) Diastolic blood pressure 78 mm[Hg] 78 mm[Hg] EZRA ([facility]) Body height 66 [in_i] 66 [in_i] EZRA ([facility]) Body mass index (BMI) [Ratio] 38.2 kg/m2 38.2 k g/m2 EZRA ([facility]) Systolic blood pressure 124 mm[Hg] 124 mm[Hg] A THENA ([facility]) Body weight 3782 [oz_av] 3782 [oz_av] EZRA ([facility]) Body height 66 [in_i] 66 [in_i] MEDENT [...] Body weight 107.5 kg 107.5 kg eCW1 ([facility]) Body height [in_i] eCW1 ([facility]) Body mass index (BMI) [Ratio] 38.25 kg/m2 38.25 kg/m2 eCW1 ([facility]) Systolic blood pressure 130 mm[Hg] 130 mm[Hg] e CW1 ([facility]) Diastolic blood pressure 66 mm[Hg] 66 mm[Hg] eCW1 ([facility]) Systolic blood pressure 120 mm[Hg] 120 mm[Hg] M EDENT ([facility], ) Diastolic blood pressure 80 mm[Hg] 80 mm[Hg] MEDENT ([facility], ) Heart rate 77 /min 77 /min [facility] ([facility], ) Oxygen saturation in Arterial blood by Pulse oximetry 97 % 97 % [facility] ([facility], ) Body height 66 [in_i] 66 [in_i] [facility] ([facility], ) 5'6" Body weight 240.00 [lb_av] 240.00 [lb_av] MEDEN T ([facility], ) Body mass index (BMI) [Ratio] 38.7 kg/m2 38.7 k g/m2 [facility] ([facility], ) [place] body weight 130 [lb_av] 130 [lb_av] MEDEN T ([facility], ) Body weight 108.864 kg 108.864 kg [facility] ([facility], ) Body surface area Derived from formula 2.16 m2 2.16 m2 [facility] ([facility], ) Diastolic blood pressure 71 mm[Hg] 71 mm[Hg] EZRA ([facility]) Body height 66 [in_i] 66 [in_i] EZRA ([facility]) Body mass index (BMI) [Ratio] 39.1 kg/m2 39.1 k g/m2 EZRA ([facility]) Systolic blood pressure 112 mm[Hg] 112 mm[Hg] A [facility] ([facility]) Body weight 3878 [oz_av] 3878 [oz_av] EZRA ([facility]) Body height 66 [in_i] 66 [in_i] EZRA ([facility]) Diastolic blood pressure 71 mm[Hg] 71 mm[Hg] EZRA ([facility]) Body mass index (BMI) [Ratio] 39.1 kg/m2 39.1 k g/m2 EZRA ([facility]) Systolic blood pressure 112 mm[Hg] 112 mm[Hg] A [facility] ([facility]) Body weight 3878 [oz_av] 3878 [oz_av] EZRA ([facility]) Diastolic blood pressure 71 mm[Hg] 71 mm[Hg] EZRA ([facility]) Body height 66 [in_i] 66 [in_i] EZRA ([facility]) Body mass index (BMI) [Ratio] 39.1 kg/m2 39.1 k g/m2 EZRA ([facility]) Systolic blood pressure 112 mm[Hg] 112 mm[Hg] A THENA ([facility]) Body weight 3878 [oz_av] 3878 [oz_av] EZRA ([facility]) Diastolic blood pressure 71 mm[Hg] 71 mm[Hg] EZRA ([facility]) Body height 66 [in_i] 66 [in_i] EZRA ([facility]) Body mass index (BMI) [Ratio] 39.1 kg/m2 39.1 k g/m2 EZRA ([facility]) Systolic blood pressure 112 mm[Hg] 112 mm[Hg] A [facility] ([facility]) Body weight 3878 [oz_av] 3878 [oz_av] EZRA ([facility]) Diastolic blood pressure 71 mm[Hg] 71 mm[Hg] EZRA ([facility]) Body height 66 [in_i] 66 [in_i] EZRA ([facility]) Body mass index (BMI) [Ratio] 39.1 kg/m2 39.1 k g/m2 EZRA ([facility]) Systolic blood pressure 112 mm[Hg] 112 mm[Hg] A THENA ([facility]) Body weight 3878 [oz_av] 3878 [oz_av] EZRA ([facility]) Diastolic blood pressure 71 mm[Hg] 71 mm[Hg] ZERA ([facility]) Body height 66 [in_i] 66 [in_i] EZRA ([facility]) Body mass index (BMI) [Ratio] 39.1 kg/m2 39.1 k g/m2 EZRA ([facility]) Systolic blood pressure 112 mm[Hg] 112 mm[Hg] A THENA ([facility]) Body weight 3878 [oz_av] 3878 [oz_av] EZRA ([facility]) Patient Treatment Plan of Care Planned Activity Planned Date Details Description Data Source (s) Simvastatin 10 MG Oral Tablet EZRA ([facility]) Promethazine Hydrochloride 25 MG Oral Tablet EZRA ([facility]) Prednisone 20 MG Oral Tablet EZRA ([facility]) Amoxicillin 875 MG / Clavulanate 125 MG Oral Tablet EZRA ([facility]) alogliptin 25 MG Oral Tablet EZRA ([facility]) Allopurinol 100 MG Oral Tablet EZRA ([facility]) Simvastatin 10 MG Oral Tablet EZRA ([facility]) Promethazine Hydrochloride 25 MG Oral Tablet EZRA ([facility]) Prednisone 20 MG Oral Tablet EZRA ([facility]) Amoxicillin 875 MG / Clavulanate 125 MG Oral Tablet EZRA ([facility]) alogliptin 25 MG Oral Tablet EZRA ([facility]) Allopurinol 100 MG Oral Tablet EZRA ([facility]) Simvastatin 10 MG Oral Tablet EZRA ([facility]) Promethazine Hydrochloride 25 MG Oral Tablet EZRA ([facility]) Prednisone 20 MG Oral Tablet EZRA ([facility]) fluticasone furoate 0.2 MG/ACTUAT Dry Powder Inhaler EZRA ([facility]) Amoxicillin 875 MG / Clavulanate 125 MG Oral Tablet EZRA ([facility]) alogliptin 25 MG Oral Tablet EZRA ([facility]) Allopurinol 100 MG Oral Tablet EZRA ([facility]) Simvastatin 10 MG Oral Tablet EZRA ([facility]) Prednisone 20 MG Oral Tablet EZRA ([facility]) Amoxicillin 875 MG / Clavulanate 125 MG Oral Tablet EZRA ([facility]) Allopurinol 100 MG Oral Tablet EZRA ([facility]) Simvastatin 10 MG Oral Tablet EZRA ([facility]) Prednisone 20 MG Oral Tablet EZRA ([facility]) Amoxicillin 875 MG / Clavulanate 125 MG Oral Tablet EZRA ([facility]) Allopurinol 100 MG Oral Tablet EZRA ([facility]) Simvastatin 10 MG Oral Tablet EZRA ([facility]) Prednisone 20 MG Oral Tablet EZRA ([facility]) Amoxicillin 875 MG / Clavulanate 125 MG Oral Tablet EZRA ([facility]) Allopurinol 100 MG Oral Tablet EZRA ([facility])
--- OUTSIDE RECORDS SUMMARY | 2021-01-09 08:25 | CCD ---
Author Author [facility] Organization [facility] Address Unknown Phone Unavailable Care Team Providers [employer] Sales Representative Name Role Phone Frandy Cifuentes MD Unavailable [...] Unavailable Frandy Cifuentes MD Unavailable Unavailable Frandy Ciufentes MD Unavailable Unavailable Frandy Cifuentes MD Unavailable [...] Unavailable Unavailable Frandy Cifuentes MD Unavailable Unavailable Farndy Cifuentes MD Unavailable Unavailable Andrew Nava MD [...] Nava MD Unavailable Unavailable Walker, A Kamini DEHYDRATOR TENDER Unavailable Unavailable [place], A Kamini DEHYDRATOR TENDER Unavailable Unavailable [place], A Kamini DEHYDRATOR TENDER Unavailable Unavailable [place], A Kamini DEHYDRATOR TENDER Unavailable Unavailable [place], A Kamini DEHYDRATOR TENDER Unavailable Unavailable [place], A Kamini DEHYDRATOR TENDER Unavailable Unavailable Walker, A Kamini DEHYDRATOR TENDER Unavailable Unavailable Walker, A Kamini DEHYDRATOR TENDER Unavailable Unavailable [place], A Kamini DEHYDRATOR TENDER Unavailable Unavailable [place], A Kamini DEHYDRATOR TENDER Unavailable Unavailable [place], A Kamini DEHYDRATOR TENDER Unavailable Unavailable [place], A Kamini DEHYDRATOR TENDER Unavailable Unavailable [place], A Kamini DEHYDRATOR TENDER Unavailable Unavailable [place], A Kamini DEHYDRATOR TENDER Unavailable Unavailable [place], A Kamini DEHYDRATOR TENDER Unavailable Unavailable [place], A Kamini DEHYDRATOR TENDER Unavailable Unavailable [place], A Kamini DEHYDRATOR TENDER Unavailable Unavailable [place], A Kamini DEHYDRATOR TENDER Unavailable Unavailable [place], A Kamini DEHYDRATOR TENDER Unavailable Unavailable [place], A Kamini DEHYDRATOR TENDER Unavailable Unavailable [place], A Kamini DEHYDRATOR TENDER Unavailable Unavailable [place], A Kamini DEHYDRATOR TENDER Unavailable Unavailable [place], A Kamini DEHYDRATOR TENDER Unavailable Unavailable [place], A Kamini DEHYDRATOR TENDER Unavailable Unavailable [place], A Kamini DEHYDRATOR TENDER Unavailable Unavailable [place], A Kamini DEHYDRATOR TENDER Unavailable Unavailable [place], A Kamini DEHYDRATOR TENDER Unavailable Unavailable [place], A Kamini DEHYDRATOR TENDER Unavailable Unavailable [place], A Kamini DEHYDRATOR TENDER Unavailable Unavailable [place], A Kamini DEHYDRATOR TENDER Unavailable Unavailable [place], A Kamini DEHYDRATOR TENDER Unavailable Unavailable Rebecca, D John PRESS CLIPPER Unavailable Unavailable Rebecca, D John PRESS CLIPPER Unavailable Unavailable Rebecca, D John PRESS CLIPPER Unavailable Unavailable Rebecca, D John PRESS CLIPPER Unavailable Unavailable Erbecca, D John PRESS CLIPPER Unavailable Unavailable Rebecca, D John PRESS CLIPPER Unavailable Unavailable Rebecca, D John PRESS CLIPPER Unavailable Unavailable Rebecca, D John PRESS CLIPPER Unavailable Unavailable Rebecca, D John PRESS CLIPPER Unavailable Unavailable Rebecca, D John PRESS CLIPPER Unavailable Unavailable Rebecca, D John PRESS CLIPPER Unavailable Unavailable Rebecca, D John PRESS CLIPPER Unavailable Unavailable Rebecca, D John PRESS CLIPPER Unavailable Unavailable Rebecca, D John PRESS CLIPPER Unavailable Unavailable Rebecca, D John PRESS CLIPPER Unavailable Unavailable Rebecca, D John PRESS CLIPPER Unavailable Unavailable Rebecca, D John PRESS CLIPPER Unavailable Unavailable Rebecca, D John PRESS CLIPPER Unavailable Unavailable Rebecca, D John PRESS CLIPPER Unavailable Unavailable Rebecca, D John PRESS CLIPPER Unavailable Unavailable Rebecca, D John PRESS CLIPPER Unavailable Unavailable Erbecca, D John PRESS CLIPPER Unavailable Unavailable Rebecca, D John PRESS CLIPPER Unavailable Unavailable Rebecca, D John PRESS CLIPPER Unavailable Unavailable Rebecca, D John PRESS CLIPPER Unavailable Unavailable Rebecca, D John PRESS CLIPPER Unavailable Unavailable Rebecca, D John PRESS CLIPPER Unavailable Unavailable Rebecca, D John PRESS CLIPPER Unavailable Unavailable Rebecca, D John PRESS CLIPPER Unavailable Unavailable Rebecca, D John PRESS CLIPPER Unavailable Unavailable Rebecca, D John PRESS CLIPPER Unavailable Unavailable Rebecca, D John PRESS CLIPPER Unavailable Unavailable Rebecca, D John PRESS CLIPPER Unavailable Unavailable Rebecca, D John PRESS CLIPPER Unavailable Unavailable Rebecca, D John PRESS CLIPPER Unavailable Unavailable Rebecca, D John PRESS CLIPPER Unavailable Unavailable Rebecca, D John PRESS CLIPPER Unavailable Unavailable Rebecca, D John PRESS CLIPPER Unavailable Unavailable Rebecca, D John PRESS CLIPPER Unavailable Unavailable Rebecca, D John PRESS CLIPPER Unavailable Unavailable Rebecca, D John PRESS CLIPPER Unavailable Unavailable Rebecca, D John PRESS CLIPPER Unavailable Unavailable Rebecca, D John PRESS CLIPPER Unavailable Unavailable Rebecca, D John PRESS CLIPPER Unavailable Unavailable Rebecca, D John PRESS CLIPPER Unavailable Unavailable Rebecca, D John PRESS CLIPPER Unavailable Unavailable Rebecca, D John PRESS CLIPPER Unavailable Unavailable Rebecca, D John PRESS CLIPPER Unavailable Unavailable Rebecca, D John PRESS CLIPPER Unavailable Unavailable Rebecca, D John PRESS CLIPPER Unavailable Unavailable Rebecca, D John PRESS CLIPPER Unavailable Unavailable Rebecca, D John PRESS CLIPPER Unavailable Unavailable Rebecca, D John PRESS CLIPPER Unavailable Unavailable Rebecca, D John PRESS CLIPPER Unavailable Unavailable Rebecca, D John PRESS CLIPPER Unavailable Unavailable Rebecca, D John PRESS CLIPPER Unavailable Unavailable Rbeecca, D John PRESS CLIPPER Unavailable Unavailable Rebecca, D John PRESS CLIPPER Unavailable Unavailable Rebecca, D John PRESS CLIPPER Unavailable Unavailable Rebecca, D John PRESS CLIPPER Unavailable Unavailable Rebecca, D John PRESS CLIPPER Unavailable Unavailable Rebecca, D John PRESS CLIPPER Unavailable Unavailable Rebecca, D John PRESS CLIPPER Unavailable Unavailable Rebecca, D John PRESS CLIPPER Unavailable Unavailable Rebecca, D John PRESS CLIPPER Unavailable Unavailable Rebecca, D John PRESS CLIPPER Unavailable Unavailable Rebecca, D John PRESS CLIPPER Unavailable Unavailable Rebecca, D John PRESS CLIPPER Unavailable Unavailable Rebecca, D John PRESS CLIPPER Unavailable Unavailable Rebecca, D John PRESS CLIPPER Unavailable Unavailable Rebecca, D John PRESS CLIPPER Unavailable Unavailable Rebecca, D John PRESS CLIPPER Unavailable Unavailable Inderjit Kurtz JR, MD Unavailable [...] JR, MD Unavailable Unavailable Walker, A Kamini DEHYDRATOR TENDER Unavailable Unavailable Walker, A Kamini DEHYDRATOR TENDER Unavailable Unavailable Walker, A Kamini DEHYDRATOR TENDER Unavailable Unavailable Walker, A Kamini DEHYDRATOR TENDER Unavailable Unavailable Walker, A Kamini DEHYDRATOR TENDER Unavailable Unavailable Walker, A Kamini DEHYDRATOR TENDER Unavailable Unavailable Walker, A Kamini DEHYDRATOR TENDER Unavailable Unavailable Walker, A Kamini DEHYDRATOR TENDER Unavailable Unavailable Walker, A Kamini DEHYDRATOR TENDER Unavailable Unavailable Walker, A Kamini DEHYDRATOR TENDER Unavailable Unavailable Walker, A Kamini DEHYDRATOR TENDER Unavailable Unavailable Walker, A Kamini DEHYDRATOR TENDER Unavailable Unavailable Walker, A Kamini DEHYDRATOR TENDER Unavailable Unavailable Walker, A Kamini DEHYDRATOR TENDER Unavailable Unavailable Walker, A Kamini DEHYDRATOR TENDER Unavailable Unavailable Walker, A Kamini DEHYDRATOR TENDER Unavailable Unavailable Walker, A Kamini DEHYDRATOR TENDER Unavailable Unavailable Walker, A Kamini DEHYDRATOR TENDER Unavailable Unavailable Walker, A Kamini DEHYDRATOR TENDER Unavailable Unavailable Walker, A Kamini DEHYDRATOR TENDER Unavailable Unavailable Walker, A Kamini DEHYDRATOR TENDER Unavailable Unavailable Walker, A Kamini DEHYDRATOR TENDER Unavailable Unavailable Walker, A Kamini DEHYDRATOR TENDER Unavailable Unavailable Walker, A Kamini DEHYDRATOR TENDER Unavailable Unavailable Walker, A Kamini DEHYDRATOR TENDER Unavailable Unavailable Walker, A Kamini DEHYDRATOR TENDER Unavailable Unavailable Walker, A Kamini DEHYDRATOR TENDER Unavailable Unavailable Walker, A Kamini DEHYDRATOR TENDER Unavailable Unavailable Walker, A Kamini DEHYDRATOR TENDER Unavailable Unavailable Walker, A Kamini DEHYDRATOR TENDER Unavailable Unavailable Walker, A Kamini DEHYDRATOR TENDER Unavailable Unavailable KRUEGER, M JOYCELYN PA Unavailable [...] is protected by Article 27-F of the [facility] Public Health law. If you continue you may have access to information: Regarding HIV / AIDS; Provided by facilities licensed or operated by the [facility] Office of Mental Health; or Provided by the [facility] Office for People With Developmental Disabilities. If such information is present, then the following [facility] mandated warning applies: This information has [...] law may result in a fine or mcc sentence or both. A general authorization for the release of medical or other information is NOT sufficient authorization for further disc losure. Allergies and Adverse Reactions Type Description Substance Reaction Status Data Source(s ) Drug Allergy Drug Allergy NKDA MEDENT ([facility]) Family History Family Member Name Family Member Gender Family Member Status Date o f Status Description Data Source(s) Unknown Male Problem [facility] ([facility]) Unknown Unknown Problem MEDENT ([facility] ) Unknown Unknown Problem MEDENT ([facility] ) Unknown Unknown Problem [facility] ([facility] Unknown Unknown Problem [facility]) Unknown Unknown Problem [facility] Unknown Unknown Problem MEDENT ([facility] Unknown Unknown Problem [facility] ([facility] Unknown Male Problem MEDENT ([facility]) Unknown Female Problem [facility] ([facility]) Encounters Encounter Providers Location Date Indications Data Source(s ) TeleMedicine Phone E/M by Kush 11-20 Min [address] [place] [address] 01/01/2021 12:00:00 AM EDT eCW1 ([facility]) Outpatient Attender: John Fernandez NP 2020 03:15:00 PM EDT - 12/05/2020 03:15:00 PM EDT [facility] Outpatient Attender: John Fernandez NP [facility] 12/05/2020 0 3:00:00 PM EDT MEDENT ([facility]) Outpatient Attender: JOYCELYN Keene/Heather/Garry/Katty dl 11/28/2020 03:30:00 PM EDT MEDENT ([facility]) JOSE RAMON LoBC: [address] [place] [address], Ph. Attender: Kamini Cardoso [facility] Medical 10/19/2020 12:00:00 AM EDT [facility]) JOSE RAMON LoBC: [address], [place] [address], Ph. Attender: Kamini Cardoso [facility] Medical 09/20/2020 12:00:00 AM EDT [facility] ([facility]) JOSE RAMON LoBC: [address], [place] [address], Ph. Attender: Kamini Cardoso [facility] Medical 09/20/2020 12:00:00 AM EDT E[facility] ([facility]) Outpatient Attender: JOYCELYN PACHECO [place]ass[place]/Garry/Rein dl 08/28/2020 12:30:00 PM EDT MEDENT ([facility]) Outpatient Attender: Gerard Kurtz JR Jassi/[place]/Garry/Rein dl 08/23/2020 10:30:00 AM EDT MEDENT ([facility]) Kamini Cardoso [facility]: [address], [place] [address], Ph. Attender: Kamini Cardoso [facility] Medical 08/04/2020 12:00:00 AM EDT [facility] ([facility]) Kamini Cardoso [facility]: [address] [place] [address], Ph. Attender: Kamini Cardoso [facility] Medical 08/04/2020 12:00:00 AM EDT [facility] ([facility]) Kamini Cardoso [facility]: [address] [place] [address], Ph. Attender: Kamini Cardoso [facility] Medical 08/04/2020 12:00:00 AM EDT [facility] ([facility]) Outpatient Attender: Dain Nava MD Main Office 08/03/2020 03:30:00 PM EDT MEDENT ([facility]) Biju Cifuentes MD: [address] [place] [address], Ph. Attender: Biju Cifuentes MD [facility] Medical 06/15/2020 12:00:00 AM EDT E[facility]RA ([facility]) Biju Cifuentes MD: [address] [place] [address], Ph. Attender: Biju Cifuentes MD [facility] Medical 06/15/2020 12:00:00 AM EDT E[facility]RA ([facility]) Biju Cifuentes MD: [address] [place] [address], Ph. Attender: Biju Cifuentes MD [facility] Medical 06/15/2020 12:00:00 AM EDT E[facility]RA ([facility]) Biju Cifuentes MD: [address] [place] [address], Ph. Attender: Biju Cifuentes MD [facility] Medical 06/15/2020 12:00:00 AM EDT E[facility]RA ([facility]) Outpatient [address] [facility] [address] 05/31/2020 12:00:00 AM EDT eCW1 ([facility]) Outpatient Attender: JOYCELYN Keene/Heather/Garry/Rein dl 05/26/2020 03:30:00 PM EDT MEDENT ([facility]) Biju Cifuentes MD: [address] [place] [address], Ph. Attender: Biju Cifuentes MD [facility] Medical 05/17/2020 12:00:00 AM EDT EZRA ([facility]) Biju Cifuentes MD: [address] [place] [address], Ph. Attender: Biju Cifuentes MD [facility] Medical 05/17/2020 12:00:00 AM EDT EZRA ([facility]) Biju Cifuentes MD: [address] [place] [address], Ph. Attender: Biju Cifuentes MD [facility] Medical 05/17/2020 12:00:00 AM EDT EZRA ([facility]) Biju Cifuentes MD: [address], [place] [address], Ph. Attender: Biju Cifuentes MD [facility] Medical 05/17/2020 12:00:00 AM EDT EZRA ([facility]) Biju Cifuentes MD: [address], [place] [address], Ph. Attender: Biju Cifuentes MD [facility] Medical 05/17/2020 12:00:00 AM EDT EZRA ([facility]) Kamini Cardoso [facility]: [address], [place] [address], Ph. Attender: Kamini Cardoso [facility] Medical 05/12/2020 12:00:00 AM EST E[facility] ([facility]) Kamini Cardoso [facility]: [address], [place] [address], Ph. Attender: Kamini Cardoso [facility] Medical 05/12/2020 12:00:00 AM EST [facility] ([facility]) [facility] [address], [place] [address], Ph. Attender: Kamini Cardoso [facility] Medical 05/12/2020 12:00:00 AM EST [facility] ([facility]) [facility] [address], [place] [address], Ph. Attender: aKmini Cardoso [facility] Medical 05/12/2020 12:00:00 AM EST [facility] ([facility]) [facility] [address], [place] [address], Ph. Attender: Kamini Cardoso [facility] Medical 05/12/2020 12:00:00 AM CHERRY MUNGUIA ([facility]) Kamini Cardoso, [facility]: [address] [place] [address], Ph. Attender: Kamini Cardoso [facility] Medical 05/12/2020 12:00:00 AM CHERRY MUNGUIA ([facility]) Outpatient Attender: Kamini Cardoso [facility] 12/04/2019 12:5 2:00 PM EDT [facility] Immunizations Vaccine Date Status Description Data Source(s) COVID-19, mRNA, LNP-S, PF, 100 mcg/0.5 mL dose 06/15/2020 04 :15:09 PM EDT completed .5 mL [facility]) COVID-19, mRNA, LNP-S, PF, 100 mcg/0.5 mL dose 06/15/2020 04 :15:09 PM EDT completed .5 mL [facility] ([facility]) COVID-19, mRNA, LNP-S, PF, 100 mcg/0.5 mL dose 06/15/2020 04 :15:09 PM EDT completed .5 mL [facility] ([facility]) COVID-19, mRNA, LNP-S, PF, 100 mcg/0.5 mL dose 06/15/2020 04 :15:09 PM EDT completed .5 mL [facility] ([facility]) COVID-19 VACCINE Moderna 06/15/2020 12:00:00 AM EDT completed [facility] Vaccine Series Complete: YESThis Data wa s Submitted to [facility] Via [employer]. COVID-19, mRNA, LNP-S, PF, 100 mcg/0.5 mL dose 05/17/2020 02 :20:44 PM EDT completed .5 mL [facility] ([facility]) COVID-19, mRNA, LNP-S, PF, 100 mcg/0.5 mL dose 05/17/2020 02 :20:44 PM EDT completed 10.5 mL [facility]RA ([facility]) COVID-19, mRNA, LNP-S, PF, 100 mcg/0.5 mL dose 05/17/2020 02 :20:44 PM EDT completed .5 mL [facility]RA ([facility]) COVID-19, mRNA, LNP-S, PF, 100 mcg/0.5 mL dose 05/17/2020 02 :20:44 PM EDT completed .5 mL [facility] ([facility]) COVID-19, mRNA, LNP-S, PF, 100 mcg/0.5 mL dose 05/17/2020 02 :20:44 PM EDT completed .5 mL [facility] ([facility]) COVID-19 VACCINE Moderna 05/17/2020 12:00:00 AM EDT [facility] Complete: NOThis Data was Submitted to [facility] Via [employer]. Medications Medication Brand Name Start Date Product [...] 08/28/2020 12:00:00 AM EDT RESPIRATORY active MEDENT ([facility], ) 24 HR quetiapine 200 MG [...] 03/14/2020 12:00:00 AM EST ORAL completed MEDENT ([facility], ) Amoxicillin 875 MG / Clavulanate 125 MG Oral Tablet Am oxicillin/Clavulanate Potassium 03/14/2020 12:00:00 AM EST ORAL completed MEDENT ([facility], ) 24 HR quetiapine 200 MG [...] / clavulanate 125 MG Oral Tablet E[facility] ([facility]) Simvastatin 10 MG Oral Tablet simvastatin 10 mg tablet simva statin 10 mg tablet completed simvastatin 10 MG Oral Tablet EZ[facility] ([facility]) Allopurinol 100 MG Oral Tablet allopurinol 100 mg tabl et allopurinol 100 mg tablet completed allopurinol 100 MG Oral Tablet EZRA ([facility]) Promethazine Hydrochloride 25 MG Oral Tablet promethaz ine 25 mg tablet promethazine 25 mg tablet completed promethazine hydrochloride 25 MG Oral Tablet E[facility]RA ([facility]) Promethazine Hydrochloride 25 MG Oral Tablet promethaz ine 25 mg tablet promethazine 25 mg tablet completed promethazine hydrochloride 25 MG Oral Tablet EZRA ([facility]) Amoxicillin 875 MG / Clavulanate 125 MG Oral Tablet amoxicillin 875 mg-potassium clavulanate 125 mg tablet TAKE ONE TABLET BY MOUTH TWICE A DAY FOR 10 DAYS amoxicillin 875 mg-potassium clavulanate 125 mg tablet TAKE ONE TABLET BY MOUTH TWICE A DAY FOR 10 DAYS completed amoxicillin 875 MG / clavulanate 125 MG Oral Tablet EZRA ([facility]) Prednisone 20 MG Oral Tablet prednisone 20 mg tablet TAKE ONE TABLET BY MOUTH EVERY DAY FOR 5 DAYS prednisone 20 mg tablet TAKE ONE TABLET BY MOUTH EVERY DAY FOR 5 DAYS completed prednisone 20 MG Oral Tablet [facility] ([facility]) Allopurinol 100 MG Oral Tablet allopurinol 100 mg tabl et allopurinol 100 mg tablet completed allopurinol 100 MG Oral Tablet [facility] ([facility]) Prednisone 20 MG Oral Tablet prednisone 20 mg tablet TAKE ONE TABLET BY MOUTH EVERY DAY FOR 5 DAYS prednisone 20 mg tablet TAKE ONE TABLET BY MOUTH EVERY DAY FOR 5 DAYS completed prednisone 20 MG Oral Tablet [facility] ([facility]) Amoxicillin 875 MG / Clavulanate 125 MG Oral Tablet amoxicillin 875 mg-potassium clavulanate 125 mg tablet TAKE ONE TABLET BY MOUTH EVERY 12 HOURS FOR 10 DAYS amoxicillin 875 mg-potassium clavulanate 125 mg tablet TAKE ONE TABLET BY MOUTH EVERY 12 HOURS FOR 10 DAYS completed amoxicillin 875 MG / clavulanate 125 MG Oral Tablet E[facility]RA ([facility]) Allopurinol 100 MG Oral Tablet allopurinol 100 mg tabl et allopurinol 100 mg tablet completed allopurinol 100 MG Oral Tablet E[facility] ([facility]) Prednisone 20 MG Oral Tablet prednisone 20 mg tablet TAKE ONE TABLET BY MOUTH EVERY DAY FOR 5 DAYS prednisone 20 mg tablet TAKE ONE TABLET BY MOUTH EVERY DAY FOR 5 DAYS completed prednisone 20 MG Oral Tablet [facility] ([facility]) Amoxicillin 875 MG / Clavulanate 125 MG Oral Tablet amoxicillin 875 mg-potassium clavulanate 125 mg tablet TAKE ONE TABLET BY MOUTH TWICE A DAY FOR 10 DAYS amoxicillin 875 mg-potassium clavulanate 125 mg tablet TAKE ONE TABLET BY MOUTH TWICE A DAY FOR 10 DAYS completed amoxicillin 875 MG / clavulanate 125 MG Oral Tablet [facility] ([facility]) Prednisone 20 MG Oral Tablet prednisone 20 mg tablet TAKE ONE TABLET BY MOUTH EVERY DAY FOR 5 DAYS prednisone 20 mg tablet TAKE ONE TABLET BY MOUTH EVERY DAY FOR 5 DAYS completed prednisone 20 MG Oral Tablet [facility] ([facility]) Amoxicillin 875 MG / Clavulanate 125 MG Oral Tablet amoxicillin 875 mg-potassium clavulanate 125 mg tablet TAKE ONE TABLET BY MOUTH EVERY 12 HOURS FOR 10 DAYS amoxicillin 875 mg-potassium clavulanate 125 mg tablet TAKE ONE TABLET BY MOUTH EVERY 12 HOURS FOR 10 DAYS completed amoxicillin 875 MG / clavulanate 125 MG Oral Tablet [facility] ([facility]) Prednisone 20 MG Oral Tablet prednisone 20 mg tablet TAKE ONE TABLET BY MOUTH EVERY DAY FOR 5 DAYS prednisone 20 mg tablet TAKE ONE TABLET BY MOUTH EVERY DAY FOR 5 DAYS completed prednisone 20 MG Oral Tablet [facility] ([facility]) Allopurinol 100 MG Oral Tablet allopurinol 100 mg tabl et allopurinol 100 mg tablet completed allopurinol 100 MG Oral Tablet [facility] ([facility]) alogliptin 25 MG Oral Tablet alogliptin 25 mg tablet alogliptin 25 mg tablet completed alogliptin 25 MG Oral Tablet [facility] ([facility]) Simvastatin 10 MG Oral Tablet simvastatin 10 mg tablet simva statin 10 mg tablet completed simvastatin 10 MG Oral Tablet [facility] ([facility]) Promethazine Hydrochloride 25 MG Oral Tablet promethaz ine 25 mg tablet promethazine 25 mg tablet completed promethazine hydrochloride 25 MG Oral Tablet [facility] ([facility]) alogliptin 25 MG Oral Tablet alogliptin 25 mg tablet alogliptin 25 mg tablet completed alogliptin 25 MG Oral Tablet [facility] ([facility]) Simvastatin 10 MG Oral Tablet simvastatin 10 mg tablet simva statin 10 mg tablet completed simvastatin 10 MG Oral Tablet [facility] ([facility]) Simvastatin 10 MG Oral Tablet simvastatin 10 mg tablet simva statin 10 mg tablet completed simvastatin 10 MG Oral Tablet [facility] ([facility]) alogliptin 25 MG Oral Tablet alogliptin 25 mg tablet alogliptin 25 mg tablet completed alogliptin 25 MG Oral Tablet [facility] ([facility]) Amoxicillin 875 MG / Clavulanate 125 MG Oral Tablet amoxicillin 875 mg-potassium clavulanate 125 mg tablet TAKE ONE TABLET BY MOUTH TWICE A DAY FOR 10 DAYS amoxicillin 875 mg-potassium clavulanate 125 mg tablet TAKE ONE TABLET BY MOUTH TWICE A DAY FOR 10 DAYS completed amoxicillin 875 MG / clavulanate 125 MG Oral Tablet [facility]) Prednisone 20 MG Oral Tablet prednisone 20 mg tablet TAKE ONE TABLET BY MOUTH EVERY DAY FOR 5 DAYS prednisone 20 mg tablet TAKE ONE TABLET BY MOUTH EVERY DAY FOR 5 DAYS completed prednisone 20 MG Oral Tablet [facility] ([facility]) Simvastatin 10 MG Oral Tablet simvastatin 10 mg tablet simva statin 10 mg tablet completed simvastatin 10 MG Oral Tablet [facility] ([facility]) Allopurinol 100 MG Oral Tablet allopurinol 100 mg tabl et allopurinol 100 mg tablet completed allopurinol 100 MG Oral Tablet [facility] ([facility]) Allopurinol 100 MG Oral Tablet allopurinol 100 mg tabl et allopurinol 100 mg tablet completed allopurinol 100 MG Oral Tablet [facility] ([facility]) Simvastatin 10 MG Oral Tablet simvastatin 10 mg tablet simva statin 10 mg tablet completed simvastatin 10 MG Oral Tablet [facility] ([facility]) fluticasone furoate 0.2 MG/ACTUAT Dry Po wder Inhaler Arnuity Ellipta 200 mcg/actuation powder for inhalation INHALE BY MOUTH 1 PUFF EVERY DAY Arnuity Ellipta 200 mcg/actuation powder for inhalation INHALE BY MOUTH 1 PUFF EVERY DAY completed fluticasone furo ate 0.2 MG/ACTUAT Dry Powder Inhaler [facility] ([facility]) Insurance Providers Payer name Policy type / Coverage type Policy ID Covered republican ID Covered republican's relationship to phoenix Policy [place] Plan Information BS [place] Medigap Part B [id number] Self Y [id number] BS [place] Medigap Part B [id number] Self BS [place] Medigap Part B [id number] Self Y [id number] BS [place] Medigap Part B [id number] Self Y [id number] BS [place] Medigap Part B [id number] [id number] Self Y [id number] BS [place] Medigap Part B [id number] Self Y [id number] BS [place] Medigap Part B [id number] Self Y [id number] [place] Medigap Part B [id number] Self [id number] [place] Medigap Part B [id number] Self BLUE CROSS AVELAR PLAN [id number] SP [id number] HMO BLUE [id number] SP [id number] BS [place] H[place] Blue Option Medigap Part B [id number] [id number] Self V [id number] BS [place] Hmo Blue Option Medigap Part B [id number] [id number] Self V [id number] [place] Hmo Blue Option Medigap Part B [id number] Self V [id number] BS [place] Hmo Blue Option Medigap Part B [id number] Self V [id number] BS [place] Hmo Blue Option Medigap Part B [id number] Self V [id number] BS [place] Hmo Blue Option Medigap Part B [id number] Self [place] Hmo Blue Option Medigap Part B [id number] Self V [id number] [facility] Community Plan Commercial [id number] Self [id number] [facility] Community Plan Commercial [id number] Self [facility] I [id number] Self [id number] UNHC COMMUNITY PLAN [id number] [id number] SP [id number] Managed Care - Community Plan [facility] P [id number] S [id number] Medicaid S [id number] S [id number] Managed Care - Community Plan United Healthcare P [id number] S [id number] Medicaid S [id number] S [id number] Managed Care - [facility] Community Plan P [id number] S [id number] Managed Care - Community Plan United Healthcare P [id number] S [id number] United Healthcare Essential Plan P [id number] S [id number] [facility] Essential Plan P [id number] S [id number] [facility] [id number] SP [id number] SELF PAY ONLY [id number] SP [id number] [facility] Essential Plan P [id number] S [id number] [facility] [place]/[facility] Health Maintenance Organization (HMO) [id number] Self [id number] [facility] Medicaid Medicaid [id number] Self UNHC COMMUNITY PLAN MCDHMO [id number] SP [id number] [facility](MCAID) O [id number] S [id number] [facility](MCAID) P UNAVAILABLE [id number] S UNAVAILABLE [facility] COMMUNTY PLAN [id number] [facility] [id number] SP [id number] [facility](MCAID) O [id number] S [id number] [facility]-Community Plan-[place] Commercial [id number] Self [id number] [facility]-Community Plan-[place] Commercial [id number] Self 1 [id number] [facility] COMMUNITY PLAN MCDO [id number] SP [id number] [facility] [id number] Preferred Provider Organization (PPO) [id number] Problems, Conditions, and Diagnoses Code Display Name Description Problem Type Effective Dates Data Source(s) 542946232 Type II diabetes mellitus uncontrolled T ype II Diabetes Mellitus Uncontrolled Problem 10/20/2020 12:00:00 AM EDT EZRA ([facility]) E66.9 [id number] Obesity (BMI 30-39.9) Problem 05/31/2020 12: 00:00 AM EDT eCW1 ([facility]) Surgeries/Procedures Procedure Description Date Indications Data Source(s) OFFICE OUTPATIENT NEW 30 MINUTES 12/05/2020 12:00:00 A M EDT MEDENT ([facility]) Spirometry 11/28/2020 12:00:00 AM EDT M EDENT ([facility], ) OFFICE OUTPATIENT VISIT 25 MINUTES 11/28/2020 12:00:00 AM EDT MEDENT ([facility], ) Spirometry 08/28/2020 12:00:00 AM EDT M EDENT ([facility], ) OFFICE OUTPATIENT VISIT 25 MINUTES 08/28/2020 12:00:00 AM EDT MEDENT ([facility], ) OFFICE OUTPATIENT NEW 45 MINUTES 08/23/2020 12:00:00 A M EDT MEDENT ([facility], ) Spirometry 05/26/2020 12:00:00 AM EDT Shannon MCBRIDE ([facility], ) OFFICE OUTPATIENT VISIT 15 MINUTES 05/26/2020 12:00:00 AM EDT LUISA ([facility], ) US, abdomen, complete 05/12/2020 12:00:00 AM EST EZRA ([facility]) US, abdomen, complete 05/12/2020 12:00:00 AM EST EZRA ([facility]) US, gallbladder 05/12/2020 12:00:00 AM EST EZRA ([facility]) US, abdomen, complete 05/12/2020 12:00:00 AM EST EZRA ([facility]) US, gallbladder 05/12/2020 12:00:00 AM EST EZRA ([facility]) US, abdomen, complete 05/12/2020 12:00:00 AM EST EZRA ([facility]) US, gallbladder 05/12/2020 12:00:00 AM EST EZRA ([facility]) US, abdomen, complete 05/12/2020 12:00:00 AM EST EZRA ([facility]) US, gallbladder 05/12/2020 12:00:00 AM EST EZRA ([facility]) US, abdomen, complete 05/12/2020 12:00:00 AM EST EZRA ([facility]) Results ID Date Data Source [id number] 12/28/2020 08:50:00 AM EDT [facility] Name Value Range Interpretation Code Description Data Lety rce(s) Supporting Document(s) Respiratory pathogens identified [Type] in Nasopharynx by Probe and target amplification method SARS-CoV-2 (COVID 19) [facility] [place] This lab was ordered by [facility] a nd reported by [facility]. ID Date Data Source [id number] 12/05/2020 03:35:00 PM EDT LUISA ([facility]) Name Value Range Interpretation Code Description Data Lety rce(s) Supporting Document(s) Influenza virus B RNA [Presence] in Unsp ecified specimen by Probe and target amplification method Laboratory test result [facility] ([facility]) Influenza virus A RNA [Presence] in Unsp ecified specimen by Probe and target amplification method Laboratory test result MEDENT ([facility]) ID Date Data Source [id number] 11/28/2020 03:36:00 PM EDT MEDENT ([facility], ) Name Value Range Interpretation Code Description Data Lety rce(s) Supporting Document(s) FVC-Pre 2.33 L MEDENT ([facility], ) PDFReport Laboratory test result MEDENT ([facility], ) FVC-Pred 3.79 L MEDENT ([facility]) FVC-%Pred-Pre 61 L MEDENT ([facility], ) Fev1-Pred 3.00 L MEDENT ([facility]) FVC-LLN 3.05 L MEDENT ([facility]) Fev1-LLN 2.37 L MEDENT ([facility]) Fev1-Pre 1.97 L MEDENT ([facility]) Fev1-%Pred-Pre 65 L MEDENT ([facility]) Fev6-Pre 2.33 L MEDENT ([facility]) Fev6-%Pred-Pre 63 L MEDENT ([facility]) Fev6-Pred 3.69 L MEDENT ([facility]) Uld5qao-Lsd 85 % MEDENT ([facility]) Fev6-LLN 2.96 L MEDENT ([facility]) Sdc3wol-Gaes 80 % MEDENT ([facility]) Xks1dfi-JUK 70 % MEDENT ([facility]) Xjp9ldf-%Pred-Pre 105 % MEDENT ([facility]) Fwt8sxr-Eenv 97 % MEDENT ([facility]) FEFMax-Pred 7.05 L/E/sec MEDENT ([facility]) Gzg1byh-%Pred-Pre 102 % MEDENT ([facility]) Qwc5gal-Itl 100 % MEDENT ([facility]) FEFMax-Pre 5.44 L/E/sec MEDENT ([facility]) FEFMax-%Pred-Pre 77 L/E/sec MEDENT ([facility]) Amx7996-Iutw 2.88 L/E/sec MEDENT ([facility]) FEFMax-LLN 5.22 L/E/sec MEDENT ([facility]) Eke7885-TOK 1.56 L/E/sec MEDENT ([facility]) Nsw3823-Cmt 2.49 L/E/sec MEDENT ([facility]) Ksp6764-%Pred-Pre 86 L/E/sec MEDENT ([facility]) Czp2vlm0-Qey 85 % MEDENT ([facility]) Wan8tgl7-Rali 82 % MEDENT ([facility]) ExpTime-Pre 5.90 sec MEDENT ([facility]) Jup0nju2-%Pred-Pre 102 % MEDENT ([facility]) Mfa5pky6-IDQ 73 % MEDENT ([facility]) ID Date Data Source [id number] 10/19/2020 09:45:00 AM EDT [facility] Name Value Range Interpretation Code Description Data Lety rce(s) Supporting Document(s) SARS-CoV-2 (COVID-19) RNA [Presence] in Respiratory specimen by LESLIE with probe detection Not Detected [facility] This lab was ordered by [facility] and reported by [facility] ID Date Data Source [id number] 09/20/2020 03:19:00 PM EDT HITTERDAL ([facility]) Name Value Range Interpretation Code Description Data Lety rce(s) Supporting Document(s) Cholesterol [Mass/volume] in Serum or Plasma 222 mg/dL <200 Above high normal Cholesterol, Total EZRA ([facility]) Cholesterol in HDL [Mass/volume] in Serum or Plasma 30 mg/dL > or = 50 Below low normal HDL Cholesterol EZRA ([facility]) Triglyceride [Mass/volume] in Serum or Plasma 393 mg/dL <150 Above high normal Triglycerides EZRA ([facility]) Cholesterol in LDL [Mass/volume] in Serum or Plasma by calculation 132 mg/dL_(calc) <100 Above high normal LDL-cholesterol EZRA ([facility]) Cholesterol.total/Cholesterol in HDL [Mass Ratio] in Serum o r Plasma 7.4 calc <5.0 Above high normal Chol/hdlc Ratio EZRA ([facility]) Cholesterol non HDL [Mass/volume] in Serum or Plasma 192 mg/dL_( calc) <130 Above high normal Non HDL Cholesterol EZRA ([facility]) ID Date Data Source [id number] 09/20/2020 03:19:00 PM EDT [facility]) Name Value Range Interpretation Code Description Data Lety rce(s) Supporting Document(s) HIV 1+2 Ab+HIV1 p24 Ag [Presence] in Serum or Plasma b y Immunoassay non-reactive non-reactive HIV Ag/Ab, 4TH Gen [facility]) ID Date Data Source [id number] 09/20/2020 03:19:00 PM EDT [facility]) Name Value Range Interpretation Code Description Data Lety rce(s) Supporting Document(s) Iron [Mass/volume] in Serum or Plasma 62 mcg/dL 45-160 Iron, Total EZRA ([facility]) Iron binding capacity [Mass/volume] in Serum or Plasma 330 m cg/dL_(calc) 250-450 Iron Binding Capacity EZRA ([facility]) Ferritin [Mass/volume] in Serum or Plasma 50 NG/mL 16-232 Ferritin EZRA ([facility]) Iron saturation [Mass Fraction] in Serum or Plasma 19 %_(calc) 16- 45 % Saturation HITTERDAL ([facility]) ID Date Data Source [id number] 09/20/2020 03:19:00 PM EDT [facility]) Name Value Range Interpretation Code Description Data Lety rce(s) Supporting Document(s) Hemoglobin A1c/Hemoglobin.total in Blood 11.6 %_of_total_HGB <5. 7 Above high normal Hemoglobin a1C EZRA ([facility]) ID Date Data Source [id number] 09/20/2020 03:19:00 PM EDT [facility]) Name Value Range Interpretation Code Description Data Lety rce(s) Supporting Document(s) Calcidiol [Mass/volume] in Serum or Plasma 28 NG/mL 30-100 Below low normal Vitamin D,25-Oh,total,ia [facility]) ID Date Data Source [id number] 09/20/2020 03:19:00 PM EDT [facility]) Name Value Range Interpretation Code Description Data Lety rce(s) Supporting Document(s) Folate [Mass/volume] in Serum or Plasma 14.4 NG/mL Folate, Serum EZRA ([facility]) Cobalamin (Vitamin B12) [Mass/volume] in Serum or Plasma 362 pg/mL 200-1100 Vitamin B12 [facility]) ID Date Data Source [id number] 09/20/2020 03:19:00 PM EDT EZRA ([facility]) Name Value Range Interpretation Code Description Data Lety rce(s) Supporting Document(s) Hepatitis C virus Ab Signal/Cutoff in Serum or Plasma by Immunoassa y <1.00 Index EZRA ([facility]) Hepatitis C virus Ab [Presence] in Serum or Plasma by Immuno assay non-reactive non-reactive Hepatitis C Antibody HITTERDAL ([facility]) ID Date Data Source [id number] 09/20/2020 03:19:00 PM EDT [facility]) Name Value Range Interpretation Code Description Data Lety rce(s) Supporting Document(s) Color of Urine tnp Color EZRA ([facility]) ID Date Data Source [id number] 09/20/2020 03:19:00 PM EDT [facility]) Name Value Range Interpretation Code Description Data Lety rce(s) Supporting Document(s) Microalbumin [Mass/volume] in Urine tnp Albumin, Urine [facility]) ID Date Data Source [id number] 09/20/2020 03:19:00 PM EDT EZRA ([facility]) Name Value Range Interpretation Code Description Data Lety rce(s) Supporting Document(s) Urea nitrogen [Mass/volume] in Serum or Plasma 8 mg/dL 7-25 Urea Nitrogen (BUN) EZRA ([facility]) Glucose [Mass/volume] in Serum or Plasma 437 mg/dL 65-99 Above high normal Glucose EZRA ([facility]) Glomerular filtration rate/1.73 sq M.pre dicted among blacks [Volume Rate/Area] in Serum, Plasma or Blood by Creatinine-based formula (CKD-EPI) 129 mL/min/1.73m2 > or = 60 eGFR EZRA ([facility]) Glomerular filtration rate/1.73 sq M.pre dicted among non-blacks [Volume Rate/Area] in Serum, Plasma or Blood by Creatinine-based formula (CKD-EPI) 111 mL/min/1.73m2 > or = 60 eGFR Non-afr. Kosovan EZRA ([facility]) Creatinine [Mass/volume] in Serum or Plasma 0.52 mg/dL 0.50-1.05 Creatinine EZRA ([facility]) Urea nitrogen/Creatinine [Mass Ratio] in Serum or Plasma not applic able 6-22 BUN/creatinine Ratio EZRA ([facility]) Sodium [Moles/volume] in Serum or Plasma 133 mmol/L 135-146 Below low normal Sodium H[facility]TER[facility]AL ([facility]) Chloride [Moles/volume] in Serum or Plasma 98 mmol/L 98-110 Chloride EZRA ([facility]) Potassium [Moles/volume] in Serum or Plasma 4.3 mmol/L 3.5-5.3 Potassium EZRA ([facility]) Calcium [Mass/volume] in Serum or Plasma 8.9 mg/dL 8.6-10.4 Calcium EZRA ([facility]) Protein [Mass/volume] in Serum or Plasma 7.6 g/dL 6.1-8.1 Protein, Total EZRA ([facility]) Carbon dioxide, total [Moles/volume] in Serum or Plasma 26 mmol/L 20-32 Carbon Dioxide EZRA ([facility]) Albumin [Mass/volume] in Serum or Plasma 3.7 g/dL 3.6-5.1 Albumin HITTERDAL ([facility]) Globulin [Mass/volume] in Serum by calculation 3.9 g/dL_(calc) 1 .9-3.7 Above high normal Globulin EZRA ([facility]) Bilirubin.total [Mass/volume] in Serum or Plasma 0.3 mg/dL 0.2-1 .2 Bilirubin, Total EZRA ([facility]) Albumin/Globulin [Mass Ratio] in Serum or Plasma 0.9 (calc) 1.0-2.5 Below low normal Albumin/globulin Ratio EZRA ([facility]) Alanine aminotransferase [Enzymatic activity/volume] in Seru m or Plasma 16 U/L 6-29 Alt EZRA ([facility]) Aspartate aminotransferase [Enzymatic activity/volume] in Serum or Plasma 15 U/L 10-35 Ast EZRA ([facility]) Alkaline phosphatase [Enzymatic activity/volume] in Serum or Plasma 52 U/L 37-153 Alkaline Phosphatase EZRA ([facility]) ID Date Data Source [id number] 09/20/2020 03:19:00 PM EDT EZRA ([facility]) Name Value Range Interpretation Code Description Data Lety rce(s) Supporting Document(s) Thyrotropin [Units/volume] in Serum or Plasma 3.81 mIU/L Tsh HITTERDAL ([facility]) Thyroxine (T4) free [Mass/volume] in Serum or Plasma 1.0 NG/dL 0 .8-1.8 T4, Free EZRA ([facility]) ID Date Data Source [id number] 08/28/2020 12:16:00 PM EDT MEDENT ([facility], ) Name Value Range Interpretation Code Description Data Lety rce(s) Supporting Document(s) FVC-Pred 3.79 L MEDENT ([facility], ) PDFReport Laboratory test result MEDENT ([facility]) FVC-Pre 2.34 L MEDENT ([facility]) FVC-%Pred-Pre 61 L MEDENT ([facility]) FVC-LLN 3.05 L MEDENT ([facility]) Fev1-Pre 2.04 L MEDENT ([facility]) Fev1-%Pred-Pre 68 L MEDENT ([facility]) Fev1-Pred 3.00 L MEDENT ([facility]) Fev6-Pre 2.34 L MEDENT ([facility]) Fev1-LLN 2.37 L MEDENT ([facility]) Fev6-Pred 3.69 L MEDENT ([facility]) Xvd5ggr-Qdpf 80 % MEDENT ([facility]) Fev6-%Pred-Pre 63 L MEDENT ([facility]) Fev6-LLN 2.96 L MEDENT ([facility]) Vun4xua-Nex 87 % MEDENT ([facility]) Ump6dmx-%Pred-Pre 108 % MEDENT ([facility]) Xza3qhb-Cfex 97 % MEDENT ([facility]) Eag3hwb-Umj 100 % MEDENT ([facility]) Dzi5tta-RWY 70 % MEDENT ([facility]) Gkx7xmo-%Pred-Pre 102 % MEDENT ([facility]) FEFMax-Pre 4.82 L/E/sec MEDENT ([facility]) FEFMax-Pred 7.05 L/E/sec MEDENT ([facility]) Dpp4705-Khtx 2.88 L/E/sec MEDENT ([facility], ) FEFMax-LLN 5.22 L/E/sec MEDENT ([facility]) FEFMax-%Pred-Pre 68 L/E/sec MEDENT ([facility]) Sqr7474-TFH 1.56 L/E/sec MEDENT ([facility]) Loo6775-Jog 2.94 L/E/sec MEDENT ([facility]) Nmd4444-%Pred-Pre 102 L/E/sec MEDENT ([facility]) ExpTime-Pre 6.40 sec MEDENT ([facility]) Hna1qux7-Khu 87 % MEDENT ([facility]) Shb6lwg4-%Pred-Pre 105 % MEDENT ([facility]) Opw5uoh3-Ejtn 82 % MEDENT ([facility]) Wiv8opg1-BTY 73 % MEDENT ([facility]) ID Date Data Source [id number] 05/31/2020 09:54:00 AM EDT [facility]) Name Value Range Interpretation Code Description Data Lety rce(s) Supporting Document(s) total 25(oh) vitamin D 12.0 NG/mL 30.0-100.0 Below low normal T otal 25(Oh) Vitamin D [facility]) ID Date Data Source [id number] 05/31/2020 09:54:00 AM EDT [facility]) Name Value Range Interpretation Code Description Data Lety rce(s) Supporting Document(s) thyroid stimulating hormone 2.700 uIU/mL 0.358-3.740 Thyroid Stimulating Hormone EZRA ([facility]) free T4 0.97 NG/dL 0.76-1.46 Free T4 [facility]) ID Date Data Source [id number] 05/31/2020 09:54:00 AM EDT HITTERDAL ([facility]) Name Value Range Interpretation Code Description Data Lety rce(s) Supporting Document(s) lipase 237 U/L 73-393 Lipase EZRA ([facility]) ID Date Data Source [id number] 05/31/2020 09:54:00 AM EDT EZRA ([facility]) Name Value Range Interpretation Code Description Data Lety rce(s) Supporting Document(s) amylase 43 U/L 25-115 Amylase EZRA ([facility]) ID Date Data Source [id number] 05/31/2020 09:54:00 AM EDT HITTERDAL ([facility]) Name Value Range Interpretation Code Description Data Lety rce(s) Supporting Document(s) triglycerides level 317 mg/dL <150 Above high normal Triglycer ides Level EZRA ([facility]) HDL cholesterol 32 mg/dL >40 Below low normal HDL Cholestero l EZRA ([facility]) Cholesterol in LDL [Mass/volume] in Serum or Plasma 114 mg/dL <100 Above high normal LDL Cholesterol EZRA ([facility]) cholesterol level 209 mg/dL <200 Above high normal Cholesterol Level EZRA ([facility]) non-HDL-C 177 mg/dL Non-hdl-c EZRA ([facility]) cholesterol risk ratio <5 Above high normal Choles terol Risk Ratio HITTERDAL ([facility]) ID Date Data Source [id number] 05/31/2020 09:54:00 AM EDT HITTERDAL ([facility]) Name Value Range Interpretation Code Description Data Lety rce(s) Supporting Document(s) glucose, fasting 329 mg/dL 70-100 Above high normal Glucose, Fas ting EZRA ([facility]) blood urea nitrogen 9 mg/dL 7-18 Blood Urea Nitro gen EZRA ([facility]) creatinine for GFR 0.64 mg/dL 0.55-1.30 Creatinine for GF R HITTERDAL ([facility]) glomerular filtration rate > 60.0 >51 Glomerula r Filtration Rate EZRA ([facility]) sodium level 133 mEq/L 136-145 Below low normal Sodium Level ATHE NA ([facility]) carbon dioxide level 29 mEq/L 21-32 Carbon Dioxide Level EZRA ([facility]) chloride level 99 mEq/L 98-107 Chloride Level EZRA ([facility]) potassium serum 4.6 mEq/L 3.5-5.1 Potassium Serum ATHE NA ([facility]) anion gap 5 mEq/L 8-16 Below low normal Anion Gap EZRA ( [facility]) calcium level 9.0 mg/dL 8.5-10.1 Calcium Level EZRA ( [facility]) AST/SGOT 16 U/L 7-37 AST/SGOT EZRA ([facility]) ALT/SGPT 23 U/L 12-78 ALT/SGPT EZRA ([facility]) bilirubin,total 0.2 mg/dL 0.2-1.0 Bilirubin,total ATHE NA ([facility]) alkaline phosphatase 66 U/L 45-117 Alkaline Phosph atase EZRA ([facility]) total protein 8.0 gm/dL 6.4-8.2 Total Protein EZRA ( [facility]) albumin 3.4 gm/dL 3.2-5.2 Albumin EZRA ([facility]) albumin/globulin ratio 1.2-2.2 Below low normal Albumin /globulin Ratio EZRA ([facility]) ID Date Data Source [id number] 05/31/2020 09:54:00 AM EDT EZRA ([facility]) Name Value Range Interpretation Code Description Data Lety rce(s) Supporting Document(s) Hemoglobin A1c/Hemoglobin.total in Blood 11.5 % Hemoglobin a1C EZRA ([facility]) estimated average glucose 283 mg/dL 60-110 Above high norm al Estimated Average Glucose EZRA ([facility]) ID Date Data Source [id number] 05/31/2020 09:54:00 AM EDT EZRA ([facility]) Name Value Range Interpretation Code Description Data Lety rce(s) Supporting Document(s) white blood count 10.2 10 4.0-10.0 Above high normal White Blood Count EZRA ([facility]) hemoglobin 14.0 g/dL 12.0-15.5 Hemoglobin EZRA ([facility]) red blood count 4.98 10 4.00-5.40 Red Blood Count ATHE NA ([facility]) mean corpuscular volume 86.9 fL 80.0-96.0 Mean Corpusc ular Volume EZRA ([facility]) hematocrit 43.3 % 36.0-47.0 Hematocrit EZRA ([facility]) red cell distribution width 13.2 % 11.5-14.5 Red Cell Distribution Width EZRA ([facility]) mean corpuscular hemoglobin 28.1 pg 27.0-33.0 Mean Cor puscular Hemoglobin EZRA ([facility]) mean corpuscular HGB conc 32.3 g/dL 32.0-36.5 Mean Corpu scular HGB Conc EZRA ([facility]) lymph % 27.1 % 24.0-44.0 Lymph % EZRA ([facility]) platelet count, automated 314 10 150-450 Platelet C ount, Automated EZRA ([facility]) neutrophils % 61.8 % 36.0-66.0 Neutrophils % EZRA ( [facility]) eos % 4.6 % 0.0-3.0 Above high normal Eos % EZRA ([facility]) mono % 5.4 % 2.0-8.0 Mckenzie % EZRA ([facility]) baso % 0.5 % 0.0-1.0 Baso % EZRA ([facility]) immature granulocyte % 0.6 % 0-3.0 Immature Gran ulocyte % EZRA ([facility]) nucleated red blood cell % 0.0 % 0-0 Nucleated Red Blood Cell % EZRA ([facility]) lymph # 2.8 10 1.5-5.0 Lymph # EZRA ([facility]) mono # 0.6 10 0.0-0.8 Mckenzie # EZRA ([facility]) neutrophils # 6.3 10 1.5-8.5 Neutrophils # EZRA ( [facility]) eos # 0.5 10 0.0-0.5 Eos # EZRA ([facility]) baso # 0.1 10 0.0-0.2 Baso # EZRA ([facility]) ID Date Data Source [id number] 05/31/2020 09:54:00 AM EDT HITTERDAL ([facility]) Name Value Range Interpretation Code Description Data Lety rce(s) Supporting Document(s) total 25(oh) vitamin D 12.0 NG/mL 30.0-100.0 Below low normal T otal 25(Oh) Vitamin D HITTERDAL ([facility]) ID Date Data Source [id number] 05/31/2020 09:54:00 AM EDT [facility]) Name Value Range Interpretation Code Description Data Lety rce(s) Supporting Document(s) thyroid stimulating hormone 2.700 uIU/mL 0.358-3.740 Thyroid Stimulating Hormone HITTERDAL ([facility]) free T4 0.97 NG/dL 0.76-1.46 Free T4 [facility]TERDAL ([facility]) ID Date Data Source [id number] 05/31/2020 09:54:00 AM EDT H[facility]TERDAL ([facility]) Name Value Range Interpretation Code Description Data Lety rce(s) Supporting Document(s) lipase 237 U/L 73-393 Lipase EZRA ([facility]) ID Date Data Source [id number] 05/31/2020 09:54:00 AM EDT [facility]) Name Value Range Interpretation Code Description Data Lety rce(s) Supporting Document(s) amylase 43 U/L 25-115 Amylase EZRA ([facility]) ID Date Data Source [id number] 05/31/2020 09:54:00 AM EDT HITTERDAL ([facility]) Name Value Range Interpretation Code Description Data Lety rce(s) Supporting Document(s) Cholesterol in LDL [Mass/volume] in Serum or Plasma 114 mg/dL <100 Above high normal LDL Cholesterol E[facility]RA ([facility]) HDL cholesterol 32 mg/dL >40 Below low normal HDL Cholestero l EZRA ([facility]) triglycerides level 317 mg/dL <150 Above high normal Triglycer ides Level EZRA ([facility]) cholesterol level 209 mg/dL <200 Above high normal Cholesterol Level EZRA ([facility]) non-HDL-C 177 mg/dL Non-hdl-c EZRA ([facility]) cholesterol risk ratio <5 Above high normal Choles terol Risk Ratio EZRA ([facility]) ID Date Data Source [id number] 05/31/2020 09:54:00 AM EDT HITTERDAL ([facility]) Name Value Range Interpretation Code Description Data Lety rce(s) Supporting Document(s) blood urea nitrogen 9 mg/dL 7-18 Blood Urea Nitro gen EZRA ([facility]) glucose, fasting 329 mg/dL 70-100 Above high normal Glucose, Fas ting EZRA ([facility]) creatinine for GFR 0.64 mg/dL 0.55-1.30 Creatinine for GF R EZRA ([facility]) sodium level 133 mEq/L 136-145 Below low normal Sodium Level ATHE NA ([facility]) glomerular filtration rate > 60.0 >51 Glomerula r Filtration Rate EZRA ([facility]) potassium serum 4.6 mEq/L 3.5-5.1 Potassium Serum ATHE NA ([facility]) chloride level 99 mEq/L 98-107 Chloride Level EZRA ([facility]) anion gap 5 mEq/L 8-16 Below low normal Anion Gap EZRA ( [facility]) carbon dioxide level 29 mEq/L 21-32 Carbon Dioxide Level EZRA ([facility]) ALT/SGPT 23 U/L 12-78 ALT/SGPT EZRA ([facility]) alkaline phosphatase 66 U/L 45-117 Alkaline Phosph atase EZRA ([facility]) AST/SGOT 16 U/L 7-37 AST/SGOT EZRA ([facility]) calcium level 9.0 mg/dL 8.5-10.1 Calcium Level EZRA ( [facility]) albumin 3.4 gm/dL 3.2-5.2 Albumin EZRA ([facility]) bilirubin,total 0.2 mg/dL 0.2-1.0 Bilirubin,total ATHE NA ([facility]) total protein 8.0 gm/dL 6.4-8.2 Total Protein EZRA ( [facility]) albumin/globulin ratio 1.2-2.2 Below low normal Albumin /globulin Ratio EZRA ([facility]) ID Date Data Source [id number] 05/31/2020 09:54:00 AM EDT EZRA ([facility]) Name Value Range Interpretation Code Description Data Lety rce(s) Supporting Document(s) Hemoglobin A1c/Hemoglobin.total in Blood 11.5 % Hemoglobin a1C EZRA ([facility]) estimated average glucose 283 mg/dL 60-110 Above high norm al Estimated Average Glucose EZRA ([facility]) ID Date Data Source [id number] 05/31/2020 09:54:00 AM EDT H[facility]TERDAL ([facility]) Name Value Range Interpretation Code Description Data Lety rce(s) Supporting Document(s) white blood count 10.2 10 4.0-10.0 Above high normal White Blood Count EZRA ([facility]) red blood count 4.98 10 4.00-5.40 Red Blood Count ATHE ([facility]) hemoglobin 14.0 g/dL 12.0-15.5 Hemoglobin EZRA ([facility]) mean corpuscular volume 86.9 fL 80.0-96.0 Mean Corpusc ular Volume EZRA ([facility]) mean corpuscular hemoglobin 28.1 pg 27.0-33.0 Mean Cor puscular Hemoglobin EZRA ([facility]) hematocrit 43.3 % 36.0-47.0 Hematocrit EZRA ([facility]) red cell distribution width 13.2 % 11.5-14.5 Red Cell Distribution Width EZRA ([facility]) platelet count, automated 314 10 150-450 Platelet C ount, Automated EZRA ([facility]) mean corpuscular HGB conc 32.3 g/dL 32.0-36.5 Mean Corpu scular HGB Conc EZRA ([facility]) lymph % 27.1 % 24.0-44.0 Lymph % HITTERDAL ([facility]) neutrophils % 61.8 % 36.0-66.0 Neutrophils % EZRA ( [facility]) mono % 5.4 % 2.0-8.0 Mckenzie % H[facility]TERDAL ([facility]) baso % 0.5 % 0.0-1.0 Baso % [facility]TERDAL ([facility]) eos % 4.6 % 0.0-3.0 Above high normal Eos % EZRA ([facility]) immature granulocyte % 0.6 % 0-3.0 Immature Gran ulocyte % [facility]TERDAL ([facility]) nucleated red blood cell % 0.0 % 0-0 Nucleated Red Blood Cell % [facility]TERDAL ([facility]) neutrophils # 6.3 10 1.5-8.5 Neutrophils # EZRA ( [facility]) eos # 0.5 10 0.0-0.5 Eos # EZRA ([facility]) lymph # 2.8 10 1.5-5.0 Lymph # EZRA ([facility]) mono # 0.6 10 0.0-0.8 Mckenzie # HITTERDAL ([facility]) baso # 0.1 10 0.0-0.2 Baso # EZRA ([facility]) ID Date Data Source [id number] 05/31/2020 09:54:00 AM EDT EZRA ([facility]) Name Value Range Interpretation Code Description Data Lety rce(s) Supporting Document(s) thyroid stimulating hormone 2.700 uIU/mL 0.358-3.740 Thyroid Stimulating Hormone EZRA ([facility]) free T4 0.97 NG/dL 0.76-1.46 Free T4 EZRA ([facility]) ID Date Data Source [id number] 05/31/2020 09:54:00 AM EDT EZRA ([facility]) Name Value Range Interpretation Code Description Data Lety rce(s) Supporting Document(s) lipase 237 U/L 73-393 Lipase EZRA ([facility]) ID Date Data Source [id number] 05/31/2020 09:54:00 AM EDT EZRA ([facility]) Name Value Range Interpretation Code Description Data Lety rce(s) Supporting Document(s) amylase 43 U/L 25-115 Amylase EZRA ([facility]) ID Date Data Source [id number] 05/31/2020 09:54:00 AM EDT EZRA ([facility]) Name Value Range Interpretation Code Description Data Lety rce(s) Supporting Document(s) triglycerides level 317 mg/dL <150 Above high normal Triglycer ides Level EZRA ([facility]) cholesterol level 209 mg/dL <200 Above high normal Cholesterol Level EZRA ([facility]) Cholesterol in LDL [Mass/volume] in Serum or Plasma 114 mg/dL <100 Above high normal LDL Cholesterol EZRA ([facility]) HDL cholesterol 32 mg/dL >40 Below low normal HDL Cholestero l EZRA ([facility]) non-HDL-C 177 mg/dL Non-hdl-c EZRA ([facility]) cholesterol risk ratio <5 Above high normal Choles terol Risk Ratio EZRA ([facility]) ID Date Data Source [id number] 05/31/2020 09:54:00 AM EDT EZRA ([facility]) Name Value Range Interpretation Code Description Data Lety rce(s) Supporting Document(s) glucose, fasting 329 mg/dL 70-100 Above high normal Glucose, Fas ting EZRA ([facility]) glomerular filtration rate > 60.0 >51 Glomerula r Filtration Rate EZRA ([facility]) blood urea nitrogen 9 mg/dL 7-18 Blood Urea Nitro gen EZRA ([facility]) sodium level 133 mEq/L 136-145 Below low normal Sodium Level ATHE ([facility]) creatinine for GFR 0.64 mg/dL 0.55-1.30 Creatinine for GF R EZRA ([facility]) potassium serum 4.6 mEq/L 3.5-5.1 Potassium Serum ATHE ([facility]) carbon dioxide level 29 mEq/L 21-32 Carbon Dioxide Level EZRA ([facility]) chloride level 99 mEq/L 98-107 Chloride Level EZRA ([facility]) AST/SGOT 16 U/L 7-37 AST/SGOT EZRA ([facility]) anion gap 5 mEq/L 8-16 Below low normal Anion Gap EZRA ( [facility]) calcium level 9.0 mg/dL 8.5-10.1 Calcium Level EZRA ( [facility]) ALT/SGPT 23 U/L 12-78 ALT/SGPT EZRA ([facility]) bilirubin,total 0.2 mg/dL 0.2-1.0 Bilirubin,total ATHE ([facility]) alkaline phosphatase 66 U/L 45-117 Alkaline Phosph atase EZRA ([facility]) albumin/globulin ratio 1.2-2.2 Below low normal Albumin /globulin Ratio EZRA ([facility]) total protein 8.0 gm/dL 6.4-8.2 Total Protein EZRA ( [facility]) albumin 3.4 gm/dL 3.2-5.2 Albumin EZRA ([facility]) ID Date Data Source [id number] 05/31/2020 09:54:00 AM EDT EZRA ([facility]) Name Value Range Interpretation Code Description Data Lety rce(s) Supporting Document(s) Hemoglobin A1c/Hemoglobin.total in Blood 11.5 % Hemoglobin a1C EZRA ([facility]) estimated average glucose 283 mg/dL 60-110 Above high norm al Estimated Average Glucose EZRA ([facility]) ID Date Data Source [id number] 05/31/2020 09:54:00 AM EDT EZRA ([facility]) Name Value Range Interpretation Code Description Data Lety rce(s) Supporting Document(s) white blood count 10.2 10 4.0-10.0 Above high normal White Blood Count EZRA ([facility]) red blood count 4.98 10 4.00-5.40 Red Blood Count ATHE ([facility]) hemoglobin 14.0 g/dL 12.0-15.5 Hemoglobin EZRA ([facility]) mean corpuscular volume 86.9 fL 80.0-96.0 Mean Corpusc ular Volume EZRA ([facility]) hematocrit 43.3 % 36.0-47.0 Hematocrit EZRA ([facility]) mean corpuscular HGB conc 32.3 g/dL 32.0-36.5 Mean Corpu scular HGB Conc HITTERDAL ([facility]) red cell distribution width 13.2 % 11.5-14.5 Red Cell Distribution Width EZRA ([facility]) mean corpuscular hemoglobin 28.1 pg 27.0-33.0 Mean Cor puscular Hemoglobin EZRA ([facility]) platelet count, automated 314 10 150-450 Platelet C ount, Automated EZRA ([facility]) lymph % 27.1 % 24.0-44.0 Lymph % [facility]TERDAL ([facility]) neutrophils % 61.8 % 36.0-66.0 Neutrophils % EZRA ( [facility]) baso % 0.5 % 0.0-1.0 Baso % H[facility]TERDAL ([facility]) mono % 5.4 % 2.0-8.0 Mckenzie % EZRA ([facility]) eos % 4.6 % 0.0-3.0 Above high normal Eos % EZRA ([facility]) nucleated red blood cell % 0.0 % 0-0 Nucleated Red Blood Cell % EZRA ([facility]) immature granulocyte % 0.6 % 0-3.0 Immature Gran ulocyte % EZRA ([facility]) neutrophils # 6.3 10 1.5-8.5 Neutrophils # EZRA ( [facility]) lymph # 2.8 10 1.5-5.0 Lymph # EZRA ([facility]) mono # 0.6 10 0.0-0.8 Mckenzie # EZRA ([facility]) baso # 0.1 10 0.0-0.2 Baso # EZRA ([facility]) eos # 0.5 10 0.0-0.5 Eos # EZRA ([facility]) ID Date Data Source [id number] 05/31/2020 09:54:00 AM EDT H[facility]TERDAL ([facility]) Name Value Range Interpretation Code Description Data Lety rce(s) Supporting Document(s) total 25(oh) vitamin D 12.0 NG/mL 30.0-100.0 Below low normal T otal 25(Oh) Vitamin D [facility]TERDAL ([facility]) ID Date Data Source [id number] 05/31/2020 09:54:00 AM EDT [facility]TERDAL ([facility]) Name Value Range Interpretation Code Description Data Lety rce(s) Supporting Document(s) free T4 0.97 NG/dL 0.76-1.46 Free T4 EZRA ([facility]) thyroid stimulating hormone 2.700 uIU/mL 0.358-3.740 Thyroid Stimulating Hormone [facility]) ID Date Data Source [id number] 05/31/2020 09:54:00 AM EDT [facility]) Name Value Range Interpretation Code Description Data Lety rce(s) Supporting Document(s) lipase 237 U/L 73-393 Lipase EZRA ([facility]) ID Date Data Source [id number] 05/31/2020 09:54:00 AM EDT EZRA ([facility]) Name Value Range Interpretation Code Description Data Lety rce(s) Supporting Document(s) amylase 43 U/L 25-115 Amylase EZRA ([facility]) ID Date Data Source [id number] 05/31/2020 09:54:00 AM EDT EZRA ([facility]) Name Value Range Interpretation Code Description Data Lety rce(s) Supporting Document(s) HDL cholesterol 32 mg/dL >40 Below low normal HDL Cholestero l EZRA ([facility]) triglycerides level 317 mg/dL <150 Above high normal Triglycer ides Level EZRA ([facility]) cholesterol level 209 mg/dL <200 Above high normal Cholesterol Level EZRA ([facility]) non-HDL-C 177 mg/dL Non-hdl-c EZRA ([facility]) cholesterol risk ratio <5 Above high normal Choles terol Risk Ratio EZRA ([facility]) Cholesterol in LDL [Mass/volume] in Serum or Plasma 114 mg/dL <100 Above high normal LDL Cholesterol EZRA ([facility]) ID Date Data Source [id number] 05/31/2020 09:54:00 AM EDT H[facility]TERDAL ([facility]) Name Value Range Interpretation Code Description Data Lety rce(s) Supporting Document(s) blood urea nitrogen 9 mg/dL 7-18 Blood Urea Nitro gen EZRA ([facility]) glucose, fasting 329 mg/dL 70-100 Above high normal Glucose, Fas ting EZRA ([facility]) creatinine for GFR 0.64 mg/dL 0.55-1.30 Creatinine for GF R EZRA ([facility]) potassium serum 4.6 mEq/L 3.5-5.1 Potassium Serum ATHE NA ([facility]) glomerular filtration rate > 60.0 >51 Glomerula r Filtration Rate EZRA ([facility]) sodium level 133 mEq/L 136-145 Below low normal Sodium Level ATHE NA ([facility]) chloride level 99 mEq/L 98-107 Chloride Level EZRA ([facility]) carbon dioxide level 29 mEq/L 21-32 Carbon Dioxide Level EZRA ([facility]) anion gap 5 mEq/L 8-16 Below low normal Anion Gap EZRA ( [facility]) ALT/SGPT 23 U/L 12-78 ALT/SGPT EZRA ([facility]) AST/SGOT 16 U/L 7-37 AST/SGOT EZRA ([facility]) calcium level 9.0 mg/dL 8.5-10.1 Calcium Level EZRA ( [facility]) alkaline phosphatase 66 U/L 45-117 Alkaline Phosph atase EZRA ([facility]) bilirubin,total 0.2 mg/dL 0.2-1.0 Bilirubin,total ATHE ([facility]) total protein 8.0 gm/dL 6.4-8.2 Total Protein EZRA ( [facility]) albumin 3.4 gm/dL 3.2-5.2 Albumin EZRA ([facility]) albumin/globulin ratio 1.2-2.2 Below low normal Albumin /globulin Ratio EZRA ([facility]) ID Date Data Source [id number] 05/31/2020 09:54:00 AM EDT EZRA ([facility]) Name Value Range Interpretation Code Description Data Lety rce(s) Supporting Document(s) Hemoglobin A1c/Hemoglobin.total in Blood 11.5 % Hemoglobin a1C EZRA ([facility]) estimated average glucose 283 mg/dL 60-110 Above high norm al Estimated Average Glucose EZRA ([facility]) ID Date Data Source [id number] 05/31/2020 09:54:00 AM EDT H[facility]TERDAL ([facility]) Name Value Range Interpretation Code Description Data Lety rce(s) Supporting Document(s) white blood count 10.2 10 4.0-10.0 Above high normal White Blood Count EZRA ([facility]) hemoglobin 14.0 g/dL 12.0-15.5 Hemoglobin EZRA ([facility]) red blood count 4.98 10 4.00-5.40 Red Blood Count ATHE NA ([facility]) mean corpuscular volume 86.9 fL 80.0-96.0 Mean Corpusc ular Volume EZRA ([facility]) mean corpuscular hemoglobin 28.1 pg 27.0-33.0 Mean Cor puscular Hemoglobin EZRA ([facility]) hematocrit 43.3 % 36.0-47.0 Hematocrit EZRA ([facility]) red cell distribution width 13.2 % 11.5-14.5 Red Cell Distribution Width EZRA ([facility]) mean corpuscular HGB conc 32.3 g/dL 32.0-36.5 Mean Corpu scular HGB Conc EZRA ([facility]) neutrophils % 61.8 % 36.0-66.0 Neutrophils % EZRA ( [facility]) platelet count, automated 314 10 150-450 Platelet C ount, Automated EZRA ([facility]) lymph % 27.1 % 24.0-44.0 Lymph % EZRA ([facility]) eos % 4.6 % 0.0-3.0 Above high normal Eos % EZRA ([facility]) baso % 0.5 % 0.0-1.0 Baso % EZRA ([facility]) mono % 5.4 % 2.0-8.0 Mckenzie % EZRA ([facility]) immature granulocyte % 0.6 % 0-3.0 Immature Gran ulocyte % EZRA ([facility]) nucleated red blood cell % 0.0 % 0-0 Nucleated Red Blood Cell % EZRA ([facility]) lymph # 2.8 10 1.5-5.0 Lymph # EZRA ([facility]) neutrophils # 6.3 10 1.5-8.5 Neutrophils # EZRA ( [facility]) mono # 0.6 10 0.0-0.8 Mckenzie # EZRA ([facility]) baso # 0.1 10 0.0-0.2 Baso # EZRA ([facility]) eos # 0.5 10 0.0-0.5 Eos # EZRA ([facility]) ID Date Data Source WWBC DIGITAL / KYRIE BILATERAL MAMMO SCREENING (Ultraso und if indicated) 05/31/2020 12:00:00 AM EDT eCW1 ([facility]) Name Value Range Interpretation Code Description Data Lety rce(s) Supporting Document(s) WWBC DIGITAL / KYRIE BILAT ERAL MAMMO SCREENING (Ultrasound if indicated) eCW1 ([facility]) ID Date Data Source [id number] 05/26/2020 03:24:00 PM EDT MEDENT ([facility], ) Name Value Range Interpretation Code Description Data Lety rce(s) Supporting Document(s) FVC-Pred 3.79 L MEDENT ([facility], ) PDFReport Laboratory test result MEDENT ([facility], ) FVC-%Pred-Pre 59 L MEDENT ([facility], ) FVC-Pre 2.27 L MEDENT ([facility]) Fev1-Pred 3.00 L MEDENT ([facility]) Fev1-Pre 1.88 L MEDENT ([facility]) FVC-LLN 3.05 L MEDENT ([facility]) Fev1-LLN 2.37 L MEDENT ([facility]) Fev1-%Pred-Pre 62 L MEDENT ([facility]) Fev6-%Pred-Pre 61 L MEDENT ([facility]) Fev6-Pred 3.69 L MEDENT ([facility]) Fev6-Pre 2.27 L MEDENT ([facility]) Vtw1pgj-Brez 80 % MEDENT ([facility]) Fev6-LLN 2.96 L MEDENT ([facility]) Fwp2mqa-MRV 70 % MEDENT ([facility]) Gnn7bnf-%Pred-Pre 103 % MEDENT ([facility]) Xya7krg-Dpp 83 % MEDENT ([facility]) Pyz1lcz-Qxv 100 % MEDENT ([facility]) Elk7hav-Zvbz 97 % MEDENT ([facility]) Ydv4awi-%Pred-Pre 102 % MEDENT ([facility]) FEFMax-Pred 7.05 L/E/sec MEDENT ([facility]) FEFMax-%Pred-Pre 85 L/E/sec MEDENT ([facility]) FEFMax-Pre 6.04 L/E/sec MEDENT ([facility]) FEFMax-LLN 5.22 L/E/sec MEDENT ([facility]) Eeb1279-Qire 2.88 L/E/sec MEDENT ([facility]) Qlu7651-Rcd 2.29 L/E/sec MEDENT ([facility]) Zdr8618-%Pred-Pre 79 L/E/sec MEDENT ([facility]) Xol2360-KHK 1.56 L/E/sec MEDENT ([facility]) ExpTime-Pre 5.69 sec MEDENT ([facility]) Lto7wen2-Ygyl 82 % MEDENT ([facility]) Cnk5ken9-Btz 83 % MEDENT ([facility]) Hsq8mju9-%Pred-Pre 100 % MEDENT ([facility]) Vul3ltk8-HRG 73 % MEDENT ([facility]) ID Date Data Source [id number] 03/29/2020 11:51:00 AM CHERRY MUNGUIA ([facility]) Name Value Range Interpretation Code Description Data Lety rce(s) Supporting Document(s) carbamazepine (tegretol) level 7.3 ug/mL 4.0-10.0 Carbamazepine (Tegretol) Level EZRA ([facility]) ID Date Data Source [id number] 03/29/2020 11:51:00 AM EST HITTERDAL ([facility]) Name Value Range Interpretation Code Description Data Lety rce(s) Supporting Document(s) glucose, fasting 290 mg/dL 70-100 Above high normal Glucose, Fas ting [facility] ([facility]) blood urea nitrogen 7 mg/dL 7-18 Blood Urea Nitro gen [facility] ([facility]) creatinine for GFR 0.65 mg/dL 0.55-1.30 Creatinine for GF R [facility] ([facility]) glomerular filtration rate > 60.0 >51 Glomerula r Filtration Rate [facility]AL ([facility]) sodium level 135 mEq/L 136-145 Below low normal Sodium Level ATHE NA ([facility]) potassium serum 4.4 mEq/L 3.5-5.1 Potassium Serum ATHE NA ([facility]) calcium level 8.8 mg/dL 8.5-10.1 Calcium Level [facility]DAL ( [facility]) anion gap 6 mEq/L 8-16 Below low normal Anion Gap [facility]TERDAL ( [facility]) carbon dioxide level 30 mEq/L 21-32 Carbon Dioxide Level [facility]AL ([facility]) chloride level 99 mEq/L 98-107 Chloride Level [facility]DAL ([facility]) ID Date Data Source [id number] 03/29/2020 11:51:00 AM EST EZRA ([facility]) Name Value Range Interpretation Code Description Data Lety rce(s) Supporting Document(s) carbamazepine (tegretol) level 7.3 ug/mL 4.0-10.0 Carbamazepine (Tegretol) Level HITTERDAL ([facility]) ID Date Data Source [id number] 03/29/2020 11:51:00 AM EST [facility]) Name Value Range Interpretation Code Description Data Lety rce(s) Supporting Document(s) glucose, fasting 290 mg/dL 70-100 Above high normal Glucose, Fas ting EZRA ([facility]) blood urea nitrogen 7 mg/dL 7-18 Blood Urea Nitro gen EZRA ([facility]) creatinine for GFR 0.65 mg/dL 0.55-1.30 Creatinine for GF R [facility] ([facility]) potassium serum 4.4 mEq/L 3.5-5.1 Potassium Serum ATHE NA ([facility]) glomerular filtration rate > 60.0 >51 Glomerula r Filtration Rate EZRA ([facility]) chloride level 99 mEq/L 98-107 Chloride Level EZRA ([facility]) sodium level 135 mEq/L 136-145 Below low normal Sodium Level ATHE NA ([facility]) carbon dioxide level 30 mEq/L 21-32 Carbon Dioxide Level [facility]DAL ([facility]) calcium level 8.8 mg/dL 8.5-10.1 Calcium Level [facility]TERDAL ( [facility]) anion gap 6 mEq/L 8-16 Below low normal Anion Gap HITTERDAL ( [facility]) ID Date Data Source [id number] 03/29/2020 11:51:00 AM EST [facility]TERDAL ([facility]) Name Value Range Interpretation Code Description Data Lety rce(s) Supporting Document(s) carbamazepine (tegretol) level 7.3 ug/mL 4.0-10.0 Carbamazepine (Tegretol) Level [facility]) ID Date Data Source [id number] 03/29/2020 11:51:00 AM EST [facility]TERDAL ([facility]) Name Value Range Interpretation Code Description Data Lety rce(s) Supporting Document(s) glucose, fasting 290 mg/dL 70-100 Above high normal Glucose, Fas ting [facility]TERDAL ([facility]) glomerular filtration rate > 60.0 >51 Glomerula r Filtration Rate HITTERDAL ([facility]) blood urea nitrogen 7 mg/dL 7-18 Blood Urea Nitro gen HITTERDAL ([facility]) creatinine for GFR 0.65 mg/dL 0.55-1.30 Creatinine for GF R HITTERDAL ([facility]) potassium serum 4.4 mEq/L 3.5-5.1 Potassium Serum ATHE NA ([facility]) chloride level 99 mEq/L 98-107 Chloride Level EZRA ([facility]) sodium level 135 mEq/L 136-145 Below low normal Sodium Level ATHE NA ([facility]) carbon dioxide level 30 mEq/L 21-32 Carbon Dioxide Level EZRA ([facility]) anion gap 6 mEq/L 8-16 Below low normal Anion Gap EZRA ( [facility]) calcium level 8.8 mg/dL 8.5-10.1 Calcium Level EZRA ( [facility]) ID Date Data Source [id number] 03/29/2020 11:51:00 AM EST [facility]) Name Value Range Interpretation Code Description Data Lety rce(s) Supporting Document(s) carbamazepine (tegretol) level 7.3 ug/mL 4.0-10.0 Carbamazepine (Tegretol) Level HITTERDAL ([facility]) ID Date Data Source [id number] 03/29/2020 11:51:00 AM EST HITTERDAL ([facility]) Name Value Range Interpretation Code Description Data Lety rce(s) Supporting Document(s) glucose, fasting 290 mg/dL 70-100 Above high normal Glucose, Fas ting EZRA ([facility]) sodium level 135 mEq/L 136-145 Below low normal Sodium Level ATHE NA ([facility]) blood urea nitrogen 7 mg/dL 7-18 Blood Urea Nitro gen EZRA ([facility]) glomerular filtration rate > 60.0 >51 Glomerula r Filtration Rate EZRA ([facility]) creatinine for GFR 0.65 mg/dL 0.55-1.30 Creatinine for GF R EZRA ([facility]) potassium serum 4.4 mEq/L 3.5-5.1 Potassium Serum ATHE NA ([facility]) chloride level 99 mEq/L 98-107 Chloride Level EZRA ([facility]) anion gap 6 mEq/L 8-16 Below low normal Anion Gap EZRA ( [facility]) carbon dioxide level 30 mEq/L 21-32 Carbon Dioxide Level EZRA ([facility]) calcium level 8.8 mg/dL 8.5-10.1 Calcium Level EZRA ( [facility]) ID Date Data Source [id number] 03/29/2020 11:51:00 AM EST [facility]DAL ([facility]) Name Value Range Interpretation Code Description Data Lety rce(s) Supporting Document(s) carbamazepine (tegretol) level 7.3 ug/mL 4.0-10.0 Carbamazepine (Tegretol) Level HITTERDAL ([facility]) ID Date Data Source [id number] 03/29/2020 11:51:00 AM EST [facility]DAL ([facility]) Name Value Range Interpretation Code Description Data Lety rce(s) Supporting Document(s) glucose, fasting 290 mg/dL 70-100 Above high normal Glucose, Fas ting EZRA ([facility]) glomerular filtration rate > 60.0 >51 Glomerula r Filtration Rate EZRA ([facility]) creatinine for GFR 0.65 mg/dL 0.55-1.30 Creatinine for GF R HITTERDAL ([facility]) blood urea nitrogen 7 mg/dL 7-18 Blood Urea Nitro gen EZRA ([facility]) sodium level 135 mEq/L 136-145 Below low normal Sodium Level ATHE NA ([facility]) potassium serum 4.4 mEq/L 3.5-5.1 Potassium Serum ATHE NA ([facility]) anion gap 6 mEq/L 8-16 Below low normal Anion Gap EZRA ( [facility]) chloride level 99 mEq/L 98-107 Chloride Level HITTERDAL ([facility]) carbon dioxide level 30 mEq/L 21-32 Carbon Dioxide Level EZRA ([facility]) calcium level 8.8 mg/dL 8.5-10.1 Calcium Level HITTERDAL ( [facility]) ID Date Data Source [id number] 03/29/2020 11:51:00 AM EST [facility]DAL ([facility]) Name Value Range Interpretation Code Description Data Lety rce(s) Supporting Document(s) carbamazepine (tegretol) level 7.3 ug/mL 4.0-10.0 Carbamazepine (Tegretol) Level HITTERDAL ([facility]) ID Date Data Source [id number] 03/29/2020 11:51:00 AM EST [facility]DAL ([facility]) Name Value Range Interpretation Code Description Data Lety rce(s) Supporting Document(s) blood urea nitrogen 7 mg/dL 7-18 Blood Urea Nitro gen HITTERDAL ([facility]) glucose, fasting 290 mg/dL 70-100 Above high normal Glucose, Fas ting HITTERDAL ([facility]) creatinine for GFR 0.65 mg/dL 0.55-1.30 Creatinine for GF R HITTERDAL ([facility]) glomerular filtration rate > 60.0 >51 Glomerula r Filtration Rate HITTERDAL ([facility]) sodium level 135 mEq/L 136-145 Below low normal Sodium Level ATH NA ([facility]) potassium serum 4.4 mEq/L 3.5-5.1 Potassium Serum ATH NA ([facility]) chloride level 99 mEq/L 98-107 Chloride Level HITTERDAL ([facility]) calcium level 8.8 mg/dL 8.5-10.1 Calcium Level HITTERDAL ( [facility]) carbon dioxide level 30 mEq/L 21-32 Carbon Dioxide Level EZRA ([facility]) anion gap 6 mEq/L 8-16 Below low normal Anion Gap [facility]) ID Date Data Source [id number] 01/12/2020 11:36:00 AM EST [facility]) Name Value Range Interpretation Code Description Data Lety rce(s) Supporting Document(s) carbamazepine (tegretol) level 12.1 ug/mL 4.0-10.0 Above high normal Carbamazepine (Tegretol) Level [facility]) ID Date Data Source [id number] 01/12/2020 11:36:00 AM EST H[facility]TERDAL ([facility]) Name Value Range Interpretation Code Description Data Lety rce(s) Supporting Document(s) white blood count 10.7 10 4.0-10.0 Above high normal White Blood Count EZRA ([facility]) mean corpuscular volume 88.7 fL 80.0-96.0 Mean Corpusc ular Volume EZRA ([facility]) red blood count 4.78 10 4.00-5.40 Red Blood Count ATHE NA ([facility]) hematocrit 42.4 % 36.0-47.0 Hematocrit EZRA ([facility]) hemoglobin 13.6 g/dL 12.0-15.5 Hemoglobin EZRA ([facility]) platelet count, automated 335 10 150-450 Platelet C ount, Automated EZRA ([facility]) mean corpuscular hemoglobin 28.5 pg 27.0-33.0 Mean Cor puscular Hemoglobin EZRA ([facility]) red cell distribution width 12.8 % 11.5-14.5 Red Cell Distribution Width EZRA ([facility]) mean corpuscular HGB conc 32.1 g/dL 32.0-36.5 Mean Corpu scular HGB Conc EZRA ([facility]) neutrophils % 60.9 % 36.0-66.0 Neutrophils % EZRA ( [facility]) mono % 4.5 % 0.0-5.0 Mckenzie % EZRA ([facility]) baso % 0.4 % 0.0-1.0 Baso % EZRA ([facility]) eos % 3.5 % 0.0-3.0 Above high normal Eos % EZRA ([facility]) lymph % 30.2 % 24.0-44.0 Lymph % HITTERDAL ([facility]) immature granulocyte % 0.5 % 0-3.0 Immature Gran ulocyte % EZRA ([facility]) nucleated red blood cell % 0.0 % 0-0 Nucleated Red Blood Cell % EZRA ([facility]) neutrophils # 6.5 10 1.5-8.5 Neutrophils # EZRA ( [facility]) mono # 0.5 10 0.0-0.8 Mckenzie # EZRA ([facility]) lymph # 3.2 10 1.5-5.0 Lymph # EZRA ([facility]) eos # 0.4 10 0.0-0.5 Eos # EZRA ([facility]) baso # 0.0 10 0.0-0.2 Baso # EZRA ([facility]) ID Date Data Source [id number] 01/12/2020 11:36:00 AM EST EZRA ([facility]) Name Value Range Interpretation Code Description Data Lety rce(s) Supporting Document(s) carbamazepine (tegretol) level 12.1 ug/mL 4.0-10.0 Above high normal Carbamazepine (Tegretol) Level EZRA ([facility]) ID Date Data Source [id number] 01/12/2020 11:36:00 AM EST EZRA ([facility]) Name Value Range Interpretation Code Description Data Lety rce(s) Supporting Document(s) red blood count 4.78 10 4.00-5.40 Red Blood Count ATHE ([facility]) white blood count 10.7 10 4.0-10.0 Above high normal White Blood Count EZRA ([facility]) mean corpuscular hemoglobin 28.5 pg 27.0-33.0 Mean Cor puscular Hemoglobin EZRA ([facility]) mean corpuscular volume 88.7 fL 80.0-96.0 Mean Corpusc ular Volume EZRA ([facility]) hemoglobin 13.6 g/dL 12.0-15.5 Hemoglobin EZRA ([facility]) hematocrit 42.4 % 36.0-47.0 Hematocrit EZRA ([facility]) neutrophils % 60.9 % 36.0-66.0 Neutrophils % EZRA ( [facility]) red cell distribution width 12.8 % 11.5-14.5 Red Cell Distribution Width EZRA ([facility]) platelet count, automated 335 10 150-450 Platelet C ount, Automated EZRA ([facility]) mean corpuscular HGB conc 32.1 g/dL 32.0-36.5 Mean Corpu scular HGB Conc HITTERDAL ([facility]) eos % 3.5 % 0.0-3.0 Above high normal Eos % EZRA ([facility]) mono % 4.5 % 0.0-5.0 Mckenzie % HITTERDAL ([facility]) lymph % 30.2 % 24.0-44.0 Lymph % HITTERDAL ([facility]) baso % 0.4 % 0.0-1.0 Baso % HITTERDAL ([facility]) nucleated red blood cell % 0.0 % 0-0 Nucleated Red Blood Cell % HITTERDAL ([facility]) immature granulocyte % 0.5 % 0-3.0 Immature Gran ulocyte % HITTERDAL ([facility]) mono # 0.5 10 0.0-0.8 Mckenzie # HITTERDAL ([facility]) neutrophils # 6.5 10 1.5-8.5 Neutrophils # HITTERDAL ( [facility]) lymph # 3.2 10 1.5-5.0 Lymph # HITTERDAL ([facility]) eos # 0.4 10 0.0-0.5 Eos # HITTERDAL ([facility]) baso # 0.0 10 0.0-0.2 Baso # HITTERDAL ([facility]) ID Date Data Source [id number] 01/12/2020 11:36:00 AM EST [facility]TERDAL ([facility]) Name Value Range Interpretation Code Description Data Lety rce(s) Supporting Document(s) carbamazepine (tegretol) level 12.1 ug/mL 4.0-10.0 Above high normal Carbamazepine (Tegretol) Level HITTERDAL ([facility]) ID Date Data Source [id number] 01/12/2020 11:36:00 AM EST [facility]TERDAL ([facility]) Name Value Range Interpretation Code Description Data Lety rce(s) Supporting Document(s) red blood count 4.78 10 4.00-5.40 Red Blood Count ATHE NA ([facility]) white blood count 10.7 10 4.0-10.0 Above high normal White Blood Count EZRA ([facility]) hemoglobin 13.6 g/dL 12.0-15.5 Hemoglobin EZRA ([facility]) hematocrit 42.4 % 36.0-47.0 Hematocrit EZRA ([facility]) mean corpuscular volume 88.7 fL 80.0-96.0 Mean Corpusc ular Volume EZRA ([facility]) red cell distribution width 12.8 % 11.5-14.5 Red Cell Distribution Width EZRA ([facility]) platelet count, automated 335 10 150-450 Platelet C ount, Automated EZRA ([facility]) mean corpuscular HGB conc 32.1 g/dL 32.0-36.5 Mean Corpu scular HGB Conc EZRA ([facility]) mean corpuscular hemoglobin 28.5 pg 27.0-33.0 Mean Cor puscular Hemoglobin EZRA ([facility]) eos % 3.5 % 0.0-3.0 Above high normal Eos % EZRA ([facility]) mono % 4.5 % 0.0-5.0 Mckenzie % EZRA ([facility]) neutrophils % 60.9 % 36.0-66.0 Neutrophils % EZRA ( [facility]) lymph % 30.2 % 24.0-44.0 Lymph % EZRA ([facility]) immature granulocyte % 0.5 % 0-3.0 Immature Gran ulocyte % EZRA ([facility]) nucleated red blood cell % 0.0 % 0-0 Nucleated Red Blood Cell % EZRA ([facility]) baso % 0.4 % 0.0-1.0 Baso % EZRA ([facility]) neutrophils # 6.5 10 1.5-8.5 Neutrophils # EZRA ( [facility]) baso # 0.0 10 0.0-0.2 Baso # EZRA ([facility]) mono # 0.5 10 0.0-0.8 Mckenzie # EZRA ([facility]) eos # 0.4 10 0.0-0.5 Eos # EZRA ([facility]) lymph # 3.2 10 1.5-5.0 Lymph # EZRA ([facility]) ID Date Data Source [id number] 01/12/2020 11:36:00 AM EST EZRA ([facility]) Name Value Range Interpretation Code Description Data Lety rce(s) Supporting Document(s) carbamazepine (tegretol) level 12.1 ug/mL 4.0-10.0 Above high normal Carbamazepine (Tegretol) Level EZRA ([facility]) ID Date Data Source [id number] 01/12/2020 11:36:00 AM EST EZRA ([facility]) Name Value Range Interpretation Code Description Data Lety rce(s) Supporting Document(s) white blood count 10.7 10 4.0-10.0 Above high normal White Blood Count EZRA ([facility]) hemoglobin 13.6 g/dL 12.0-15.5 Hemoglobin ERZA ([facility]) mean corpuscular volume 88.7 fL 80.0-96.0 Mean Corpusc ular Volume EZRA ([facility]) red blood count 4.78 10 4.00-5.40 Red Blood Count ATHE NA ([facility]) hematocrit 42.4 % 36.0-47.0 Hematocrit EZRA ([facility]) mean corpuscular HGB conc 32.1 g/dL 32.0-36.5 Mean Corpu scular HGB Conc EZRA ([facility]) mean corpuscular hemoglobin 28.5 pg 27.0-33.0 Mean Cor puscular Hemoglobin EZRA ([facility]) red cell distribution width 12.8 % 11.5-14.5 Red Cell Distribution Width EZRA ([facility]) lymph % 30.2 % 24.0-44.0 Lymph % EZRA ([facility]) neutrophils % 60.9 % 36.0-66.0 Neutrophils % EZRA ( [facility]) platelet count, automated 335 10 150-450 Platelet C ount, Automated EZRA ([facility]) immature granulocyte % 0.5 % 0-3.0 Immature Gran ulocyte % EZRA ([facility]) nucleated red blood cell % 0.0 % 0-0 Nucleated Red Blood Cell % EZRA ([facility]) mono % 4.5 % 0.0-5.0 Mckenzie % EZRA ([facility]) eos % 3.5 % 0.0-3.0 Above high normal Eos % EZRA ([facility]) baso % 0.4 % 0.0-1.0 Baso % EZAR ([facility]) baso # 0.0 10 0.0-0.2 Baso # EZRA ([facility]) eos # 0.4 10 0.0-0.5 Eos # EZRA ([facility]) mono # 0.5 10 0.0-0.8 Mckenzie # EZRA ([facility]) neutrophils # 6.5 10 1.5-8.5 Neutrophils # HITTERDAL ( [facility]) lymph # 3.2 10 1.5-5.0 Lymph # EZRA ([facility]) ID Date Data Source [id number] 01/12/2020 11:36:00 AM EST EZRA ([facility]) Name Value Range Interpretation Code Description Data Lety rce(s) Supporting Document(s) carbamazepine (tegretol) level 12.1 ug/mL 4.0-10.0 Above high normal Carbamazepine (Tegretol) Level HITTERDAL ([facility]) ID Date Data Source [id number] 01/12/2020 11:36:00 AM EST EZRA ([facility]) Name Value Range Interpretation Code Description Data Lety rce(s) Supporting Document(s) white blood count 10.7 10 4.0-10.0 Above high normal White Blood Count EZRA ([facility]) red blood count 4.78 10 4.00-5.40 Red Blood Count ATHE NA ([facility]) mean corpuscular HGB conc 32.1 g/dL 32.0-36.5 Mean Corpu scular HGB Conc EZRA ([facility]) mean corpuscular hemoglobin 28.5 pg 27.0-33.0 Mean Cor puscular Hemoglobin EZRA ([facility]) hemoglobin 13.6 g/dL 12.0-15.5 Hemoglobin EZRA ([facility]) mean corpuscular volume 88.7 fL 80.0-96.0 Mean Corpusc ular Volume EZRA ([facility]) hematocrit 42.4 % 36.0-47.0 Hematocrit EZRA ([facility]) red cell distribution width 12.8 % 11.5-14.5 Red Cell Distribution Width EZRA ([facility]) lymph % 30.2 % 24.0-44.0 Lymph % EZRA ([facility]) platelet count, automated 335 10 150-450 Platelet C ount, Automated EZRA ([facility]) neutrophils % 60.9 % 36.0-66.0 Neutrophils % EZRA ( [facility]) mono % 4.5 % 0.0-5.0 Mckenzie % HITTERDAL ([facility]) immature granulocyte % 0.5 % 0-3.0 Immature Gran ulocyte % EZRA ([facility]) baso % 0.4 % 0.0-1.0 Baso % EZRA ([facility]) eos % 3.5 % 0.0-3.0 Above high normal Eos % EZRA ([facility]) eos # 0.4 10 0.0-0.5 Eos # EZRA ([facility]) nucleated red blood cell % 0.0 % 0-0 Nucleated Red Blood Cell % EZRA ([facility]) lymph # 3.2 10 1.5-5.0 Lymph # EZRA ([facility]) mono # 0.5 10 0.0-0.8 Mckenzie # EZRA ([facility]) neutrophils # 6.5 10 1.5-8.5 Neutrophils # EZRA ( [facility]) baso # 0.0 10 0.0-0.2 Baso # EZRA ([facility]) ID Date Data Source [id number] 01/12/2020 11:36:00 AM EST EZRA ([facility]) Name Value Range Interpretation Code Description Data Lety rce(s) Supporting Document(s) carbamazepine (tegretol) level 12.1 ug/mL 4.0-10.0 Above high normal Carbamazepine (Tegretol) Level HITTERDAL ([facility]) ID Date Data Source [id number] 01/12/2020 11:36:00 AM EST EZRA ([facility]) Name Value Range Interpretation Code Description Data Lety rce(s) Supporting Document(s) white blood count 10.7 10 4.0-10.0 Above high normal White Blood Count EZRA ([facility]) hematocrit 42.4 % 36.0-47.0 Hematocrit EZRA ([facility]) hemoglobin 13.6 g/dL 12.0-15.5 Hemoglobin EZRA ([facility]) red blood count 4.78 10 4.00-5.40 Red Blood Count ATHE ([facility]) mean corpuscular HGB conc 32.1 g/dL 32.0-36.5 Mean Corpu scular HGB Conc EZRA ([facility]) mean corpuscular hemoglobin 28.5 pg 27.0-33.0 Mean Cor puscular Hemoglobin EZRA ([facility]) mean corpuscular volume 88.7 fL 80.0-96.0 Mean Corpusc ular Volume EZRA ([facility]) red cell distribution width 12.8 % 11.5-14.5 Red Cell Distribution Width EZRA ([facility]) platelet count, automated 335 10 150-450 Platelet C ount, Automated EZRA ([facility]) neutrophils % 60.9 % 36.0-66.0 Neutrophils % EZRA ( [facility]) lymph % 30.2 % 24.0-44.0 Lymph % EZRA ([facility]) mono % 4.5 % 0.0-5.0 Mckenzie % EZRA ([facility]) immature granulocyte % 0.5 % 0-3.0 Immature Gran ulocyte % EZRA ([facility]) eos % 3.5 % 0.0-3.0 Above high normal Eos % EZRA ([facility]) baso % 0.4 % 0.0-1.0 Baso % EZRA ([facility]) lymph # 3.2 10 1.5-5.0 Lymph # EZRA ([facility]) mono # 0.5 10 0.0-0.8 Mckenzie # HITTERDAL ([facility]) neutrophils # 6.5 10 1.5-8.5 Neutrophils # EZRA ( [facility]) eos # 0.4 10 0.0-0.5 Eos # HITTERDAL ([facility]) nucleated red blood cell % 0.0 % 0-0 Nucleated Red Blood Cell % EZRA ([facility]) baso # 0.0 10 0.0-0.2 Baso # EZRA ([facility]) Procedure Social History Code Duration Value Status Description Data Source(s ) Smoking 12/18/2020 12:00:00 AM EDT Never Smoker completed Never S moker eCW1 ([facility]) Smoking 05/31/2020 12:00:00 AM EDT Never Smoker completed Never S moker eCW1 ([facility]) Vital Signs ID Date Data Source [id number] Name Value Range Interpretation Code Description Data Source(s) Body weight 237 [lb_av] 237 [lb_av] eCW1 ([facility]) Body weight 107.5 kg 107.5 kg eCW1 ([facility]) Body height [in_i] [facility] ([facility]) Body mass index (BMI) [Ratio] 38.25 kg/m2 38.25 kg/m2 [facility] ([facility]) Systolic blood pressure 137 mm[Hg] 137 mm[Hg] M EDENT ([facility]) Diastolic blood pressure 79 mm[Hg] 79 mm[Hg] MEDENT ([facility]) Heart rate 77 /min 77 /min [facility] Body temperature 95.5 [degF] 95.5 [degF] [facility] ([facility]) Oxygen saturation in Arterial blood by Pulse oximetry 96 % 96 % [facility] ([facility]) Systolic blood pressure 112 mm[Hg] 112 mm[Hg] [facility] Diastolic blood pressure 68 mm[Hg] 68 mm[Hg] [facility] Heart rate 84 /min 84 /min [facility] ([facility]) Oxygen saturation in Arterial blood by Pulse oximetry 97 % 97 % [facility] ([facility]) Body height 66 [in_i] 66 [in_i] [facility] ([facility]) 5'6" Body weight 232.00 [lb_av] 232.00 [lb_av] [facility] Body mass index (BMI) [Ratio] 37.4 kg/m2 37.4 k g/m2 [facility] ([facility]) [place] body weight 130 [lb_av] 130 [lb_av] [facility] Body weight 105.235 kg 105.235 kg [facility] ([facility]) Body surface area Derived from formula 2.13 m2 2.13 m2 [facility] ([facility]) Diastolic blood pressure 68 mm[Hg] 68 mm[Hg] EZRA ([facility]) Diastolic blood pressure 81 mm[Hg] 81 mm[Hg] EZRA ([facility]) Body height 66 [in_i] 66 [in_i] EZRA ([facility]) Body mass index (BMI) [Ratio] 37 kg/m2 37 kg/ m2 EZRA ([facility]) Systolic blood pressure 103 mm[Hg] 103 mm[Hg] A THENA ([facility]) Systolic blood pressure 149 mm[Hg] 149 mm[Hg] A THEN ([facility]) Body weight 3664 [oz_av] 3664 [oz_av] EZRA ([facility]) Body height 66 [in_i] 66 [in_i] EZRA ([facility]) Body height 66 [in_i] 66 [in_i] EZRA ([facility]) Oxygen saturation in Arterial blood by Pulse oximetry 96 % 96 % [facility] Body height 66 [in_i] 66 [in_i] [facility], [facility] 5'6" [place] body weight 130 [lb_av] 130 [lb_av] MEDEN T ([facility], ) Systolic blood pressure 120 mm[Hg] 120 mm[Hg] M [facility] ([facility], ) Heart rate 93 /min 93 /min [facility] ([facility]) Oxygen saturation in Arterial blood by Pulse oximetry 96 % 96 % [facility] ([facility]) Body height 66 [in_i] 66 [in_i] [facility] 5'6" [place] body weight 130 [lb_av] 130 [lb_av] MEDEN T ([facility], ) Diastolic blood pressure 64 mm[Hg] 64 mm[Hg] [facility] ([facility], ) Body height 66 [in_i] 66 [in_i] [facility] ([facility], ) 5'6" Body weight 236.25 [lb_av] 236.25 [lb_av] MEDEN T ([facility], ) Systolic blood pressure 148 mm[Hg] 148 mm[Hg] [facility] Diastolic blood pressure 78 mm[Hg] 78 mm[Hg] [facility] ([facility], ) Heart rate 80 /min 80 /min [facility] ([facility]) Body mass index (BMI) [Ratio] 38.1 kg/m2 38.1 k g/m2 [facility] ([facility]) [place] body weight 130 [lb_av] 130 [lb_av] MEDEN T ([facility], ) Body weight 107.163 kg 107.163 kg [facility] ([facility]) Body surface area Derived from formula 2.15 m2 2.15 m2 MEDENT ([facility], ) Diastolic blood pressure 78 mm[Hg] 78 mm[Hg] EZRA ([facility]) Body height 66 [in_i] 66 [in_i] EZRA ([facility]) Body mass index (BMI) [Ratio] 38.2 kg/m2 38.2 k g/m2 EZRA ([facility]) Systolic blood pressure 124 mm[Hg] 124 mm[Hg] A THENA ([facility]) Body weight 3782 [oz_av] 3782 [oz_av] EZRA ([facility]) Diastolic blood pressure 78 mm[Hg] 78 mm[Hg] EZRA ([facility]) Body height 66 [in_i] 66 [in_i] EZRA ([facility]) Body mass index (BMI) [Ratio] 38.2 kg/m2 38.2 k g/m2 EZRA ([facility]) Systolic blood pressure 124 mm[Hg] 124 mm[Hg] A THENA ([facility]) Body weight 3782 [oz_av] 3782 [oz_av] EZRA ([facility]) Systolic blood pressure 124 mm[Hg] 124 mm[Hg] A THENA ([facility]) Diastolic blood pressure 78 mm[Hg] 78 mm[Hg] EZRA ([facility]) Body height 66 [in_i] 66 [in_i] [facility]RA ([facility] [facility] Body mass index (BMI) [Ratio] 38.2 kg/m2 38.2 k g/m2 EZRA ([facility]) Body weight 3782 [oz_av] 3782 [oz_av] EZRA ([facility]) Body height 66 [in_i] 66 [...] 96.8 [degF] 96.8 [degF] MEDENT ([facility]) Diastolic blood pressure 66 mm[Hg] 66 mm[Hg] eCW1 ([facility]) Body weight 237 [lb_av] 237 [lb_av] eCW1 ([facility]) Body weight 107.5 kg 107.5 kg eCW1 ([facility]) Body height [in_i] eCW1 ([facility]) Body mass index (BMI) [Ratio] 38.25 kg/m2 38.25 kg/m2 eCW1 ([facility]) Systolic blood pressure 130 mm[Hg] 130 mm[Hg] e CW1 ([facility]) Systolic blood pressure 120 mm[Hg] 120 mm[Hg] M EDENT ([facility], ) Diastolic blood pressure 80 mm[Hg] 80 mm[Hg] MEDENT ([facility], ) Heart rate 77 /min 77 /min [facility] ([facility], ) Oxygen saturation in Arterial blood by Pulse oximetry 97 % 97 % [facility] ([facility], ) Body height 66 [in_i] 66 [in_i] [facility] ([facility], ) 5'6" Body weight 240.00 [lb_av] 240.00 [lb_av] MEDEN T ([facility], ) Body mass index (BMI) [Ratio] 38.7 kg/m2 38.7 k g/m2 [facility] [place] body weight 130 [lb_av] 130 [lb_av] MEDEN T ([facility], ) Body weight 108.864 kg 108.864 kg [facility] ([facility], ) Body surface area Derived from formula 2.16 m2 2.16 m2 [facility] ([facility], ) Diastolic blood pressure 71 mm[Hg] 71 mm[Hg] EZRA ([facility]) Body height 66 [in_i] 66 [in_i] EZRA ([facility]) Body mass index (BMI) [Ratio] 39.1 kg/m2 39.1 k g/m2 EZRA ([facility]) Systolic blood pressure 112 mm[Hg] 112 mm[Hg] [facility] Body weight 3878 [oz_av] 3878 [oz_av] EZRA ([facility]) Body height 66 [in_i] 66 [in_i] EZRA ([facility]) Body mass index (BMI) [Ratio] 39.1 kg/m2 39.1 k g/m2 EZRA ([facility]) Systolic blood pressure 112 mm[Hg] 112 mm[Hg] [facility] Body weight 3878 [oz_av] 3878 [oz_av] EZRA ([facility]) Diastolic blood pressure 71 mm[Hg] 71 mm[Hg] EZRA ([facility]) Diastolic blood pressure 71 mm[Hg] 71 mm[Hg] EZRA ([facility]) Body height 66 [in_i] 66 [in_i] EZRA ([facility]) Body mass index (BMI) [Ratio] 39.1 kg/m2 39.1 k g/m2 EZRA ([facility]) Systolic blood pressure 112 mm[Hg] 112 mm[Hg] [facility] Body weight 3878 [oz_av] 3878 [oz_av] EZRA ([facility]) Diastolic blood pressure 71 mm[Hg] 71 mm[Hg] EZRA ([facility]) Body height 66 [in_i] 66 [in_i] EZRA ([facility]) Body mass index (BMI) [Ratio] 39.1 kg/m2 39.1 k g/m2 EZRA ([facility]) Systolic blood pressure 112 mm[Hg] 112 mm[Hg] [facility] Body weight 3878 [oz_av] 3878 [oz_av] EZRA ([facility]) Diastolic blood pressure 71 mm[Hg] 71 mm[Hg] EZRA ([facility]) Body height 66 [in_i] 66 [in_i] EZRA ([facility]) Body mass index (BMI) [Ratio] 39.1 kg/m2 39.1 k g/m2 EZRA ([facility]) Systolic blood pressure 112 mm[Hg] 112 mm[Hg] A THENA ([facility]) Body weight 3878 [oz_av] 3878 [oz_av] EZRA ([facility]) Body mass index (BMI) [Ratio] 39.1 kg/m2 39.1 k g/m2 EZRA ([facility]) Systolic blood pressure 112 mm[Hg] 112 mm[Hg] A THENA ([facility]) Body weight 3878 [oz_av] 3878 [oz_av] EZRA ([facility]) Diastolic blood pressure 71 mm[Hg] 71 mm[Hg] EZRA ([facility]) Body height 66 [in_i] 66 [in_i] EZRA ([facility]) Patient Treatment Plan of Care Planned Activity Planned Date Details Description Data Source (s) Simvastatin 10 MG Oral Tablet EZRA ([facility]) Promethazine Hydrochloride 25 MG Oral Tablet EZRA ([facility]) Prednisone 20 MG Oral Tablet EZRA ([facility]) Amoxicillin 875 MG / Clavulanate 125 MG Oral Tablet EZRA ([facility]) alogliptin 25 MG Oral Tablet EZRA ([facility]) Allopurinol 100 MG Oral Tablet EZRA ([facility]) Simvastatin 10 MG Oral Tablet EZRA ([facility]) Promethazine Hydrochloride 25 MG Oral Tablet EZRA ([facility]) Prednisone 20 MG Oral Tablet EZRA ([facility]) Amoxicillin 875 MG / Clavulanate 125 MG Oral Tablet EZRA ([facility]) alogliptin 25 MG Oral Tablet EZRA ([facility]) Allopurinol 100 MG Oral Tablet EZRA ([facility]) Simvastatin 10 MG Oral Tablet EZRA ([facility]) Promethazine Hydrochloride 25 MG Oral Tablet EZRA ([facility]) Prednisone 20 MG Oral Tablet EZRA ([facility]) fluticasone furoate 0.2 MG/ACTUAT Dry Powder Inhaler EZRA ([facility]) Amoxicillin 875 MG / Clavulanate 125 MG Oral Tablet ERZA ([facility]) alogliptin 25 MG Oral Tablet EZRA ([facility]) Allopurinol 100 MG Oral Tablet EZRA ([facility]) Simvastatin 10 MG Oral Tablet EZRA ([facility]) Prednisone 20 MG Oral Tablet EZRA ([facility]) Amoxicillin 875 MG / Clavulanate 125 MG Oral Tablet EZRA ([facility]) Allopurinol 100 MG Oral Tablet EZRA ([facility]) Simvastatin 10 MG Oral Tablet EZRA ([facility]) Prednisone 20 MG Oral Tablet EZRA ([facility]) Amoxicillin 875 MG / Clavulanate 125 MG Oral Tablet EZRA ([facility]) Allopurinol 100 MG Oral Tablet EZRA ([facility]) Simvastatin 10 MG Oral Tablet EZRA ([facility]) Prednisone 20 MG Oral Tablet EZRA ([facility]) Amoxicillin 875 MG / Clavulanate 125 MG Oral Tablet EZRA ([facility]) Allopurinol 100 MG Oral Tablet EZRA ([facility])
[2021-01-09] MEDS ORDERED: ONDANSETRON 4MG/2ML VIAL IV ONE (09:05)
--- NOTE | 2021-01-09 09:57 | REP ---
INDICATION: hx GB disease, intractable vomiting, RUQ pain. COMPARISON: 08/21/2020. TECHNIQUE: Real-time sonographic evaluation of right upper quadrant performed. FINDINGS: There are gallstones in the gallbladder. There are several subcentimeter polyps along the inner wall of the gallbladder. There is no gallbladder wall thickening.. There is no intrahepatic or extrahepatic biliary dilatation, common bile duct measures 6 mm in maximum diameter. There is diffuse fatty infiltration of the liver with no gross mass. Visualized pancreas is grossly unremarkable, not optimally seen due to overlying bowel gas. The right kidney demonstrates no hydronephrosis, with a normal size of 12.2 cm in length. No free fluid is seen. IMPRESSION: Gallstones in the gallbladder. Several subcentimeter polyps in the gallbladder. No gallbladder wall thickening, biliary dilatation or free fluid. Diffuse fatty infiltration of the liver. <Electronically signed by Jewel Rich > 01/09/21 0925
[2021-01-09 10:25] LABS: BASO # 0.1 10^3/uL (0.0-0.2); BASO % 0.4 % (0.0-1.0); EOS # 0.1 10^3/uL (0.0-0.5); EOS % 0.8 % (0.0-3.0); HEMATOCRIT 43.4 % (36.0-47.0); HEMOGLOBIN 14.2 g/dl (12.0-15.5); LYMPH # 2.1 10^3/uL (1.5-5.0); LYMPH % 12.5 % (24.0-44.0); MEAN CORPUSCULAR HEMOGLOBIN 28.9 pg (27.0-33.0); MEAN CORPUSCULAR HGB CONC 32.7 g/dl (32.0-36.5); MEAN CORPUSCULAR VOLUME 88.4 fl (80.0-96.0); MONO # 0.8 10^3/uL (0.0-0.8); MONO % 4.9 % (2.0-8.0); NEUTROPHILS # 13.3 10^3/uL (1.5-8.5); NEUTROPHILS % 80.7 % (36.0-66.0); PLATELET COUNT, AUTOMATED 318 10^3/uL (150-450); RED BLOOD COUNT 4.91 10^6/uL (4.00-5.40); WHITE BLOOD COUNT 16.5 10^3/uL (4.0-10.0)
[2021-01-09 10:40] LABS: ALBUMIN 3.1 GM/DL (3.2-5.2); ALT/SGPT 22 IU/L (0-32); BILIRUBIN,DIRECT 0.1 MG/DL (0.0-0.2); BILIRUBIN,TOTAL 0.2 MG/DL (0.2-1.0); LIPASE 200 U/L (73-393); TOTAL PROTEIN 7.7 GM/DL (6.4-8.2)
[2021-01-09 11:57] LABS: BLOOD UREA NITROGEN 14 MG/DL (7-18); CALCIUM LEVEL 9.1 MG/DL (8.5-10.1); CARBON DIOXIDE LEVEL 27 mmol/L (20-29); CHLORIDE LEVEL 100 MEQ/L (98-107); GLOMERULAR FILTRATION RATE > 60.0 (>51); GLUCOSE, FASTING 303 MG/DL (70-100); POTASSIUM SERUM 4.7 MEQ/L (3.5-5.1); SODIUM LEVEL 136 MEQ/L (136-145)
--- NOTE | 2021-01-09 12:01 | IPNPDOC ---
Date Seen The patient was seen on 01/09/21. Progress Note ER PA consulted Hospitalist re: cdiff in covid + pt. I discussed with ER PA indications for hospital admission for CDiff: -intractable n/v/d unable to keep oral intake -severe dehydration with electrolyte abn and kidney failure, unable to be corrected -recommend vanco 250 q6hrs x 10 days. if #diarrhea episodes do not decrease by 50%, change to dificid bid. -close fu w pcp to document failure on po vanco. covid-19 -hypoxia o2sat<90%RA VS, I&O, 24H, Fishbone Vital Signs/I&O Vital Signs Date Time Temp Pulse Resp B/P (MAP) Pulse Ox O2 Delivery O2 Flow Rate FiO2 01/09/21 10:00 73 133/72 (92) 93 Room Air 01/09/21 08:16 98.3 18 Laboratory Data 24H LABS Laboratory Tests 2 01/09/21 09:30: Urine Color YELLOW, Urine Appearance CLEAR, Urine pH 6.0, Urine Specific [place] 1.023, Urine Protein NEGATIVE, Urine Glucose (UA) NEGATIVE, Urine Ketones NEGATIVE, Urine Blood NEGATIVE, Urine Nitrite NEGATIVE, Urine Bilirubin NEGATIVE, Urine Urobilinogen 0.2, Urine Leukocyte Esterase TRACEH, Urine WBC (Auto) 1, Urine RBC (Auto) 2, Urine Hyaline Casts (Auto) 0, Urine Bacteria (Auto) NEGATIVE, Urine Squamous Epithelial Cells 1, Urine Mucus (Auto) SMALL, Urine Sperm (Auto) , Bedside Glucose (Misc Panel) 291H 01/09/21 09:42: Immature Granulocyte % (Auto) 0.7, Neutrophils (%) (Auto) 80.7H, Lymphocytes (%) (Auto) 12.5L, Monocytes (%) (Auto) 4.9, Eosinophils (%) (Auto) 0.8, Basophils (%) (Auto) 0.4, Neutrophils # (Auto) 13.3H, Lymphocytes # (Auto) 2.1, Monocytes # (Auto) 0.8, Eosinophils # (Auto) 0.1, Basophils # (Auto) 0.1, Nucleated Red Blood Cells % (auto) 0.0, Total Bilirubin 0.2, Direct Bilirubin 0.1, Aspartate Amino Transf (AST/SGOT) 21, Alanine Aminotransferase (ALT/SGPT) 22, Alkaline Phosphatase 50, Total Protein 7.7, Albumin 3.1L, Albumin/Globulin Ratio 0.7L, Lipase 200 01/09/21 09:57: POC Glucose (Misc Panel) 318H, POC Sodium (Misc Panel) 134L, POC Potassium (Misc Panel) 4.5, POC Chloride (Misc Panel) 99, POC Total CO2 (Misc Panel) 27.0, POC Blood Urea Nitrogen (Misc Panel 15, POC Ionized Calcium (Misc Panel) 3.9L, POC Creatinine (Misc Panel) 0.4L, POC Hematocrit (Misc Panel) 44.0 CBC/BMP Laboratory Tests 01/09/21 09:42 Microbiology Microbiology 01/09/21 Urine Culture, Received Pending 01/09/21 Gastrointestinal Tract Panel (PCR) - Final, Complete Clostridium Difficile A/B BEHT DUBOIS MD Jan 09, 2021 12:01
[2021-01-09] MEDS ORDERED: VANC125C3 PO (13:19)
[2021-01-09] MEDS ORDERED: VANCOMYCIN ORAL SOL 250MG/5ML ORAL SYRINGE PO ONE (13:25)
[2021-01-09 13:45] VITALS: BP 132/67
== END 2021-01-09 14:33 | disposition home or self-care (01) ==
LOC: M ED 07:06
DX: E11.65 Type 2 diabetes mellitus with hyperglycemia (principal); A04.72 Enterocolitis due to Clostridium difficile, not specified as recurrent; J45.909 Unspecified asthma, uncomplicated; E78.5 Hyperlipidemia, unspecified; F31.9 Bipolar disorder, unspecified; K58.9 Irritable bowel syndrome, unspecified; Z79.899 Other long term (current) drug therapy; Z79.84 Long term (current) use of oral hypoglycemic drugs; Z88.8 Allergy status to other drugs, medicaments and biological substances
CPT/HCPCS: 76705; 80047; 80048; 80076; 81001; 83690; 85025; 87086; 87505; 96374; 99284; J2405

== ENCOUNTER 2021-11-20 07:43 | Emergency (ER) | payer MEDICAID, OTHER ==
[~2021-11-20] VITALS: Ht 167.6 cm; Wt 104.1 kg
[~2021-11-20 07:43] MED LIST changes: +VANC125C3 PO
[2021-11-20] MEDS ORDERED: METF-838 PO ×2 (07:54)
[2021-11-20] MEDS ORDERED: TRUL10IN SQ (07:54)
[2021-11-20] MEDS ORDERED: KETOROLAC TROMETHAMINE 10 MG TAB PO ONE (08:50)
[2021-11-20] MEDS ORDERED: KETO10TAB PO (09:53)
[2021-11-20 10:22] VITALS: BP 130/69
== END 2021-11-20 10:36 | disposition home or self-care (01) ==
LOC: M ED 07:43
DX: N64.4 Mastodynia (principal); M54.6 Pain in thoracic spine; I10 Essential (primary) hypertension; E11.9 Type 2 diabetes mellitus without complications; F31.9 Bipolar disorder, unspecified; Z79.899 Other long term (current) drug therapy; Z79.51 Long term (current) use of inhaled steroids; Z79.84 Long term (current) use of oral hypoglycemic drugs

== ENCOUNTER → 2021-12-23 | Outpatient (CLI) | payer OTHER, MEDICAID ==
[~2021-12-23] MED LIST changes: +KETO10TAB PO; +METF-838 PO; +TRUL10IN SQ
[2021-12-23 12:08] LABS: HEMOGLOBIN A1c 10.4 %
[2021-12-23 12:30] LABS: ALBUMIN 3.3 GM/DL (3.2-5.2); ALT/SGPT 20 U/L (12-78); BILIRUBIN,TOTAL 0.3 MG/DL (0.2-1.0); BLOOD UREA NITROGEN 8 MG/DL (7-18); CALCIUM LEVEL 9.4 MG/DL (8.5-10.1); CARBON DIOXIDE LEVEL 31 MEQ/L (21-32); CHLORIDE LEVEL 98 MEQ/L (98-107); CHOLESTEROL LEVEL 210 MG/DL (<200); CHOLESTEROL RISK RATIO 5.384 (<5); CREATININE FOR GFR 0.63 MG/DL (0.55-1.30); GLOMERULAR FILTRATION RATE > 60.0 (>51); GLUCOSE, FASTING 296 MG/DL (70-100); HDL CHOLESTEROL 39 MG/DL (>40); LDL CHOLESTEROL 95 MG/DL (<100); NON-HDL-C 171 MG/DL; POTASSIUM SERUM 4.6 MEQ/L (3.5-5.1); SODIUM LEVEL 136 MEQ/L (136-145); TRIGLYCERIDES LEVEL 380 MG/DL (<150)
== END ==
LOC: M LAB 11:30
PROVIDERS: ATTEND Nurse Practitioner Family
DX: E78.5 Hyperlipidemia, unspecified (principal); E11.8 Type 2 diabetes mellitus with unspecified complications

== ENCOUNTER → 2022-01-01 | Outpatient (REF) | payer OTHER, MEDICAID ==
[2022-01-01 21:33] LABS: MALB URINE SIEMENS 24.2 MG/L; MAU/CREAT RATIO 21.4 MCG/MG (0.0-30.0)
== END ==
LOC: M LAB REF 20:17
PROVIDERS: ATTEND Nurse Practitioner Family
DX: E11.9 Type 2 diabetes mellitus without complications (principal)

== ENCOUNTER → 2022-01-21 | Outpatient (CLI) | payer OTHER | LOC: M WHC 11:03 | PROVIDERS: ATTEND Nurse Practitioner Family | DX: Z12.31 Encounter for screening mammogram for malignant neoplasm of breast (principal) ==

== ENCOUNTER → 2022-04-09 | Outpatient (CLI) | payer OTHER | LOC: M RAD 07:12 | PROVIDERS: ATTEND Nurse Practitioner Family | DX: K80.20 Calculus of gallbladder without cholecystitis without obstruction (principal) ==

== ENCOUNTER → 2023-04-17 | Outpatient (REF) | payer OTHER, MEDICAID, SELFPAY ==
[~2023-04-17] MED LIST changes: +DICY-61 PO; -DICY10CA13 PO; +MECL-209 PO; -MECL1TAB31 PO; +MONT-5 PO; -SING10TA32 PO
[2023-04-17 18:39] LABS: BASO % 0.4 % (0.0-1.0); EOS # 0.2 10^3/uL (0.0-0.5); EOS % 2.5 % (0.0-3.0); HEMATOCRIT 41.9 % (36.0-47.0); LYMPH % 32.2 % (24.0-44.0); MEAN CORPUSCULAR HEMOGLOBIN 28.9 pg (27.0-33.0); MEAN CORPUSCULAR HGB CONC 33.4 g/dl (32.0-36.5); MEAN CORPUSCULAR VOLUME 86.4 fl (80.0-96.0); MONO # 0.4 10^3/uL (0.0-0.8); MONO % 4.6 % (2.0-8.0); NEUTROPHILS # 5.6 10^3/uL (1.5-8.5); PLATELET COUNT, AUTOMATED 292 10^3/uL (150-450); RED BLOOD COUNT 4.85 10^6/uL (4.00-5.40); WHITE BLOOD COUNT 9.4 10^3/uL (4.0-10.0)
[2023-04-17 18:50] LABS: HEMOGLOBIN A1c 11.1 % (4.0-6.0)
[2023-04-17 19:03] LABS: ALBUMIN 3.3 G/DL (3.2-5.2); ALKALINE PHOSPHATASE 55 U/L (46-116); ALT/SGPT 17 U/L (7.0-40); AST/SGOT 13 U/L (<34); BILIRUBIN,TOTAL 0.2 MG/DL (0.3-1.2); BLOOD UREA NITROGEN 13 MG/DL (9-23); CALCIUM LEVEL 8.2 MG/DL (8.5-10.1); CARBON DIOXIDE LEVEL 28 MMOL/L (20-31); CHLORIDE LEVEL 102 MMOL/L (98-107); CHOLESTEROL LEVEL 255 MG/DL (<200); CHOLESTEROL RISK RATIO 7.75 (<5); CREATININE FOR GFR 0.45 MG/DL (0.55-1.30); GLOMERULAR FILTRATION RATE > 60.0 (>51); GLUCOSE, FASTING 180 MG/DL (60-100); HDL CHOLESTEROL 32.9 MG/DL (>40); LDL CHOLESTEROL 146.7 MG/DL (<100); MAGNESIUM LEVEL 1.7 MG/DL (1.8-2.4); NON-HDL-C 222.1 MG/DL; POTASSIUM SERUM 4.2 MMOL/L (3.5-5.1); SODIUM LEVEL 136 MMOL/L (136-145); TOTAL PROTEIN 7.4 G/DL (5.7-8.2); TRIGLYCERIDES LEVEL 377 MG/DL (<150)
[2023-04-17 19:05] LABS: THYROID STIMULATING HORMONE 1.816 uIU/ML (0.55-4.78); TOTAL 25(OH) VITAMIN D 17.9 NG/ML (20.0-100.0)
== END ==
LOC: M LAB REF 17:49
PROVIDERS: ATTEND Nurse Practitioner Family
DX: E66.9 Obesity, unspecified (principal); E55.9 Vitamin D deficiency, unspecified

== ENCOUNTER → 2023-06-07 | Outpatient (CLI) | payer OTHER | LOC: M LAB 12:01 | PROVIDERS: ATTEND Psychiatry & Neurology Psychiatry | DX: Z51.81 Encounter for therapeutic drug level monitoring (principal); Z79.899 Other long term (current) drug therapy ==

== ENCOUNTER → 2023-06-07 | Outpatient (CLI) | payer OTHER ==
[2023-06-07 13:31] LABS: BLOOD UREA NITROGEN 14 MG/DL (9-23); CREATININE FOR GFR 0.54 MG/DL (0.55-1.30); GLOMERULAR FILTRATION RATE > 60.0 (>51)
== END ==
LOC: M LAB 12:05
PROVIDERS: ATTEND Nurse Practitioner Family
DX: D32.9 Benign neoplasm of meninges, unspecified (principal)

== ENCOUNTER 2023-06-20 14:29 | Emergency (ER) | payer OTHER ==
[~2023-06-20] VITALS: Ht 167.6 cm; Wt 97.3 kg
[2023-06-20] MEDS ORDERED: TEGR1TAB PO (14:42)
[2023-06-20] MEDS ORDERED: KETO10TAB PO (17:16)
[2023-06-20] MEDS ORDERED: CYCL-707 PO (17:16)
[2023-06-20] MEDS ORDERED: LIDO5DIS41 TOP (17:16)
[2023-06-20] MEDS: LIDOCAINE 5% (LIDODERM) PATCH TD ONE (17:22)
[2023-06-20] MEDS: KETOROLAC 30 MG/ML 1ML VIAL IM ONE (17:22)
[2023-06-20 17:31] VITALS: BP 160/74; TEMP 96.9; O2SAT 96
== END 2023-06-20 17:32 | disposition home or self-care (01) ==
LOC: M ED 14:29
DX: M75.31 Calcific tendinitis of right shoulder (principal); I10 Essential (primary) hypertension; E78.5 Hyperlipidemia, unspecified; K21.9 Gastro-esophageal reflux disease without esophagitis; J45.909 Unspecified asthma, uncomplicated; F32.A Depression, unspecified; F31.9 Bipolar disorder, unspecified; Z88.8 Allergy status to other drugs, medicaments and biological substances; Z79.51 Long term (current) use of inhaled steroids; Z79.84 Long term (current) use of oral hypoglycemic drugs; Z79.899 Other long term (current) drug therapy
CPT/HCPCS: 73030; 96372; 99283; J1885

== ENCOUNTER → 2023-10-09 | Outpatient (REF) | payer OTHER, MEDICAID ==
[~2023-10-09] MED LIST changes: +CYCL-707 PO; +DOXY-323; -DOXY-443; +LIDO5DIS41 TOP; +TEGR1TAB PO
[2023-10-09 18:47] LABS: BASO # 0.1 10^3/uL (0.0-0.2); BASO % 0.4 % (0.0-1.0); EOS # 0.5 10^3/uL (0.0-0.5); EOS % 4.3 % (0.0-3.0); HEMATOCRIT 42.8 % (36.0-47.0); HEMOGLOBIN 14.2 g/dl (12.0-15.5); LYMPH # 2.7 10^3/uL (1.5-5.0); LYMPH % 23.5 % (24.0-44.0); MEAN CORPUSCULAR HGB CONC 33.2 g/dl (32.0-36.5); MEAN CORPUSCULAR VOLUME 90.3 fl (80.0-96.0); MONO # 0.5 10^3/uL (0.0-0.8); MONO % 4.6 % (2.0-8.0); NEUTROPHILS # 7.5 10^3/uL (1.5-8.5); NEUTROPHILS % 66.4 % (36.0-66.0); PLATELET COUNT, AUTOMATED 245 10^3/uL (150-450); RED BLOOD COUNT 4.74 10^6/uL (4.00-5.40); WHITE BLOOD COUNT 11.3 10^3/uL (4.0-10.0)
[2023-10-09 19:12] LABS: ALBUMIN 3.3 G/DL (3.2-5.2); ALKALINE PHOSPHATASE 58 U/L (46-116); ALT/SGPT 23 U/L (7.0-40); AST/SGOT 17 U/L (<34); BILIRUBIN,TOTAL 0.3 MG/DL (0.3-1.2); BLOOD UREA NITROGEN 12 MG/DL (9-23); CALCIUM LEVEL 8.8 MG/DL (8.5-10.1); CARBON DIOXIDE LEVEL 27 MMOL/L (20-31); CHLORIDE LEVEL 102 MMOL/L (98-107); CHOLESTEROL LEVEL 205 MG/DL (<200); CHOLESTEROL RISK RATIO 6.48 (<5); CREATININE FOR GFR 0.46 MG/DL (0.55-1.30); GLOMERULAR FILTRATION RATE > 60.0 (>51); GLUCOSE, FASTING 226 MG/DL (60-100); HDL CHOLESTEROL 31.6 MG/DL (>40); MAGNESIUM LEVEL 1.5 MG/DL (1.8-2.4); NON-HDL-C 173.4 MG/DL; POTASSIUM SERUM 4.7 MMOL/L (3.5-5.1); SODIUM LEVEL 135 MMOL/L (136-145); THYROID STIMULATING HORMONE 1.679 uIU/ML (0.55-4.78); TOTAL PROTEIN 7.7 G/DL (5.7-8.2); TRIGLYCERIDES LEVEL 595 MG/DL (<150)
[2023-10-09 19:13] LABS: TOTAL 25(OH) VITAMIN D 26.9 NG/ML (20.0-100.0)
[2023-10-09 19:37] LABS: HEMOGLOBIN A1c 8.3 % (4.0-6.0)
== END ==
LOC: M LAB REF 17:34
PROVIDERS: ATTEND Nurse Practitioner Family
DX: E66.9 Obesity, unspecified (principal); E55.9 Vitamin D deficiency, unspecified

== ENCOUNTER → 2023-12-24 | Outpatient (REF) | payer OTHER, MEDICAID ==
[~2023-12-24] MED LIST changes: -DOXY-323; +DOXY-441; +GLIP10TA15 PO; -GLIP10TA6 PO
== END ==
LOC: M LAB REF 12:16
PROVIDERS: ATTEND Physician Assistant
DX: R53.83 Other fatigue (principal)

== ENCOUNTER → 2024-01-07 | Outpatient (REF) | payer OTHER ==
[2024-01-08 14:49] LABS: ALKALINE PHOSPHATASE 55 U/L (35-104); ALT/SGPT 16 U/L (7.0-40); AST/SGOT 10 U/L (<34); BILIRUBIN,TOTAL 0.2 MG/DL (0.3-1.2); BLOOD UREA NITROGEN 10 MG/DL (9-23); CALCIUM LEVEL 9.1 MG/DL (8.5-10.1); CARBON DIOXIDE LEVEL 28 MMOL/L (20-31); CHLORIDE LEVEL 100 MMOL/L (98-107); CHOLESTEROL LEVEL 183 MG/DL (<200); CHOLESTEROL RISK RATIO 5.64 (<5); CREATININE FOR GFR 0.41 MG/DL (0.55-1.30); GLOMERULAR FILTRATION RATE > 60.0 (>51); GLUCOSE, FASTING 297 MG/DL (60-100); HDL CHOLESTEROL 32.4 MG/DL (>40); NON-HDL-C 150.6 MG/DL; POTASSIUM SERUM 4.3 MMOL/L (3.5-5.1); SODIUM LEVEL 134 MMOL/L (136-145); TOTAL PROTEIN 7.4 G/DL (5.7-8.2); TRIGLYCERIDES LEVEL 544 MG/DL (<150)
== END ==
LOC: M LAB REF 13:29
PROVIDERS: ATTEND Nurse Practitioner Family
DX: E78.5 Hyperlipidemia, unspecified (principal); E11.9 Type 2 diabetes mellitus without complications

== ENCOUNTER → 2024-03-11 | Outpatient (REF) | payer MEDICAID, OTHER ==
[~2024-03-11] MED LIST changes: -ADV500INH INH; +ADVA1AER10 INH
[2024-03-11 18:29] LABS: BASO % 0.4 % (0.0-1.0); EOS # 0.4 10^3/uL (0.0-0.5); EOS % 3.9 % (0.0-3.0); HEMATOCRIT 39.2 % (36.0-47.0); HEMOGLOBIN 13.1 g/dl (12.0-15.5); LYMPH # 2.2 10^3/uL (1.5-5.0); MEAN CORPUSCULAR HEMOGLOBIN 29.8 pg (27.0-33.0); MEAN CORPUSCULAR HGB CONC 33.4 g/dl (32.0-36.5); MEAN CORPUSCULAR VOLUME 89.1 fl (80.0-96.0); MONO # 0.5 10^3/uL (0.0-0.8); MONO % 4.4 % (2.0-8.0); NEUTROPHILS % 68.4 % (36.0-66.0); PLATELET COUNT, AUTOMATED 265 10^3/uL (150-450); WHITE BLOOD COUNT 10.2 10^3/uL (4.0-10.0)
[2024-03-11 18:47] LABS: IMMUNOGLOBULIN A 359.7 MG/DL (40-350)
[2024-03-11 18:49] LABS: IMMUNOGLOBULIN E 1566.7 IU/ML (0-378)
[2024-03-11 19:01] LABS: IMMUNOGLOBULIN M 342.8 MG/DL (50-300)
== END ==
LOC: M LAB REF 17:38
PROVIDERS: ATTEND Internal Medicine Pulmonary Disease
DX: J45.40 Moderate persistent asthma, uncomplicated (principal)

== ENCOUNTER → 2024-04-20 | Outpatient (REF) | payer OTHER, MEDICAID ==
[~2024-04-20] MED LIST changes: +VANC125C13 PO; -VANC125C3 PO
[2024-04-20 18:06] LABS: CHOLESTEROL LEVEL 258 MG/DL (<200); CHOLESTEROL RISK RATIO 6.63 (<5); HDL CHOLESTEROL 38.9 MG/DL (>40); NON-HDL-C 219.1 MG/DL; TRIGLYCERIDES LEVEL 703 MG/DL (<150)
[2024-04-20 18:28] LABS: HEMOGLOBIN A1c 10.8 % (4.0-6.0)
== END ==
LOC: M LAB REF 16:30
PROVIDERS: ATTEND Nurse Practitioner Family
DX: E11.9 Type 2 diabetes mellitus without complications (principal); E78.5 Hyperlipidemia, unspecified

== ENCOUNTER → 2024-07-20 | Outpatient (REF) | payer OTHER, MEDICAID ==
[~2024-07-20] MED LIST changes: +LIDO1ADH93 TOP; -LIDO5DIS41 TOP
[2024-07-20 18:52] LABS: CHOLESTEROL LEVEL 201 MG/DL (<200); CHOLESTEROL RISK RATIO 5.96 (<5); HDL CHOLESTEROL 33.7 MG/DL (>40); MAGNESIUM LEVEL 1.6 MG/DL (1.8-2.4); NON-HDL-C 167.3 MG/DL; TRIGLYCERIDES LEVEL 620 MG/DL (<150)
== END ==
LOC: M LAB REF 17:44
PROVIDERS: ATTEND Nurse Practitioner Family
DX: E78.5 Hyperlipidemia, unspecified (principal); I10 Essential (primary) hypertension; E11.9 Type 2 diabetes mellitus without complications

== ENCOUNTER → 2024-09-11 | Outpatient (CLI) | payer OTHER | LOC: M SLEEP 20:00 | PROVIDERS: ATTEND Internal Medicine Pulmonary Disease | DX: G47.33 Obstructive sleep apnea (adult) (pediatric) (principal) ==

== ENCOUNTER 2024-12-22 08:49 | Emergency (ER) | payer MEDICAID, OTHER ==
[~2024-12-22] VITALS: Ht 167.6 cm; Wt 68.2 kg
[2024-12-22] MEDS: LABETALOL 100 MG/20 ML VIAL IV STA (09:26)
[2024-12-22 09:39] LABS: PLATELET COUNT, AUTOMATED 274 10^3/uL (150-450)
[2024-12-22 10:01] LABS: ALT/SGPT 19 U/L (7.0-40); AST/SGOT 18 U/L (<34); CALCIUM LEVEL 8.9 MG/DL (8.5-10.1); CARBON DIOXIDE LEVEL 27 MMOL/L (20-31); CHLORIDE LEVEL 96 MMOL/L (98-107); CREATININE FOR GFR 0.48 MG/DL (0.55-1.30); GLOMERULAR FILTRATION RATE > 90.0 (>51); POTASSIUM SERUM 4.6 MMOL/L (3.5-5.1); SODIUM LEVEL 136 MMOL/L (136-145)
[2024-12-22] MEDS: LABETALOL 100 MG TAB PO ONE (10:15)
[2024-12-22] MEDS: CHLORTHALIDONE 25 MG TAB PO ONE (10:53)
[2024-12-22 13:00] VITALS: BP 194/92; TEMP 98.2; O2SAT 98
== END 2024-12-22 13:10 | disposition home or self-care (01) ==
LOC: M ED 08:49
DX: I10 Essential (primary) hypertension (principal); E11.65 Type 2 diabetes mellitus with hyperglycemia; I44.0 Atrioventricular block, first degree; I25.2 Old myocardial infarction; E78.5 Hyperlipidemia, unspecified; Z88.8 Allergy status to other drugs, medicaments and biological substances; Z79.51 Long term (current) use of inhaled steroids; Z79.84 Long term (current) use of oral hypoglycemic drugs; Z79.2 Long term (current) use of antibiotics; Z79.899 Other long term (current) drug therapy
CPT/HCPCS: 70450; 71045; 80048; 80076; 84443; 85027; 93005; 96374; 99284; J1920

== ENCOUNTER 2025-01-15 19:32 | Emergency (ER) | payer MEDICAID, OTHER ==
[~2025-01-15] VITALS: Ht 167.6 cm; Wt 96.5 kg
[2025-01-15 19:35] VITALS: TEMP 96.8
[2025-01-15 20:22] LABS: BASO # 0.1 10^3/uL (0.0-0.2); BASO % 0.4 % (0.0-1.0); EOS # 0.5 10^3/uL (0.0-0.5); EOS % 3.7 % (0.0-3.0); LYMPH # 2.1 10^3/uL (1.5-5.0); LYMPH % 16.3 % (24.0-44.0); MONO # 0.7 10^3/uL (0.0-0.8); MONO % 5.4 % (2.0-8.0); NEUTROPHILS # 9.7 10^3/uL (1.5-8.5); NEUTROPHILS % 73.9 % (36.0-66.0); PLATELET COUNT, AUTOMATED 292 10^3/uL (150-450)
[2025-01-15] MEDS: FAMOTIDINE 20 MG/2 ML VIAL IVP ONE (20:32)
[2025-01-15 20:34] LABS: KETONE, URINE AUTO RFX NEGATIVE (NEGATIVE); MUCUS, URINE RFX SMALL (NEGATIVE); RBC, URINE AUTO RFX 5 /HPF (0-3); SQUAM EPITHELIAL CELL UR AURFX 3 /HPF (0-6); TRANSITIONAL EPITHELIAL AU RFX 1 /HPF
[2025-01-15 20:36] LABS: LEUKOCYTE ESTERASE UR AUTO RFX 2+ (NEGATIVE); NITRITE, URINE AUTO RFX POSITIVE (NEGATIVE); WBC, URINE AUTO RFX 120 /HPF (0-3)
[2025-01-15] MEDS ORDERED: ISOVUE-370 76% 100 ML VIAL As Ordered ONE (20:44)
[2025-01-15 20:45] LABS: CK-MB VALUE MASS 2.3 NG/ML (<3.6)
[2025-01-15 20:47] LABS: ALT/SGPT 20 U/L (7.0-40); AST/SGOT 22 U/L (<34); CALCIUM LEVEL 8.5 MG/DL (8.5-10.1); CARBON DIOXIDE LEVEL 29 MMOL/L (20-31); CHLORIDE LEVEL 102 MMOL/L (98-107); CREATININE FOR GFR 0.64 MG/DL (0.55-1.30); GLOMERULAR FILTRATION RATE > 90.0 (>51); POTASSIUM SERUM 4.0 MMOL/L (3.5-5.1); SODIUM LEVEL 143 MMOL/L (136-145)
[2025-01-15 20:51] LABS: CPK CREATINE PHOSPHOKINASE 87 U/L (34-145); MB/CK RELATIVE INDEX 2.64 (< OR =4)
[2025-01-15] MEDS ORDERED: NITR100C3 PO (22:30)
[2025-01-15] MEDS ORDERED: PHEN-372 PO (22:30)
[2025-01-15] MEDS ORDERED: ONDA-282 PO (22:38)
[2025-01-15] MEDS: NITROFURANTOIN 100 MG CAP PO ONE (22:40)
[2025-01-15] MEDS: PHENAZOPYRIDINE 100 MG TAB PO ONE (22:40)
[2025-01-15 22:45] VITALS: BP 163/69; O2SAT 96
== END 2025-01-15 22:49 | disposition home or self-care (01) ==
LOC: M ED 19:32
DX: N39.0 Urinary tract infection, site not specified (principal); K80.20 Calculus of gallbladder without cholecystitis without obstruction; K40.90 Unilateral inguinal hernia, without obstruction or gangrene, not specified as recurrent; T88.7XXA Unspecified adverse effect of drug or medicament, initial encounter; I44.0 Atrioventricular block, first degree; E11.9 Type 2 diabetes mellitus without complications; I10 Essential (primary) hypertension; E78.5 Hyperlipidemia, unspecified; D33.7 Benign neoplasm of other specified parts of central nervous system; Z88.8 Allergy status to other drugs, medicaments and biological substances
CPT/HCPCS: 71045; 74177; 80047; 80048; 80076; 81001; 82550; 82553; 83605; 83690; 84484; 85025; 87088; 87186; 93005; 96374; 96375; 99284; J1308; J2765; Q9967